=== PATIENT | female | born 1955 | race Caucasian/White ===

== ENCOUNTER 2016-12-08 13:03 | Inpatient (IN) | payer BC ==
--- NOTE | 2016-12-08 13:37 | EDM.PDOC ---
ED HPI GI/ABDOMINAL - General Chief Complaint: Abdominal Pain Stated Complaint: DIVERTICULITIS Time Seen by Provider: 12/08/16 13:36 Source of Information: Reports: Patient History Limitations: Reports: No limitations - History of Present Illness INITIAL COMMENTS - FREE TEXT/NARRATIVE: 61-year-old female presents to the ED at the request of her primary care physician Dr. Peg Fan. Laura seen through the [facility] yesterday and diagnosed with diverticulitis on the left side of the colon by CT examination. She was doing otherwise well and was thus sent home on oral medications. However overnight she developed fever chills and increasing abdominal pain. She was therefore sent to the ED for further workup and likely need for admission to the hospital.she is unable to eat. She had a small piece of banana only in the last 24 hours. Symptom Onset Date: 12/05/16 (pain became much worse left lower quadrant yesterday morning.) Timing/Duration: Reports: Day(s):, Gradual onset Location: LLQ Quality: Reports: ache, cramping, fullness Severity: severe Improves with: Denies: defecating Worsens with: Reports: sitting up. Denies: defecating Context: Reports: other (confirmed diverticulitis of the rectosigmoid junction on CT scan done yesterday). Denies: sick contact, bad/questionable food, out of country travel, recent surgery, recent trauma, lifting, activity/exercise Associated Symptoms (-Female): Reports: diarrhea (2 loose stools with mucus and blood.), bloody stools, loss of appetite, malaise, nausea/vomiting, other ( nausea without vomitingunable to eat at all since yesterday.). Denies: chest pain, back pain, groin pain, shoulder pain, constipation Treatments IMPORT COORDINATOR: Reports: Other (see below) - Related Data Allergies/ADRs: Allergies Allergy/AdvReac Type Severity Reaction Status Date / Time cefuroxime [From Ceftin] Allergy Cannot Verified 12/08/16 19:18 Remember clindamycin Allergy Cannot Verified 12/08/16 19:18 Remember nitrofurantoin Allergy Cannot Verified 12/08/16 19:18 [From Macrobid] Remember Penicillins Allergy unknown Verified 12/08/16 19:18 Sulfa (Sulfonamide Allergy Hives Verified 12/08/16 19:18 Antibiotics) zoster vaccine live Allergy Cannot Verified 12/08/16 19:18 [From Zostavax (PF)] Remember dust Allergy Cannot Uncoded 12/08/16 19:18 Remember Home Meds: Home Meds Aspirin [Adult Low Dose Aspirin EC] 81 mg PO DAILY 10/18/16 [History] Calcium Carbonate/Vitamin D3 [Calcium 500 + Vit D 400] 1 each PO BID 10/18/16 [ History] Calcium Polycarbophil [Fibercon] 625 mg PO BID 10/18/16 [History] Cetirizine [ZyrTEC] 10 mg PO BEDTIME 10/18/16 [History] Famotidine [Pepcid AC] 10 mg PO BID 10/18/16 [History] Levothyroxine [Synthroid] 25 mcg PO MOFR 10/18/16 [History] Levothyroxine [Synthroid] 50 mcg PO SUTUWETHSA 10/18/16 [History] Losartan [Cozaar] 25 mg PO DAILY 10/18/16 [History] Magnesium Oxide 400 mg PO BID 10/18/16 [History] Mycophenolate Mofetil 1,000 mg PO BID 10/18/16 [History] Probiotic Complex 25 Billion Cfu's 1 tab PO DAILY 10/18/16 [History] Simvastatin [Zocor] 10 mg PO BEDTIME 10/18/16 [History] Tacrolimus 0.5 mg PO BID 10/18/16 [History] Ultra Wil 50 Plus. 1 tab PO DAILY 10/18/16 [History] busPIRone [Buspar] 7.5 mg PO BID 10/18/16 [History] Acetaminophen [Tylenol] 500 mg PO Q6H PRN 12/08/16 [History] Albuterol [Proventil HFA] 2 puff INH Q4H PRN 12/08/16 [History] Carvedilol [Coreg] 3.125 mg PO BID 12/08/16 [History] LORazepam [Ativan] 0.5 mg PO Q12H PRN 12/08/16 [History] Pantoprazole [Protonix] 40 mg PO DAILY 12/08/16 [History] metroNIDAZOLE [Flagyl] 500 mg PO TID #0 12/12/16 [Rx] Past Medical History HEENT History: Reports: Cataract, Impaired vision Other HEENT History: Wears glasses, braces Cardiovascular History: Reports: Afib, Arrhythmia, Automatic implantable cardioverter defibrillators, Cardiomyopathy, High cholesterol, Hypertension Other Cardiovascular History: heart transplant in 2008: prior to transplant had asystole, mitral and aortic valce insufficeincy, afib, cardiomyopathy Gastrointestinal History: Reports: Chronic diarrhea, Colon polyp, Diverticulosis , GERD, Other (see below) Other Gastrointestinal History: hematochezia, abdominal pain Genitourinary History: Reports: UTI, recurrent Musculoskeletal History: Reports: Other (see below) Other Musculoskeletal History: muslce spasms Neurological History: Reports: Migraines, Vertigo Psychiatric History: Reports: Anxiety, Depression Endocrine/Metabolic History: Reports: Hypothyroidism Immunologic History: Reports: Solid organ transplant Dermatologic History: Reports: Psoriasis - Past Surgical History GI Surgical History: Reports: Appendectomy, Cholecystectomy, Colonoscopy Social & Family History - Family History Family Medical History: Noncontributory Cardiac: Reports: Heart failure, [place] - Tobacco Use Smoking Status *Q: Never Smoker Years of Tobacco use: 30 Packs/Tins Daily: 0.5 Month Tobacco Last Used: 2002 Second Hand Smoke Exposure: No - Caffeine Use Caffeine Use: Reports: Coffee - Alcohol Use Days Per Week of Alcohol Use: 0 Number of Drinks Per Day: 0 Total Drinks Per Week: 0 - Recreational Drug Use Recreational Drug Use: No Drug Use in Last 12 Months: No - Living Situation & Occupation Living situation: Reports: single Occupation: employed ED ROS GENERAL - Review of Systems Review Of Systems: See Below Constitutional: Reports: fever, chills, malaise, weakness, fatigue, decreased appetite. Denies: weight loss HEENT: Reports: No symptoms Respiratory: Reports: No Symptoms Cardiovascular: Reports: No symptoms Endocrine: Reports: fatigue GI/Abdominal: Reports: Abdominal pain (see history of present illness), Diarrhea (loose stools with a little bit of mucus and blood.), Decreased appetite, Mucous in stool, Nausea. Denies: Melena, Vomiting : Reports: no symptoms Musculoskeletal: Reports: no symptoms Skin: Reports: no symptoms Neurological: Reports: No Symptoms Psychiatric: Reports: No symptoms Hematologic/Lymphatic: Reports: no symptoms Immunologic: Reports: no symptoms ED EXAM, GI/ABD - Physical Exam Exam: See Below Exam Limited By: No limitations General Appearance: alert, WD/WN, moderate distress, other (appears ill) Eyes: bilateral: normal appearance (no jaundice) Throat/Mouth: Normal lips, Other (tongue is dry and coated) Head: atraumatic, normocephalic Neck: normal inspection, supple, non-tender, full range of motion. No: lymphadenopathy (L), lymphadenopathy (R) Respiratory/Chest: no respiratory distress, lungs clear, normal breath sounds, no accessory muscle use Cardiovascular: normal peripheral pulses, regular rate, rhythm (100 with 100% paced rhythm at 60 per minute is a heart transplantation x9 years), no edema, no gallop, no murmur, no rub GI/Abdominal: no organomegaly, hyperactive bowel sounds, tenderness (even to light percussion throughout the left lower quadrant and suprapubic abdomen.), distention (diffusely today to percussion.), guarding (suprapubically and left lower quadrant.), rebound (suprapubically and left lower quadrant.). No: rigidity, splenomegaly Back Exam: normal inspection, full range of motion. No: CVA tenderness (L), CVA tenderness (R) Extremities: normal inspection, normal range of motion, non-tender, no pedal edema, normal capillary refill Neurological: alert, oriented, CN II-XII intact, normal cognition, normal gait Psychiatric: normal affect, normal mood Skin Exam: Warm, Dry, Intact, Normal color, No rash EKG INTERPRETATION EKG Date: 12/08/16 Time: 14:40 Rhythm: other (100% ventricular paced rhythm at 60 per minute. No further analysis attempted.) Course - Vital Signs Last Recorded V/S: Last Vital Signs Temp 36.7 C 12/12/16 15:42 Pulse 94 12/12/16 15:42 Resp 18 12/12/16 15:42 BP 107/75 12/12/16 15:42 Pulse Ox 93 L 12/12/16 15:42 - Orders/Labs/Meds Orders: Medication Orders Acetaminophen (Tylenol) 650 mg PO Q4H PRN PRN Reason: Pain (Mild 1-3)/fever Last Admin: 12/12/16 11:42 Dose: 650 mg Admin: 12/11/16 03:11 Dose: 650 mg Acetaminophen/Hydrocodone Bitart ([place] 325-5 Mg) 1 tab PO Q4H PRN PRN Reason: Pain (moderate 4-6) Last Admin: 12/12/16 07:30 Dose: 1 tab Admin: 12/11/16 23:34 Dose: 1 tab Admin: 12/11/16 16:18 Dose: 1 tab Admin: 12/08/16 21:23 Dose: 1 tab Albuterol (Proventil Hfa) 0 gm INH Q4H PRN PRN Reason: Wheezing Albuterol/Ipratropium (Duoneb 3.0-0.5 Mg/3 Ml) 3 ml NEB Q4H PRN PRN Reason: Shortness Of Breath/wheezing Aspirin (Halfprin) 81 mg PO DAILY [facility] Last Admin: 12/12/16 09:25 Dose: 81 mg Admin: 12/11/16 08:50 Dose: 81 mg Admin: 12/10/16 09:26 Dose: 81 mg Admin: 12/09/16 08:54 Dose: 81 mg Buspirone HCl (Buspar) 7.5 mg PO BID [facility] Last Admin: 12/12/16 09:23 Dose: 7.5 mg Admin: 12/11/16 21:25 Dose: 7.5 mg Admin: 12/11/16 08:48 Dose: 7.5 mg Admin: 12/10/16 23:34 Dose: Not Given Admin: 12/10/16 09:26 Dose: 7.5 mg Admin: 12/09/16 20:51 Dose: 7.5 mg Admin: 12/09/16 08:54 Dose: 7.5 mg Admin: 12/08/16 21:15 Dose: 7.5 mg Calcium Polycarbophil (Fibercon) 625 mg PO BID [facility] Last Admin: 12/12/16 09:31 Dose: 625 mg Admin: 12/11/16 21:24 Dose: Not Given Admin: 12/11/16 08:53 Dose: Admin: 12/10/16 23:34 Dose: Not Given Admin: 12/10/16 09:26 Dose: 625 mg Admin: 12/09/16 20:53 Dose: 625 mg Admin: 12/09/16 08:53 Dose: 625 mg Admin: 12/08/16 21:18 Dose: 625 mg Carvedilol (Coreg) 3.125 mg PO BID [facility] Last Admin: 12/12/16 09:25 Dose: 3.125 mg Admin: 12/11/16 21:26 Dose: Not Given Admin: 12/11/16 08:46 Dose: 3.125 mg Admin: 12/10/16 23:34 Dose: Not Given Admin: 12/10/16 09:26 Dose: 3.125 mg Admin: 12/09/16 20:52 Dose: 3.125 mg Admin: 12/09/16 08:54 Dose: 3.125 mg Admin: 12/08/16 21:17 Dose: 3.125 mg Famotidine (Pepcid) 10 mg PO BID [facility] Last Admin: 12/12/16 09:24 Dose: 10 mg Admin: 12/11/16 21:28 Dose: 10 mg Admin: 12/11/16 08:49 Dose: 10 mg Admin: 12/10/16 23:34 Dose: Not Given Admin: 12/10/16 09:26 Dose: 10 mg Admin: 12/09/16 20:51 Dose: 10 mg Admin: 12/09/16 08:53 Dose: 10 mg Admin: 12/08/16 21:16 Dose: 10 mg Guaifenesin/Phenylephrine HCl (Robitussin Dm) 10 ml PO QID PRN PRN Reason: Cough Last Admin: 12/11/16 03:38 Dose: 10 ml Admin: 12/10/16 21:53 Dose: 10 ml Admin: 12/10/16 13:57 Dose: 10 ml Hydralazine HCl (Apresoline) 20 mg IVPUSH Q4H PRN PRN Reason: Hypertension Hydromorphone HCl (Dilaudid) 0.5 mg IVPUSH Q3H PRN PRN Reason: Pain (severe 7-10) Last Admin: 12/08/16 17:49 Dose: 0.5 mg Promethazine HCl 12.5 mg/ (Sodium Chloride) 50.5 mls @ 100 mls/hr IV Q6H PRN PRN Reason: Nausea/Vomiting Metronidazole 500 mg/ Premix 100 mls @ 100 mls/hr IV Q8H [facility] Last Admin: 12/12/16 14:35 Dose: 100 mls/hr Infusion: 12/12/16 07:00 Dose: 100 mls/hr Admin: 12/12/16 06:00 Dose: 100 mls/hr Infusion: 12/11/16 22:18 Dose: 100 mls/hr Admin: 12/11/16 21:18 Dose: 100 mls/hr Infusion: 12/11/16 14:26 Dose: 100 mls/hr Admin: 12/11/16 13:26 Dose: 100 mls/hr Infusion: 12/11/16 07:09 Dose: 100 mls/hr Admin: 12/11/16 06:09 Dose: 100 mls/hr Infusion: 12/10/16 22:57 Dose: 100 mls/hr Admin: 12/10/16 21:57 Dose: 100 mls/hr Infusion: 12/10/16 14:57 Dose: 100 mls/hr Admin: 12/10/16 13:57 Dose: 100 mls/hr Infusion: 12/10/16 07:17 Dose: 100 mls/hr Admin: 12/10/16 06:17 Dose: 100 mls/hr Infusion: 12/09/16 22:00 Dose: 100 mls/hr Admin: 12/09/16 21:00 Dose: 100 mls/hr Infusion: 12/09/16 16:14 Dose: 100 mls/hr Admin: 12/09/16 15:14 Dose: 100 mls/hr Infusion: 12/09/16 06:53 Dose: 100 mls/hr Admin: 12/09/16 05:53 Dose: 100 mls/hr Infusion: 12/08/16 22:18 Dose: 100 mls/hr Admin: 12/08/16 21:18 Dose: 100 mls/hr Levofloxacin/Dextrose 250 mg/ (Premix) 50 mls @ 50 mls/hr IV Q24H [facility] Last Admin: 12/12/16 15:41 Dose: 50 mls/hr Infusion: 12/11/16 17:18 Dose: 50 mls/hr Admin: 12/11/16 16:18 Dose: 50 mls/hr Infusion: 12/10/16 16:09 Dose: 50 mls/hr Admin: 12/10/16 15:09 Dose: 50 mls/hr Dextrose/Sodium Chloride (Dextrose 5%-Normal Saline) 1,000 mls @ 50 mls/hr IV ASDIRECTED [facility] Last Admin: 12/11/16 23:35 Dose: 50 mls/hr Magnesium Sulfate 2 gm/ Premix 50 mls @ 25 mls/hr IV ONETIME ONE Stop: 12/12/16 21:59 Levothyroxine Sodium (Synthroid) 25 mcg PO MoFr@0600 [facility] Last Admin: 12/11/16 06:10 Dose: 25 mcg Levothyroxine Sodium (Synthroid) 50 mcg PO SuTuWeThSa@0600 [facility] Last Admin: 12/12/16 06:00 Dose: 50 mcg Admin: 12/10/16 06:18 Dose: 50 mcg Admin: 12/09/16 05:53 Dose: 50 mcg Loratadine (Claritin) 10 mg PO BEDTIME [facility] Last Admin: 12/11/16 21:30 Dose: 10 mg Admin: 12/10/16 23:34 Dose: Not Given Admin: 12/09/16 20:50 Dose: 10 mg Admin: 12/08/16 21:17 Dose: 10 mg Lorazepam (Ativan) 0.5 mg PO Q12H PRN PRN Reason: Anxiety Last Admin: 12/12/16 11:43 Dose: 0.5 mg Admin: 12/11/16 03:38 Dose: 0.5 mg Lorazepam (Ativan) 1 mg IV Q6H PRN PRN Reason: Nausea/Vomiting Last Admin: 12/11/16 12:41 Dose: 1 mg Admin: 12/10/16 22:52 Dose: 1 mg Admin: 12/10/16 16:58 Dose: 1 mg Admin: 12/10/16 09:27 Dose: 1 mg Admin: 12/09/16 20:50 Dose: 1 mg Admin: 12/09/16 16:36 Dose: 1 mg Admin: 12/09/16 10:22 Dose: 1 mg Admin: 12/09/16 04:27 Dose: 1 mg Losartan Potassium (Cozaar) 25 mg PO DAILY [facility] Last Admin: 12/12/16 09:26 Dose: 25 mg Admin: 12/11/16 08:49 Dose: 25 mg Admin: 12/10/16 09:27 Dose: 25 mg Admin: 12/09/16 08:54 Dose: 25 mg Magnesium Oxide (Magnesium Oxide) 800 mg PO BID [facility] Last Admin: 12/12/16 09:25 Dose: 800 mg Admin: 12/11/16 21:30 Dose: 800 mg Admin: 12/11/16 08:46 Dose: 800 mg Admin: 12/10/16 23:34 Dose: Not Given Admin: 12/10/16 12:56 Dose: 800 mg Magnesium Sulfate (Pharmacy To Dose - Magnesium Replacement) 0 dose .XX ASDIRECTED PRN PRN Reason: RX TO MONITOR MAG LEVELS Metoprolol Tartrate (Lopressor) 5 mg IVPUSH Q4H PRN PRN Reason: Tachycardia Mycophenolate 500mg (TabOwn Med) 2 each PO BID [facility] Last Admin: 12/12/16 09:26 Dose: 2 each Admin: 12/11/16 21:32 Dose: 2 each Admin: 12/11/16 08:54 Dose: 2 each Admin: 12/10/16 21:55 Dose: 2 each Admin: 12/10/16 09:28 Dose: 2 each Admin: 12/09/16 21:06 Dose: 2 each Admin: 12/09/16 08:56 Dose: 2 each Admin: 12/08/16 21:54 Dose: 2 each Ondansetron HCl (Zofran) 4 mg IV Q6H PRN PRN Reason: Nausea/Vomiting Last Admin: 12/10/16 19:34 Dose: 4 mg Admin: 12/10/16 09:25 Dose: 4 mg Admin: 12/09/16 04:27 Dose: 4 mg Ondansetron HCl (Zofran Odt) 4 mg PO Q4H PRN PRN Reason: Nausea/Vomiting Last Admin: 12/12/16 15:40 Dose: 4 mg Pantoprazole Sodium (Protonix) 40 mg PO DAILY@0700 [facility] Last Admin: 12/12/16 06:00 Dose: 40 mg Admin: 12/11/16 06:09 Dose: 40 mg Admin: 12/10/16 06:17 Dose: 40 mg Admin: 12/09/16 07:01 Dose: Admin: 12/09/16 05:54 Dose: 40 mg Tacrolimus 0.5 Mg (Tab Own Med) 0 each PO BID [facility] Last Admin: 12/12/16 09:27 Dose: 4 each Admin: 12/11/16 21:31 Dose: 4 each Admin: 12/11/16 08:54 Dose: 4 each Admin: 12/10/16 21:56 Dose: 4 each Admin: 12/10/16 09:29 Dose: 4 each Admin: 12/09/16 21:06 Dose: 5 each Admin: 12/09/16 10:24 Dose: 4 each Calcium Carbonate/Vitamin D3 600 Mg/400 Units Tab Own Med 0 each PO BID [facility] Last Admin: 12/12/16 09:27 Dose: 1 each Admin: 12/11/16 21:32 Dose: 1 each Admin: 12/11/16 08:54 Dose: 1 each Admin: 12/10/16 23:34 Dose: Not Given Admin: 12/10/16 09:29 Dose: 1 each Admin: 12/09/16 21:06 Dose: 1 each Admin: 12/09/16 10:25 Dose: 1 each Potassium Chloride (Pharmacy To Dose - Potassium Replacement) 0 dose .XX ASDIRECTED PRN PRN Reason: RX TO MONITOR K LEVELS Promethazine HCl (Phenergan) 12.5 mg PO Q6H PRN PRN Reason: Nausea/Vomiting Saccharomyces Boulardii (Florastor) 250 mg PO DAILY [facility] Last Admin: 12/12/16 09:23 Dose: 250 mg Admin: 12/11/16 08:50 Dose: 250 mg Admin: 12/10/16 09:25 Dose: 250 mg Admin: 12/09/16 08:53 Dose: 250 mg Simvastatin (Zocor) 10 mg PO BEDTIME [facility] Last Admin: 12/11/16 21:33 Dose: 10 mg Admin: 12/10/16 23:35 Dose: Not Given Admin: 12/09/16 20:51 Dose: 10 mg Admin: 12/08/16 21:15 Dose: 10 mg Temazepam (Restoril) 30 mg PO BEDTIME PRN PRN Reason: Sleep Vit A/Vit C/Vit E/Selen/Cu/Zn/Lutei (Icaps Mv) 1 tab PO DAILY [facility] Last Admin: 12/12/16 09:23 Dose: 1 tab Admin: 12/11/16 08:46 Dose: 1 tab Admin: 12/10/16 09:25 Dose: 1 tab Admin: 12/09/16 08:53 Dose: 1 tab Labs: Laboratory Tests 12/08/16 12/08/16 12/08/16 Range/Units 14:25 14:25 14:25 WBC 11.10 H (3.98-10.04) K/mm3 RBC 4.07 (3.98-5.22) M/mm3 Hgb 11.5 (11.2-15.7) gm/L Hct 35.0 (34.1-44.9) % MCV 86.0 (79.4-94.8) fl MCH 28.3 (25.6-32.2) pg MCHC 32.9 (32.2-35.5) g/dl RDW Std Deviation 38.7 (36.4-46.3) fL Plt Count 245 (182-369) K/mm3 MPV 10.6 (9.4-12.3) fl Neutrophils % (Manual) 64 H (40-60) % Band Neutrophils % 0 (0-10) % Lymphocytes % (Manual) 31 (20-40) % Atypical Lymphs % 0 % Monocytes % (Manual) 1 L (2-10) % Eosinophils % (Manual) 4 (0.7-5.8) % Basophils % (Manual) 0 L (0.1-1.2) Platelet Estimate Adequate Anisocytosis 1+ slight RBC Morph Comment Not Reportable PT 10.5 (8.0-13.0) SECONDS INR 0.97 Sodium 134 L (136-145) mEq/L Potassium 4.3 (3.5-5.1) mEq/L Chloride 97 L (98-107) mEq/L Carbon Dioxide 29 (21-32) mEq/L Anion Gap 12.3 (5-15) BUN 22 H (7-18) mg/dL Creatinine 1.3 H (0.55-1.02) mg/dL Est Cr Clr Drug Dosing 44.19 mL/min Estimated GFR (MDRD) 42 (>60) mL/min BUN/Creatinine Ratio 16.9 (14-18) Glucose 96 (80-115) mg/dL Calcium 9.2 (8.5-10.1) mg/dL Magnesium 1.6 L (1.8-2.4) mg/dl Total Bilirubin 0.6 (0.2-1.0) mg/dL AST 25 (15-37) U/L ALT 37 (14-59) U/L Alkaline Phosphatase 142 H (46-116) U/L C-Reactive Protein 8.9 H* (<1.0) mg/dL B-Natriuretic Peptide (0-100) pg/mL Total Protein 7.2 (6.4-8.2) g/dl Albumin 3.5 (3.4-5.0) g/dl Globulin 3.7 gm/dL Albumin/Globulin Ratio 1.0 (1-2) Lipase 139 (73-393) U/L 12/08/16 Range/Units 14:25 WBC (3.98-10.04) K/mm3 RBC (3.98-5.22) M/mm3 Hgb (11.2-15.7) gm/L Hct (34.1-44.9) % MCV (79.4-94.8) fl MCH (25.6-32.2) pg MCHC (32.2-35.5) g/dl RDW Std Deviation (36.4-46.3) fL Plt Count (182-369) K/mm3 MPV (9.4-12.3) fl Neutrophils % (Manual) (40-60) % Band Neutrophils % (0-10) % Lymphocytes % (Manual) (20-40) % Atypical Lymphs % % Monocytes % (Manual) (2-10) % Eosinophils % (Manual) (0.7-5.8) % Basophils % (Manual) (0.1-1.2) Platelet Estimate Anisocytosis RBC Morph Comment PT (8.0-13.0) SECONDS INR Sodium (136-145) mEq/L Potassium (3.5-5.1) mEq/L Chloride (98-107) mEq/L Carbon Dioxide (21-32) mEq/L Anion Gap (5-15) BUN (7-18) mg/dL Creatinine (0.55-1.02) mg/dL Est Cr Clr Drug Dosing mL/min Estimated GFR (MDRD) (>60) mL/min BUN/Creatinine Ratio (14-18) Glucose (80-115) mg/dL Calcium (8.5-10.1) mg/dL Magnesium (1.8-2.4) mg/dl Total Bilirubin (0.2-1.0) mg/dL AST (15-37) U/L ALT (14-59) U/L Alkaline Phosphatase (46-116) U/L C-Reactive Protein (<1.0) mg/dL B-Natriuretic Peptide 59 (0-100) pg/mL Total Protein (6.4-8.2) g/dl Albumin (3.4-5.0) g/dl Globulin gm/dL Albumin/Globulin Ratio (1-2) Lipase (73-393) U/L Meds: Medications Generic Name Dose Route Start Last Admin Trade Name Freq PRN Reason Stop Dose Admin Acetaminophen 650 mg 12/08/16 17:25 12/12/16 11:42 Tylenol PO 650 mg Q4H PRN Administration Pain (Mild 1-3)/fever Acetaminophen/Hydrocodone Bitart 1 tab 12/08/16 17:25 12/12/16 07:30 [place] 325-5 Mg PO 1 tab Q4H PRN Administration Pain (moderate 4-6) Albuterol 0 gm 12/08/16 17:26 Proventil Hfa INH Q4H PRN Wheezing Albuterol/Ipratropium 3 ml 12/08/16 17:25 Duoneb 3.0-0.5 Mg/3 Ml NEB Q4H PRN Shortness Of Breath/wheezing Aspirin 81 mg 12/09/16 09:00 12/12/16 09:25 Halfprin PO 81 mg DAILY [facility] Administration Buspirone HCl 7.5 mg 12/08/16 21:00 12/12/16 09:23 Buspar PO 7.5 mg BID [facility] Administration Calcium Polycarbophil 625 mg 12/08/16 21:00 12/12/16 09:31 Fibercon PO 625 mg BID [facility] Administration Carvedilol 3.125 mg 12/08/16 21:00 12/12/16 09:25 Coreg PO 3.125 mg BID [facility] Administration Famotidine 10 mg 12/08/16 21:00 12/12/16 09:24 Pepcid PO 10 mg BID [facility] Administration Guaifenesin/Phenylephrine HCl 10 ml 12/10/16 12:59 12/11/16 03:38 Robitussin Dm PO 10 ml QID PRN Administration Cough Hydralazine HCl 20 mg 12/08/16 17:31 Apresoline IVPUSH Q4H PRN Hypertension Hydromorphone HCl 0.5 mg 12/08/16 17:25 12/08/16 17:49 Dilaudid IVPUSH 0.5 mg Q3H PRN Administration Pain (severe 7-10) Promethazine HCl 12.5 mg/ 50.5 mls @ 100 mls/hr 12/08/16 17:25 Sodium Chloride IV Q6H PRN Nausea/Vomiting Metronidazole 500 mg/ Premix 100 mls @ 100 mls/hr 12/08/16 22:00 12/12/16 14: 35 IV 100 mls/hr Q8H [facility] Administration Levofloxacin/Dextrose 250 mg/ 50 mls @ 50 mls/hr 12/10/16 16:00 12/12/16 15: 41 Premix IV 50 mls/hr Q24H [facility] Administration Dextrose/Sodium Chloride 1,000 mls @ 50 mls/hr 12/11/16 18:00 12/11/16 23:35 Dextrose 5%-Normal Saline IV 50 mls/hr ASDIRECTED [facility] Administration Magnesium Sulfate 2 gm/ Premix 50 mls @ 25 mls/hr 12/12/16 20:00 IV 12/12/16 21:59 ONETIME ONE Levothyroxine Sodium 25 mcg 12/11/16 06:00 12/11/16 06:10 Synthroid PO 25 mcg MoFr@0600 [facility] Administration Levothyroxine Sodium 50 mcg 12/09/16 06:00 12/12/16 06:00 Synthroid PO 50 mcg SuTuWeThSa@0600 [facility] Administration Loratadine 10 mg 12/08/16 21:00 12/11/16 21:30 Claritin PO 10 mg BEDTIME [facility] Administration Lorazepam 0.5 mg 12/08/16 17:26 12/12/16 11:43 Ativan PO 0.5 mg Q12H PRN Administration Anxiety Lorazepam 1 mg 12/08/16 17:25 12/11/16 12:41 Ativan IV 1 mg Q6H PRN Administration Nausea/Vomiting Losartan Potassium 25 mg 12/09/16 09:00 12/12/16 09:26 Cozaar PO 25 mg DAILY [facility] Administration Magnesium Oxide 800 mg 12/10/16 11:15 12/12/16 09:25 Magnesium Oxide PO 800 mg BID [facility] Administration Magnesium Sulfate 0 dose 12/08/16 17:45 Pharmacy To Dose - Magnesium Replacement .XX ASDIRECTED PRN RX TO MONITOR MAG LEVELS Metoprolol Tartrate 5 mg 12/08/16 17:31 Lopressor IVPUSH Q4H PRN Tachycardia Mycophenolate 500mg 2 each 12/08/16 22:00 12/12/16 09:26 TabOwn Med PO 2 each BID EDUARDO Administration Ondansetron HCl 4 mg 12/08/16 17:25 12/10/16 19:34 Zofran IV 4 mg Q6H PRN Administration Nausea/Vomiting Ondansetron HCl 4 mg 12/11/16 08:07 12/12/16 15:40 Zofran Odt PO 4 mg Q4H PRN Administration Nausea/Vomiting Pantoprazole Sodium 40 mg 12/09/16 07:00 12/12/16 06:00 Protonix PO 40 mg DAILY@0700 EDUARDO Administration Tacrolimus 0.5 Mg 0 each 12/09/16 09:21 12/12/16 09:27 Tab Own Med PO 4 each BID EDUARDO Administration Calcium Carbonate/ 0 each 12/09/16 09:23 12/12/16 09:27 Vitamin D3 600 Mg/ PO 1 each 400 Units Tab Own BID EDUARDO Administration Med Potassium Chloride 0 dose 12/08/16 17:45 Pharmacy To Dose - Potassium Replacement .XX ASDIRECTED PRN RX TO MONITOR K LEVELS Promethazine HCl 12.5 mg 12/11/16 08:07 Phenergan PO Q6H PRN Nausea/Vomiting Saccharomyces Boulardii 250 mg 12/09/16 09:00 12/12/16 09:23 Florastor PO 250 mg DAILY EDUARDO Administration Simvastatin 10 mg 12/08/16 21:00 12/11/16 21:33 Zocor PO 10 mg BEDTIME EDUARDO Administration Temazepam 30 mg 12/08/16 17:25 Restoril PO BEDTIME PRN Sleep Vit A/Vit C/Vit E/Selen/Cu/Zn/Lutei 1 tab 12/09/16 09:00 12/12/16 09:23 Icaps Mv PO 1 tab DAILY EDUARDO Administration Discontinued Medications Generic Name Dose Route Start Last Admin Trade Name Freq PRN Reason Stop Dose Admin Acetaminophen 500 mg 12/08/16 17:26 Tylenol PO Q6H PRN Pain Bumetanide 0.5 mg 12/11/16 17:13 12/11/16 17:39 Bumex IVPUSH 12/11/16 17:14 0.5 mg ONETIME ONE Administration Diphtheria/Tetanus/Acell Pertussis 0.5 ml 12/11/16 09:32 Boostrix IM 12/11/16 09:33 .ONCE ONE Enoxaparin Sodium 40 mg 12/09/16 09:00 12/10/16 09:27 Lovenox SUBCUT 40 mg DAILY EDUARDO Administration Hydromorphone HCl 0.5 mg 12/08/16 14:17 12/08/16 14:53 Dilaudid IVPUSH 12/08/16 14:18 0.5 mg ONETIME ONE Administration Dextrose/Sodium Chloride 1,000 mls @ 150 mls/hr 12/08/16 14:15 12/11/16 14:16 Dextrose 5%-Normal Saline IV 150 mls/hr ASDIRECTED EDUARDO Administration Levofloxacin/Dextrose 750 mg/ 150 mls @ 100 mls/hr 12/08/16 14:17 12/08/16 16 :23 Premix IV 12/08/16 15:46 100 mls/hr ONETIME ONE Administration Metronidazole 500 mg/ Premix 100 mls @ 100 mls/hr 12/08/16 14:18 12/08/16 15: 16 IV 12/08/16 15:17 100 mls/hr ONETIME ONE Administration Levofloxacin/Dextrose 500 mg/ 100 mls @ 100 mls/hr 12/09/16 16:00 12/09/16 15 :14 Premix IV 12/09/16 16:59 100 mls/hr ONETIME ONE Administration Magnesium Sulfate 2 gm/ Premix 50 mls @ 25 mls/hr 12/08/16 18:26 12/08/16 22: 32 IV 12/08/16 20:25 25 mls/hr ONETIME ONE Administration Magnesium Sulfate Confirm 12/08/16 21:10 12/08/16 21:23 Magnesium Sulfate 2 Gm In Water 50 Ml Administered 12/08/16 21:11 Not Given Dose 50 mls @ as directed .ROUTE .STK-MED ONE Magnesium Sulfate 2 gm/ Premix 50 mls @ 25 mls/hr 12/11/16 09:00 12/11/16 08: 45 IV 12/11/16 10:59 25 mls/hr ONETIME ONE Administration Magnesium Sulfate 2 gm/ Premix 50 mls @ 25 mls/hr 12/12/16 12:00 12/12/16 11: 42 IV 12/12/16 13:59 25 mls/hr ONETIME ONE Administration Magnesium Oxide 400 mg 12/08/16 21:00 12/10/16 09:26 Magnesium Oxide PO 400 mg BID EDUARDO Administration Mycophenolate Mofetil 1,000 mg 12/08/16 21:00 12/08/16 23:32 Cellcept PO Not Given BID [facility] Calcium Carbonate/ 1 each 12/08/16 21:00 12/09/16 10:26 Vitamin D3 500 Mg/ PO Not Given 400 Units Tab Own BID EDUARDO Med Tacrolimus 0.5 Mg 0 mg 12/08/16 21:00 12/09/16 10:26 Tab Own Med PO Not Given BID [facility] Ondansetron HCl 4 mg 12/08/16 14:17 12/08/16 14:57 Zofran IVPUSH 12/08/16 14:18 4 mg ONETIME ONE Administration - Radiology Interpretation Free Text/Narrative:: 61-year-old female presents the ED for further evaluation of diffuse lower abdominal and now left upper abdominal pain. She was [facility] yesterday by Dr. Peg Fan and identified on CT scan to have diverticulitis of the rectosigmoid junction. There was no free air in overall she was feeling fairly well. She did have a history of fever chills and rigors however the night before. Pain started left midabdomen upon awakening on SundayDecember 05. By yesterday morning it was severe in the left lower quadrant characteristic of what she's experienced 3 times before. She was started on metronidazole orally and Cipro 500 twice daily. She is taken 3 tablets of the metronidazole and 2 of Cipro tabs. Marked anorexia with nausea and unable to eat she always had a small piece of banana in the last 24 hours. Pain it has gradually increased in her abdomen over the last 24 hours to the point it is difficult to walk and appreciates every bump in the road while sitting in a vehicle. She is having some loose stools with a small quantity of mucus and blood. These do not give her any relief of the pain. Hurts worse to cough or laugh or to sit up. Examination reveals diffuse tenderness even to percussion in the left hemiabdomen left lower quadrant and suprapubic area. There is guarding and rebound tenderness characteristic of peritonitis. She was afebrile on my initial assessment.heart rate was 99 mildly tachypneic at 20. Plan she will have IV D5 normal saline started at [address] head without contrast to make sure that she has not perforated with free air evident. Routine labs including blood cultures x2 were ordered. She'll be started on Levaquin 750 mg IV followed by Flagyl 500 mg IV. - Re-Assessments/Exams Free Text/Narrative Re-Assessment/Exam: 12/08/16 15:45:CT of the abdomen is compared to the CT sent over from [facility] is essentially unchanged. There is no free air there is extensive diverticulitis of the rectosigmoid junction comparable to yesterday's findings. I see no inflammatory phlegmon to suggest an abscess development. Lab work shows an improved white count at 11.10 today it was 15,000 yesterday hemoglobin is 11.5 hematocrit is 35.0 platelets 245,000. Coags are normal. Sodium 134 potassium 4.3 chloride 99 bicarbonate 29. BUN is 22 creatinine 1.3 and patient is a bit low at 1.6 discussed the use of Slow-Mag 2 tablets daily to keep her magnesium level around 2 or 2.222 her heart transplant. CRP today is 8.9 BNP was normal at 89. Alk phosphatase is mildly elevated at 142. Case discussed with Dr. Chaudhary web content director hospitalist the patient will be admitted to the [facility] surgery floor.. Departure - Departure Time of Disposition: 16:15 Disposition: Admitted As Inpatient 66 Condition: fair Clinical Impression: Diverticulitis
[2016-12-08] MEDS ORDERED: Ondansetron 4 MG/2 ML SDV IVPUSH ONE (14:17)
[2016-12-08] MEDS ORDERED: Levofloxacin/Dextrose 5%-Water 750 MG in Premix Bag 1 BAG IV ONE (14:17)
[2016-12-08] MEDS ORDERED: HYDROmorphone 0.5 MG/0.5 ML Syringe IVPUSH ONE (14:17)
[2016-12-08] MEDS ORDERED: metroNIDAZOLE/Normal Saline 500 MG in Premix Bag 1 BAG IV ONE (14:18)
--- NOTE | 2016-12-08 14:36 | CR ---
Chest: Portable view of the chest was obtained. Comparison: Previous chest x-ray 10/18/16. Heart size is mildly enlarged. Previous sternotomy is noted. AICD wire is seen which is disconnected which is stable. Lungs are clear with no acute infiltrates. Bony structures are grossly intact. Impression: 1. Incidental findings which are stable from prior exam. Nothing acute is identified. Diagnostic code #2
[2016-12-08] MEDS: Dextrose 5%-0.9% NaCl 1,000 ML IV SCH (15:16)
--- NOTE | 2016-12-08 15:43 | CT ---
CT abdomen and pelvis Technique: Multiple axial sections were obtained from above the dome of the diaphragm inferiorly through the pubic symphysis. Intravenous contrast not utilized. Small amount of oral contrast is seen which is colonic in location. Comparison: Previous CT study of 12/07/16, 03/25/[address] abdomen and pelvis study of 12/25/09. Findings: Inflammatory change and bowel wall thickening is seen within the lower sigmoid colon. This occurs in an area of diverticulosis and findings felt compatible with diverticulitis. No fluid collections are seen to indicate abscess. Cyst noted within the left ovary measuring approximately 2.6 cm. Visualized lung bases are clear. Liver and spleen shows no focal abnormality. Adrenal glands show no nodule. Surgical clips are seen from prior cholecystectomy. Pancreas is within normal limits. Kidneys show no abnormal calcifications or hydronephrosis. No retroperitoneal adenopathy or mesenteric abnormalities are seen. No additional pelvic abnormality is seen. Impression: 1. Inflammatory change in bowel wall thickening within the lower sigmoid colon near the rectosigmoid junction. Diverticuli seen in this area and findings are compatible with diverticulitis. No abscess seen this time. Findings are similar to prior study of 12/07/16. 2. Small cyst within the left ovary. This cyst has been seen on multiple old studies and is felt to be incidental even though slightly increased in size. 3. Other incidental findings. Diagnostic code #3 MTDD
[2016-12-08] MEDS ORDERED: Albuterol/Ipratropium 3.0-0.5 MG/3 ML Neb Soln NEB PRN (17:25)
[2016-12-08] MEDS ORDERED: Promethazine 12.5 MG in Sodium Chloride 0.9% 50 ML IV PRN (17:25)
[2016-12-08] MEDS ORDERED: HYDROmorphone 0.5 MG/0.5 ML Syringe IVPUSH PRN (17:25)
[2016-12-08] MEDS ORDERED: Temazepam 15 MG Cap PO PRN (17:25)
--- NOTE | 2016-12-08 17:25 | PCM.HP ---
H&P History of Present Illness - General Date of Service: 12/08/16 Admit Problem/Dx: Admission Diagnosis/Problem Admission Diagnosis/Problem Diverticulitis Source of Information: Patient, Old records, RN notes reviewed History Limitations: Reports: No limitations - History of Present Illness Initial Comments - Free Text/Narative: This is a 61 yo white female with past medical hx/o heart transplant 11/02 Cardiomyopathy, HLD, HTN, Hx/o PAF, Hypothyroidism, Chronic Diarrhea, GERD, Chronic Muscle spasm, Migraine HAs, Vertigo, Anxiety and Depression who comes in with complaints of left lower quadrant pain that started yesterday morning. She was initially seen by her PCP and was given appropriate oral antibiotics. However overnight she developed fever and chills and worsening abdominal pain. Therefore she was sent over to ED for further work up possible admission. She describes her pain as crampy/achy associated with abdominal fullness, nausea , vomiting, reduced appetite and malaise. She denies having diarrhea. She is however passing gas. Patient carries a hx/o diverticulosis. She has had 3 attacks in the past. Her initial work up in ED shows a fairly unremarkable CBC. Her chemistry is significant for Na 134, Cl 97, BUN 22, Cr 1.3, Mg 1.6, Alk Phos 142 and CRP 8.9. Her LFTs and Lipase are normal. Her UA shows no UTI. Her CT scan shows bowel thickening within the sigmoid colon and a small cysts within the left ovary. Patient was referred to me for Acute Diverticulosis. She is full code. Abdomen Pain Score (Numeric/FACES): 4 - Related Data Allergies/Adverse Reactions: Allergies Allergy/AdvReac Type Severity Reaction Status Date / Time cefuroxime [From Ceftin] Allergy Cannot Verified 12/08/16 19:18 Remember clindamycin Allergy Cannot Verified 12/08/16 19:18 Remember nitrofurantoin Allergy Cannot Verified 12/08/16 19:18 [From Macrobid] Remember Penicillins Allergy unknown Verified 12/08/16 19:18 Sulfa (Sulfonamide Allergy Hives Verified 12/08/16 19:18 Antibiotics) zoster vaccine live Allergy Cannot Verified 12/08/16 19:18 [From Zostavax (PF)] Remember dust Allergy Cannot Uncoded 12/08/16 19:18 Remember Home Medications: Home Meds Aspirin [Adult Low Dose Aspirin EC] 81 mg PO DAILY 10/18/16 [History] Calcium Carbonate/Vitamin D3 [Calcium 500 + Vit D 400] 1 each PO BID 10/18/16 [ History] Calcium Polycarbophil [Fibercon] 625 mg PO BID 10/18/16 [History] Cetirizine [ZyrTEC] 10 mg PO BEDTIME 10/18/16 [History] Famotidine [Pepcid AC] 10 mg PO BID 10/18/16 [History] Levothyroxine [Synthroid] 25 mcg PO MOFR 10/18/16 [History] Levothyroxine [Synthroid] 50 mcg PO SUTUWETHSA 10/18/16 [History] Losartan [Cozaar] 25 mg PO DAILY 10/18/16 [History] Magnesium Oxide 400 mg PO BID 10/18/16 [History] Mycophenolate Mofetil 1,000 mg PO BID 10/18/16 [History] Probiotic Complex 25 Billion Cfu's 1 tab PO DAILY 10/18/16 [History] Simvastatin [Zocor] 10 mg PO BEDTIME 10/18/16 [History] Tacrolimus 0.5 mg PO BID 10/18/16 [History] Ultra Wil 50 Plus. 1 tab PO DAILY 10/18/16 [History] busPIRone [Buspar] 7.5 mg PO BID 10/18/16 [History] Acetaminophen [Tylenol] 500 mg PO Q6H PRN 12/08/16 [History] Albuterol [Proventil HFA] 2 puff INH Q4H PRN 12/08/16 [History] Carvedilol [Coreg] 3.125 mg PO BID 12/08/16 [History] Ciprofloxacin HCl [Cipro] 500 mg PO BID 12/08/16 [History] LORazepam [Ativan] 0.5 mg PO Q12H PRN 12/08/16 [History] Pantoprazole [Protonix] 40 mg PO DAILY 12/08/16 [History] metroNIDAZOLE [Flagyl] 500 mg PO TID 12/08/16 [History] Past Medical History HEENT History: Reports: Cataract, Impaired vision Other HEENT History: Wears glasses, braces Cardiovascular History: Reports: Afib, Arrhythmia, Automatic implantable cardioverter defibrillators, Cardiomyopathy, High cholesterol, Hypertension Other Cardiovascular History: heart transplant in 2007: prior to transplant had asystole, mitral and aortic valce insufficeincy, afib, cardiomyopathy Gastrointestinal History: Reports: Chronic diarrhea, Colon polyp, Diverticulosis , GERD, Other (see below) Other Gastrointestinal History: hematochezia, abdominal pain Genitourinary History: Reports: UTI, recurrent Musculoskeletal History: Reports: Other (see below) Other Musculoskeletal History: muslce spasms Neurological History: Reports: Migraines, Vertigo Psychiatric History: Reports: Anxiety, Depression Endocrine/Metabolic History: Reports: Hypothyroidism Immunologic History: Reports: Solid organ transplant Dermatologic History: Reports: Psoriasis - Past Surgical History GI Surgical History: Reports: Appendectomy, Cholecystectomy, Colonoscopy Social & Family History - Family History Family Medical History: Noncontributory Cardiac: Reports: Heart failure, [place] - Tobacco Use Smoking Status *Q: Former Smoker Years of Tobacco use: 30 Packs/Tins Daily: 0.5 Month Tobacco Last Used: 2002 Second Hand Smoke Exposure: No - Caffeine Use Caffeine Use: Reports: Coffee, Soda - Alcohol Use Days Per Week of Alcohol Use: 0 Number of Drinks Per Day: 0 Total Drinks Per Week: 0 - Recreational Drug Use Recreational Drug Use: No Drug Use in Last 12 Months: No - Living Situation & Occupation Living situation: Reports: single Occupation: employed H&P Review of Systems - Review of Systems: Review Of Systems: See Below General: Reports: fever, chills, malaise, decreased appetite HEENT: Reports: no symptoms Pulmonary: Denies: shortness of breath Cardiovascular: Denies: chest pain, palpitations, dyspnea on exertion Gastrointestinal: Reports: Abdominal pain, Diarrhea, Decreased appetite, Flatus , Nausea, Vomiting. Denies: Difficulty swallowing, Hematemesis Genitourinary: Reports: no symptoms Musculoskeletal: Reports: no symptoms Skin: Denies: cyanosis, jaundice, bruising, pruritis, rash, erythema Psychiatric: Denies: depression, anxiety, hallucinations Neurological: Denies: confusion, dizziness, seizure Hematologic/Lymphatic: Reports: no symptoms Immunologic: Reports: no symptoms Exam - Exam Exam: See Below - Vital Signs Vital Signs: Last Vital Signs Temp 36.6 C 12/08/16 16:40 Pulse 95 12/08/16 16:40 Resp 18 12/08/16 16:40 BP 119/89 12/08/16 16:40 Pulse Ox 99 12/08/16 16:40 Weight: 72.631 kg - Exam General: alert, oriented, mild distress HEENT: Conjunctiva clear, EACs clear, EOMI, Hearing intact, Mucosa moist & pink , Nares patent, Posterior pharynx clear, PERRLA Neck: supple, trachea midline, 2+ carotid pulse wo bruit Lungs: Clear to auscultation, Normal respiratory effort Cardiovascular: regular rate, regular rhythm Abdomen: soft, tenderness, hyperactive bowel sounds. No: peritoneal signs, distention, guarding, rigidity, rebound (Female) Exam: Deferred Rectal (Female) Exam: Deferred Back Exam: normal inspection, decreased range of motion Extremities: normal inspection, normal pulses. No: clubbing, cyanosis, calf tenderness, edema Peripheral Pulses: 2+: dorsalis pedis (L), dorsalis pedis (R) Skin: warm, dry, intact Neuro Extensive - Mental Status: oriented x3, normal cognition, memory intact Neuro Extensive - Motor, Sensory, Reflexes: CN II-XII intact, normal gait Psychiatric: alert, normal affect, normal mood - Patient Data Result Diagrams: 12/08/16 14:25 12/08/16 14:25 *Q Meaningful Use (ADM) - VTE *Q VTE Criteria *Q: - Stroke *Q Stroke Criteria *Q: - AMI *Q AMI Criteria *Q: Problem List Initiated/Reviewed/Updated: Yes Orders Last 24hrs: Medication Orders Dextrose/Sodium Chloride (Dextrose 5%-Normal Saline) 1,000 mls @ 150 mls/hr IV ASDIRECTED [facility] Last Admin: 12/08/16 15:16 Dose: 150 mls/hr Assessment/Plan Comment:: Assessment/Plan: Acute Diverticulitis - Carries hx/o Diverticulosis - Has had 3 episode over 10 years - CT scan: inflammatory change in the bowel wall thickening within the lower sigmoid colon near the recto-sigmoid junction- compatible with diverticulitis - Continue IV Flagyl and Levaquin - Continue home probiotic - GI follow up after d/c Mild Hypomagnesemia - Mg 1.6 - 2/2 inadequate intake - Continue home Mag Ox 400 mg po BID - Pharmacy to replete and monitor Chronic: HTN AR GERD CKD Stage 3 Anxiety/Depression S/p Cardiac Transplant 2/2 Cardiomyopathy Hx/o Diverticulosis Plan: Admit to Med-Surge Routine AM Labs Resume Home Meds PRN meds for symptomatic control NPO except sips of water, ice chips and oral meds PT/OT consult SW/CM for d/c planning Code status:1 Additional orders as above
[2016-12-08] MEDS ORDERED: Albuterol 6.7 GM Inhaler INH PRN (17:26)
[2016-12-08] MEDS ORDERED: Acetaminophen 325 MG Tab PO PRN (17:26)
[2016-12-08] MEDS ORDERED: Metoprolol Tartrate 5 MG/5 ML SDV IVPUSH PRN (17:31)
[2016-12-08] MEDS ORDERED: hydrALAZINE 20 MG/ML SDV IVPUSH PRN (17:31)
[2016-12-08] MEDS ORDERED: Magnesium Sulfate/Water 2 GM in Premix Bag 1 BAG IV ONE (18:26)
[2016-12-08] MEDS ORDERED: Mycophenolate Mofetil 250 MG Cap PO SCH (21:00)
[2016-12-08] MEDS ORDERED: Magnesium Sulfate/Water 50 ML ONE (21:10)
[2016-12-08] MEDS: CALCIUM CARBONATE PO SCH (21:14)
[2016-12-08] MEDS: VITAMIN D3 PO SCH (21:14)
[2016-12-08] MEDS: Simvastatin 10 MG Tab PO SCH (21:15)
[2016-12-08] MEDS: busPIRone 5 MG Tab PO SCH (21:15)
[2016-12-08] MEDS: Famotidine 20 MG Tab PO SCH (21:16)
[2016-12-08] MEDS: Loratadine 10 MG Tab PO SCH (21:17)
[2016-12-08] MEDS: Carvedilol 3.125 MG Tab PO SCH (21:17)
[2016-12-08] MEDS: Magnesium Oxide 400 MG Tab PO SCH (21:18)
[2016-12-08] MEDS: Calcium Polycarbophil 625 MG Tab PO SCH (21:18)
[2016-12-08] MEDS: metroNIDAZOLE/Normal Saline 500 MG in Premix Bag 1 BAG IV SCH (21:18)
[2016-12-08] MEDS: Acetaminophen/HYDROcodone 325-5 MG Tab PO PRN (21:23)
[2016-12-08] MEDS: MYCOPHENOLATE 500 MG PO SCH (21:54)
[2016-12-08] MEDS: TACROLIMUS 0.5 MG PO SCH (21:54)
[2016-12-09] MEDS: Ondansetron 4 MG/2 ML SDV IV PRN (04:27)
[2016-12-09] MEDS: LORazepam 2 MG/ML MDV IV PRN ×4 (04:27→20:50)
[2016-12-09] MEDS: metroNIDAZOLE/Normal Saline 500 MG in Premix Bag 1 BAG IV SCH ×3 (05:53→21:00)
[2016-12-09] MEDS: Levothyroxine 50 MCG Tab PO SCH (05:53)
[2016-12-09] MEDS: Pantoprazole 40 MG Tab.CR PO SCH ×2 (05:54→07:01)
--- NOTE | 2016-12-09 07:54 | PCM.PN ---
- General Info Date of Service: 12/09/16 Admission Dx/Problem (Free Text): Admission Diagnosis/Problem Admission Diagnosis/Problem Diverticulitis Subjective Update: Follow Up Functional Status: Reports: pain controlled, ambulating, urinating, new symptoms (nauseaus and had a LEON last night) - Review of Systems General: Denies: fever, weakness, fatigue, malaise HEENT: Reports: no symptoms Pulmonary: Denies: shortness of breath Cardiovascular: Denies: chest pain, palpitations, dyspnea on exertion Gastrointestinal: Reports: Abdominal pain, Flatus. Denies: Diarrhea, Nausea, Vomiting Genitourinary: Reports: no symptoms Musculoskeletal: Reports: no symptoms Skin: Reports: no symptoms Neurological: Denies: confusion, weakness Psychiatric: Denies: depression, anxiety, hallucinations Systems Review Comment:: No acute issues. She still has abdominal pain with a pain scale level of 3. She has no new complaints. Her WBC is now down to 9K from 11K> - Patient Data Vitals - most recent: Last Vital Signs Temp 35.7 C 12/09/16 05:03 Pulse 91 12/09/16 05:03 Resp 18 12/09/16 05:03 BP 105/56 L 12/09/16 05:03 Pulse Ox 95 12/09/16 05:03 Weight - most recent: 160.8 kg I&O - last 24 hours: Intake & Output 12/08/16 12/09/16 12/09/16 22:59 06:59 14:59 Intake Total 2147 Output Total 350 975 Balance -350 1172 Lab Results last 24 hrs: Laboratory Results - last 24 hr 12/08/16 12/09/16 12/09/16 Range/Units 17:18 05:59 05:59 WBC 9.28 (3.98-10.04) K/mm3 RBC 3.83 L (3.98-5.22) M/mm3 Hgb 10.8 L (11.2-15.7) gm/L Hct 33.6 L (34.1-44.9) % MCV 87.7 (79.4-94.8) fl MCH 28.2 (25.6-32.2) pg MCHC 32.1 L (32.2-35.5) g/dl RDW Std Deviation 39.7 (36.4-46.3) fL Plt Count 230 (182-369) K/mm3 MPV 10.9 (9.4-12.3) fl Neut % (Auto) 69.7 (34.0-71.1) % Lymph % (Auto) 15.7 L (19.3-51.7) % [place] % (Auto) 10.9 (4.7-12.5) % Eos % (Auto) 3.4 (0.7-5.8) Baso % (Auto) 0.2 (0.1-1.2) % Neut # 6.46 H (1.56-6.13) K/mm3 Lymph # 1.46 (1.18-3.74) K/mm3 [place] # 1.01 H (0.24-0.36) K/mm3 Eos # 0.32 (0.04-0.36) K/mm3 Baso # 0.02 (0.01-0.08) K/mm3 Sodium 139 (136-145) mEq/L Potassium 4.2 (3.5-5.1) mEq/L Chloride 104 (98-107) mEq/L Carbon Dioxide 27 (21-32) mEq/L Anion Gap 12.2 (5-15) BUN 16 (7-18) mg/dL Creatinine 1.1 H (0.55-1.02) mg/dL Est Cr Clr Drug Dosing 52.23 mL/min Estimated GFR (MDRD) 50 (>60) mL/min BUN/Creatinine Ratio 14.5 (14-18) Glucose 131 H (80-115) mg/dL Calcium 8.4 L (8.5-10.1) mg/dL Magnesium 2.1 (1.8-2.4) mg/dl Urine Color Yellow (Yellow) Urine Appearance Clear (Clear) Urine pH 6.0 (5.0-8.0) Ur Specific [place] 1.015 (1.005-1.030) Urine Protein Negative (Negative) Urine Glucose (UA) Negative (Negative) Urine Ketones Negative (Negative) Urine Occult Blood Negative (Negative) Urine Nitrite Negative (Negative) Urine Bilirubin Negative (Negative) Urine Urobilinogen 0.2 (0.2-1.0) Ur Leukocyte Esterase Trace H (Negative) Urine RBC Not seen (0-5) /hpf Urine WBC 5-10 H (0-5) /hpf Ur Squamous Epith Cells 5-10 H (0-5) /hpf Urine Bacteria Not seen (FEW) /hpf Urine Mucus Not seen (FEW) /hpf Med Orders - Current: Current Medications Acetaminophen (Tylenol) 650 mg PO Q4H PRN PRN Reason: Pain (Mild 1-3)/fever Acetaminophen/Hydrocodone Bitart ([place] 325-5 Mg) 1 tab PO Q4H PRN PRN Reason: Pain (moderate 4-6) Last Admin: 12/08/16 21:23 Dose: 1 tab Albuterol (Proventil Hfa) 0 gm INH Q4H PRN PRN Reason: Wheezing Albuterol/Ipratropium (Duoneb 3.0-0.5 Mg/3 Ml) 3 ml NEB Q4H PRN PRN Reason: Shortness Of Breath/wheezing Aspirin (Halfprin) 81 mg PO DAILY [facility] Buspirone HCl (Buspar) 7.5 mg PO BID [facility] Last Admin: 12/08/16 21:15 Dose: 7.5 mg Calcium Polycarbophil (Fibercon) 625 mg PO BID [facility] Last Admin: 12/08/16 21:18 Dose: 625 mg Carvedilol (Coreg) 3.125 mg PO BID [facility] Last Admin: 12/08/16 21:17 Dose: 3.125 mg Enoxaparin Sodium (Lovenox) 40 mg SUBCUT DAILY [facility] Famotidine (Pepcid) 10 mg PO BID [facility] Last Admin: 12/08/16 21:16 Dose: 10 mg Hydralazine HCl (Apresoline) 20 mg IVPUSH Q4H PRN PRN Reason: Hypertension Hydromorphone HCl (Dilaudid) 0.5 mg IVPUSH Q3H PRN PRN Reason: Pain (severe 7-10) Last Admin: 12/08/16 17:49 Dose: 0.5 mg Dextrose/Sodium Chloride (Dextrose 5%-Normal Saline) 1,000 mls @ 150 mls/hr IV ASDIRECTED [facility] Last Admin: 12/08/16 15:16 Dose: 150 mls/hr Promethazine HCl 12.5 mg/ (Sodium Chloride) 50.5 mls @ 100 mls/hr IV Q6H PRN PRN Reason: Nausea/Vomiting Levofloxacin/Dextrose 500 mg/ (Premix) 100 mls @ 100 mls/hr IV ONETIME ONE Stop: 12/09/16 16:59 Metronidazole 500 mg/ Premix 100 mls @ 100 mls/hr IV Q8H [facility] Last Admin: 12/09/16 05:53 Dose: 100 mls/hr Levofloxacin/Dextrose 250 mg/ (Premix) 50 mls @ 50 mls/hr IV Q24H [facility] Levothyroxine Sodium (Synthroid) 25 mcg PO MoFr@0600 [facility] Levothyroxine Sodium (Synthroid) 50 mcg PO SuTuWeThSa@0600 [facility] Last Admin: 12/09/16 05:53 Dose: 50 mcg Loratadine (Claritin) 10 mg PO BEDTIME [facility] Last Admin: 12/08/16 21:17 Dose: 10 mg Lorazepam (Ativan) 0.5 mg PO Q12H PRN PRN Reason: Anxiety Lorazepam (Ativan) 1 mg IV Q6H PRN PRN Reason: Nausea/Vomiting Last Admin: 12/09/16 04:27 Dose: 1 mg Losartan Potassium (Cozaar) 25 mg PO DAILY [facility] Magnesium Oxide (Magnesium Oxide) 400 mg PO BID [facility] Last Admin: 12/08/16 21:18 Dose: 400 mg Magnesium Sulfate (Pharmacy To Dose - Magnesium Replacement) 1 dose .XX ASDIRECTED [facility] Metoprolol Tartrate (Lopressor) 5 mg IVPUSH Q4H PRN PRN Reason: Tachycardia Calcium Carbonate/Vitamin D3 500 Mg/400 Units Tab Own Med 1 each PO BID [facility] Last Admin: 12/08/16 21:14 Dose: Not Given Tacrolimus 0.5 Mg (Tab Own Med) 0 mg PO BID [facility] Last Admin: 12/08/16 21:54 Dose: 2.5 mg Mycophenolate 500mg (TabOwn Med) 2 each PO BID [facility] Last Admin: 12/08/16 21:54 Dose: 2 each Ondansetron HCl (Zofran) 4 mg IV Q6H PRN PRN Reason: Nausea/Vomiting Last Admin: 12/09/16 04:27 Dose: 4 mg Pantoprazole Sodium (Protonix) 40 mg PO DAILY@0700 [facility] Last Admin: 12/09/16 07:01 Dose: Not Given Potassium Chloride (Pharmacy To Dose - Potassium Replacement) 1 dose .XX ASDIRECTED [facility] Saccharomyces Boulardii (Florastor) 250 mg PO DAILY [facility] Simvastatin (Zocor) 10 mg PO BEDTIME [facility] Last Admin: 12/08/16 21:15 Dose: 10 mg Temazepam (Restoril) 30 mg PO BEDTIME PRN PRN Reason: Sleep Vit A/Vit C/Vit E/Selen/Cu/Zn/Lutei (Icaps Mv) 1 tab PO DAILY [facility] Discontinued Medications Acetaminophen (Tylenol) 500 mg PO Q6H PRN PRN Reason: Pain Hydromorphone HCl (Dilaudid) 0.5 mg IVPUSH ONETIME ONE Stop: 12/08/16 14:18 Last Admin: 12/08/16 14:53 Dose: 0.5 mg Levofloxacin/Dextrose 750 mg/ (Premix) 150 mls @ 100 mls/hr IV ONETIME ONE Stop: 12/08/16 15:46 Last Admin: 12/08/16 16:23 Dose: 100 mls/hr Metronidazole 500 mg/ Premix 100 mls @ 100 mls/hr IV ONETIME ONE Stop: 12/08/16 15:17 Last Admin: 12/08/16 15:16 Dose: 100 mls/hr Magnesium Sulfate 2 gm/ Premix 50 mls @ 25 mls/hr IV ONETIME ONE Stop: 12/08/16 20:25 Last Admin: 12/08/16 22:32 Dose: 25 mls/hr Magnesium Sulfate (Magnesium Sulfate 2 Gm In Water 50 Ml) Confirm Administered Dose 50 mls @ as directed .ROUTE .STK-MED ONE Stop: 12/08/16 21:11 Last Admin: 12/08/16 21:23 Dose: Not Given Mycophenolate Mofetil (Cellcept) 1,000 mg PO BID [facility] Last Admin: 12/08/16 23:32 Dose: Not Given Ondansetron HCl (Zofran) 4 mg IVPUSH ONETIME ONE Stop: 12/08/16 14:18 Last Admin: 12/08/16 14:57 Dose: 4 mg - Exam General: alert, oriented, cooperative, no acute distress HEENT: Pupils equal, Pupils reactive, EOMI, Mucous membr. moist/pink Neck: supple, trachea midline, no JVD, no thyromegaly Lungs: Clear to auscultation, Normal respiratory effort Cardiovascular: regular rate, regular rhythm Abdomen: bowel sounds present, soft, no distension, tenderness. No: rigidity, rebound, guarding (Female) Exam: Deferred Back Exam: normal inspection, decreased range of motion Extremities: no edema, normal pulses, no tenderness/swelling, no clubbing, no cyanosis, no calf tenderness Peripheral Pulses: 2+: dorsalis pedis (L), dorsalis pedis (R) Skin: warm, dry, intact Neurological: no new focal deficit Psy/Mental Status: alert, normal affect, normal mood - Problem List Review Problem List Initiated/Reviewed/Updated: Yes - My Orders Last 24 Hours: My Active Orders 12/08/16 17:25 Intake and Output [RC] 04,16 Oxygen Therapy [RC] PRN Up With Assistance [RC] ASDIRECTED Up ad Bety [RC] ASDIRECTED VTE/DVT Education [RC] QSHIFT Vital Signs [RC] Q4HR Acetaminophen [Tylenol] 650 mg PO Q4H PRN Acetaminophen/HYDROcodone [[place] 325-5 MG] 1 tab PO Q4H PRN Albuterol/Ipratropium [DuoNeb 3.0-0.5 MG/3 ML] 3 ml NEB Q4H PRN HYDROmorphone [Dilaudid] 0.5 mg IVPUSH Q3H PRN LORazepam [Ativan] 1 mg IV Q6H PRN Ondansetron [Zofran] 4 mg IV Q6H PRN Promethazine [Phenergan] 12.5 mg Sodium Chloride 0.9% [Normal Saline] 50 ml IV Q6H Temazepam [Restoril] 30 mg PO BEDTIME PRN Resuscitation Status Routine 12/08/16 17:26 Albuterol [Proventil HFA] 0 gm INH Q4H PRN LORazepam [Ativan] 0.5 mg PO Q12H PRN 12/08/16 17:28 RT Aerosol Therapy [RC] ASDIRECTED 12/08/16 17:29 Consult to Case Management [CONS] Routine Consult to [employer] Locking Supervisor [CONS] Routine OT Evaluation and Treatment [CONS] Routine PT Evaluation and Treatment [CONS] Routine 12/08/16 17:31 Metoprolol Tartrate [Lopressor] 5 mg IVPUSH Q4H PRN hydrALAZINE [Apresoline] 20 mg IVPUSH Q4H PRN 12/08/16 17:45 Magnesium Rep Pharmacy to Dose [Pharmacy to Dose - Magnesium Replacement] 1 dose .XX ASDIRECTED Potassium Rep Pharmacy to Dose [Pharmacy to Dose - Potassium Replacement] 1 dose .XX ASDIRECTED 12/08/16 21:00 Calcium Carbonate/Vitamin D3 [Calcium 500 + Vit D 400] 1 each PO BID Calcium Polycarbophil [Fibercon] 625 mg PO BID Carvedilol [Coreg] 3.125 mg PO BID Famotidine [Pepcid] 10 mg PO BID Loratadine [Claritin] 10 mg PO BEDTIME Magnesium Oxide 400 mg PO BID Simvastatin [Zocor] 10 mg PO BEDTIME Tacrolimus 0 mg PO BID busPIRone [Buspar] 7.5 mg PO BID 12/08/16 22:00 Non-Formulary Medication [NF Drug] 2 each PO BID metroNIDAZOLE/Normal Saline [Flagyl 500 MG in NS 100 ML] 500 mg Premix Bag 1 bag IV Q8H 12/08/16 Breakfast NPO [Nothing Per Oral Diet] [DIET] 12/09/16 06:00 Levothyroxine [Synthroid] 50 mcg PO SuTuWeThSa@0600 12/09/16 07:00 Pantoprazole [Protonix] 40 mg PO DAILY@0700 12/09/16 09:00 Aspirin [Halfprin] 81 mg PO DAILY Enoxaparin [Lovenox] 40 mg SUBCUT DAILY Losartan [Cozaar] 25 mg PO DAILY Multivitamins/Min/FA/Lut/Zeax [ICaps MV] 1 tab PO DAILY Saccharomyces Boulardii [Florastor] 250 mg PO DAILY 12/09/16 16:00 Levofloxacin/Dextrose 5%-Water [Levaquin in D5W 500 MG/100 ML] 500 mg Premix Bag 1 bag IV ONETIME 12/10/16 05:11 BASIC METABOLIC PANEL,BMP [CHEM] AM CBC WITH AUTO DIFF [HEME] AM MAGNESIUM [CHEM] AM 12/10/16 16:00 Levofloxacin/Dextrose 5%-Water [Levaquin in D5W 250 MG/50 ML] 250 mg Premix Bag 1 bag IV Q24H 12/11/16 05:11 BASIC METABOLIC PANEL,BMP [CHEM] AM CBC WITH AUTO DIFF [HEME] AM MAGNESIUM [CHEM] AM 12/11/16 06:00 Levothyroxine [Synthroid] 25 mcg PO MoFr@0600 12/12/16 05:11 BASIC METABOLIC PANEL,BMP [CHEM] AM CBC WITH AUTO DIFF [HEME] AM MAGNESIUM [CHEM] AM 12/13/16 05:11 BASIC METABOLIC PANEL,BMP [CHEM] AM CBC WITH AUTO DIFF [HEME] AM MAGNESIUM [CHEM] AM - Plan Plan:: Assessment/Plan: Acute Diverticulitis, Improving (WBC now at 9K and CRP is 4.9 (8.9) - Carries hx/o Diverticulosis - Has had 3 episode over 10 years - CT scan: inflammatory change in the bowel wall thickening within the lower sigmoid colon near the recto-sigmoid junction- compatible with diverticulitis - Continue IV Flagyl and Levaquin and home probiotic - GI follow up after d/c - May consider clear liquids tonight Resolved: S/p Mild Hypomagnesemia - Mg 1.6 - 2/2 inadequate intake - Continue home Mag Ox 400 mg po BID - Pharmacy to replete and monitor Chronic: HTN AR GERD CKD Stage 3 Anxiety/Depression 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
[2016-12-09] MEDS: Multivitamins with Minerals/Folic Acid/Lutein/Zeaxanth Tab PO SCH (08:53)
[2016-12-09] MEDS: Magnesium Oxide 400 MG Tab PO SCH ×2 (08:53→20:53)
[2016-12-09] MEDS: Saccharomyces Boulardii (Probiotic) 250 MG Cap PO SCH (08:53)
[2016-12-09] MEDS: Famotidine 20 MG Tab PO SCH ×2 (08:53→20:51)
[2016-12-09] MEDS: Calcium Polycarbophil 625 MG Tab PO SCH ×2 (08:53→20:53)
[2016-12-09] MEDS: busPIRone 5 MG Tab PO SCH ×2 (08:54→20:51)
[2016-12-09] MEDS: Aspirin 81 MG Tab.EC PO SCH (08:54)
[2016-12-09] MEDS: Enoxaparin 40 MG/0.4 ML Syringe SUBCUT SCH (08:54)
[2016-12-09] MEDS: Carvedilol 3.125 MG Tab PO SCH ×2 (08:54→20:52)
[2016-12-09] MEDS: Losartan 25 MG Tab PO SCH (08:54)
[2016-12-09] MEDS: MYCOPHENOLATE 500 MG PO SCH ×2 (08:56→21:06)
[2016-12-09] MEDS: Dextrose 5%-0.9% NaCl 1,000 ML IV SCH ×2 (10:22→18:35)
[2016-12-09] MEDS: TACROLIMUS 0.5 MG PO SCH ×3 (10:24→21:06)
[2016-12-09] MEDS: VITAMIN D3 PO SCH ×3 (10:25→21:06)
[2016-12-09] MEDS: CALCIUM CARBONATE PO SCH ×3 (10:25→21:06)
[2016-12-09] MEDS ORDERED: Levofloxacin/Dextrose 5%-Water 500 MG in Premix Bag 1 BAG IV ONE (16:00)
[2016-12-09] MEDS: Loratadine 10 MG Tab PO SCH (20:50)
[2016-12-09] MEDS: Simvastatin 10 MG Tab PO SCH (20:51)
--- NOTE | 2016-12-10 00:25 | PCM.PN ---
- General Info Date of Service: 12/10/16 Admission Dx/Problem (Free Text): Admission Diagnosis/Problem Admission Diagnosis/Problem Diverticulitis Subjective Update: Follow Up Functional Status: Reports: pain controlled, ambulating, urinating. Denies: new symptoms - Review of Systems General: Denies: fever, weakness, fatigue, malaise HEENT: Reports: no symptoms Pulmonary: Denies: shortness of breath Cardiovascular: Denies: chest pain Gastrointestinal: Reports: Nausea, Vomiting. Denies: Abdominal pain Genitourinary: Reports: no symptoms Musculoskeletal: Reports: no symptoms Skin: Denies: cyanosis, jaundice, rash Neurological: Denies: dizziness, seizure, difficulty walking, weakness, gait disturbance Psychiatric: Denies: depression, anxiety, hallucinations Systems Review Comment:: No overnight issues. This am she got symptomatic after she had a clear liquid diet. She is otherwise stable. She is passing gas but w/o bowel movement. Her Mg is at 1.7 and CRP is at 2.9. She has no new complaints. - Patient Data Vitals - most recent: Last Vital Signs Temp 37.1 C 12/09/16 20:31 Pulse 98 12/09/16 20:52 Resp 18 12/09/16 20:31 BP 109/76 12/09/16 20:52 Pulse Ox 94 L 12/09/16 20:31 Weight - most recent: 160.8 kg I&O - last 24 hours: Intake & Output 12/09/16 12/09/16 12/10/16 14:59 22:59 07:59 Intake Total 0 2703 Output Total 1550 Balance 0 1153 Lab Results last 24 hrs: Laboratory Results - last 24 hr 12/09/16 12/09/16 12/09/16 Range/Units 05:59 05:59 05:59 WBC 9.28 (3.98-10.04) K/mm3 RBC 3.83 L (3.98-5.22) M/mm3 Hgb 10.8 L (11.2-15.7) gm/L Hct 33.6 L (34.1-44.9) % MCV 87.7 (79.4-94.8) fl MCH 28.2 (25.6-32.2) pg MCHC 32.1 L (32.2-35.5) g/dl RDW Std Deviation 39.7 (36.4-46.3) fL Plt Count 230 (182-369) K/mm3 MPV 10.9 (9.4-12.3) fl Neut % (Auto) 69.7 (34.0-71.1) % Lymph % (Auto) 15.7 L (19.3-51.7) % [place] % (Auto) 10.9 (4.7-12.5) % Eos % (Auto) 3.4 (0.7-5.8) Baso % (Auto) 0.2 (0.1-1.2) % Neut # 6.46 H (1.56-6.13) K/mm3 Lymph # 1.46 (1.18-3.74) K/mm3 [place] # 1.01 H (0.24-0.36) K/mm3 Eos # 0.32 (0.04-0.36) K/mm3 Baso # 0.02 (0.01-0.08) K/mm3 Sodium 139 (136-145) mEq/L Potassium 4.2 (3.5-5.1) mEq/L Chloride 104 (98-107) mEq/L Carbon Dioxide 27 (21-32) mEq/L Anion Gap 12.2 (5-15) BUN 16 (7-18) mg/dL Creatinine 1.1 H (0.55-1.02) mg/dL Est Cr Clr Drug Dosing 52.23 mL/min Estimated GFR (MDRD) 50 (>60) mL/min BUN/Creatinine Ratio 14.5 (14-18) Glucose 131 H (80-115) mg/dL Calcium 8.4 L (8.5-10.1) mg/dL Magnesium 2.1 (1.8-2.4) mg/dl C-Reactive Protein 4.9 H* (<1.0) mg/dL Med Orders - Current: Current Medications Acetaminophen (Tylenol) 650 mg PO Q4H PRN PRN Reason: Pain (Mild 1-3)/fever Acetaminophen/Hydrocodone Bitart ([place] 325-5 Mg) 1 tab PO Q4H PRN PRN Reason: Pain (moderate 4-6) Last Admin: 12/08/16 21:23 Dose: 1 tab Albuterol (Proventil Hfa) 0 gm INH Q4H PRN PRN Reason: Wheezing Albuterol/Ipratropium (Duoneb 3.0-0.5 Mg/3 Ml) 3 ml NEB Q4H PRN PRN Reason: Shortness Of Breath/wheezing Aspirin (Halfprin) 81 mg PO DAILY [facility] Last Admin: 12/09/16 08:54 Dose: 81 mg Buspirone HCl (Buspar) 7.5 mg PO BID [facility] Last Admin: 12/09/16 20:51 Dose: 7.5 mg Calcium Polycarbophil (Fibercon) 625 mg PO BID [facility] Last Admin: 12/09/16 20:53 Dose: 625 mg Carvedilol (Coreg) 3.125 mg PO BID [facility] Last Admin: 12/09/16 20:52 Dose: 3.125 mg Enoxaparin Sodium (Lovenox) 40 mg SUBCUT DAILY [facility] Last Admin: 12/09/16 08:54 Dose: 40 mg Famotidine (Pepcid) 10 mg PO BID [facility] Last Admin: 12/09/16 20:51 Dose: 10 mg Hydralazine HCl (Apresoline) 20 mg IVPUSH Q4H PRN PRN Reason: Hypertension Hydromorphone HCl (Dilaudid) 0.5 mg IVPUSH Q3H PRN PRN Reason: Pain (severe 7-10) Last Admin: 12/08/16 17:49 Dose: 0.5 mg Dextrose/Sodium Chloride (Dextrose 5%-Normal Saline) 1,000 mls @ 150 mls/hr IV ASDIRECTED [facility] Last Admin: 12/09/16 18:35 Dose: 150 mls/hr Promethazine HCl 12.5 mg/ (Sodium Chloride) 50.5 mls @ 100 mls/hr IV Q6H PRN PRN Reason: Nausea/Vomiting Metronidazole 500 mg/ Premix 100 mls @ 100 mls/hr IV Q8H [facility] Last Admin: 12/09/16 21:00 Dose: 100 mls/hr Levofloxacin/Dextrose 250 mg/ (Premix) 50 mls @ 50 mls/hr IV Q24H [facility] Levothyroxine Sodium (Synthroid) 25 mcg PO MoFr@0600 [facility] Levothyroxine Sodium (Synthroid) 50 mcg PO SuTuWeThSa@0600 [facility] Last Admin: 12/09/16 05:53 Dose: 50 mcg Loratadine (Claritin) 10 mg PO BEDTIME [facility] Last Admin: 12/09/16 20:50 Dose: 10 mg Lorazepam (Ativan) 0.5 mg PO Q12H PRN PRN Reason: Anxiety Lorazepam (Ativan) 1 mg IV Q6H PRN PRN Reason: Nausea/Vomiting Last Admin: 12/09/16 20:50 Dose: 1 mg Losartan Potassium (Cozaar) 25 mg PO DAILY [facility] Last Admin: 12/09/16 08:54 Dose: 25 mg Magnesium Oxide (Magnesium Oxide) 400 mg PO BID [facility] Last Admin: 12/09/16 20:53 Dose: 400 mg Magnesium Sulfate (Pharmacy To Dose - Magnesium Replacement) 0 dose .XX ASDIRECTED PRN PRN Reason: RX TO MONITOR MAG LEVELS Metoprolol Tartrate (Lopressor) 5 mg IVPUSH Q4H PRN PRN Reason: Tachycardia Mycophenolate 500mg (TabOwn Med) 2 each PO BID [facility] Last Admin: 12/09/16 21:06 Dose: 2 each Ondansetron HCl (Zofran) 4 mg IV Q6H PRN PRN Reason: Nausea/Vomiting Last Admin: 12/09/16 04:27 Dose: 4 mg Pantoprazole Sodium (Protonix) 40 mg PO DAILY@0700 [facility] Last Admin: 12/09/16 07:01 Dose: Not Given Tacrolimus 0.5 Mg (Tab Own Med) 0 each PO BID [facility] Last Admin: 12/09/16 21:06 Dose: 5 each Calcium Carbonate/Vitamin D3 600 Mg/400 Units Tab Own Med 0 each PO BID [facility] Last Admin: 12/09/16 21:06 Dose: 1 each Potassium Chloride (Pharmacy To Dose - Potassium Replacement) 0 dose .XX ASDIRECTED PRN PRN Reason: RX TO MONITOR K LEVELS Saccharomyces Boulardii (Florastor) 250 mg PO DAILY [facility] Last Admin: 12/09/16 08:53 Dose: 250 mg Simvastatin (Zocor) 10 mg PO BEDTIME [facility] Last Admin: 12/09/16 20:51 Dose: 10 mg Temazepam (Restoril) 30 mg PO BEDTIME PRN PRN Reason: Sleep Vit A/Vit C/Vit E/Selen/Cu/Zn/Lutei (Icaps Mv) 1 tab PO DAILY [facility] Last Admin: 12/09/16 08:53 Dose: 1 tab Discontinued Medications Acetaminophen (Tylenol) 500 mg PO Q6H PRN PRN Reason: Pain Hydromorphone HCl (Dilaudid) 0.5 mg IVPUSH ONETIME ONE Stop: 12/08/16 14:18 Last Admin: 12/08/16 14:53 Dose: 0.5 mg Levofloxacin/Dextrose 750 mg/ (Premix) 150 mls @ 100 mls/hr IV ONETIME ONE Stop: 12/08/16 15:46 Last Admin: 12/08/16 16:23 Dose: 100 mls/hr Metronidazole 500 mg/ Premix 100 mls @ 100 mls/hr IV ONETIME ONE Stop: 12/08/16 15:17 Last Admin: 12/08/16 15:16 Dose: 100 mls/hr Levofloxacin/Dextrose 500 mg/ (Premix) 100 mls @ 100 mls/hr IV ONETIME ONE Stop: 12/09/16 16:59 Last Admin: 12/09/16 15:14 Dose: 100 mls/hr Magnesium Sulfate 2 gm/ Premix 50 mls @ 25 mls/hr IV ONETIME ONE Stop: 12/08/16 20:25 Last Admin: 12/08/16 22:32 Dose: 25 mls/hr Magnesium Sulfate (Magnesium Sulfate 2 Gm In Water 50 Ml) Confirm Administered Dose 50 mls @ as directed .ROUTE .STK-MED ONE Stop: 12/08/16 21:11 Last Admin: 12/08/16 21:23 Dose: Not Given Mycophenolate Mofetil (Cellcept) 1,000 mg PO BID [facility] Last Admin: 12/08/16 23:32 Dose: Not Given Calcium Carbonate/Vitamin D3 500 Mg/400 Units Tab Own Med 1 each PO BID [facility] Last Admin: 12/09/16 10:26 Dose: Not Given Tacrolimus 0.5 Mg (Tab Own Med) 0 mg PO BID [facility] Last Admin: 12/09/16 10:26 Dose: Not Given Ondansetron HCl (Zofran) 4 mg IVPUSH ONETIME ONE Stop: 12/08/16 14:18 Last Admin: 12/08/16 14:57 Dose: 4 mg - Exam General: alert, oriented, cooperative, no acute distress HEENT: Pupils equal, Pupils reactive, EOMI, Mucous membr. moist/pink Neck: supple, trachea midline, no JVD, no thyromegaly Lungs: Clear to auscultation, Normal respiratory effort Cardiovascular: regular rate, regular rhythm Abdomen: bowel sounds present, soft, no tenderness, no distension. No: rigidity , rebound, guarding (Female) Exam: Deferred Back Exam: normal inspection, decreased range of motion Extremities: no edema, normal pulses, no tenderness/swelling, no clubbing, no cyanosis, no calf tenderness Peripheral Pulses: 2+: dorsalis pedis (L), dorsalis pedis (R) Skin: warm, dry, intact Neurological: no new focal deficit Psy/Mental Status: alert, normal affect, normal mood - Problem List Review Problem List Initiated/Reviewed/Updated: Yes - My Orders Last 24 Hours: My Active Orders 12/09/16 06:00 Levothyroxine [Synthroid] 50 mcg PO SuTuWeThSa@0600 12/09/16 07:00 Pantoprazole [Protonix] 40 mg PO DAILY@0700 12/09/16 09:00 Aspirin [Halfprin] 81 mg PO DAILY Enoxaparin [Lovenox] 40 mg SUBCUT DAILY Losartan [Cozaar] 25 mg PO DAILY Multivitamins/Min/FA/Lut/Zeax [ICaps MV] 1 tab PO DAILY Saccharomyces Boulardii [Florastor] 250 mg PO DAILY 12/09/16 09:21 Patient's Own Medication [Ptom] 0 each PO BID 12/09/16 09:23 Patient's Own Medication [Ptom] 0 each PO BID 12/10/16 05:11 BASIC METABOLIC PANEL,BMP [CHEM] AM CBC WITH AUTO DIFF [HEME] AM CRP [C-REACTIVE PROTEIN] [CHEM] AM MAGNESIUM [CHEM] AM 12/10/16 16:00 Levofloxacin/Dextrose 5%-Water [Levaquin in D5W 250 MG/50 ML] 250 mg Premix Bag 1 bag IV Q24H 12/11/16 05:11 BASIC METABOLIC PANEL,BMP [CHEM] AM CBC WITH AUTO DIFF [HEME] AM CRP [C-REACTIVE PROTEIN] [CHEM] AM MAGNESIUM [CHEM] AM 12/11/16 06:00 Levothyroxine [Synthroid] 25 mcg PO MoFr@0600 12/12/16 05:11 BASIC METABOLIC PANEL,BMP [CHEM] AM CBC WITH AUTO DIFF [HEME] AM CRP [C-REACTIVE PROTEIN] [CHEM] AM MAGNESIUM [CHEM] AM 12/13/16 05:11 BASIC METABOLIC PANEL,BMP [CHEM] AM CBC WITH AUTO DIFF [HEME] AM CRP [C-REACTIVE PROTEIN] [CHEM] AM MAGNESIUM [CHEM] AM - Plan Plan:: Assessment/Plan: Acute Diverticulitis, Continues to improve (WBC now at 6K and CRP is 2.9) - Carries hx/o Diverticulosis - Has had 3 episode over 10 years - CT scan: inflammatory change in the bowel wall thickening within the lower sigmoid colon near the recto-sigmoid junction- compatible with diverticulitis - Continue IV Flagyl and Levaquin and home probiotic - GI follow up after d/c - May re-consider clear liquids tonight Mild Hypomagnesemia - Mg 1.6 ---> 1.7 - 2/2 inadequate intake - Continue home Mag Ox 400 mg po BID - Pharmacy to replete and monitor Chronic: HTN AR GERD CKD Stage 3 Anxiety/Depression S/p Cardiac Transplant 2/2 Cardiomyopathy Hx/o Diverticulosis Plan: She remains clinically stable Continue current treatment Routine AM Labs PRN meds for symptomatic control will resume previous NPO status Continue PT/OT SW/CM for d/c planning Code status:1 Additional orders as above
[2016-12-10] MEDS: metroNIDAZOLE/Normal Saline 500 MG in Premix Bag 1 BAG IV SCH ×3 (06:17→21:57)
[2016-12-10] MEDS: Pantoprazole 40 MG Tab.CR PO SCH (06:17)
[2016-12-10] MEDS: Levothyroxine 50 MCG Tab PO SCH (06:18)
[2016-12-10] MEDS: Dextrose 5%-0.9% NaCl 1,000 ML IV SCH ×2 (09:20→16:48)
[2016-12-10] MEDS: Ondansetron 4 MG/2 ML SDV IV PRN ×2 (09:25→19:34)
[2016-12-10] MEDS: Saccharomyces Boulardii (Probiotic) 250 MG Cap PO SCH (09:25)
[2016-12-10] MEDS: Multivitamins with Minerals/Folic Acid/Lutein/Zeaxanth Tab PO SCH (09:25)
[2016-12-10] MEDS: Magnesium Oxide 400 MG Tab PO SCH ×3 (09:26→23:34)
[2016-12-10] MEDS: Calcium Polycarbophil 625 MG Tab PO SCH ×2 (09:26→23:34)
[2016-12-10] MEDS: Famotidine 20 MG Tab PO SCH ×2 (09:26→23:34)
[2016-12-10] MEDS: Carvedilol 3.125 MG Tab PO SCH ×2 (09:26→23:34)
[2016-12-10] MEDS: Aspirin 81 MG Tab.EC PO SCH (09:26)
[2016-12-10] MEDS: busPIRone 5 MG Tab PO SCH ×2 (09:26→23:34)
[2016-12-10] MEDS: LORazepam 2 MG/ML MDV IV PRN ×3 (09:27→22:52)
[2016-12-10] MEDS: Losartan 25 MG Tab PO SCH (09:27)
[2016-12-10] MEDS: Enoxaparin 40 MG/0.4 ML Syringe SUBCUT SCH (09:27)
[2016-12-10] MEDS: MYCOPHENOLATE 500 MG PO SCH ×2 (09:28→21:55)
[2016-12-10] MEDS: VITAMIN D3 PO SCH ×2 (09:29→23:34)
[2016-12-10] MEDS: TACROLIMUS 0.5 MG PO SCH ×2 (09:29→21:56)
[2016-12-10] MEDS: CALCIUM CARBONATE PO SCH ×2 (09:29→23:34)
[2016-12-10] MEDS: guaiFENesin/Dextromethorphan 100-10 MG/5 ML Soln 5 ML Cup PO PRN ×2 (13:57→21:53)
[2016-12-10] MEDS: Levofloxacin/Dextrose 5%-Water 250 MG in Premix Bag 1 BAG IV SCH (15:09)
[2016-12-10] MEDS: Loratadine 10 MG Tab PO SCH (23:34)
[2016-12-10] MEDS: Simvastatin 10 MG Tab PO SCH (23:35)
[2016-12-11] MEDS: Acetaminophen 325 MG Tab PO PRN (03:11)
[2016-12-11] MEDS: guaiFENesin/Dextromethorphan 100-10 MG/5 ML Soln 5 ML Cup PO PRN (03:38)
[2016-12-11] MEDS: LORazepam 0.5 MG Tab PO PRN (03:38)
[2016-12-11] MEDS ORDERED: Levothyroxine 50 MCG Tab PO SCH (06:00)
[2016-12-11] MEDS: metroNIDAZOLE/Normal Saline 500 MG in Premix Bag 1 BAG IV SCH ×3 (06:09→21:18)
[2016-12-11] MEDS: Pantoprazole 40 MG Tab.CR PO SCH (06:09)
[2016-12-11] MEDS: Dextrose 5%-0.9% NaCl 1,000 ML IV SCH ×2 (06:24→14:16)
--- NOTE | 2016-12-11 07:51 | PCM.PN ---
<Amina Kapoor M - Last Filed: 12/11/16 08:09> - General Info Date of Service: 12/11/16 Admission Dx/Problem (Free Text): Admission Diagnosis/Problem Admission Diagnosis/Problem Diverticulitis Functional Status: Reports: pain controlled, tolerating diet (Clear liquids), ambulating, urinating. Denies: new symptoms - Review of Systems General: Reports: no symptoms. Denies: fever, chills, appetite (minimal appetite) HEENT: Reports: no symptoms Pulmonary: Reports: no symptoms Cardiovascular: Reports: no symptoms Gastrointestinal: Reports: Abdominal pain, Decreased appetite, Nausea. Denies: Vomiting Genitourinary: Reports: no symptoms Musculoskeletal: Reports: no symptoms Skin: Reports: no symptoms Neurological: Reports: no symptoms Psychiatric: Reports: no symptoms - Patient Data Vitals - most recent: Last Vital Signs Temp 99.3 F 12/11/16 07:31 Pulse 89 12/11/16 07:31 Resp 15 12/11/16 05:13 BP 101/52 L 12/11/16 07:31 Pulse Ox 95 12/11/16 07:31 Weight - most recent: 75.705 kg I&O - last 24 hours: Intake & Output 12/10/16 12/11/16 12/11/16 22:59 06:59 14:59 Intake Total 3120 2215 Output Total 650 Balance 3120 1565 Lab Results last 24 hrs: Laboratory Results - last 24 hr 12/10/16 12/11/16 Range/Units 18:45 06:19 WBC 6.06 (3.98-10.04) K/mm3 RBC 3.22 L (3.98-5.22) M/mm3 Hgb 9.1 L (11.2-15.7) gm/L Hct 28.7 L (34.1-44.9) % MCV 89.1 (79.4-94.8) fl MCH 28.3 (25.6-32.2) pg MCHC 31.7 L (32.2-35.5) g/dl RDW Std Deviation 40.1 (36.4-46.3) fL Plt Count 201 (182-369) K/mm3 MPV 10.6 (9.4-12.3) fl Neut % (Auto) 59.2 (34.0-71.1) % Lymph % (Auto) 25.6 (19.3-51.7) % [place] % (Auto) 11.1 (4.7-12.5) % Eos % (Auto) 3.8 (0.7-5.8) Baso % (Auto) 0.3 (0.1-1.2) % Neut # 3.59 (1.56-6.13) K/mm3 Lymph # 1.55 (1.18-3.74) K/mm3 [place] # 0.67 H (0.24-0.36) K/mm3 Eos # 0.23 (0.04-0.36) K/mm3 Baso # 0.02 (0.01-0.08) K/mm3 C.difficile [id number] Presumptive negative C. difficile Tox (PCR) Negative Med Orders - Current: Current Medications Acetaminophen (Tylenol) 650 mg PO Q4H PRN PRN Reason: Pain (Mild 1-3)/fever Last Admin: 12/11/16 03:11 Dose: 650 mg Acetaminophen/Hydrocodone Bitart ([place] 325-5 Mg) 1 tab PO Q4H PRN PRN Reason: Pain (moderate 4-6) Last Admin: 12/08/16 21:23 Dose: 1 tab Albuterol (Proventil Hfa) 0 gm INH Q4H PRN PRN Reason: Wheezing Albuterol/Ipratropium (Duoneb 3.0-0.5 Mg/3 Ml) 3 ml NEB Q4H PRN PRN Reason: Shortness Of Breath/wheezing Aspirin (Halfprin) 81 mg PO DAILY [facility] Last Admin: 12/10/16 09:26 Dose: 81 mg Buspirone HCl (Buspar) 7.5 mg PO BID [facility] Last Admin: 12/10/16 23:34 Dose: Not Given Calcium Polycarbophil (Fibercon) 625 mg PO BID [facility] Last Admin: 12/10/16 23:34 Dose: Not Given Carvedilol (Coreg) 3.125 mg PO BID [facility] Last Admin: 12/10/16 23:34 Dose: Not Given Enoxaparin Sodium (Lovenox) 40 mg SUBCUT DAILY [facility] Last Admin: 12/10/16 09:27 Dose: 40 mg Famotidine (Pepcid) 10 mg PO BID [facility] Last Admin: 12/10/16 23:34 Dose: Not Given Guaifenesin/Phenylephrine HCl (Robitussin Dm) 10 ml PO QID PRN PRN Reason: Cough Last Admin: 12/11/16 03:38 Dose: 10 ml Hydralazine HCl (Apresoline) 20 mg IVPUSH Q4H PRN PRN Reason: Hypertension Hydromorphone HCl (Dilaudid) 0.5 mg IVPUSH Q3H PRN PRN Reason: Pain (severe 7-10) Last Admin: 12/08/16 17:49 Dose: 0.5 mg Dextrose/Sodium Chloride (Dextrose 5%-Normal Saline) 1,000 mls @ 150 mls/hr IV ASDIRECTED [facility] Last Admin: 12/11/16 06:24 Dose: 150 mls/hr Promethazine HCl 12.5 mg/ (Sodium Chloride) 50.5 mls @ 100 mls/hr IV Q6H PRN PRN Reason: Nausea/Vomiting Metronidazole 500 mg/ Premix 100 mls @ 100 mls/hr IV Q8H [facility] Last Admin: 12/11/16 06:09 Dose: 100 mls/hr Levofloxacin/Dextrose 250 mg/ (Premix) 50 mls @ 50 mls/hr IV Q24H [facility] Last Admin: 12/10/16 15:09 Dose: 50 mls/hr Levothyroxine Sodium (Synthroid) 25 mcg PO MoFr@0600 [facility] Last Admin: 12/11/16 06:10 Dose: 25 mcg Levothyroxine Sodium (Synthroid) 50 mcg PO SuTuWeThSa@0600 [facility] Last Admin: 12/10/16 06:18 Dose: 50 mcg Loratadine (Claritin) 10 mg PO BEDTIME [facility] Last Admin: 12/10/16 23:34 Dose: Not Given Lorazepam (Ativan) 0.5 mg PO Q12H PRN PRN Reason: Anxiety Last Admin: 12/11/16 03:38 Dose: 0.5 mg Lorazepam (Ativan) 1 mg IV Q6H PRN PRN Reason: Nausea/Vomiting Last Admin: 12/10/16 22:52 Dose: 1 mg Losartan Potassium (Cozaar) 25 mg PO DAILY [facility] Last Admin: 12/10/16 09:27 Dose: 25 mg Magnesium Oxide (Magnesium Oxide) 800 mg PO BID [facility] Last Admin: 12/10/16 23:34 Dose: Not Given Magnesium Sulfate (Pharmacy To Dose - Magnesium Replacement) 0 dose .XX ASDIRECTED PRN PRN Reason: RX TO MONITOR MAG LEVELS Metoprolol Tartrate (Lopressor) 5 mg IVPUSH Q4H PRN PRN Reason: Tachycardia Mycophenolate 500mg (TabOwn Med) 2 each PO BID [facility] Last Admin: 12/10/16 21:55 Dose: 2 each Ondansetron HCl (Zofran) 4 mg IV Q6H PRN PRN Reason: Nausea/Vomiting Last Admin: 12/10/16 19:34 Dose: 4 mg Pantoprazole Sodium (Protonix) 40 mg PO DAILY@0700 [facility] Last Admin: 12/11/16 06:09 Dose: 40 mg Tacrolimus 0.5 Mg (Tab Own Med) 0 each PO BID [facility] Last Admin: 12/10/16 21:56 Dose: 4 each Calcium Carbonate/Vitamin D3 600 Mg/400 Units Tab Own Med 0 each PO BID [facility] Last Admin: 12/10/16 23:34 Dose: Not Given Potassium Chloride (Pharmacy To Dose - Potassium Replacement) 0 dose .XX ASDIRECTED PRN PRN Reason: RX TO MONITOR K LEVELS Saccharomyces Boulardii (Florastor) 250 mg PO DAILY [facility] Last Admin: 12/10/16 09:25 Dose: 250 mg Simvastatin (Zocor) 10 mg PO BEDTIME [facility] Last Admin: 12/10/16 23:35 Dose: Not Given Temazepam (Restoril) 30 mg PO BEDTIME PRN PRN Reason: Sleep Vit A/Vit C/Vit E/Selen/Cu/Zn/Lutei (Icaps Mv) 1 tab PO DAILY [facility] Last Admin: 12/10/16 09:25 Dose: 1 tab Discontinued Medications Acetaminophen (Tylenol) 500 mg PO Q6H PRN PRN Reason: Pain Hydromorphone HCl (Dilaudid) 0.5 mg IVPUSH ONETIME ONE Stop: 12/08/16 14:18 Last Admin: 12/08/16 14:53 Dose: 0.5 mg Levofloxacin/Dextrose 750 mg/ (Premix) 150 mls @ 100 mls/hr IV ONETIME ONE Stop: 12/08/16 15:46 Last Admin: 12/08/16 16:23 Dose: 100 mls/hr Metronidazole 500 mg/ Premix 100 mls @ 100 mls/hr IV ONETIME ONE Stop: 12/08/16 15:17 Last Admin: 12/08/16 15:16 Dose: 100 mls/hr Levofloxacin/Dextrose 500 mg/ (Premix) 100 mls @ 100 mls/hr IV ONETIME ONE Stop: 12/09/16 16:59 Last Admin: 12/09/16 15:14 Dose: 100 mls/hr Magnesium Sulfate 2 gm/ Premix 50 mls @ 25 mls/hr IV ONETIME ONE Stop: 12/08/16 20:25 Last Admin: 12/08/16 22:32 Dose: 25 mls/hr Magnesium Sulfate (Magnesium Sulfate 2 Gm In Water 50 Ml) Confirm Administered Dose 50 mls @ as directed .ROUTE .STK-MED ONE Stop: 12/08/16 21:11 Last Admin: 12/08/16 21:23 Dose: Not Given Magnesium Oxide (Magnesium Oxide) 400 mg PO BID [facility] Last Admin: 12/10/16 09:26 Dose: 400 mg Mycophenolate Mofetil (Cellcept) 1,000 mg PO BID [facility] Last Admin: 12/08/16 23:32 Dose: Not Given Calcium Carbonate/Vitamin D3 500 Mg/400 Units Tab Own Med 1 each PO BID [facility] Last Admin: 12/09/16 10:26 Dose: Not Given Tacrolimus 0.5 Mg (Tab Own Med) 0 mg PO BID [facility] Last Admin: 12/09/16 10:26 Dose: Not Given Ondansetron HCl (Zofran) 4 mg IVPUSH ONETIME ONE Stop: 12/08/16 14:18 Last Admin: 12/08/16 14:57 Dose: 4 mg - Exam Quality Assessment: DVT prophylaxis General: alert, oriented, cooperative, no acute distress HEENT: Pupils equal, Pupils reactive, EOMI, Mucous membr. moist/pink Neck: supple Lungs: Clear to auscultation, Normal respiratory effort Cardiovascular: regular rate, regular rhythm Abdomen: soft, tenderness (diffuse; worse to LLQ). No: rebound, guarding, distension (Female) Exam: Deferred Back Exam: normal inspection Extremities: no edema, no calf tenderness Peripheral Pulses: 1+: dorsalis pedis (L), dorsalis pedis (R) Skin: warm, dry, intact Neurological: no new focal deficit Psy/Mental Status: alert, normal affect, normal mood - Problem List & Annotations (1) Diverticulitis SNOMED Code(s): 359541718 Code(s): K57.92 - DVTRCLI OF INTEST, PART UNSP, W/O PERF OR ABSCESS W/O BLEED Status: Acute Priority: High Current Visit: Yes (2) Abdominal pain SNOMED Code(s): 68161326 Code(s): R10.9 - UNSPECIFIED ABDOMINAL PAIN Status: Acute Priority: High Current Visit: Yes (3) Status post heart transplant Status: Chronic Priority: Medium Current Visit: No - Problem List Review Problem List Initiated/Reviewed/Updated: Yes - Plan Plan:: Assessment/Plan: Acute Diverticulitis, Continues to improve (WBC now at 6K and CRP is 2.9) - Carries hx/o Diverticulosis - Has had 3 episode over 10 years - CT scan: inflammatory change in the bowel wall thickening within the lower sigmoid colon near the recto-sigmoid junction- compatible with diverticulitis - Continue IV Flagyl and Levaquin and home probiotic - GI follow up after d/c - Clear liquids; advance as tolerated - Zofran, phenergan PRN for nausea Mild Hypomagnesemia - Mg 1.6 ---> 1.4 today; will give 2gm IV today - 2/2 inadequate intake - Continue home Mag Ox 400 mg po BID - Pharmacy to replete and monitor S/P heart transplant -Cont home medications Increased anxiety - Cont buspar home dose - Ativan PRN Chronic: HTN AR GERD CKD Stage 3 Anxiety/Depression S/p Cardiac Transplant 2/2 Cardiomyopathy Hx/o Diverticulosis Plan: She remains clinically stable Continue current treatment Routine AM Labs PRN meds for symptomatic control will resume previous NPO status Continue PT/OT SW/CM for d/c planning Code status:1 Additional orders as above <Ronnell Chaudhary T - Last Filed: 12/11/16 20:24> - General Info Subjective Update: Follow Up - Review of Systems Systems Review Comment:: No overnight issues. - Patient Data Vitals - most recent: Last Vital Signs Temp 36.4 C 12/11/16 19:56 Pulse 83 12/11/16 19:56 Resp 18 12/11/16 19:56 BP 134/77 12/11/16 19:56 Pulse Ox 96 12/11/16 19:56 I&O - last 24 hours: Intake & Output 12/11/16 12/11/16 12/11/16 06:59 14:59 22:59 Intake Total 2215 240 300 Output Total 650 2200 Balance 1565 240 -1900 Lab Results last 24 hrs: Laboratory Results - last 24 hr 12/10/16 12/11/16 12/11/16 Range/Units 18:45 06:19 06:19 WBC 6.06 (3.98-10.04) K/mm3 RBC 3.22 L (3.98-5.22) M/mm3 Hgb 9.1 L (11.2-15.7) gm/L Hct 28.7 L (34.1-44.9) % MCV 89.1 (79.4-94.8) fl MCH 28.3 (25.6-32.2) pg MCHC 31.7 L (32.2-35.5) g/dl RDW Std Deviation 40.1 (36.4-46.3) fL Plt Count 201 (182-369) K/mm3 MPV 10.6 (9.4-12.3) fl Neut % (Auto) 59.2 (34.0-71.1) % Lymph % (Auto) 25.6 (19.3-51.7) % [place] % (Auto) 11.1 (4.7-12.5) % Eos % (Auto) 3.8 (0.7-5.8) Baso % (Auto) 0.3 (0.1-1.2) % Neut # 3.59 (1.56-6.13) K/mm3 Lymph # 1.55 (1.18-3.74) K/mm3 [place] # 0.67 H (0.24-0.36) K/mm3 Eos # 0.23 (0.04-0.36) K/mm3 Baso # 0.02 (0.01-0.08) K/mm3 Sodium 142 (136-145) mEq/L Potassium 3.7 (3.5-5.1) mEq/L Chloride 112 H (98-107) mEq/L Carbon Dioxide 23 (21-32) mEq/L Anion Gap 10.7 (5-15) BUN 3 L (7-18) mg/dL Creatinine 0.9 (0.55-1.02) mg/dL Est Cr Clr Drug Dosing 63.83 mL/min Estimated GFR (MDRD) > 60 (>60) mL/min BUN/Creatinine Ratio 3.3 L (14-18) Glucose 129 H (80-115) mg/dL Calcium 7.6 L (8.5-10.1) mg/dL Magnesium 1.4 L (1.8-2.4) mg/dl C-Reactive Protein 1.1 H* (<1.0) mg/dL C.difficile [id number] Presumptive negative C. difficile Tox (PCR) Negative Med Orders - Current: Current Medications Acetaminophen (Tylenol) 650 mg PO Q4H PRN PRN Reason: Pain (Mild 1-3)/fever Last Admin: 12/11/16 03:11 Dose: 650 mg Acetaminophen/Hydrocodone Bitart ([place] 325-5 Mg) 1 tab PO Q4H PRN PRN Reason: Pain (moderate 4-6) Last Admin: 12/11/16 16:18 Dose: 1 tab Albuterol (Proventil Hfa) 0 gm INH Q4H PRN PRN Reason: Wheezing Albuterol/Ipratropium (Duoneb 3.0-0.5 Mg/3 Ml) 3 ml NEB Q4H PRN PRN Reason: Shortness Of Breath/wheezing Aspirin (Halfprin) 81 mg PO DAILY [facility] Last Admin: 12/11/16 08:50 Dose: 81 mg Buspirone HCl (Buspar) 7.5 mg PO BID [facility] Last Admin: 12/11/16 08:48 Dose: 7.5 mg Calcium Polycarbophil (Fibercon) 625 mg PO BID [facility] Last Admin: 12/11/16 08:53 Dose: Not Given Carvedilol (Coreg) 3.125 mg PO BID [facility] Last Admin: 12/11/16 08:46 Dose: 3.125 mg Famotidine (Pepcid) 10 mg PO BID [facility] Last Admin: 12/11/16 08:49 Dose: 10 mg Guaifenesin/Phenylephrine HCl (Robitussin Dm) 10 ml PO QID PRN PRN Reason: Cough Last Admin: 12/11/16 03:38 Dose: 10 ml Hydralazine HCl (Apresoline) 20 mg IVPUSH Q4H PRN PRN Reason: Hypertension Hydromorphone HCl (Dilaudid) 0.5 mg IVPUSH Q3H PRN PRN Reason: Pain (severe 7-10) Last Admin: 12/08/16 17:49 Dose: 0.5 mg Dextrose/Sodium Chloride (Dextrose 5%-Normal Saline) 1,000 mls @ 150 mls/hr IV ASDIRECTED [facility] Last Admin: 12/11/16 14:16 Dose: 150 mls/hr Promethazine HCl 12.5 mg/ (Sodium Chloride) 50.5 mls @ 100 mls/hr IV Q6H PRN PRN Reason: Nausea/Vomiting Metronidazole 500 mg/ Premix 100 mls @ 100 mls/hr IV Q8H [facility] Last Admin: 12/11/16 13:26 Dose: 100 mls/hr Levofloxacin/Dextrose 250 mg/ (Premix) 50 mls @ 50 mls/hr IV Q24H [facility] Last Admin: 12/11/16 16:18 Dose: 50 mls/hr Levothyroxine Sodium (Synthroid) 25 mcg PO MoFr@0600 [facility] Last Admin: 12/11/16 06:10 Dose: 25 mcg Levothyroxine Sodium (Synthroid) 50 mcg PO SuTuWeThSa@0600 [facility] Last Admin: 12/10/16 06:18 Dose: 50 mcg Loratadine (Claritin) 10 mg PO BEDTIME [facility] Last Admin: 12/10/16 23:34 Dose: Not Given Lorazepam (Ativan) 0.5 mg PO Q12H PRN PRN Reason: Anxiety Last Admin: 12/11/16 03:38 Dose: 0.5 mg Lorazepam (Ativan) 1 mg IV Q6H PRN PRN Reason: Nausea/Vomiting Last Admin: 12/11/16 12:41 Dose: 1 mg Losartan Potassium (Cozaar) 25 mg PO DAILY [facility] Last Admin: 12/11/16 08:49 Dose: 25 mg Magnesium Oxide (Magnesium Oxide) 800 mg PO BID [facility] Last Admin: 12/11/16 08:46 Dose: 800 mg Magnesium Sulfate (Pharmacy To Dose - Magnesium Replacement) 0 dose .XX ASDIRECTED PRN PRN Reason: RX TO MONITOR MAG LEVELS Metoprolol Tartrate (Lopressor) 5 mg IVPUSH Q4H PRN PRN Reason: Tachycardia Mycophenolate 500mg (TabOwn Med) 2 each PO BID [facility] Last Admin: 12/11/16 08:54 Dose: 2 each Ondansetron HCl (Zofran) 4 mg IV Q6H PRN PRN Reason: Nausea/Vomiting Last Admin: 12/10/16 19:34 Dose: 4 mg Ondansetron HCl (Zofran Odt) 4 mg PO Q4H PRN PRN Reason: Nausea/Vomiting Pantoprazole Sodium (Protonix) 40 mg PO DAILY@0700 [facility] Last Admin: 12/11/16 06:09 Dose: 40 mg Tacrolimus 0.5 Mg (Tab Own Med) 0 each PO BID [facility] Last Admin: 12/11/16 08:54 Dose: 4 each Calcium Carbonate/Vitamin D3 600 Mg/400 Units Tab Own Med 0 each PO BID [facility] Last Admin: 12/11/16 08:54 Dose: 1 each Potassium Chloride (Pharmacy To Dose - Potassium Replacement) 0 dose .XX ASDIRECTED PRN PRN Reason: RX TO MONITOR K LEVELS Promethazine HCl (Phenergan) 12.5 mg PO Q6H PRN PRN Reason: Nausea/Vomiting Saccharomyces Boulardii (Florastor) 250 mg PO DAILY [facility] Last Admin: 12/11/16 08:50 Dose: 250 mg Simvastatin (Zocor) 10 mg PO BEDTIME [facility] Last Admin: 12/10/16 23:35 Dose: Not Given Temazepam (Restoril) 30 mg PO BEDTIME PRN PRN Reason: Sleep Vit A/Vit C/Vit E/Selen/Cu/Zn/Lutei (Icaps Mv) 1 tab PO DAILY [facility] Last Admin: 12/11/16 08:46 Dose: 1 tab Discontinued Medications Acetaminophen (Tylenol) 500 mg PO Q6H PRN PRN Reason: Pain Bumetanide (Bumex) 0.5 mg IVPUSH ONETIME ONE Stop: 12/11/16 17:14 Last Admin: 12/11/16 17:39 Dose: 0.5 mg Diphtheria/Tetanus/Acell Pertussis (Boostrix) 0.5 ml IM .ONCE ONE Stop: 12/11/16 09:33 Enoxaparin Sodium (Lovenox) 40 mg SUBCUT DAILY [facility] Last Admin: 12/10/16 09:27 Dose: 40 mg Hydromorphone HCl (Dilaudid) 0.5 mg IVPUSH ONETIME ONE Stop: 12/08/16 14:18 Last Admin: 12/08/16 14:53 Dose: 0.5 mg Levofloxacin/Dextrose 750 mg/ (Premix) 150 mls @ 100 mls/hr IV ONETIME ONE Stop: 12/08/16 15:46 Last Admin: 12/08/16 16:23 Dose: 100 mls/hr Metronidazole 500 mg/ Premix 100 mls @ 100 mls/hr IV ONETIME ONE Stop: 12/08/16 15:17 Last Admin: 12/08/16 15:16 Dose: 100 mls/hr Levofloxacin/Dextrose 500 mg/ (Premix) 100 mls @ 100 mls/hr IV ONETIME ONE Stop: 12/09/16 16:59 Last Admin: 12/09/16 15:14 Dose: 100 mls/hr Magnesium Sulfate 2 gm/ Premix 50 mls @ 25 mls/hr IV ONETIME ONE Stop: 12/08/16 20:25 Last Admin: 12/08/16 22:32 Dose: 25 mls/hr Magnesium Sulfate (Magnesium Sulfate 2 Gm In Water 50 Ml) Confirm Administered Dose 50 mls @ as directed .ROUTE .STK-MED ONE Stop: 12/08/16 21:11 Last Admin: 12/08/16 21:23 Dose: Not Given Magnesium Sulfate 2 gm/ Premix 50 mls @ 25 mls/hr IV ONETIME ONE Stop: 12/11/16 10:59 Last Admin: 12/11/16 08:45 Dose: 25 mls/hr Magnesium Oxide (Magnesium Oxide) 400 mg PO BID [facility] Last Admin: 12/10/16 09:26 Dose: 400 mg Mycophenolate Mofetil (Cellcept) 1,000 mg PO BID [facility] Last Admin: 12/08/16 23:32 Dose: Not Given Calcium Carbonate/Vitamin D3 500 Mg/400 Units Tab Own Med 1 each PO BID [facility] Last Admin: 12/09/16 10:26 Dose: Not Given Tacrolimus 0.5 Mg (Tab Own Med) 0 mg PO BID [facility] Last Admin: 12/09/16 10:26 Dose: Not Given Ondansetron HCl (Zofran) 4 mg IVPUSH ONETIME ONE Stop: 12/08/16 14:18 Last Admin: 12/08/16 14:57 Dose: 4 mg - Problem List Review Problem List Initiated/Reviewed/Updated: Yes - My Orders Last 24 Hours: My Active Orders 12/11/16 06:00 Levothyroxine [Synthroid] 25 mcg PO MoFr@0600 12/11/16 09:32 Vaccines to be Administered [RC] PER UNIT ROUTINE 12/11/16 Dinner Full Liquid Diet [DIET] 12/12/16 05:11 BASIC METABOLIC PANEL,BMP [CHEM] AM CBC WITH AUTO DIFF [HEME] AM CRP [C-REACTIVE PROTEIN] [CHEM] AM MAGNESIUM [CHEM] AM 12/13/16 05:11 BASIC METABOLIC PANEL,BMP [CHEM] AM CBC WITH AUTO DIFF [HEME] AM CRP [C-REACTIVE PROTEIN] [CHEM] AM MAGNESIUM [CHEM] AM - Plan Plan:: Assessment/Plan: Acute Diverticulitis, Continues to improve (WBC now at 6K and CRP is 1.1) - Carries hx/o Diverticulosis - Has had 3 episode over [address] years - CT scan: inflammatory change in the bowel wall thickening within the lower sigmoid colon near the recto-sigmoid junction- compatible with diverticulitis - Continue IV Flagyl and Levaquin and home probiotic - GI follow up after d/c - Clear liquids; advance as tolerated - Zofran, phenergan PRN for nausea Mild Hypomagnesemia - Mg 1.6 ---> 1.4 today; will give 2gm IV today - 2/2 inadequate intake - Change Mag Ox to 800 mg po BID - Pharmacy to replete and monitor S/P heart transplant -Continue home medications Increased anxiety - Continue Buspar home dose - Ativan PRN Chronic: HTN AR GERD CKD Stage 3 Anxiety/Depression S/p Cardiac Transplant 2/2 Cardiomyopathy Hx/o Diverticulosis Plan: She remains clinically stable Continue current treatment Routine AM Labs Continue PT/OT SW/CM for d/c planning Encourage to ambulated TID-QID as tolerated Code status:1 Additional orders as above
[2016-12-11] MEDS ORDERED: Promethazine 25 MG Tab PO PRN (08:07)
[2016-12-11] MEDS ORDERED: Ondansetron 4 MG Tab.DIS PO PRN (08:07)
[2016-12-11] MEDS: Carvedilol 3.125 MG Tab PO SCH ×2 (08:46→21:26)
[2016-12-11] MEDS: Multivitamins with Minerals/Folic Acid/Lutein/Zeaxanth Tab PO SCH (08:46)
[2016-12-11] MEDS: Magnesium Oxide 400 MG Tab PO SCH ×2 (08:46→21:30)
[2016-12-11] MEDS: busPIRone 5 MG Tab PO SCH ×2 (08:48→21:25)
[2016-12-11] MEDS: Famotidine 20 MG Tab PO SCH ×2 (08:49→21:28)
[2016-12-11] MEDS: Losartan 25 MG Tab PO SCH (08:49)
[2016-12-11] MEDS: Aspirin 81 MG Tab.EC PO SCH (08:50)
[2016-12-11] MEDS: Saccharomyces Boulardii (Probiotic) 250 MG Cap PO SCH (08:50)
[2016-12-11] MEDS: Calcium Polycarbophil 625 MG Tab PO SCH ×2 (08:53→21:24)
[2016-12-11] MEDS: VITAMIN D3 PO SCH ×2 (08:54→21:32)
[2016-12-11] MEDS: MYCOPHENOLATE 500 MG PO SCH ×2 (08:54→21:32)
[2016-12-11] MEDS: TACROLIMUS 0.5 MG PO SCH ×2 (08:54→21:31)
[2016-12-11] MEDS: CALCIUM CARBONATE PO SCH ×2 (08:54→21:32)
[2016-12-11] MEDS ORDERED: Magnesium Sulfate/Water 2 GM in Premix Bag 1 BAG IV ONE (09:00)
[2016-12-11] MEDS ORDERED: Diphtheria,Pertussis(Acell),Tetanus Vaccine 0.5 ML SDV inactive IM ONE (09:32)
[2016-12-11] MEDS: LORazepam 2 MG/ML MDV IV PRN (12:41)
[2016-12-11] MEDS: Levofloxacin/Dextrose 5%-Water 250 MG in Premix Bag 1 BAG IV SCH (16:18)
[2016-12-11] MEDS: Acetaminophen/HYDROcodone 325-5 MG Tab PO PRN ×2 (16:18→23:34)
[2016-12-11] MEDS ORDERED: Bumetanide 1 MG/4 ML MDV IVPUSH ONE (17:13)
[2016-12-11] MEDS ORDERED: Dextrose 5%-0.9% NaCl 1,000 ML IV SCH (18:00)
[2016-12-11] MEDS: Loratadine 10 MG Tab PO SCH (21:30)
[2016-12-11] MEDS: Simvastatin 10 MG Tab PO SCH (21:33)
[2016-12-12] MEDS: metroNIDAZOLE/Normal Saline 500 MG in Premix Bag 1 BAG IV SCH ×2 (06:00→14:35)
[2016-12-12] MEDS: Pantoprazole 40 MG Tab.CR PO SCH (06:00)
[2016-12-12] MEDS: Levothyroxine 50 MCG Tab PO SCH (06:00)
[2016-12-12] MEDS: Acetaminophen/HYDROcodone 325-5 MG Tab PO PRN (07:30)
[2016-12-12] MEDS: Multivitamins with Minerals/Folic Acid/Lutein/Zeaxanth Tab PO SCH (09:23)
[2016-12-12] MEDS: Saccharomyces Boulardii (Probiotic) 250 MG Cap PO SCH (09:23)
[2016-12-12] MEDS: busPIRone 5 MG Tab PO SCH (09:23)
[2016-12-12] MEDS: Famotidine 20 MG Tab PO SCH (09:24)
[2016-12-12] MEDS: Magnesium Oxide 400 MG Tab PO SCH (09:25)
[2016-12-12] MEDS: Carvedilol 3.125 MG Tab PO SCH (09:25)
[2016-12-12] MEDS: Aspirin 81 MG Tab.EC PO SCH (09:25)
[2016-12-12] MEDS: Calcium Polycarbophil 625 MG Tab PO SCH ×2 (09:25→09:31)
[2016-12-12] MEDS: Losartan 25 MG Tab PO SCH (09:26)
[2016-12-12] MEDS: MYCOPHENOLATE 500 MG PO SCH (09:26)
[2016-12-12] MEDS: TACROLIMUS 0.5 MG PO SCH (09:27)
[2016-12-12] MEDS: CALCIUM CARBONATE PO SCH (09:27)
[2016-12-12] MEDS: VITAMIN D3 PO SCH (09:27)
[2016-12-12] MEDS: Acetaminophen 325 MG Tab PO PRN (11:42)
[2016-12-12] MEDS: LORazepam 0.5 MG Tab PO PRN (11:43)
[2016-12-12] MEDS ORDERED: Magnesium Sulfate/Water 2 GM in Premix Bag 1 BAG IV ONE ×2 (12:00→20:00)
[2016-12-12] MEDS: Levofloxacin/Dextrose 5%-Water 250 MG in Premix Bag 1 BAG IV SCH (15:41)
[2016-12-12 16:13] VITALS: BP 107/75
--- NOTE | 2016-12-12 16:26 | PCM.DCSUM1 ---
Discharge Summary - Hospital Course Brief History: This is a 61 yo white female with past medical hx/o heart transplant 11/02 Cardiomyopathy, HLD, HTN, Hx/o PAF, Hypothyroidism, Chronic Diarrhea, GERD, Chronic Muscle spasm, Migraine HAs, Vertigo, Anxiety and Depression who comes in with complaints of left lower quadrant pain and was diagnosed with colonic diverticulitis. - Discharge Data Discharge Date: 12/12/16 Discharge Disposition: Home, Self-Care 01 Condition: Good - Discharge Diagnosis/Problem(s) (1) Diverticulitis SNOMED Code(s): 368772455 ICD Code: K57.92 - DVTRCLI OF INTEST, PART UNSP, W/O PERF OR ABSCESS W/O BLEED Status: Acute Priority: High (2) Hypomagnesemia SNOMED Code(s): 895530659 ICD Code: E83.42 - HYPOMAGNESEMIA Status: Chronic - Patient Summary/Data Operative Procedure(s) Performed: None Complications: None Consults: Consultations 12/08/16 17:29 Consult to Case Management [CONS] Routine Consult to Data Operations Leader [CONS] Routine OT Evaluation and Treatment [CONS] Routine PT Evaluation and Treatment [CONS] Routine Hospital Course: Patient was primarily admitted for medical management of acute diverticulitis. She carries a hx/o diverticulosis and has had a few episode of diverticulitis in the past. Patient was initially treated outpatient but she did not do well so she came further treatment. Patient was placed on bowel rest, support care and intravenous Levaquin and Flagyl to treat her colonic infection. The patient slowly improved on this regimen. Patient has done well since admission. Her hospital course was uncomplicated. The rest of her chronic medical illness remained stable during this admission. Patient is now stable for discharge. She was able to tolerate regular meal w/o any GI issues. She will continue her flagyl home dose for 5 more days. She was advised to eat low residue diet and stay away from dairy products until completion of her treatment. She was further advised to follow up with her PCP and if needed see GI specialist for further evaluation. The patient expressed understanding and in agreement with the plans as discussed above. All questions wee answered. - Patient Instructions Diet: Heart Healthy Diet, Usual Diet as Tolerated Activity: As Tolerated Driving: Do Not Drive Showering/Bathing: May Shower Notify Provider of: Fever, Increased Pain, Swelling and Redness, Nausea and/or Vomiting Other/Special Instructions: - Please take all medications as directed. - Follow up with your doctor as scheduled - Discharge Plan Home Medications: Home Meds Aspirin [Adult Low Dose Aspirin EC] 81 mg PO DAILY 10/18/16 [History] Calcium Carbonate/Vitamin D3 [Calcium 500 + Vit D 400] 1 each PO BID 10/18/16 [ History] Calcium Polycarbophil [Fibercon] 625 mg PO BID 10/18/16 [History] Cetirizine [ZyrTEC] 10 mg PO BEDTIME 10/18/16 [History] Famotidine [Pepcid AC] 10 mg PO BID 10/18/16 [History] Levothyroxine [Synthroid] 25 mcg PO MOFR 10/18/16 [History] Levothyroxine [Synthroid] 50 mcg PO SUTUWETHSA 10/18/16 [History] Losartan [Cozaar] 25 mg PO DAILY 10/18/16 [History] Magnesium Oxide 400 mg PO BID 10/18/16 [History] Mycophenolate Mofetil 1,000 mg PO BID 10/18/16 [History] Probiotic Complex 25 Billion Cfu's 1 tab PO DAILY 10/18/16 [History] Simvastatin [Zocor] 10 mg PO BEDTIME 10/18/16 [History] Tacrolimus 0.5 mg PO BID 10/18/16 [History] Ultra Wil 50 Plus. 1 tab PO DAILY 10/18/16 [History] busPIRone [Buspar] 7.5 mg PO BID 10/18/16 [History] Acetaminophen [Tylenol] 500 mg PO Q6H PRN 12/08/16 [History] Albuterol [Proventil HFA] 2 puff INH Q4H PRN 12/08/16 [History] Carvedilol [Coreg] 3.125 mg PO BID 12/08/16 [History] LORazepam [Ativan] 0.5 mg PO Q12H PRN 12/08/16 [History] Pantoprazole [Protonix] 40 mg PO DAILY 12/08/16 [History] metroNIDAZOLE [Flagyl] 500 mg PO TID #0 12/12/16 [Rx] Patient Handouts: Diverticulitis, [id number], Abdominal Pain, Adult Referrals: Peg Fan MD [Primary Care Provider] - 12/19/16 9:00 am - Discharge Summary/Plan Comment DC Time >30 min.: No Discharge Summary/Plan Comment: D/c to Home - General Info Date of Service: 12/12/16 Admission Dx/Problem (Free Text: Admission Diagnosis/Problem Admission Diagnosis/Problem Diverticulitis Subjective Update: Follow Up Functional Status: Reports: pain controlled, tolerating diet, ambulating, urinating. Denies: new symptoms - Review of Systems General: Denies: Fever, Weakness, Fatigue, Malaise HEENT: Reports: no symptoms Pulmonary: Denies: shortness of breath Cardiovascular: Denies: Chest Pain Gastrointestinal: Reports: Diarrhea, Flatus. Denies: Abdominal pain, Constipation, Decreased appetite, Difficulty swallowing, Hematochezia, Melena, Nausea, Vomiting Genitourinary: Reports: no symptoms Musculoskeletal: Reports: no symptoms Skin: Denies: cyanosis, jaundice, pruritis, rash Neurological: Denies: Dizziness, Pre-Existing Deficit, Gait Disturbance Psychiatric: Denies: depression, anxiety, hallucinations Systems Review Comment: No acute issues. She is tolerating diet well. She has no new complaints - Patient Data Vitals - Most Recent: Last Vital Signs Temp 36.7 C 12/12/16 15:42 Pulse 94 12/12/16 15:42 Resp 18 12/12/16 15:42 BP 107/75 12/12/16 15:42 Pulse Ox 93 L 12/12/16 15:42 Weight - Most Recent: 76.249 kg I&O - Last 24 hours: Intake & Output 12/12/16 12/12/16 12/12/16 06:59 14:59 22:59 Intake Total 6144 459 3731 Output Total 1900 400 Balance -16 100 1314 Lab Results - Last 24 hrs: Laboratory Results - last 24 hr 12/12/16 12/12/16 Range/Units 06:16 06:16 WBC 7.36 (3.98-10.04) K/mm3 RBC 3.56 L (3.98-5.22) M/mm3 Hgb 10.1 L (11.2-15.7) gm/L Hct 31.3 L (34.1-44.9) % MCV 87.9 (79.4-94.8) fl MCH 28.4 (25.6-32.2) pg MCHC 32.3 (32.2-35.5) g/dl RDW Std Deviation 39.8 (36.4-46.3) fL Plt Count 241 (182-369) K/mm3 MPV 10.2 (9.4-12.3) fl Neut % (Auto) 58.9 (34.0-71.1) % Lymph % (Auto) 27.7 (19.3-51.7) % [place] % (Auto) 9.2 (4.7-12.5) % Eos % (Auto) 3.7 (0.7-5.8) Baso % (Auto) 0.4 (0.1-1.2) % Neut # 4.33 (1.56-6.13) K/mm3 Lymph # 2.04 (1.18-3.74) K/mm3 [place] # 0.68 H (0.24-0.36) K/mm3 Eos # 0.27 (0.04-0.36) K/mm3 Baso # 0.03 (0.01-0.08) K/mm3 Sodium 142 (136-145) mEq/L Potassium 3.7 (3.5-5.1) mEq/L Chloride 110 H (98-107) mEq/L Carbon Dioxide 25 (21-32) mEq/L Anion Gap 10.7 (5-15) BUN 3 L (7-18) mg/dL Creatinine 0.8 (0.55-1.02) mg/dL Est Cr Clr Drug Dosing 71.81 mL/min Estimated GFR (MDRD) > 60 (>60) mL/min BUN/Creatinine Ratio 3.8 L (14-18) Glucose 100 (80-115) mg/dL Calcium 8.0 L (8.5-10.1) mg/dL Magnesium 1.6 L (1.8-2.4) mg/dl C-Reactive Protein 0.6 (<1.0) mg/dL Med Orders - Current: Current Medications Acetaminophen (Tylenol) 650 mg PO Q4H PRN PRN Reason: Pain (Mild 1-3)/fever Last Admin: 12/12/16 11:42 Dose: 650 mg Acetaminophen/Hydrocodone Bitart ([place] 325-5 Mg) 1 tab PO Q4H PRN PRN Reason: Pain (moderate 4-6) Last Admin: 12/12/16 07:30 Dose: 1 tab Albuterol (Proventil Hfa) 0 gm INH Q4H PRN PRN Reason: Wheezing Albuterol/Ipratropium (Duoneb 3.0-0.5 Mg/3 Ml) 3 ml NEB Q4H PRN PRN Reason: Shortness Of Breath/wheezing Aspirin (Halfprin) 81 mg PO DAILY [facility] Last Admin: 12/12/16 09:25 Dose: 81 mg Buspirone HCl (Buspar) 7.5 mg PO BID [facility] Last Admin: 12/12/16 09:23 Dose: 7.5 mg Calcium Polycarbophil (Fibercon) 625 mg PO BID [facility] Last Admin: 12/12/16 09:31 Dose: 625 mg Carvedilol (Coreg) 3.125 mg PO BID [facility] Last Admin: 12/12/16 09:25 Dose: 3.125 mg Famotidine (Pepcid) 10 mg PO BID [facility] Last Admin: 12/12/16 09:24 Dose: 10 mg Guaifenesin/Phenylephrine HCl (Robitussin Dm) 10 ml PO QID PRN PRN Reason: Cough Last Admin: 12/11/16 03:38 Dose: 10 ml Hydralazine HCl (Apresoline) 20 mg IVPUSH Q4H PRN PRN Reason: Hypertension Hydromorphone HCl (Dilaudid) 0.5 mg IVPUSH Q3H PRN PRN Reason: Pain (severe 7-10) Last Admin: 12/08/16 17:49 Dose: 0.5 mg Promethazine HCl 12.5 mg/ (Sodium Chloride) 50.5 mls @ 100 mls/hr IV Q6H PRN PRN Reason: Nausea/Vomiting Metronidazole 500 mg/ Premix 100 mls @ 100 mls/hr IV Q8H [facility] Last Admin: 12/12/16 14:35 Dose: 100 mls/hr Levofloxacin/Dextrose 250 mg/ (Premix) 50 mls @ 50 mls/hr IV Q24H [facility] Last Admin: 12/12/16 15:41 Dose: 50 mls/hr Dextrose/Sodium Chloride (Dextrose 5%-Normal Saline) 1,000 mls @ 50 mls/hr IV ASDIRECTED [facility] Last Admin: 12/11/16 23:35 Dose: 50 mls/hr Magnesium Sulfate 2 gm/ Premix 50 mls @ 25 mls/hr IV ONETIME ONE Stop: 12/12/16 21:59 Levothyroxine Sodium (Synthroid) 25 mcg PO MoFr@0600 [facility] Last Admin: 12/11/16 06:10 Dose: 25 mcg Levothyroxine Sodium (Synthroid) 50 mcg PO SuTuWeThSa@0600 [facility] Last Admin: 12/12/16 06:00 Dose: 50 mcg Loratadine (Claritin) 10 mg PO BEDTIME [facility] Last Admin: 12/11/16 21:30 Dose: 10 mg Lorazepam (Ativan) 0.5 mg PO Q12H PRN PRN Reason: Anxiety Last Admin: 12/12/16 11:43 Dose: 0.5 mg Lorazepam (Ativan) 1 mg IV Q6H PRN PRN Reason: Nausea/Vomiting Last Admin: 12/11/16 12:41 Dose: 1 mg Losartan Potassium (Cozaar) 25 mg PO DAILY [facility] Last Admin: 12/12/16 09:26 Dose: 25 mg Magnesium Oxide (Magnesium Oxide) 800 mg PO BID [facility] Last Admin: 12/12/16 09:25 Dose: 800 mg Magnesium Sulfate (Pharmacy To Dose - Magnesium Replacement) 0 dose .XX ASDIRECTED PRN PRN Reason: RX TO MONITOR MAG LEVELS Metoprolol Tartrate (Lopressor) 5 mg IVPUSH Q4H PRN PRN Reason: Tachycardia Mycophenolate 500mg (TabOwn Med) 2 each PO BID [facility] Last Admin: 12/12/16 09:26 Dose: 2 each Ondansetron HCl (Zofran) 4 mg IV Q6H PRN PRN Reason: Nausea/Vomiting Last Admin: 12/10/16 19:34 Dose: 4 mg Ondansetron HCl (Zofran Odt) 4 mg PO Q4H PRN PRN Reason: Nausea/Vomiting Last Admin: 12/12/16 15:40 Dose: 4 mg Pantoprazole Sodium (Protonix) 40 mg PO DAILY@0700 [facility] Last Admin: 12/12/16 06:00 Dose: 40 mg Tacrolimus 0.5 Mg (Tab Own Med) 0 each PO BID [facility] Last Admin: 12/12/16 09:27 Dose: 4 each Calcium Carbonate/Vitamin D3 600 Mg/400 Units Tab Own Med 0 each PO BID [facility] Last Admin: 12/12/16 09:27 Dose: 1 each Potassium Chloride (Pharmacy To Dose - Potassium Replacement) 0 dose .XX ASDIRECTED PRN PRN Reason: RX TO MONITOR K LEVELS Promethazine HCl (Phenergan) 12.5 mg PO Q6H PRN PRN Reason: Nausea/Vomiting Saccharomyces Boulardii (Florastor) 250 mg PO DAILY [facility] Last Admin: 12/12/16 09:23 Dose: 250 mg Simvastatin (Zocor) 10 mg PO BEDTIME [facility] Last Admin: 12/11/16 21:33 Dose: 10 mg Temazepam (Restoril) 30 mg PO BEDTIME PRN PRN Reason: Sleep Vit A/Vit C/Vit E/Selen/Cu/Zn/Lutei (Icaps Mv) 1 tab PO DAILY [facility] Last Admin: 12/12/16 09:23 Dose: 1 tab Discontinued Medications Acetaminophen (Tylenol) 500 mg PO Q6H PRN PRN Reason: Pain Bumetanide (Bumex) 0.5 mg IVPUSH ONETIME ONE Stop: 12/11/16 17:14 Last Admin: 12/11/16 17:39 Dose: 0.5 mg Diphtheria/Tetanus/Acell Pertussis (Boostrix) 0.5 ml IM .ONCE ONE Stop: 12/11/16 09:33 Enoxaparin Sodium (Lovenox) 40 mg SUBCUT DAILY [facility] Last Admin: 12/10/16 09:27 Dose: 40 mg Hydromorphone HCl (Dilaudid) 0.5 mg IVPUSH ONETIME ONE Stop: 12/08/16 14:18 Last Admin: 12/08/16 14:53 Dose: 0.5 mg Dextrose/Sodium Chloride (Dextrose 5%-Normal Saline) 1,000 mls @ 150 mls/hr IV ASDIRECTED [facility] Last Admin: 12/11/16 14:16 Dose: 150 mls/hr Levofloxacin/Dextrose 750 mg/ (Premix) 150 mls @ 100 mls/hr IV ONETIME ONE Stop: 12/08/16 15:46 Last Admin: 12/08/16 16:23 Dose: 100 mls/hr Metronidazole 500 mg/ Premix 100 mls @ 100 mls/hr IV ONETIME ONE Stop: 12/08/16 15:17 Last Admin: 12/08/16 15:16 Dose: 100 mls/hr Levofloxacin/Dextrose 500 mg/ (Premix) 100 mls @ 100 mls/hr IV ONETIME ONE Stop: 12/09/16 16:59 Last Admin: 12/09/16 15:14 Dose: 100 mls/hr Magnesium Sulfate 2 gm/ Premix 50 mls @ 25 mls/hr IV ONETIME ONE Stop: 12/08/16 20:25 Last Admin: 12/08/16 22:32 Dose: 25 mls/hr Magnesium Sulfate (Magnesium Sulfate 2 Gm In Water 50 Ml) Confirm Administered Dose 50 mls @ as directed .ROUTE .STK-MED ONE Stop: 12/08/16 21:11 Last Admin: 12/08/16 21:23 Dose: Not Given Magnesium Sulfate 2 gm/ Premix 50 mls @ 25 mls/hr IV ONETIME ONE Stop: 12/11/16 10:59 Last Admin: 12/11/16 08:45 Dose: 25 mls/hr Magnesium Sulfate 2 gm/ Premix 50 mls @ 25 mls/hr IV ONETIME ONE Stop: 12/12/16 13:59 Last Admin: 12/12/16 11:42 Dose: 25 mls/hr Magnesium Oxide (Magnesium Oxide) 400 mg PO BID [facility] Last Admin: 12/10/16 09:26 Dose: 400 mg Mycophenolate Mofetil (Cellcept) 1,000 mg PO BID [facility] Last Admin: 12/08/16 23:32 Dose: Not Given Calcium Carbonate/Vitamin D3 500 Mg/400 Units Tab Own Med 1 each PO BID [facility] Last Admin: 12/09/16 10:26 Dose: Not Given Tacrolimus 0.5 Mg (Tab Own Med) 0 mg PO BID [facility] Last Admin: 12/09/16 10:26 Dose: Not Given Ondansetron HCl (Zofran) 4 mg IVPUSH ONETIME ONE Stop: 12/08/16 14:18 Last Admin: 12/08/16 14:57 Dose: 4 mg - Exam General: Reports: alert, oriented, cooperative, no acute distress HEENT: Reports: Pupils equal, Pupils reactive, EOMI, Mucous membr. moist/pink Neck: Reports: supple, trachea midline, no JVD, no thyromegaly Lungs: Reports: Clear to auscultation, Normal respiratory effort Cardiovascular: Reports: Regular Rate, Regular Rhythm Abdomen: Reports: bowel sounds present, soft, no tenderness, no distension (Female) Exam: Deferred Rectal (Female) Exam: Deferred Back Exam: Reports: normal inspection, decreased range of motion Extremities: Reports: no edema, normal pulses, no tenderness/swelling, no clubbing, no cyanosis, no calf tenderness Skin: Reports: warm, dry, intact Neurological: Reports: no new focal deficit Psy/Mental Status: Reports: alert, normal affect, normal mood *Q Meaningful Use (DIS) - VTE *Q VTE Criteria *Q: - Stroke *Q Stroke Criteria *Q: - AMI *Q AMI Criteria *Q:
== END 2016-12-12 17:55 | disposition home or self-care (01) | DRG 244 ==
LOC: JD.ED 13:03 → JD.MS 16:11
PROVIDERS: ADMIT Internal Medicine; ATTEND Internal Medicine
DX: K57.32 Diverticulitis of large intestine without perforation or abscess without bleeding (principal); E83.42 Hypomagnesemia; K21.9 Gastro-esophageal reflux disease without esophagitis; I12.9 Hypertensive chronic kidney disease with stage 1 through stage 4 chronic kidney disease, or unspecified chronic kidney disease; N18.3 Chronic kidney disease, stage 3 (moderate); F32.9 Major depressive disorder, single episode, unspecified; F41.9 Anxiety disorder, unspecified; Z94.1 Heart transplant status; Z88.1 Allergy status to other antibiotic agents; Z88.2 Allergy status to sulfonamides; Z88.0 Allergy status to penicillin; Z88.8 Allergy status to other drugs, medicaments and biological substances; J30.89 Other allergic rhinitis; Z79.82 Long term (current) use of aspirin; Z79.899 Other long term (current) drug therapy; I48.91 Unspecified atrial fibrillation; Z95.810 Presence of automatic (implantable) cardiac defibrillator; E78.00 Pure hypercholesterolemia, unspecified; Z86.010 Personal history of colon polyps; Z79.891 Long term (current) use of opiate analgesic; I35.1 Nonrheumatic aortic (valve) insufficiency
CPT/HCPCS: 36415; 71010; 71010-26; 74176; 74176-26; 80048; 80053; 81001; 83690; 83735; 83880; 85025; 85610; 86140; 87040; 87493; 96365; 96375; 97161-GP; 97165-GO; 99285; 99285-25; A9270-GY; J1170; J1650; J1956; J2060; J2405; J3475; J7042

== ENCOUNTER 2016-12-16 22:12 | Emergency (ER) | payer BC ==
[2016-12-16 22:28] VITALS: BP 137/94
[2016-12-16] MEDS ORDERED: Sodium Chloride 0.9% 1,000 ML IV SCH (23:45)
--- NOTE | 2016-12-17 00:28 | EDM.PDOC ---
ED HISTORY OF PRESENT ILLNESS - General Chief Complaint: Cardiovascular Problem Stated Complaint: [facility] Time Seen by Provider: 12/16/16 23:31 Source of Information: Reports: Patient, Family (Daughter), RN notes reviewed History Limitations: Reports: No limitations - History of Present Illness INITIAL COMMENTS - FREE TEXT/NARRATIVE: The patient states that she was admitted to this hospital on 12/08/2016 for acute diverticulitis, and discharged home on 12/12/2016. While hospitalized, she was treated with Levaquin and Flagyl, then, she was discharged home on oral Flagyl alone. She states that since discharge, she has been feeling nauseated. She states that she went to work today but had generalized achiness and generalized, non-focal abdominal pain. She states that she feels exhausted. She denies having nausea, vomiting, constipation, diarrhea, urinary symptoms, or fever. She was able to eat a normal dinner tonight, for the first time in a long time. She also reports having palpitations tonight - the sensation of her heart beating fast and regular. She checked her blood pressure and found it to be elevated at 155/100. She denies having had chest pain. She states that the palpitations made her feel panicky. She states that she has had similar symptoms in the past. She states that when she has been on Flagyl in the past, she has had hypomagnesemia, and is concerned that hypomagnesemia may be responsible for her symptoms. She took a magnesium pill at 16:00, then half a magnesium pill at 19:00. - Related Data Allergies/ADRs: Allergies Allergy/AdvReac Type Severity Reaction Status Date / Time cefuroxime [From Ceftin] Allergy Cannot Verified 12/16/16 22:28 Remember clindamycin Allergy Cannot Verified 12/16/16 22:28 Remember nitrofurantoin Allergy Cannot Verified 12/16/16 22:28 [From Macrobid] Remember Penicillins Allergy unknown Verified 12/16/16 22:28 Sulfa (Sulfonamide Allergy Hives Verified 12/16/16 22:28 Antibiotics) zoster vaccine live Allergy Cannot Verified 12/16/16 22:28 [From Zostavax (PF)] Remember dust Allergy Cannot Uncoded 12/16/16 22:28 Remember Home Meds: Home Meds Aspirin [Adult Low Dose Aspirin EC] 81 mg PO DAILY 10/18/16 [History] Calcium Carbonate/Vitamin D3 [Calcium 500 + Vit D 400] 1 each PO BID 10/18/16 [ History] Calcium Polycarbophil [Fibercon] 625 mg PO BID 10/18/16 [History] Cetirizine [ZyrTEC] 10 mg PO BEDTIME 10/18/16 [History] Famotidine [Pepcid AC] 10 mg PO BID 10/18/16 [History] Levothyroxine [Synthroid] 25 mcg PO MOFR 10/18/16 [History] Levothyroxine [Synthroid] 50 mcg PO SUTUWETHSA 10/18/16 [History] Losartan [Cozaar] 25 mg PO DAILY 10/18/16 [History] Magnesium Oxide 400 mg PO BID 10/18/16 [History] Mycophenolate Mofetil 1,000 mg PO BID 10/18/16 [History] Probiotic Complex 25 Billion Cfu's 1 tab PO DAILY 10/18/16 [History] Simvastatin [Zocor] 10 mg PO BEDTIME 10/18/16 [History] Tacrolimus 0.5 mg PO BID 10/18/16 [History] Ultra Wil 50 Plus. 1 tab PO DAILY 10/18/16 [History] busPIRone [Buspar] 7.5 mg PO BID 10/18/16 [History] Acetaminophen [Tylenol] 500 mg PO Q6H PRN 12/08/16 [History] Albuterol [Proventil HFA] 2 puff INH Q4H PRN 12/08/16 [History] Carvedilol [Coreg] 3.125 mg PO BID 12/08/16 [History] LORazepam [Ativan] 0.5 mg PO Q12H PRN 12/08/16 [History] Pantoprazole [Protonix] 40 mg PO DAILY 12/08/16 [History] metroNIDAZOLE [Flagyl] 500 mg PO TID #0 12/12/16 [Rx] Levofloxacin [Levaquin] 500 mg PO Q24H #3 tablet 12/17/16 [Rx] metroNIDAZOLE [Flagyl] 500 mg PO Q8H #7 tablet 12/17/16 [Rx] Past Medical History HEENT History: Reports: Cataract, Impaired vision Other HEENT History: Wears glasses, braces Cardiovascular History: Reports: Afib, Arrhythmia, Cardiomyopathy, High cholesterol, Hypertension Other Cardiovascular History: heart transplant in 2008: prior to transplant had asystole, mitral and aortic valce insufficeincy, afib, cardiomyopathy Gastrointestinal History: Reports: Colon polyp, Diverticulosis, GERD Genitourinary History: Reports: Urinary incontinence Psychiatric History: Reports: Anxiety, Depression Endocrine/Metabolic History: Reports: Hypothyroidism - Past Surgical History Cardiovascular Surgical History: Reports: AICD (subsequently removed), Other ( see below) (Heart transplant 10/30/2007) GI Surgical History: Reports: Appendectomy, Cholecystectomy, Colonoscopy Social & Family History - Family History Family Medical History: Noncontributory Cardiac: Reports: Heart failure, [place] - Tobacco Use Smoking Status *Q: Former Smoker Tobacco Use Within Last Twelve Months: No Years of Tobacco use: 30 Packs/Tins Daily: 1 Month Tobacco Last Used: 2002 Second Hand Smoke Exposure: No - Caffeine Use Caffeine Use: Reports: None - Alcohol Use Alcohol Use History: No - Recreational Drug Use Recreational Drug Use: No - Living Situation & Occupation Living situation: Reports: , alone 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 Denies: Chest pain Endocrine: Reports: no symptoms GI/Abdominal: Reports: No symptoms, Abdominal pain (as per the HPI). Denies: Constipation, Diarrhea, Nausea, Vomiting : Reports: no symptoms. Denies: dysuria Musculoskeletal: Reports: other (Generalized achiness, as per the history of present illness) Skin: Reports: no symptoms Neurological: Reports: No Symptoms Psychiatric: Reports: Anxiety (as per the HPI) Hematologic/Lymphatic: Reports: no symptoms Immunologic: Reports: no symptoms ED EXAM, GENERAL - Physical Exam Exam: See Below Exam Limited By: No limitations General Appearance: alert, WD/WN, no apparent distress Eye Exam: bilateral eye: EOMI, normal inspection Ears: normal external exam, hearing grossly normal Ear Exam: bilateral ear: auricle normal Nose: normal inspection, no blood Throat/Mouth: Normal inspection, Normal lips, Normal voice, No airway compromise Head: atraumatic, normocephalic Neck: normal inspection, full range of motion Respiratory/Chest: no respiratory distress, lungs clear, normal breath sounds, no accessory muscle use, chest non-tender Cardiovascular: normal peripheral pulses, no edema, no gallop, no JVD, no murmur , no rub, tachycardia (regular) Peripheral Pulses: 4+: radial (L), radial (R) GI/Abdominal: normal bowel sounds, soft, no organomegaly, no distention, no abnormal bruit, no mass, tender (Mild tenderness primarily to the left lower quadrant, with some tenderness to the left upper quadrant) Back Exam: normal inspection, full range of motion. No: CVA tenderness (L), CVA tenderness (R) Extremities: normal inspection, normal range of motion, non-tender, normal capillary refill, no pedal edema Neurological: alert, oriented, normal cognition, no motor/sensory deficits Psychiatric: normal affect, anxious Skin Exam: Warm, Dry, Intact, Normal color, No rash Lymphatic: no adenopathy EKG INTERPRETATION EKG Date: 12/17/16 Time: 00:05 Rhythm: other (Sinus tachycardia) Rate (beats/min): 102 [place]: normal P-wave: present QRS: RBBB ST-T: normal QT: normal Comparison: no change (10/19/2016) Course - Vital Signs Last Recorded V/S: Last Vital Signs Temp 36.4 C 12/16/16 22:20 Pulse 117 H 12/16/16 22:20 Resp 18 12/16/16 22:20 BP 137/94 H 12/16/16 22:20 Pulse Ox 100 12/16/16 22:20 - Orders/Labs/Meds Orders: Active Orders 24 hr Category Date Time Status EKG Documentation Completion [RC] STAT Care 12/16/16 23:56 Active Abdomen Pelvis wo Cont [CT] Stat Exams 12/16/16 23:53 Taken Chest 2V [CR] Stat Exams 12/16/16 23:55 Taken Labs: Laboratory Tests 12/17/16 12/17/16 12/17/16 Range/Units 00:07 00:07 00:07 WBC 9.37 (3.98-10.04) K/mm3 RBC 4.41 (3.98-5.22) M/mm3 Hgb 12.4 (11.2-15.7) gm/L Hct 37.6 (34.1-44.9) % MCV 85.3 (79.4-94.8) fl MCH 28.1 (25.6-32.2) pg MCHC 33.0 (32.2-35.5) g/dl RDW Std Deviation 40.5 (36.4-46.3) fL Plt Count 321 (182-369) K/mm3 MPV 9.8 (9.4-12.3) fl Neutrophils % (Manual) 64 H (40-60) % Band Neutrophils % 2 (0-10) % Lymphocytes % (Manual) 30 (20-40) % Atypical Lymphs % 1 % Monocytes % (Manual) 3 (2-10) % Eosinophils % (Manual) 0 L (0.7-5.8) % Basophils % (Manual) 0 L (0.1-1.2) Platelet Estimate Adequate Plt Morphology Comment Normal Polychromasia Few RBC Morph Comment Not Reportable PT 11.6 (8.0-13.0) SECONDS INR 1.06 APTT 27 (22-36) SECONDS D-Dimer, Quantitative 0.82 H (0.19-0.59) mg/L Sodium 143 (136-145) mEq/L Potassium 3.2 L (3.5-5.1) mEq/L Chloride 106 (98-107) mEq/L Carbon Dioxide 28 (21-32) mEq/L Anion Gap 12.2 (5-15) BUN 6 L (7-18) mg/dL Creatinine 0.9 (0.55-1.02) mg/dL Est Cr Clr Drug Dosing 63.83 mL/min Estimated GFR (MDRD) > 60 (>60) mL/min BUN/Creatinine Ratio 6.7 L (14-18) Glucose 127 H (80-115) mg/dL Calcium 8.7 (8.5-10.1) mg/dL Magnesium 1.4 L (1.8-2.4) mg/dl Total Bilirubin 0.3 (0.2-1.0) mg/dL AST 20 (15-37) U/L ALT 23 (14-59) U/L Alkaline Phosphatase 95 (46-116) U/L Troponin I < 0.017 (0.00-0.056) ng/mL C-Reactive Protein 0.7 (<1.0) mg/dL Total Protein 6.8 (6.4-8.2) g/dl Albumin 3.7 (3.4-5.0) g/dl Globulin 3.1 gm/dL Albumin/Globulin Ratio 1.2 (1-2) Lipase 166 (73-393) U/L Urine Color (Yellow) Urine Appearance (Clear) Urine pH (5.0-8.0) Ur Specific [place] (1.005-1.030) Urine Protein (Negative) Urine Glucose (UA) (Negative) Urine Ketones (Negative) Urine Occult Blood (Negative) Urine Nitrite (Negative) Urine Bilirubin (Negative) Urine Urobilinogen (0.2-1.0) Ur Leukocyte Esterase (Negative) Urine RBC (0-5) /hpf Urine WBC (0-5) /hpf Ur Epithelial Cells (0-5) /hpf Ur Transition Epith Cell (0-5) Urine Bacteria (FEW) /hpf Urine Mucus (FEW) /hpf Urine Yeast (NOT SEEN) 12/17/16 Range/Units 02:00 WBC (3.98-10.04) K/mm3 RBC (3.98-5.22) M/mm3 Hgb (11.2-15.7) gm/L Hct (34.1-44.9) % MCV (79.4-94.8) fl MCH (25.6-32.2) pg MCHC (32.2-35.5) g/dl RDW Std Deviation (36.4-46.3) fL Plt Count (182-369) K/mm3 MPV (9.4-12.3) fl Neutrophils % (Manual) (40-60) % Band Neutrophils % (0-10) % Lymphocytes % (Manual) (20-40) % Atypical Lymphs % % Monocytes % (Manual) (2-10) % Eosinophils % (Manual) (0.7-5.8) % Basophils % (Manual) (0.1-1.2) Platelet Estimate Plt Morphology Comment Polychromasia RBC Morph Comment PT (8.0-13.0) SECONDS INR APTT (22-36) SECONDS D-Dimer, Quantitative (0.19-0.59) mg/L Sodium (136-145) mEq/L Potassium (3.5-5.1) mEq/L Chloride (98-107) mEq/L Carbon Dioxide (21-32) mEq/L Anion Gap (5-15) BUN (7-18) mg/dL Creatinine (0.55-1.02) mg/dL Est Cr Clr Drug Dosing mL/min Estimated GFR (MDRD) (>60) mL/min BUN/Creatinine Ratio (14-18) Glucose (80-115) mg/dL Calcium (8.5-10.1) mg/dL Magnesium (1.8-2.4) mg/dl Total Bilirubin (0.2-1.0) mg/dL AST (15-37) U/L ALT (14-59) U/L Alkaline Phosphatase (46-116) U/L Troponin I (0.00-0.056) ng/mL C-Reactive Protein (<1.0) mg/dL Total Protein (6.4-8.2) g/dl Albumin (3.4-5.0) g/dl Globulin gm/dL Albumin/Globulin Ratio (1-2) Lipase (73-393) U/L Urine Color Light yellow (Yellow) Urine Appearance Slt cloudy H (Clear) Urine pH 7.0 (5.0-8.0) Ur Specific [place] 1.015 (1.005-1.030) Urine Protein Negative (Negative) Urine Glucose (UA) Negative (Negative) Urine Ketones Negative (Negative) Urine Occult Blood Negative (Negative) Urine Nitrite Negative (Negative) Urine Bilirubin Negative (Negative) Urine Urobilinogen 0.2 (0.2-1.0) Ur Leukocyte Esterase Negative (Negative) Urine RBC Not seen (0-5) /hpf Urine WBC 0-5 (0-5) /hpf Ur Epithelial Cells 0-5 (0-5) /hpf Ur Transition Epith Cell 0-5 (0-5) Urine Bacteria Not seen (FEW) /hpf Urine Mucus Not seen (FEW) /hpf Urine Yeast Not seen (NOT SEEN) Meds: Medications Discontinued Medications Generic Name Dose Route Start Last Admin Trade Name Freq PRN Reason Stop Dose Admin Diatrizoate Meglum/Diatrizoate Sod 90 ml 12/17/16 00:38 12/17/16 01:47 Gastrografin 37% PO 12/17/16 00:39 90 ml ONETIME ONE Administration Sodium Chloride 1,000 mls @ 150 mls/hr 12/16/16 23:45 Normal Saline IV ASDIRECTED EDUARDO Magnesium Sulfate 2 gm/ Premix 50 mls @ 50 mls/hr 12/17/16 02:28 12/17/16 05: 51 IV 12/17/16 03:27 Not Given ONETIME ONE Levofloxacin 500 mg 12/17/16 03:28 12/17/16 03:43 Levaquin PO 12/17/16 03:29 500 mg ONETIME STA Administration - Radiology Interpretation Free Text/Narrative:: Two-view chest radiograph appears to be grossly normal. Cardiac silhouette is within normal limits. No pulmonary vascular congestion. No pleural effusions. No focal infiltrate. No pneumothorax. A disconnected AICD lead is noted. Sternotomy wires noted. Formal read per the Radiologist pending. CT of the abdomen and pelvis without contrast is read by virtual radiology as: 1. {artial resolution of distal sigmoid inflammatory changes. 2. Small left pleural effusion has developed 3. Colonic diverticulosis 4. 2.8 cm left ovarian cyst - Re-Assessments/Exams Free Text/Narrative Re-Assessment/Exam: 12/17/16 02:34 Notified that the patient refused IV contrast for the CT scan study, stating that she has chronic kidney disease. The patient's BUN/Cr is 6/0.9 today, and review of prior lab values shows no history of renal insufficiency. This was explained to the patient, however, the patient told the engineering technician that he was wrong. 12/17/16 03:19 Test results discussed at length with the patient and her daughter. The patient states that she is primarily concerned about her heart. ECG shows a slight sinus tachycardia at 102 beats per minute, but at the same time, the patient mentioned that she was quite anxious. I believe that the patient's sinus tachycardia is related to anxiety. We discussed that her mildly depressed magnesium level would not cause sinus tachycardia. An IV Mg-rider had previously been ordered, however, the patient had refused the IV, therefore did not receive it. It was again offered, but given how late it is, the patient is declining. I was more concerned about the patient's abdominal discomfort. Without IV contrast, the CT scan of the abdomen and pelvis was suboptimal, therefore I cannot say with certainty that she does not have continued diverticulitis. For tonight purposes, I am going to re\re everardo start the patient on oral Levaquin 500 mg daily, and prescribed additional Flagyl, to complete a three-day course. The patient is scheduled to see her PCP, Dr. Peg Fan, on Sunday, , however, I have asked her to contact Dr. Fan's office first thing 12/18/2016, to arrange to be seen earlier. Departure - Departure Time of Disposition: 03:22 Disposition: Home, Self-Care 01 Condition: good Clinical Impression: Palpitations, Anxiety, Abdominal pain, Hypomagnesemia Prescriptions: Levofloxacin [Levaquin] 500 mg PO Q24H #3 tablet metroNIDAZOLE [Flagyl] 500 mg PO Q8H #7 tablet Instructions: Abdominal Pain, Adult, [id number], Palpitations Referrals: Peg Fan MD [Primary Care Provider] - Forms: ED Department Discharge Additional Instructions: You were seen in the emergency room tonight for palpitations and continued abdominal pain. Workup in the ER included blood work, a urinalysis, an ECG, a chest x-ray, and a CT scan of your abdomen and pelvis. Your workup was remarkable for a magnesium level depressed at 1.4. Your ECG showed a sinus tachycardia at [address] The [address] scan of your abdomen and pelvis appears to show improvement in your diverticulitis, however, without IV contrast, the study is limited. Because you declined an IV, we were not able to replace your magnesium. We recommend you continue to take your oral magnesium. You have been re-started on Levaquin. Take one tablet every day, as prescribed. Finish the entire prescription unless told otherwise by Dr. Fan. You have been prescribed additional Flagyl. Continue to take one tablet every 8 hours, as prescribed. Finish the entire prescription unless told otherwise by Dr. Fan. We recommend you call the office of Dr. Fan first thing Sunday, , to arrange to be seen Sunday or Sunday. If any other problems, please do not hesitate to return to the ER. - My Orders Last 24 Hours: My Active Orders 12/16/16 23:53 Abdomen Pelvis wo Cont [CT] Stat 12/16/16 23:55 Chest 2V [CR] Stat 12/16/16 23:56 EKG Documentation Completion [RC] STAT - Assessment/Plan Last 24 Hours: My Active Orders 12/16/16 23:53 Abdomen Pelvis wo Cont [CT] Stat 12/16/16 23:55 Chest 2V [CR] Stat 12/16/16 23:56 EKG Documentation Completion [RC] STAT
[2016-12-17] MEDS ORDERED: Diatrizoate Meglumine/Diatrizoate Sodium 37% 120 ML Bottle PO ONE (00:38)
[2016-12-17] MEDS ORDERED: Magnesium Sulfate/Water 2 GM in Premix Bag 1 BAG IV ONE (02:28)
[2016-12-17] MEDS ORDERED: Levofloxacin 500 MG Tab PO STA (03:28)
--- NOTE | 2016-12-18 07:59 | CR ---
Chest: Two views of the chest were obtained. Comparison: Previous chest x-ray of 12/08/16. Heart size and mediastinum are within normal limits. AICD wire is seen which has been disconnected. Previous sternotomy is seen. Minimal atelectasis is seen within the left base. Lungs otherwise are clear. Bony structures are unremarkable for the patient's age. Surgical clips are seen from prior cholecystectomy. Impression: 1. Incidental findings. Nothing acute is identified on two-view chest x-ray. Diagnostic code #2
--- NOTE | 2016-12-18 10:31 | CT ---
CT abdomen and pelvis Technique: Multiple axial sections were obtained from above the dome of the diaphragm inferiorly through the pubic symphysis. Oral contrast has been given. Patient refused IV contrast which causes limitation of evaluation of solid organs. Comparison: Previous CT exam of 12/08/16 is available. Findings: Small left sided pleural effusion which is an interval change from previous exam. Minimal left basilar atelectasis is noted. Noncontrast appearance of the liver and spleen appears within normal limits. Small hiatal hernia is present. Adrenal glands show no nodule. Kidneys show no abnormal calcifications or hydronephrosis. Surgical clips seen from previous cholecystectomy. Pancreas appears within normal limits. Aorta shows minimal atherosclerotic calcification without aneurysmal dilatation. No retroperitoneal adenopathy or mesenteric abnormalities are seen. Stable appearing cyst noted within the left ovary. Inflammatory change seen previously around the sigmoid colon shows significant improvement. There is soft tissue prominence to the right of the sigmoid colon believed to be within the wall of the sigmoid colon possibly due to residual wall thickening although difficult to exclude eccentric sigmoid mass. No free fluid seen within the abdomen or pelvis. Bone window settings were reviewed which show scattered degenerative change within the spine. Disc bulge or herniation seen at L5-S1 which appears old as the margins are calcified. Impression: 1. Improved inflammatory change presumably from diverticulitis within the sigmoid colon. 2. Soft tissue prominence to the right side of the sigmoid wall possibly due to residual wall thickening from diverticulitis although sigmoid mass cannot be excluded at this time. Endoscopy recommended at sometime in the future to further evaluate. 3. Cyst within the left ovary which is a chronic finding and is incidental. 4. Small left-sided pleural effusion which is an interval change from prior exam. Mild left basilar atelectasis is noted. 5. Other incidental findings. Agree with preliminary report issued by [facility] (preliminary [facility] report dictated on 12/17/16, 3:12 AM Central Time) Diagnostic code #9
== END 2016-12-17 03:50 | disposition home or self-care (01) ==
LOC: JD.ED 22:12
DX: R10.9 Unspecified abdominal pain (principal); R00.2 Palpitations; E83.42 Hypomagnesemia; I48.91 Unspecified atrial fibrillation; I42.9 Cardiomyopathy, unspecified; E78.00 Pure hypercholesterolemia, unspecified; I10 Essential (primary) hypertension; I08.0 Rheumatic disorders of both mitral and aortic valves; K21.9 Gastro-esophageal reflux disease without esophagitis; F41.8 Other specified anxiety disorders; E03.9 Hypothyroidism, unspecified; Z87.891 Personal history of nicotine dependence; Z88.8 Allergy status to other drugs, medicaments and biological substances; Z79.82 Long term (current) use of aspirin; Z79.899 Other long term (current) drug therapy; Z94.1 Heart transplant status
CPT/HCPCS: 36415; 71020; 74176; 80053; 81001; 83690; 83735; 84484; 85025; 85379; 85610; 85730; 86140; 93005; 99285; A9270; Q9963; 99284

== ENCOUNTER 2018-02-06 08:19 | Emergency (ER) | payer BC ==
[2018-02-06 08:36] VITALS: BP 156/88
[2018-02-06] MEDS ORDERED: LORazepam 2 MG/ML SDV IVPUSH ONE (08:48)
[2018-02-06] MEDS ORDERED: Sodium Chloride 0.9% 1,000 ML IV ONE (08:49)
[2018-02-06] MEDS ORDERED: Acetaminophen 325 MG Tab PO ONE (08:51)
--- NOTE | 2018-02-06 08:52 | EDM.PDOC ---
ED HPI GENERAL MEDICAL PROBLEM - General Chief Complaint: Chest Pain Stated Complaint: LEFT CHEST/FLANK PAIN Time Seen by Provider: 02/06/18 08:40 Source of Information: Reports: Patient History Limitations: Reports: No Limitations - History of Present Illness INITIAL COMMENTS - FREE TEXT/NARRATIVE: The patient is a 62-year-old female with a chief complaint of anxiety and a feeling of her heart racing. She has a history of a heart transplant 10 years ago and has been doing well with this. She states that she's been feeling very anxious today. She has previously been on Ativan but has been trying to wean herself off of it. Today she had some discomfort in her left abdominal area. She 's had this on and off for some time but it seemed worse today. She states that when she gets pain in her abdomen she gets very nervous because she thinks it could be related to her heart. She states that these feelings then provoke her to feel like she is having chest pain and then she becomes unsure about where the pain is coming from and feels very panicky. She has a sensation of her heart racing. Not really short of breath. No lower extremity pain or swelling. No cough, fever, recent illness. She states that she's been having abdominal pain and diarrhea on and off over the course of months. She has a history of diverticulitis and worried that that could be the cause. Today the abdominal pain seemed worse. It is located in the left upper abdomen and is dull, not related to eating or movement. Currently mild severity. No recent travel, no recent antibiotics. - Related Data Allergies Allergy/AdvReac Type Severity Reaction Status Date / Time cefuroxime [From Ceftin] Allergy Cannot Verified 12/16/16 22:28 Remember clindamycin Allergy Cannot Verified 12/16/16 22:28 Remember nitrofurantoin Allergy Cannot Verified 12/16/16 22:28 [From Macrobid] Remember Penicillins Allergy unknown Verified 12/16/16 22:28 Sulfa (Sulfonamide Allergy Hives Verified 12/16/16 22:28 Antibiotics) zoster vaccine live Allergy Cannot Verified 12/16/16 22:28 [From Zostavax (PF)] Remember dust Allergy Cannot Uncoded 12/16/16 22:28 Remember Home Meds: Home Meds Aspirin [Adult Low Dose Aspirin EC] 81 mg PO DAILY 10/18/16 [History] Calcium Carbonate/Vitamin D3 [Calcium 500 + Vit D 400] 2 each PO DAILY 10/18/16 [History] Calcium Polycarbophil [Fibercon] 625 mg PO BID 10/18/16 [History] Cetirizine [ZyrTEC] 10 mg PO BEDTIME 10/18/16 [History] Levothyroxine [Synthroid] 25 mcg PO MOFR 10/18/16 [History] Levothyroxine [Synthroid] 50 mcg PO SUTUWETHSA 10/18/16 [History] Magnesium Oxide 400 mg PO BID 10/18/16 [History] Mycophenolate Mofetil 1,000 mg PO BID 10/18/16 [History] Probiotic Complex 25 Billion Cfu's 1 tab PO DAILY 10/18/16 [History] Simvastatin [Zocor] 10 mg PO BEDTIME 10/18/16 [History] Tacrolimus 0.5 mg PO BID 10/18/16 [History] Ultra Wil 50 Plus. 1 tab PO DAILY 10/18/16 [History] busPIRone [Buspar] 7.5 mg PO BID 10/18/16 [History] Acetaminophen [Tylenol] 500 mg PO Q6H PRN 12/08/16 [History] Albuterol [Proventil HFA] 2 puff INH Q4H PRN 12/08/16 [History] LORazepam [Ativan] 0.5 mg PO Q12H PRN 12/08/16 [History] Pantoprazole [ProTONIX] 40 mg PO DAILY 12/08/16 [History] Valsartan 40 mg PO DAILY 02/06/18 [History] Past Medical History HEENT History: Reports: Cataract, Impaired Vision Other HEENT History: Wears glasses, braces Cardiovascular History: Reports: Afib, Arrhythmia, Cardiomyopathy, High Cholesterol, Hypertension Other Cardiovascular History: heart transplant in 2007: prior to transplant had asystole, mitral and aortic valce insufficeincy, afib, cardiomyopathy Gastrointestinal History: Reports: Colon Polyp, Diverticulosis, GERD Other Gastrointestinal History: hematochezia, abdominal pain Genitourinary History: Reports: Urinary Incontinence Musculoskeletal History: Reports: Other (See Below) Other Musculoskeletal History: muslce spasms Neurological History: Reports: Migraines, Vertigo Psychiatric History: Reports: Anxiety, Depression Endocrine/Metabolic History: Reports: Hypothyroidism Immunologic History: Reports: Solid Organ Transplant Dermatologic History: Reports: Psoriasis - Past Surgical History Cardiovascular Surgical History: Reports: AICD, Other (See Below) Other Cardiovascular Surgeries/Procedures: heart transplant 2007 Social & Family History - Family History Family Medical History: Noncontributory Cardiac: Reports: Heart Failure, CA - Tobacco Use Smoking Status *Q: Never Smoker - Caffeine Use Caffeine Use: Reports: Soda - Recreational Drug Use Recreational Drug Use: No - Living Situation & Occupation Living situation: Reports: , Alone Occupation: Employed ED ROS GENERAL - Review of Systems Review Of Systems: See Below Constitutional: Reports: Malaise. Denies: Fever HEENT: Reports: No Symptoms Respiratory: Denies: Shortness of Breath Cardiovascular: Reports: Chest Pain Endocrine: Reports: No Symptoms GI/Abdominal: Reports: Abdominal Pain : Reports: No Symptoms Musculoskeletal: Reports: No Symptoms Skin: Reports: No Symptoms Neurological: Reports: No Symptoms Psychiatric: Reports: Anxiety Hematologic/Lymphatic: Reports: No Symptoms Immunologic: Reports: No Symptoms ED EXAM, GENERAL - Physical Exam Exam: See Below Exam Limited By: No Limitations General Appearance: Alert, WD/WN, Anxious Eye Exam: Bilateral Eye: EOMI, Normal Inspection, PERRL Ears: Normal External Exam Nose: Normal Inspection Throat/Mouth: Normal Inspection, Normal Voice, No Airway Compromise Head: Atraumatic, Normocephalic Neck: Normal Inspection, Supple, Non-Tender Respiratory/Chest: No Respiratory Distress, Lungs Clear, Normal Breath Sounds, No Accessory Muscle Use, Chest Non-Tender Cardiovascular: Normal Peripheral Pulses, No Edema, No Murmur, Tachycardia GI/Abdominal: Soft, Non-Tender, No Distention. No: Rebound Back Exam: Normal Inspection Extremities: Normal Inspection, No Pedal Edema Neurological: Alert, Oriented, Normal Cognition, No Motor/Sensory Deficits Psychiatric: Normal Affect, Normal Mood Skin Exam: Warm, Dry, Intact, Normal Color, No Rash Course - Vital Signs Last Recorded V/S: Last Vital Signs Temp 36.4 C 02/06/18 08:28 Pulse 145 H 02/06/18 08:28 Resp 25 H 02/06/18 08:28 BP 156/88 H 02/06/18 08:28 Pulse Ox 100 02/06/18 08:28 - Orders/Labs/Meds Orders: Active Orders 24 hr Category Date Time Status EKG 12 Lead [EKG Documentation Completion] [] STAT Care 02/06/18 08:25 Active Peripheral IV Care [RC] . DIRECTED Care 02/06/18 08:49 Active UA W/MICROSCOPIC [URIN] Stat Lab 02/06/18 10:40 Ordered Peripheral IV Insertion Adult [OM.PC] Routine Oth 02/06/18 08:48 Ordered Labs: Laboratory Tests 02/06/18 02/06/18 02/06/18 Range/Units 08:40 08:40 10:40 WBC 10.10 H (3.98-10.04) K/mm3 RBC 4.90 (3.98-5.22) M/mm3 Hgb 13.7 (11.2-15.7) gm/L Hct 42.2 (34.1-44.9) % MCV 86.1 (79.4-94.8) fl MCH 28.0 (25.6-32.2) pg MCHC 32.5 (32.2-35.5) g/dl RDW Std Deviation 40.7 (36.4-46.3) fL Plt Count 279 (182-369) K/mm3 MPV 10.9 (9.4-12.3) fl Neut % (Auto) 67.8 (34.0-71.1) % Lymph % (Auto) 22.0 (19.3-51.7) % Carver % (Auto) 9.0 (4.7-12.5) % Eos % (Auto) 0.9 (0.7-5.8) Baso % (Auto) 0.2 (0.1-1.2) % Neut # (Auto) 6.85 H (1.56-6.13) K/mm3 Lymph # (Auto) 2.22 (1.18-3.74) K/mm3 Carver # (Auto) 0.91 H (0.24-0.36) K/mm3 Eos # (Auto) 0.09 (0.04-0.36) K/mm3 Baso # (Auto) 0.02 (0.01-0.08) K/mm3 Sodium 141 (136-145) mEq/L Potassium 3.7 (3.5-5.1) mEq/L Chloride 102 (98-107) mEq/L Carbon Dioxide 28 (21-32) mEq/L Anion Gap 14.7 (5-15) BUN 17 (7-18) mg/dL Creatinine 1.2 H (0.55-1.02) mg/dL Est Cr Clr Drug Dosing 47.27 mL/min Estimated GFR (MDRD) 46 (>60) mL/min BUN/Creatinine Ratio 14.2 (14-18) Glucose 125 H (80-115) mg/dL Calcium 9.8 (8.5-10.1) mg/dL Magnesium 1.3 L (1.8-2.4) mg/dl Total Bilirubin 0.4 (0.2-1.0) mg/dL AST 30 (15-37) U/L ALT 44 (14-59) U/L Alkaline Phosphatase 137 H (46-116) U/L Troponin I < 0.017 (0.00-0.056) ng/mL Total Protein 8.6 H (6.4-8.2) g/dl Albumin 4.5 (3.4-5.0) g/dl Globulin 4.1 gm/dL Albumin/Globulin Ratio 1.1 (1-2) Lipase 133 (73-393) U/L Free T4 1.31 (0.76-1.46) ng/dL TSH 3rd Generation 3.279 (0.358-3.74) uIU/mL Urine Color Light yellow (Yellow) Urine Appearance Clear (Clear) Urine pH 6.5 (5.0-8.0) Ur Specific Boykin 1.015 (1.005-1.030) Urine Protein Negative (Negative) Urine Glucose (UA) Negative (Negative) Urine Ketones Negative (Negative) Urine Occult Blood Negative (Negative) Urine Nitrite Negative (Negative) Urine Bilirubin Negative (Negative) Urine Urobilinogen 0.2 (0.2-1.0) Ur Leukocyte Esterase 1+ H (Negative) Urine RBC Not seen (0-5) /hpf Urine WBC 5-10 H (0-5) /hpf Ur Epithelial Cells 0-5 (0-5) /hpf Urine Bacteria Not seen (FEW) /hpf Urine Mucus Not seen (FEW) /hpf Meds: Medications Discontinued Medications Generic Name Dose Route Start Last Admin Trade Name Freq PRN Reason Stop Dose Admin Acetaminophen 650 mg 02/06/18 08:51 02/06/18 09:19 Tylenol PO 02/06/18 08:52 650 mg NOW ONE Administration Diatrizoate Meglum/Diatrizoate Sod 90 ml 02/06/18 10:06 02/06/18 11:19 Gastrografin 37% PO 02/06/18 10:07 90 ml ONETIME ONE Administration Sodium Chloride 1,000 mls @ 1,000 mls/hr 02/06/18 08:49 02/06/18 09:18 Normal Saline IV 02/06/18 09:48 1,000 mls/hr ONETIME ONE Administration Iopamidol 100 ml 02/06/18 10:06 02/06/18 11:19 Isovue-300 (61%) IVPUSH 02/06/18 10:07 100 ml ONETIME ONE Administration Lorazepam 1 mg 02/06/18 08:48 02/06/18 08:55 Ativan IVPUSH 02/06/18 08:49 1 mg ONETIME ONE Administration Sodium Chloride 10 ml 02/06/18 08:48 02/06/18 11:19 Saline Flush FLUSH 10 ml ASDIRECTED PRN Administration Keep Vein Open Sodium Chloride 10 ml 02/06/18 10:06 Saline Flush FLUSH 02/06/18 10:07 ONETIME ONE - Re-Assessments/Exams Free Text/Narrative Re-Assessment/Exam: EKG shows sinus tachycardia. Her EKG is similar to prior EKGs in our system, no significant change. She is highly anxious. Improved after 1 mg of IV Ativan. Her chest x-ray showed normal mediastinum and cardiac silhouette, no evidence of infiltrate or pneumothorax. Labs including troponin were normal. CT scan showed particular but no diverticulitis or other acute intra-abdominal abnormality. Patient felt much better after reassurance and Ativan. I don't have a definite explanation for her chronic abdominal pain and diarrheal symptoms. She has had both upper and lower endoscopy completed a year or 2 ago. That said, she is well appearing, she now has normal vital signs, her labs or imaging are reassuring, and she has primary care follow-up scheduled for 2 days from now. We'll defer further workup and management to her primary care physician. Departure - Departure Time of Disposition: 12:53 Disposition: Home, Self-Care 01 Clinical Impression: Anxiety Chest pain Qualifiers: Chest pain type: unspecified Qualified Code(s): R07.9 - Chest pain, unspecified Abdominal pain Qualifiers: Abdominal location: left upper quadrant Qualified Code(s): R10.12 - Left upper quadrant pain Instructions: Nonspecific Chest Pain, [id number], Living With Anxiety Referrals: Peg Fan MD [Primary Care Provider] - Forms: ED Department Discharge Additional Instructions: 1. Follow up with Dr. Fan this week as scheduled 2. Return to the Emergency Department if you have any new concerning symptoms, such as shortness of breath, chest pain, worsening abdominal pain, fever, or other concerns - My Orders Last 24 Hours: My Active Orders 02/06/18 08:25 EKG 12 Lead [EKG Documentation Completion] [RC] STAT 02/06/18 08:48 Peripheral IV Insertion Adult [OM.PC] Routine 02/06/18 08:49 Peripheral IV Care [RC] . DIRECTED 02/06/18 10:40 UA W/MICROSCOPIC [URIN] Stat - Assessment/Plan Last 24 Hours: My Active Orders 02/06/18 08:25 EKG 12 Lead [EKG Documentation Completion] [RC] STAT 02/06/18 08:48 Peripheral IV Insertion Adult [OM.PC] Routine 02/06/18 08:49 Peripheral IV Care [RC] . DIRECTED 02/06/18 10:40 UA W/MICROSCOPIC [URIN] Stat
[2018-02-06] MEDS: Sodium Chloride 0.9% 10 ML Syringe FLUSH PRN ×2 (09:19→11:19)
[2018-02-06] MEDS ORDERED: Sodium Chloride 0.9% 10 ML Syringe FLUSH ONE (10:06)
[2018-02-06] MEDS ORDERED: Diatrizoate Meglumine/Diatrizoate Sodium 37% 120 ML Bottle PO ONE (10:06)
[2018-02-06] MEDS ORDERED: Iopamidol 612 MG/ML 100 ML Bottle IVPUSH ONE (10:06)
--- NOTE | 2018-02-06 11:44 | CT ---
CT abdomen and pelvis Technique: Multiple axial sections were obtained from above the dome of the diaphragm inferiorly through the pubic symphysis. Intravenous and oral contrast was utilized. Delayed images were also obtained through the bladder. Comparison: Prior abdominal and pelvic CT exam dated 12/17/16. Findings: Visualized lung bases shows nothing acute. Liver shows no focal parenchymal abnormality. Spleen appears within normal limits. Adrenal glands contain no nodules. Kidneys show symmetric contrast enhancement without hydronephrosis or mass. Pancreas appears within normal limits. Surgical clips are seen from prior cholecystectomy. Aorta shows no aneurysmal dilatation. No retroperitoneal adenopathy or mesenteric abnormalities are seen. Appendix not visualized. Diverticulosis is seen within the sigmoid and descending colon without any inflammatory change to indicate diverticulitis. Delayed images shows contrast within the bladder. Cyst is noted within the left ovary measuring 2.5 cm which is stable from previous CT exam. Bone window settings were reviewed which appear within normal limits for the patient's age. Impression: 1. Numerous diverticuli within the sigmoid and descending colon. No inflammatory change is seen to indicate diverticulitis. 2. Other incidental findings. Nothing acute is appreciated on CT study of the abdomen and pelvis. Diagnostic code #2
--- NOTE | 2018-02-06 12:34 | CR ---
Chest: Frontal view of the chest was obtained. Comparison: Prior chest x-ray of 12/17/16. Disconnected AICD wire is noted. Prior sternotomy is noted. Heart size is mildly enlarged. Lungs are clear with no acute parenchymal densities. Impression: 1. Incidental findings. Nothing acute is seen. Diagnostic code #2
== END 2018-02-06 13:09 | disposition home or self-care (01) ==
LOC: JD.ED 08:19
DX: F41.9 Anxiety disorder, unspecified (principal); R07.9 Chest pain, unspecified; R10.12 Left upper quadrant pain; Z79.82 Long term (current) use of aspirin; Z79.899 Other long term (current) drug therapy; I10 Essential (primary) hypertension; K21.9 Gastro-esophageal reflux disease without esophagitis; E78.00 Pure hypercholesterolemia, unspecified; I48.91 Unspecified atrial fibrillation; Z88.2 Allergy status to sulfonamides; Z88.8 Allergy status to other drugs, medicaments and biological substances; Z88.1 Allergy status to other antibiotic agents; Z88.0 Allergy status to penicillin
CPT/HCPCS: 36415; 71045; 74177; 80053; 81001; 83690; 83735; 84439; 84443; 84484; 85025; 93005; 96361; 96374; 99285; A9270; J2060; J7040; J7050; Q9963; Q9967; 93010; 99284-25

== ENCOUNTER 2019-03-10 15:22 | Inpatient (IN) | payer BC ==
[2019-03-10] MEDS ORDERED: Sodium Chloride 0.9% 10 ML Syringe FLUSH PRN (15:54)
[2019-03-10] MEDS ORDERED: Ondansetron 4 MG/2 ML SDV IVPUSH ONE (15:54)
[2019-03-10] MEDS ORDERED: HYDROmorphone 0.5 MG/0.5 ML Syringe IVPUSH ONE (15:55)
[2019-03-10] MEDS ORDERED: LORazepam 2 MG/ML SDV IVPUSH ONE (15:56)
[2019-03-10] MEDS ORDERED: Sodium Chloride 0.9% 1,000 ML IV SCH ×2 (16:00→19:45)
--- NOTE | 2019-03-10 17:13 | EDM.PDOC ---
ED HPI GENERAL MEDICAL PROBLEM - General Chief Complaint: Cardiovascular Problem Stated Complaint: HEART ISSUES SENT FROM [facility] Time Seen by Provider: 03/10/19 15:31 Source of Information: Reports: Patient, Provider History Limitations: Reports: No Limitations - History of Present Illness INITIAL COMMENTS - FREE TEXT/NARRATIVE: The patient presents with abdominal pain, nausea, vomiting and anxiety. Dr Fan is her doctor and she sent the patient up for admission. The patient was diagnosed with diverticulitis last week and she was put on levaquin and flagyl. She has been vomiting and not able to take her levaquin and flagyl. She is also anxious and tachycardic from the anxiety. She has a history of heart replacement 11 years ago and she has changes on her EKG that she warned me about. She has no chest pain or shortness of breath. She has no fever but she does have chills. She has no diarrhea or dysuria. Onset: Gradual Duration: Day(s): Location: Reports: Abdomen Severity: Moderate Improves with: Reports: None Worsens with: Reports: None Associated Symptoms: Reports: Fever/Chills, Nausea/Vomiting. Denies: Chest Pain , Cough, Headaches, Shortness of Breath - Related Data Allergies Allergy/AdvReac Type Severity Reaction Status Date / Time cefuroxime [From Ceftin] Allergy Cannot Verified 03/10/19 15:36 Remember clindamycin Allergy Cannot Verified 03/10/19 15:36 Remember nitrofurantoin Allergy Cannot Verified 03/10/19 15:36 [From Macrobid] Remember Sulfa (Sulfonamide Allergy Hives Verified 03/10/19 15:36 Antibiotics) zoster vaccine live Allergy Cannot Verified 03/10/19 15:36 [From Zostavax (PF)] Remember dust Allergy Cannot Uncoded 12/16/16 22:28 Remember Home Meds: Home Meds Acetaminophen [Tylenol Extra Strength] 500 mg PO Q6H PRN 03/10/19 [History] Albuterol [Proventil HFA] 2 puff INH Q4H PRN 03/10/19 [History] Aspirin [Halfprin] 81 mg PO DAILY 03/10/19 [History] Calcium Carb & Citrate/Vit D3 [Calcium + D3 ER Tablet] 2 tab PO DAILY 03/10/19 [ History] Calcium Polycarbophil [Fibercon] 1 tab PO BID 03/10/19 [History] LORazepam 0.5 mg PO BID PRN 03/10/19 [History] Lactobacillus Acidophilus [Probiotic Acidophilus] 1 tab PO DAILY 03/10/19 [ History] Levothyroxine 25 mcg PO ASDIRECTED 03/10/19 [History] Levothyroxine [Synthroid] 50 mcg PO ASDIRECTED 03/10/19 [History] Losartan [Cozaar] 25 mg PO DAILY 03/10/19 [History] Magnesium Oxide 600 mg PO BID 03/10/19 [History] Mycophenolate Mofetil [Cellcept] 3,000 mg PO DAILY 03/10/19 [History] Pantoprazole [ProTONIX] 40 mg PO DAILY 03/10/19 [History] Simvastatin [Zocor] 10 mg PO BEDTIME 03/10/19 [History] Tacrolimus [Prograf] 2 mg PO BID 03/10/19 [History] busPIRone [Buspar] 7.5 mg PO BID 03/10/19 [History] Past Medical History HEENT History: Reports: Cataract, Impaired Vision Other HEENT History: Wears glasses, braces Cardiovascular History: Reports: Afib, Arrhythmia, Cardiomyopathy, High Cholesterol, Hypertension Other Cardiovascular History: heart transplant in 2007: prior to transplant had asystole, mitral and aortic valce insufficeincy, afib, cardiomyopathy Gastrointestinal History: Reports: Colon Polyp, Diverticulosis, GERD Other Gastrointestinal History: hematochezia, abdominal pain Genitourinary History: Reports: Urinary Incontinence Musculoskeletal History: Reports: Other (See Below) Other Musculoskeletal History: muslce spasms Neurological History: Reports: Migraines, Vertigo Psychiatric History: Reports: Anxiety, Depression Endocrine/Metabolic History: Reports: Hypothyroidism Immunologic History: Reports: Solid Organ Transplant Dermatologic History: Reports: Psoriasis - Past Surgical History Cardiovascular Surgical History: Reports: AICD, Other (See Below) Other Cardiovascular Surgeries/Procedures: heart transplant 2007 Social & Family History - Family History Family Medical History: Noncontributory Cardiac: Reports: Heart Failure, [place] - Tobacco Use Smoking Status *Q: Former Smoker Used Tobacco, but Quit: Yes Month/Year Tobacco Last Used: 2002 - Caffeine Use Caffeine Use: Reports: Soda - Recreational Drug Use Recreational Drug Use: No - Living Situation & Occupation Living situation: Reports: , Alone Occupation: Employed ED ROS GENERAL - Review of Systems Review Of Systems: See Below Constitutional: Reports: Chills. Denies: Fever HEENT: Reports: No Symptoms Respiratory: Reports: No Symptoms Cardiovascular: Reports: No Symptoms Endocrine: Reports: No Symptoms GI/Abdominal: Reports: Abdominal Pain, Nausea, Vomiting. Denies: Diarrhea : Reports: No Symptoms Musculoskeletal: Reports: No Symptoms Skin: Reports: No Symptoms Neurological: Reports: No Symptoms ED EXAM, GENERAL - Physical Exam Exam: See Below Exam Limited By: No Limitations General Appearance: Alert, No Apparent Distress Ears: Normal External Exam Nose: Normal Inspection Head: Atraumatic, Normocephalic Neck: Normal Inspection Respiratory/Chest: No Respiratory Distress, Lungs Clear, Normal Breath Sounds Cardiovascular: Regular Rate, Rhythm, No Edema, No Murmur GI/Abdominal: Soft, No Organomegaly, No Mass, Tender (Moderate pain to the left lower quadrant) Back Exam: Normal Inspection Extremities: Normal Inspection Course - Vital Signs Last Recorded V/S: Last Vital Signs Temp 98.9 F 03/10/19 15:30 Pulse 135 H 03/10/19 15:30 Resp 20 03/10/19 15:30 BP 147/111 H 03/10/19 15:30 Pulse Ox 98 03/10/19 15:30 - Orders/Labs/Meds Orders: Active Orders 24 hr Category Date Time Status Cardiac Monitoring [RC] . DIRECTED Care 03/10/19 15:54 Active EKG Documentation Completion [RC] STAT Care 03/10/19 15:55 Active Peripheral IV Care [RC] . DIRECTED Care 03/10/19 15:55 Active Magnesium Sulfate/Water [Magnesium Sulfate in Water Med 03/10/19 18:05 Ordered Premix] 2 gm Premix Bag 1 bag IV ONETIME Sodium Chloride 0.9% [Normal Saline] 1,000 ml Med 03/10/19 16:00 Active IV ASDIRECTED Sodium Chloride 0.9% [Saline Flush] Med 03/10/19 15:54 Active 10 ml FLUSH ASDIRECTED PRN metroNIDAZOLE/Normal Saline [Flagyl 500 MG in NS 100 ML Med 03/10/19 18:06 Ordered ] 500 mg Premix Bag 1 bag IV ONETIME ED Antiemetic Medication Reflex [OM.PC] Stat Oth 03/10/19 15:54 Ordered Peripheral IV Insertion Adult [OM.PC] Stat Oth 03/10/19 15:54 Ordered Medication Orders Sodium Chloride (Normal Saline) 1,000 mls @ 125 mls/hr IV ASDIRECTED EDUARDO Last Admin: 03/10/19 16:12 Dose: 125 mls/hr Magnesium Sulfate 2 gm/ Premix 50 mls @ 25 mls/hr IV ONETIME ONE Stop: 03/10/19 20:04 Metronidazole 500 mg/ Premix 100 mls @ 100 mls/hr IV ONETIME ONE Stop: 03/10/19 19:05 Sodium Chloride (Saline Flush) 10 ml FLUSH ASDIRECTED PRN PRN Reason: Keep Vein Open Last Admin: 03/10/19 16:15 Dose: 10 ml Labs: Laboratory Tests 03/10/19 03/10/19 03/10/19 Range/Units 16:10 16:10 16:10 WBC 10.03 (3.98-10.04) K/mm3 RBC 4.49 (3.98-5.22) M/mm3 Hgb 12.9 (11.2-15.7) gm/L Hct 37.6 (34.1-44.9) % MCV 83.7 (79.4-94.8) fl MCH 28.7 (25.6-32.2) pg MCHC 34.3 (32.2-35.5) g/dl RDW Std Deviation 37.7 (36.4-46.3) fL Plt Count 241 (182-369) K/mm3 MPV 10.6 (9.4-12.3) fl Neut % (Auto) 73.7 H (34.0-71.1) % Lymph % (Auto) 15.9 L (19.3-51.7) % [place] % (Auto) 9.3 (4.7-12.5) % Eos % (Auto) 0.8 (0.7-5.8) Baso % (Auto) 0.1 (0.1-1.2) % Neut # (Auto) 7.40 H (1.56-6.13) K/mm3 Lymph # (Auto) 1.59 (1.18-3.74) K/mm3 [place] # (Auto) 0.93 H (0.24-0.36) K/mm3 Eos # (Auto) 0.08 (0.04-0.36) K/mm3 Baso # (Auto) 0.01 (0.01-0.08) K/mm3 Sodium 130 L D (136-145) mEq/L Potassium 3.9 (3.5-5.1) mEq/L Chloride 95 L (98-107) mEq/L Carbon Dioxide 26 (21-32) mEq/L Anion Gap 12.9 (5-15) BUN 8 (7-18) mg/dL Creatinine 1.0 (0.55-1.02) mg/dL Est Cr Clr Drug Dosing 56.00 mL/min Estimated GFR (MDRD) 56 (>60) mL/min BUN/Creatinine Ratio 8.0 L (14-18) Glucose 151 H (80-115) mg/dL Calcium 8.9 (8.5-10.1) mg/dL Magnesium 1.3 L (1.8-2.4) mg/dl Total Bilirubin 0.4 (0.2-1.0) mg/dL AST 23 (15-37) U/L ALT 26 (14-59) U/L Alkaline Phosphatase 107 (46-116) U/L Troponin I < 0.017 (0.00-0.056) ng/mL C-Reactive Protein 1.1 H* (<1.0) mg/dL Total Protein 7.1 (6.4-8.2) g/dl Albumin 3.9 (3.4-5.0) g/dl Globulin 3.2 gm/dL Albumin/Globulin Ratio 1.2 (1-2) Lipase 122 (73-393) U/L Meds: Medications Generic Name Dose Route Start Last Admin Trade Name Freq PRN Reason Stop Dose Admin Sodium Chloride 1,000 mls @ 125 mls/hr 03/10/19 16:00 03/10/19 16:12 Normal Saline IV 125 mls/hr ASDIRECTED EDUARDO Administration Magnesium Sulfate 2 gm/ Premix 50 mls @ 25 mls/hr 03/10/19 18:05 IV 03/10/19 20:04 ONETIME ONE Metronidazole 500 mg/ Premix 100 mls @ 100 mls/hr 03/10/19 18:06 IV 03/10/19 19:05 ONETIME ONE Sodium Chloride 10 ml 03/10/19 15:54 03/10/19 16:15 Saline Flush FLUSH 10 ml ASDIRECTED PRN Administration Keep Vein Open Discontinued Medications Generic Name Dose Route Start Last Admin Trade Name Lito PRN Reason Stop Dose Admin Hydromorphone HCl 0.5 mg 03/10/19 15:55 03/10/19 16:14 Dilaudid IVPUSH 03/10/19 15:56 0.5 mg ONETIME ONE Administration Lorazepam 0.5 mg 03/10/19 15:56 03/10/19 16:15 Ativan IVPUSH 03/10/19 15:57 0.5 mg ONETIME ONE Administration Ondansetron HCl 4 mg 03/10/19 15:54 03/10/19 16:13 Zofran IVPUSH 03/10/19 15:55 4 mg ONETIME ONE Administration - Re-Assessments/Exams Free Text/Narrative Re-Assessment/Exam: 03/10/19 17:20 I ordered an IV NS, labs, EKG, dilaudid 0.5mg IV and zofran 4mg IV and ativan 0.5mg IV. Her EKG shows a RBBB with atrial tachycardia. Her CBC looks good. Her CRP is slightly elevated at 1.1. Her magnesium is low at 1.3. She feels a little better. She has some pain in the LLQ still. I am not sure she will do right at home. I have ordered flagyl 500mg IV and megnesium 2 grams IV. I feel she may need to be admitted. I called Dr Russell and he agreed to the admission. Departure - Departure Time of Disposition: 18:10 Disposition: Admitted As Inpatient 66 Condition: Fair Clinical Impression: Diverticulitis, Anxiety, Hypomagnesemia Nausea and vomiting Qualifiers: Vomiting type: unspecified Vomiting Intractability: non-intractable Qualified Code(s): R11.2 - Nausea with vomiting, unspecified Referrals: Peg Fan MD [Primary Care Provider] - Forms: ED Department Discharge - My Orders Last 24 Hours: My Active Orders 03/10/19 15:54 Cardiac Monitoring [RC] . DIRECTED Sodium Chloride 0.9% [Saline Flush] 10 ml FLUSH ASDIRECTED PRN ED Antiemetic Medication Reflex [OM.PC] Stat Peripheral IV Insertion Adult [OM.PC] Stat 03/10/19 15:55 EKG Documentation Completion [RC] STAT Peripheral IV Care [RC] . DIRECTED 03/10/19 16:00 Sodium Chloride 0.9% [Normal Saline] 1,000 ml IV ASDIRECTED 03/10/19 18:05 Magnesium Sulfate/Water [Magnesium Sulfate in Water Premix] 2 gm Premix Bag 1 bag IV ONETIME 03/10/19 18:06 metroNIDAZOLE/Normal Saline [Flagyl 500 MG in NS 100 ML] 500 mg Premix Bag 1 bag IV ONETIME - Assessment/Plan Last 24 Hours: My Active Orders 03/10/19 15:54 Cardiac Monitoring [RC] . DIRECTED Sodium Chloride 0.9% [Saline Flush] 10 ml FLUSH ASDIRECTED PRN ED Antiemetic Medication Reflex [OM.PC] Stat Peripheral IV Insertion Adult [OM.PC] Stat 03/10/19 15:55 EKG Documentation Completion [RC] STAT Peripheral IV Care [RC] . DIRECTED 03/10/19 16:00 Sodium Chloride 0.9% [Normal Saline] 1,000 ml IV ASDIRECTED 03/10/19 18:05 Magnesium Sulfate/Water [Magnesium Sulfate in Water Premix] 2 gm Premix Bag 1 bag IV ONETIME 03/10/19 18:06 metroNIDAZOLE/Normal Saline [Flagyl 500 MG in NS 100 ML] 500 mg Premix Bag 1 bag IV ONETIME
[2019-03-10] MEDS ORDERED: Magnesium Sulfate/Water 2 GM in Premix Bag 1 BAG IV ONE (18:05)
[2019-03-10] MEDS ORDERED: metroNIDAZOLE/Normal Saline 500 MG in Premix Bag 1 BAG IV ONE (18:06)
--- NOTE | 2019-03-10 19:08 | PCM.HP ---
H&P History of Present Illness - General Date of Service: 03/10/19 Admit Problem/Dx: Admission Diagnosis/Problem Admission Diagnosis/Problem Diverticulitis Source of Information: Patient, Provider - History of Present Illness Initial Comments - Free Text/Narative: 63-year-old female with history of heart transplant around 10 years ago comes in today after one month of lower abdominal and left upper quadrant pain. Approximate 5 days ago she was seen by her primary care provider, Dr. Fan, and started on Levaquin and Flagyl after a CT scan showed mild diverticulitis in the distal descending colon. Patient did have improving symptoms of abdominal pain, but then started developing nausea and vomiting. She also has had loose stools since starting antibiotics 5 days ago. Patient was seen by her primary care provider today and was concerned about the depleted magnesium because her "heart goes funny". Patient states that her normal heart rate is between 99 Jossie 122. She states that she was told her heart rate should go below 99 and she doesn't get worried until it goes above 122. Patient states that she has had diverticulosis for years and has had spells of pain several times. 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 Patient also has a plan for colonoscopy next month. She states that she does occasionally have bright red blood per stools, but over the last 5 days she has not had any. In the emergency room patient was found to be hyponatremic at 135. Patient states that she's been drinking a lot of water because of the Flagyl. I needs it was also 1.[address] Dumas in the ER start her on magnesium 2 g IV. - Related Data Allergies/Adverse Reactions: Allergies Allergy/AdvReac Type Severity Reaction Status Date / Time cefuroxime [From Ceftin] Allergy Cannot Verified 03/10/19 15:36 Remember clindamycin Allergy Cannot Verified 03/10/19 15:36 Remember nitrofurantoin Allergy Cannot Verified 03/10/19 15:36 [From Macrobid] Remember Sulfa (Sulfonamide Allergy Hives Verified 03/10/19 15:36 Antibiotics) zoster vaccine live Allergy Cannot Verified 03/10/19 15:36 [From Zostavax (PF)] Remember dust Allergy Cannot Uncoded 12/16/16 22:28 Remember Home Medications: Home Meds Acetaminophen [Tylenol Extra Strength] 500 mg PO Q6H PRN 03/10/19 [History] Albuterol [Proventil HFA] 2 puff INH Q4H PRN 03/10/19 [History] Aspirin [Halfprin] 81 mg PO DAILY 03/10/19 [History] Calcium Carb & Citrate/Vit D3 [Calcium + D3 ER Tablet] 2 tab PO DAILY 03/10/19 [ History] Calcium Polycarbophil [Fibercon] 1 tab PO BID 03/10/19 [History] Cetirizine [ZyrTEC] 10 mg PO PCDINNER 03/10/19 [History] LORazepam 0.5 mg PO BID PRN 03/10/19 [History] Lactobacillus Acidophilus [Probiotic Acidophilus] 1 tab PO DAILY 03/10/19 [ History] Levofloxacin [Levaquin] 750 mg PO DAILY 03/10/19 [History] Levothyroxine 25 mcg PO ASDIRECTED 03/10/19 [History] Levothyroxine [Synthroid] 50 mcg PO ASDIRECTED 03/10/19 [History] Losartan [Cozaar] 25 mg PO DAILY 03/10/19 [History] Magnesium Oxide 600 mg PO BID 03/10/19 [History] Multivitamin [Multivitamins] 1 each PO DAILY 03/10/19 [History] Mycophenolate Mofetil [Cellcept] 1,500 mg PO BID 03/10/19 [History] Pantoprazole [ProTONIX] 40 mg PO DAILY 03/10/19 [History] Simvastatin [Zocor] 10 mg PO BEDTIME 03/10/19 [History] Tacrolimus [Prograf] 2 mg PO BID 03/10/19 [History] busPIRone [Buspar] 7.5 mg PO BID 03/10/19 [History] metroNIDAZOLE [Flagyl] 500 mg PO TID 03/10/19 [History] Past Medical History HEENT History: Reports: Cataract, Impaired Vision Other HEENT History: Wears glasses, braces Cardiovascular History: Reports: Afib, Arrhythmia, Cardiomyopathy, High Cholesterol, Hypertension Other Cardiovascular History: heart transplant in 2007: prior to transplant had asystole, mitral and aortic valce insufficeincy, afib, cardiomyopathy Gastrointestinal History: Reports: Colon Polyp, Diverticulosis, GERD Other Gastrointestinal History: hematochezia, abdominal pain Genitourinary History: Reports: Urinary Incontinence Musculoskeletal History: Reports: Other (See Below) Other Musculoskeletal History: muslce spasms Neurological History: Reports: Migraines, Vertigo Psychiatric History: Reports: Anxiety, Depression Endocrine/Metabolic History: Reports: Hypothyroidism Immunologic History: Reports: Solid Organ Transplant Dermatologic History: Reports: Psoriasis - Past Surgical History Cardiovascular Surgical History: Reports: AICD, Other (See Below) Other Cardiovascular Surgeries/Procedures: heart transplant 2007 Social & Family History - Family History Family Medical History: Noncontributory Cardiac: Reports: Heart Failure, [place] - Tobacco Use Smoking Status *Q: Never Smoker Used Tobacco, but Quit: Yes Month/Year Tobacco Last Used: 2002 Second Hand Smoke Exposure: No - Caffeine Use Caffeine Use: Reports: Soda - Recreational Drug Use Recreational Drug Use: No - Living Situation & Occupation Living situation: Reports: , Alone Occupation: Employed H&P Review of Systems - Review of Systems: Review Of Systems: ROS reveals no pertinent complaints other than HPI. Exam - Exam Exam: See Below - Vital Signs Vital Signs: Last Vital Signs Temp 97.2 F 03/10/19 18:39 Pulse 108 H 03/10/19 18:38 Resp 17 03/10/19 18:38 BP 113/72 03/10/19 18:38 Pulse Ox 91 L 03/10/19 18:38 Weight: 167 lb 1.6 oz - Exam General: Alert, Oriented HEENT: Conjunctiva Clear, Mucosa Moist & [place], Posterior Pharynx Clear Lungs: Clear to Auscultation, Normal Respiratory Effort Cardiovascular: Regular Rate, Regular Rhythm GI/Abdominal Exam: Normal Bowel Sounds, Soft, No Distention, Tender (Left upper quadrant and left lower quadrant.). No: Guarding, Rigid, Rebound Extremities: Normal Inspection, Normal Range of Motion, Non-Tender, No Pedal Edema Neuro Extensive - Mental Status: Alert, Oriented x3 Neuro Extensive - Motor, Sensory, Reflexes: CN II-XII Intact Psychiatric: Alert, Normal Affect, Anxious - Patient Data Lab Results Last 24 hrs: Laboratory Results - last 24 hr 03/10/19 03/10/19 03/10/19 Range/Units 16:10 16:10 16:10 WBC 10.03 (3.98-10.04) K/mm3 RBC 4.49 (3.98-5.22) M/mm3 Hgb 12.9 (11.2-15.7) gm/L Hct 37.6 (34.1-44.9) % MCV 83.7 (79.4-94.8) fl MCH 28.7 (25.6-32.2) pg MCHC 34.3 (32.2-35.5) g/dl RDW Std Deviation 37.7 (36.4-46.3) fL Plt Count 241 (182-369) K/mm3 MPV 10.6 (9.4-12.3) fl Neut % (Auto) 73.7 H (34.0-71.1) % Lymph % (Auto) 15.9 L (19.3-51.7) % [place] % (Auto) 9.3 (4.7-12.5) % Eos % (Auto) 0.8 (0.7-5.8) Baso % (Auto) 0.1 (0.1-1.2) % Neut # (Auto) 7.40 H (1.56-6.13) K/mm3 Lymph # (Auto) 1.59 (1.18-3.74) K/mm3 [place] # (Auto) 0.93 H (0.24-0.36) K/mm3 Eos # (Auto) 0.08 (0.04-0.36) K/mm3 Baso # (Auto) 0.01 (0.01-0.08) K/mm3 Sodium 130 L D (136-145) mEq/L Potassium 3.9 (3.5-5.1) mEq/L Chloride 95 L (98-107) mEq/L Carbon Dioxide 26 (21-32) mEq/L Anion Gap 12.9 (5-15) BUN 8 (7-18) mg/dL Creatinine 1.0 (0.55-1.02) mg/dL Est Cr Clr Drug Dosing 56.00 mL/min Estimated GFR (MDRD) 56 (>60) mL/min BUN/Creatinine Ratio 8.0 L (14-18) Glucose 151 H (80-115) mg/dL Calcium 8.9 (8.5-10.1) mg/dL Magnesium 1.3 L (1.8-2.4) mg/dl Total Bilirubin 0.4 (0.2-1.0) mg/dL AST 23 (15-37) U/L ALT 26 (14-59) U/L Alkaline Phosphatase 107 (46-116) U/L Troponin I < 0.017 (0.00-0.056) ng/mL C-Reactive Protein 1.1 H* (<1.0) mg/dL Total Protein 7.1 (6.4-8.2) g/dl Albumin 3.9 (3.4-5.0) g/dl Globulin 3.2 gm/dL Albumin/Globulin Ratio 1.2 (1-2) Lipase 122 (73-393) U/L Result Diagrams: 03/10/19 16:10 03/10/19 16:10 - Problem List (1) Diverticulitis SNOMED Code(s): 302925529 ICD Code: K57.92 - DVTRCLI OF INTEST, PART UNSP, W/O PERF OR ABSCESS W/O BLEED Status: Acute Current Visit: Yes (2) Hypomagnesemia SNOMED Code(s): 350397619 ICD Code: E83.42 - HYPOMAGNESEMIA Status: Acute Current Visit: Yes (3) Nausea and vomiting SNOMED Code(s): 79406263 ICD Code: R11.2 - NAUSEA WITH VOMITING, UNSPECIFIED Status: Acute Current Visit: Yes Qualifiers: Vomiting type: unspecified Vomiting Intractability: non-intractable Qualified Code(s): R11.2 - Nausea with vomiting, unspecified (4) Hyponatremia SNOMED Code(s): 51579202 ICD Code: E87.1 - HYPO-OSMOLALITY AND HYPONATREMIA Status: Acute Current Visit: Yes Problem List Initiated/Reviewed/Updated: Yes Orders Last 24hrs: Active Orders 24 hr Category Date Time Status Patient Status [ADT] Routine ADT 03/10/19 18:22 Active Cardiac Monitoring [RC] . DIRECTED Care 03/10/19 15:54 Active EKG Documentation Completion [RC] STAT Care 03/10/19 15:55 Active Peripheral IV Care [RC] . DIRECTED Care 03/10/19 15:55 Active Magnesium Sulfate/Water [Magnesium Sulfate in Water Med 03/10/19 18:05 Active Premix] 2 gm Premix Bag 1 bag IV ONETIME Sodium Chloride 0.9% [Normal Saline] 1,000 ml Med 03/10/19 16:00 Active IV ASDIRECTED Sodium Chloride 0.9% [Saline Flush] Med 03/10/19 15:54 Active 10 ml FLUSH ASDIRECTED PRN ED Antiemetic Medication Reflex [OM.PC] Stat Oth 03/10/19 15:54 Ordered Peripheral IV Insertion Adult [OM.PC] Stat Oth 03/10/19 15:54 Ordered Medication Orders Sodium Chloride (Normal Saline) 1,000 mls @ 125 mls/hr IV ASDIRECTED EDUARDO Last Admin: 03/10/19 16:12 Dose: 125 mls/hr Magnesium Sulfate 2 gm/ Premix 50 mls @ 25 mls/hr IV ONETIME ONE Stop: 03/10/19 20:04 Sodium Chloride (Saline Flush) 10 ml FLUSH ASDIRECTED PRN PRN Reason: Keep Vein Open Last Admin: 03/10/19 16:15 Dose: 10 ml Assessment/Plan Comment:: Diverticulitis and abdominal pain * Patient's abdominal pain is unlikely to be only from her mild descending diverticulitis. I will switch her to Unasyn because it is likely that Flagyl is worsening her nausea. Patient's allergy to penicillin was ruled out with penicillin testing per patient. * Repeat CBC and C-reactive protein in the morning. Hyponatremia * Sodium is 135 * Hyponatremia is likely to increased water intake * Patient was counseled and she will decrease water intake and will recheck in the morning. Hypomagnesemia * Patient has chronic hypomagnesemia with a current magnesium of 1.3 * She is on a PPI which could be worsening her hypomagnesemia * I will hold her PPI while she is hospitalized and switched to antacids. Pepcid is our H2 dilan on formulary and can cause arrhythmias. 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 Chronic medical problems include hypothyroidism, hyperlipidemia, tachycardia, heart transplant, paroxysmal ventricular tachycardia, GERD, hypomagnesemia, immunocompromised secondary to immunosuppressants. VTE prophylaxis with HAYLEY butlere since chemotherapy prophylaxis if contraindication with possible history of GI bleed
[2019-03-10] MEDS ORDERED: Magnesium Sulfate/Water 4 GM in Premix Bag 1 BAG IV ONE ×2 (19:14→23:00)
[2019-03-10] MEDS ORDERED: Albuterol 6.7 GM Inhaler INH PRN (20:04)
[2019-03-10] MEDS ORDERED: Albuterol 0.083% 2.5 MG/3 ML Neb Soln NEB PRN (20:08)
[2019-03-10] MEDS ORDERED: Ondansetron 4 MG Tab.DIS PO PRN (20:08)
[2019-03-10] MEDS ORDERED: Ondansetron 4 MG/2 ML SDV IV PRN (20:08)
[2019-03-10] MEDS ORDERED: Tacrolimus 1 MG Cap PO SCH (21:00)
[2019-03-10] MEDS ORDERED: Mycophenolate Mofetil 250 MG Cap PO SCH (21:00)
[2019-03-10] MEDS ORDERED: MYCOPHENOLATE 500 MG PO SCH (21:00)
[2019-03-10] MEDS ORDERED: TACROLIMUS 0.5 MG PO SCH (21:00)
[2019-03-10] MEDS: Simvastatin 10 MG Tab PO SCH (22:28)
[2019-03-10] MEDS: busPIRone 15 MG Tab PO SCH (22:28)
[2019-03-10] MEDS: Ampicillin/Sulbactam Na 3 GM in Sodium Chloride 0.9% 100 ML IV SCH (22:31)
[2019-03-11] MEDS: Ampicillin/Sulbactam Na 3 GM in Sodium Chloride 0.9% 100 ML IV SCH ×4 (03:58→23:59)
[2019-03-11] MEDS: Acetaminophen 325 MG Tab PO PRN ×3 (04:49→22:00)
[2019-03-11] MEDS: Aspirin 81 MG Tab.EC PO SCH (08:54)
[2019-03-11] MEDS: Losartan 25 MG Tab PO SCH (08:54)
[2019-03-11] MEDS: busPIRone 15 MG Tab PO SCH ×2 (08:54→21:41)
[2019-03-11] MEDS: MYCOPHENOLATE 500 MG PO SCH ×2 (08:56→21:41)
[2019-03-11] MEDS: TACROLIMUS 0.5 MG PO SCH ×2 (08:57→21:40)
[2019-03-11] MEDS ORDERED: Magnesium Oxide 400 MG Tab PO SCH (09:00)
[2019-03-11] MEDS ORDERED: Amoxicillin/Clavulanate K 875-125 MG Tab PO SCH (09:00)
[2019-03-11] MEDS: Levothyroxine 50 MCG Tab PO SCH (09:01)
[2019-03-11] MEDS ORDERED: Pantoprazole 40 MG Tab.CR PO ONE (11:16)
[2019-03-11] MEDS: LORazepam 0.5 MG Tab PO PRN ×2 (12:15→13:09)
--- NOTE | 2019-03-11 13:20 | PCM.PN ---
- General Info Date of Service: 03/11/19 Admission Dx/Problem (Free Text): Admission Diagnosis/Problem Admission Diagnosis/Problem Diverticulitis Subjective Update: Patient continues to have epigastric and left-sided abdominal pain. White blood cell count decreased from 10-7.8 and C-reactive protein has decreased from 1.1- 0.5. Patient was afebrile overnight and is tolerating her diet. Nausea has improved off of Flagyl and Levaquin. Functional Status: Denies: Pain Controlled - Review of Systems General: Reports: Chills. Denies: Fever HEENT: Reports: No Symptoms Pulmonary: Reports: No Symptoms Cardiovascular: Reports: No Symptoms. Denies: Chest Pain Gastrointestinal: Reports: Abdominal Pain. Denies: Constipation, Diarrhea Musculoskeletal: Reports: No Symptoms Neurological: Reports: No Symptoms Psychiatric: Reports: No Symptoms - Patient Data Vitals - Most Recent: Last Vital Signs Temp 97.5 F 03/11/19 08:52 Pulse 102 H 03/11/19 08:52 Resp 16 03/11/19 08:52 BP 121/74 03/11/19 08:54 Pulse Ox 97 03/11/19 08:52 Weight - Most Recent: 165 lb 11.2 oz I&O - Last 24 Hours: Intake & Output 03/10/19 03/11/19 03/11/19 22:59 06:59 14:59 Intake Total 1067 120 Output Total 900 Balance 167 120 Lab Results Last 24 Hours: Laboratory Results - last 24 hr 03/10/19 03/10/19 03/10/19 Range/Units 16:10 16:10 16:10 WBC 10.03 (3.98-10.04) K/mm3 RBC 4.49 (3.98-5.22) M/mm3 Hgb 12.9 (11.2-15.7) gm/L Hct 37.6 (34.1-44.9) % MCV 83.7 (79.4-94.8) fl MCH 28.7 (25.6-32.2) pg MCHC 34.3 (32.2-35.5) g/dl RDW Std Deviation 37.7 (36.4-46.3) fL Plt Count 241 (182-369) K/mm3 MPV 10.6 (9.4-12.3) fl Neut % (Auto) 73.7 H (34.0-71.1) % Lymph % (Auto) 15.9 L (19.3-51.7) % [place] % (Auto) 9.3 (4.7-12.5) % Eos % (Auto) 0.8 (0.7-5.8) Baso % (Auto) 0.1 (0.1-1.2) % Neut # (Auto) 7.40 H (1.56-6.13) K/mm3 Lymph # (Auto) 1.59 (1.18-3.74) K/mm3 [place] # (Auto) 0.93 H (0.24-0.36) K/mm3 Eos # (Auto) 0.08 (0.04-0.36) K/mm3 Baso # (Auto) 0.01 (0.01-0.08) K/mm3 Sodium 130 L D (136-145) mEq/L Potassium 3.9 (3.5-5.1) mEq/L Chloride 95 L (98-107) mEq/L Carbon Dioxide 26 (21-32) mEq/L Anion Gap 12.9 (5-15) BUN 8 (7-18) mg/dL Creatinine 1.0 (0.55-1.02) mg/dL Est Cr Clr Drug Dosing 56.00 mL/min Estimated GFR (MDRD) 56 (>60) mL/min BUN/Creatinine Ratio 8.0 L (14-18) Glucose 151 H (80-115) mg/dL Serum Osmolality (280-300) mosm/kg Calcium 8.9 (8.5-10.1) mg/dL Magnesium 1.3 L (1.8-2.4) mg/dl Total Bilirubin 0.4 (0.2-1.0) mg/dL AST 23 (15-37) U/L ALT 26 (14-59) U/L Alkaline Phosphatase 107 (46-116) U/L Troponin I < 0.017 (0.00-0.056) ng/mL C-Reactive Protein 1.1 H* (<1.0) mg/dL Total Protein 7.1 (6.4-8.2) g/dl Albumin 3.9 (3.4-5.0) g/dl Globulin 3.2 gm/dL Albumin/Globulin Ratio 1.2 (1-2) Lipase 122 (73-393) U/L TSH 3rd Generation (0.358-3.74) uIU/mL Urine Osmolality (400-1100) mosm/kg Ur Random Sodium (40-220) mEq/L 03/10/19 03/10/19 03/11/19 Range/Units 20:10 23:02 05:00 WBC 7.82 (3.98-10.04) K/mm3 RBC 4.32 (3.98-5.22) M/mm3 Hgb 12.4 (11.2-15.7) gm/L Hct 36.8 (34.1-44.9) % MCV 85.2 (79.4-94.8) fl MCH 28.7 (25.6-32.2) pg MCHC 33.7 (32.2-35.5) g/dl RDW Std Deviation 38.6 (36.4-46.3) fL Plt Count 218 (182-369) K/mm3 MPV 10.8 (9.4-12.3) fl Neut % (Auto) 58.2 (34.0-71.1) % Lymph % (Auto) 27.6 (19.3-51.7) % [place] % (Auto) 12.5 (4.7-12.5) % Eos % (Auto) 1.3 (0.7-5.8) Baso % (Auto) 0.1 (0.1-1.2) % Neut # (Auto) 4.55 (1.56-6.13) K/mm3 Lymph # (Auto) 2.16 (1.18-3.74) K/mm3 [place] # (Auto) 0.98 H (0.24-0.36) K/mm3 Eos # (Auto) 0.10 (0.04-0.36) K/mm3 Baso # (Auto) 0.01 (0.01-0.08) K/mm3 Sodium (136-145) mEq/L Potassium (3.5-5.1) mEq/L Chloride (98-107) mEq/L Carbon Dioxide (21-32) mEq/L Anion Gap (5-15) BUN (7-18) mg/dL Creatinine (0.55-1.02) mg/dL Est Cr Clr Drug Dosing mL/min Estimated GFR (MDRD) (>60) mL/min BUN/Creatinine Ratio (14-18) Glucose (80-115) mg/dL Serum Osmolality 271 L (280-300) mosm/kg Calcium (8.5-10.1) mg/dL Magnesium (1.8-2.4) mg/dl Total Bilirubin (0.2-1.0) mg/dL AST (15-37) U/L ALT (14-59) U/L Alkaline Phosphatase (46-116) U/L Troponin I (0.00-0.056) ng/mL C-Reactive Protein (<1.0) mg/dL Total Protein (6.4-8.2) g/dl Albumin (3.4-5.0) g/dl Globulin gm/dL Albumin/Globulin Ratio (1-2) Lipase (73-393) U/L TSH 3rd Generation (0.358-3.74) uIU/mL Urine Osmolality 135 L (400-1100) mosm/kg Ur Random Sodium 32 L (40-220) mEq/L 03/11/19 Range/Units 05:00 WBC (3.98-10.04) K/mm3 RBC (3.98-5.22) M/mm3 Hgb (11.2-15.7) gm/L Hct (34.1-44.9) % MCV (79.4-94.8) fl MCH (25.6-32.2) pg MCHC (32.2-35.5) g/dl RDW Std Deviation (36.4-46.3) fL Plt Count (182-369) K/mm3 MPV (9.4-12.3) fl Neut % (Auto) (34.0-71.1) % Lymph % (Auto) (19.3-51.7) % [place] % (Auto) (4.7-12.5) % Eos % (Auto) (0.7-5.8) Baso % (Auto) (0.1-1.2) % Neut # (Auto) (1.56-6.13) K/mm3 Lymph # (Auto) (1.18-3.74) K/mm3 [place] # (Auto) (0.24-0.36) K/mm3 Eos # (Auto) (0.04-0.36) K/mm3 Baso # (Auto) (0.01-0.08) K/mm3 Sodium 137 (136-145) mEq/L Potassium 4.0 (3.5-5.1) mEq/L Chloride 101 (98-107) mEq/L Carbon Dioxide 27 (21-32) mEq/L Anion Gap 13.0 (5-15) BUN 9 (7-18) mg/dL Creatinine 1.1 H (0.55-1.02) mg/dL Est Cr Clr Drug Dosing 50.90 mL/min Estimated GFR (MDRD) 50 (>60) mL/min BUN/Creatinine Ratio 8.2 L (14-18) Glucose 100 (80-115) mg/dL Serum Osmolality (280-300) mosm/kg Calcium 8.7 (8.5-10.1) mg/dL Magnesium 3.1 H (1.8-2.4) mg/dl Total Bilirubin 0.4 (0.2-1.0) mg/dL AST 25 (15-37) U/L ALT 23 (14-59) U/L Alkaline Phosphatase 89 (46-116) U/L Troponin I (0.00-0.056) ng/mL C-Reactive Protein 0.5 (<1.0) mg/dL Total Protein 6.3 L (6.4-8.2) g/dl Albumin 3.4 (3.4-5.0) g/dl Globulin 2.9 gm/dL Albumin/Globulin Ratio 1.2 (1-2) Lipase (73-393) U/L TSH 3rd Generation 5.276 H (0.358-3.74) uIU/mL Urine Osmolality (400-1100) mosm/kg Ur Random Sodium (40-220) mEq/L Med Orders - Current: Current Medications Acetaminophen (Tylenol) 650 mg PO Q4H PRN PRN Reason: Pain (Mild 1-3)/fever Last Admin: 03/11/19 04:49 Dose: 650 mg Albuterol (Proventil Neb Soln) 2.5 mg NEB Q2H PRN PRN Reason: Shortness Of Breath/wheezing Aspirin (Halfprin) 81 mg PO DAILY [facility] Last Admin: 03/11/19 08:54 Dose: 81 mg Buspirone HCl (Buspar) 7.5 mg PO BID [facility] Last Admin: 03/11/19 08:54 Dose: 7.5 mg Ampicillin Sodium/Sulbactam (Sodium 3 gm/ Sodium Chloride) 100 mls @ 200 mls/ hr IV Q6H [facility] Levothyroxine Sodium (Synthroid) 50 mcg PO SuTuWeThSa [facility] Last Admin: 03/11/19 09:01 Dose: 50 mcg Lorazepam (Ativan) 0.5 mg PO BID PRN PRN Reason: Anxiety Last Admin: 03/11/19 12:15 Dose: 0.5 mg Losartan Potassium (Cozaar) 25 mg PO DAILY [facility] Last Admin: 03/11/19 08:54 Dose: 25 mg Ondansetron HCl (Zofran Odt) 4 mg PO Q4H PRN PRN Reason: nausea, able to take PO Ondansetron HCl (Zofran) 4 mg IV Q4H PRN PRN Reason: Nausea/Vomiting Oxycodone HCl (Oxycodone) 5 mg PO Q4H PRN PRN Reason: Pain (moderate 4-6) Mycophenolate 500mg (Tabs Own Med ) 0 each PO BID [facility] Last Admin: 03/11/19 08:56 Dose: 1 each Tacrolimus 0.5mg Capsules Own Meds 0 each PO BID [facility] Last Admin: 03/11/19 08:57 Dose: 1 each Simvastatin (Zocor) 10 mg PO BEDTIME [facility] Last Admin: 03/10/19 22:28 Dose: 10 mg Sodium Chloride (Saline Flush) 10 ml FLUSH ASDIRECTED PRN PRN Reason: Keep Vein Open Last Admin: 03/10/19 16:15 Dose: 10 ml Discontinued Medications Albuterol (Proventil Hfa) 0 gm INH Q4H PRN PRN Reason: Shortness of Breath Amoxicillin/Clavulanate Potassium (Augmentin 875 Mg/125 Mg) 1 tab PO Q12HR [facility] Last Admin: 03/11/19 09:01 Dose: 1 tab Hydromorphone HCl (Dilaudid) 0.5 mg IVPUSH ONETIME ONE Stop: 03/10/19 15:56 Last Admin: 03/10/19 16:14 Dose: 0.5 mg Sodium Chloride (Normal Saline) 1,000 mls @ 125 mls/hr IV ASDIRECTED [facility] Last Admin: 03/10/19 16:12 Dose: 125 mls/hr Magnesium Sulfate 2 gm/ Premix 50 mls @ 25 mls/hr IV ONETIME ONE Stop: 03/10/19 20:04 Last Admin: 03/10/19 19:29 Dose: 25 mls/hr Metronidazole 500 mg/ Premix 100 mls @ 100 mls/hr IV ONETIME ONE Stop: 03/10/19 19:05 Last Admin: 03/10/19 18:21 Dose: 100 mls/hr Magnesium Sulfate 4 gm/ Premix 50 mls @ 12.5 mls/hr IV ONETIME ONE Stop: 03/10/19 23:13 Last Admin: 03/10/19 22:59 Dose: Not Given Sodium Chloride (Normal Saline) 1,000 mls @ 50 mls/hr IV ASDIRECTED [facility] Last Admin: 03/11/19 07:08 Dose: 50 mls/hr Ampicillin Sodium/Sulbactam (Sodium 3 gm/ Sodium Chloride) 100 mls @ 200 mls/ hr IV Q6H [facility] Last Admin: 03/11/19 03:58 Dose: 200 mls/hr Magnesium Sulfate 4 gm/ Premix 50 mls @ 12.5 mls/hr IV ONETIME ONE Stop: 03/11/19 02:59 Last Admin: 03/10/19 23:01 Dose: 12.5 mls/hr Lorazepam (Ativan) 0.5 mg IVPUSH ONETIME ONE Stop: 03/10/19 15:57 Last Admin: 03/10/19 16:15 Dose: 0.5 mg Magnesium Oxide (Magnesium Oxide) 600 mg PO BID [facility] Mycophenolate Mofetil (Cellcept) 1,500 mg PO BID [facility] Mycophenolate 500mg (Tabs Own Med ) 0 each PO BID [facility] Last Admin: 03/10/19 22:29 Dose: 3 each Tacrolimus 0.5mg Capsules Own Meds 0 each PO BID [facility] Last Admin: 03/10/19 22:31 Dose: 4 each Ondansetron HCl (Zofran) 4 mg IVPUSH ONETIME ONE Stop: 03/10/19 15:55 Last Admin: 03/10/19 16:13 Dose: 4 mg Pantoprazole Sodium (Protonix) 40 mg PO ONETIME ONE Stop: 03/11/19 11:17 Last Admin: 03/11/19 11:32 Dose: 40 mg Tacrolimus (Prograf) 2 mg PO BID [facility] - Exam Quality Assessment: No: Supplemental Oxygen General: Alert, Oriented HEENT: Pupils Equal Neck: Supple Lungs: Clear to Auscultation, Normal Respiratory Effort Cardiovascular: Regular Rate, Regular Rhythm GI/Abdominal Exam: Normal Bowel Sounds, Soft, No Distention, Tender (Epigastric and left-sided abdominal tenderness without guarding or rebound. No significant change from yesterday.). No: Guarding, Rigid, Rebound Skin: Warm, Dry, Intact Neurological: No New Focal Deficit Psy/Mental Status: Alert, Normal Affect, Normal Mood - Problem List & Annotations (1) Diverticulitis SNOMED Code(s): 262450107 Code(s): K57.92 - DVTRCLI OF INTEST, PART UNSP, W/O PERF OR ABSCESS W/O BLEED Status: Acute Current Visit: Yes (2) Hypomagnesemia SNOMED Code(s): 656877857 Code(s): E83.42 - HYPOMAGNESEMIA Status: Acute Current Visit: Yes (3) Nausea and vomiting SNOMED Code(s): 96958191 Code(s): R11.2 - NAUSEA WITH VOMITING, UNSPECIFIED Status: Acute Current Visit: Yes Qualifiers: Vomiting type: unspecified Vomiting Intractability: non-intractable Qualified Code(s): R11.2 - Nausea with vomiting, unspecified (4) Hyponatremia SNOMED Code(s): 39707210 Code(s): E87.1 - HYPO-OSMOLALITY AND HYPONATREMIA Status: Acute Current Visit: Yes - Problem List Review Problem List Initiated/Reviewed/Updated: Yes - My Orders Last 24 Hours: My Active Orders 03/10/19 20:04 LORazepam [Ativan] 0.5 mg PO BID PRN 03/10/19 20:08 Height and Weight [RC] 04 VTE/DVT Education [RC] Vital Signs [RC] Q4HR Acetaminophen [Tylenol] 650 mg PO Q4H PRN Albuterol [Proventil Neb Soln] 2.5 mg NEB Q2H PRN Ondansetron [Zofran ODT] 4 mg PO Q4H PRN Ondansetron [Zofran] 4 mg IV Q4H PRN oxyCODONE 5 mg PO Q4H PRN Resuscitation Status Routine 03/10/19 20:09 Antiembolic Hose [OM.PC] Per Unit Routine 03/10/19 20:10 Antiembolic Devices [RC] 09,21 RT Aerosol Therapy [RC] ASDIRECTED 03/10/19 21:00 Simvastatin [Zocor] 10 mg PO BEDTIME busPIRone [Buspar] 7.5 mg PO BID 03/11/19 07:06 Patient's Own Medication [Ptom] 0 each PO BID 03/11/19 07:07 Patient's Own Medication [Ptom] 0 each PO BID 03/11/19 07:30 Levothyroxine [Synthroid] 50 mcg PO SuTuWeThSa 03/11/19 09:00 Aspirin [Halfprin] 81 mg PO DAILY Losartan [Cozaar] 25 mg PO DAILY 03/11/19 12:15 Ampicillin/Sulbactam Na [Unasyn] 3 gm Sodium Chloride 0.9% [Normal Saline] 100 ml IV Q6H 03/11/19 Dinner Regular Diet [DIET] - Plan Plan:: Diverticulitis and abdominal pain * Patient has chronic abdominal pain. She continues to have abdominal tenderness even with the improving lab work. I discussed the case with her supervisor lead refinery Dr. Norton, the on-call hospitalist Dr. Carmona, and on-call surgeon. Recommendation is to continue on IV antibiotics for 1-2 more days. They will take her in transfer if she worsens. * Repeat CBC and C-reactive protein in the morning. Hyponatremia * Sodium improved to 137 * Repeat CMP in the morning Hypomagnesemia * Patient has chronic hypomagnesemia. * She is on a PPI which could be worsening her hypomagnesemia * Magnesium was corrected to 3.1, therefore we will recheck in the morning. Chronic medical problems include hypothyroidism, hyperlipidemia, tachycardia, heart transplant, paroxysmal ventricular tachycardia, GERD, hypomagnesemia, immunocompromised secondary to immunosuppressants. VTE prophylaxis with HAYLEY hose since chemotherapy prophylaxis if contraindication with possible history of GI bleed
[2019-03-11] MEDS: oxyCODONE 5 MG Tab PO PRN (21:40)
[2019-03-11] MEDS: Simvastatin 10 MG Tab PO SCH (21:41)
[2019-03-11] MEDS ORDERED: LORazepam 0.5 MG Tab PO ONE (21:53)
[2019-03-11] MEDS: LORazepam 0.5 MG Tab PO SCH (23:58)
[2019-03-12] MEDS: oxyCODONE 5 MG Tab PO PRN ×3 (03:09→12:03)
[2019-03-12] MEDS: Ampicillin/Sulbactam Na 3 GM in Sodium Chloride 0.9% 100 ML IV SCH ×2 (06:17→12:05)
[2019-03-12] MEDS: Levothyroxine 50 MCG Tab PO SCH (06:29)
[2019-03-12] MEDS: Losartan 25 MG Tab PO SCH (09:00)
[2019-03-12] MEDS ORDERED: Pantoprazole 40 MG Tab.CR PO SCH (09:00)
[2019-03-12] MEDS: busPIRone 15 MG Tab PO SCH (09:01)
[2019-03-12] MEDS: LORazepam 0.5 MG Tab PO SCH (09:01)
[2019-03-12] MEDS: Aspirin 81 MG Tab.EC PO SCH (09:01)
[2019-03-12] MEDS: TACROLIMUS 0.5 MG PO SCH (09:03)
[2019-03-12] MEDS: MYCOPHENOLATE 500 MG PO SCH (09:03)
[2019-03-12] MEDS: Acetaminophen 325 MG Tab PO PRN ×2 (09:31→12:02)
[2019-03-12] MEDS: LORazepam 0.5 MG Tab PO PRN ×2 (09:32→12:02)
--- NOTE | 2019-03-12 09:38 | PCM.DCSUM1 ---
Discharge Summary - Hospital Course HPI Initial Comments: 63-year-old female with history of heart transplant around 10 years ago comes in today after one month of lower abdominal and left upper quadrant pain. Approximate 5 days ago she was seen by her primary care provider, Dr. Fan, and started on Levaquin and Flagyl after a CT scan showed mild diverticulitis in the distal descending colon. Patient did have improving symptoms of abdominal pain, but then started developing nausea and vomiting. She also has had loose stools since starting antibiotics 5 days ago. Patient was seen by her primary care provider today and was concerned about the depleted magnesium because her "heart goes funny". Patient states that her normal heart rate is between 99 Jossie 122. She states that she was told her heart rate should go below 99 and she doesn't get worried until it goes above 122. Patient states that she has had diverticulosis for years and has had spells of pain several times. 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 Patient also has a plan for colonoscopy next month. She states that she does occasionally have bright red blood per stools, but over the last 5 days she has not had any. In the emergency room patient was found to be hyponatremic at 130. Patient states that she's been drinking a lot of water because of the Flagyl. I needs it was also 1.3. Brief History: Patient was admitted for IV antibiotics. She was switched over from Levaquin and Flagyl to Unasyn secondary to nausea with Flagyl. Initial day her white count improved but no change in tenderness. Overnight white count increased and she did have a fever of 38C. Diagnosis: Stroke: No - Discharge Data Discharge Date: 03/12/19 Discharge Disposition: DC/Tfer to Acute Hospital 02 Condition: Fair - Discharge Diagnosis/Problem(s) (1) Diverticulitis SNOMED Code(s): 275541189 ICD Code: K57.92 - DVTRCLI OF INTEST, PART UNSP, W/O PERF OR ABSCESS W/O BLEED Status: Acute Current Visit: Yes (2) Hypomagnesemia SNOMED Code(s): 367452432 ICD Code: E83.42 - HYPOMAGNESEMIA Status: Acute Current Visit: Yes (3) Nausea and vomiting SNOMED Code(s): 03068351 ICD Code: R11.2 - NAUSEA WITH VOMITING, UNSPECIFIED Status: Acute Current Visit: Yes Qualifiers: Vomiting type: unspecified Vomiting Intractability: non-intractable Qualified Code(s): R11.2 - Nausea with vomiting, unspecified (4) Hyponatremia SNOMED Code(s): 65981074 ICD Code: E87.1 - HYPO-OSMOLALITY AND HYPONATREMIA Status: Acute Current Visit: Yes - Patient Instructions Diet: Usual Diet as Tolerated Driving: Do Not Drive Showering/Bathing: May Shower - Discharge Plan *PRESCRIPTION DRUG MONITORING PROGRAM REVIEWED*: Not Applicable *COPY OF PRESCRIPTION DRUG MONITORING REPORT IN PATIENT DENI: Not Applicable Home Medications: Home Meds Levothyroxine [Synthroid] 50 mcg PO ASDIRECTED 03/10/19 [History] Losartan [Cozaar] 25 mg PO DAILY 03/10/19 [History] Mycophenolate Mofetil [Cellcept] 1,500 mg PO BID 03/10/19 [History] Pantoprazole [ProTONIX] 40 mg PO DAILY 03/10/19 [History] Simvastatin [Zocor] 10 mg PO BEDTIME 03/10/19 [History] Tacrolimus [Prograf] 2 mg PO BID 03/10/19 [History] busPIRone [Buspar] 7.5 mg PO BID 03/10/19 [History] Acetaminophen [Tylenol] 650 mg PO Q4H PRN tablet 03/12/19 [Rx] Albuterol [Proventil Neb Soln] 2.5 mg NEB Q2H PRN neb 03/12/19 [Rx] Ampicillin/Sulbactam Na [Unasyn] 3 gm IV Q6H adv 03/12/19 [Rx] Oxygen Therapy Mode: Room Air Forms: ED Department Discharge Referrals: Peg Fan MD [Primary Care Provider] - - Discharge Summary/Plan Comment DC Time >30 min.: Yes Discharge Summary/Plan Comment: Diverticulitis and abdominal pain * Patient has chronic abdominal pain. She continues to have abdominal tenderness that worsened overnight with worsening white count and fever. Yesterday I discussed the case with her internet technology manager Dr. Norton, the on- call hospitalist Dr. Carmona, and on-call surgeon. Recommendation is to continue on IV antibiotics for 1-2 more days, and if she worsens she will need to be transferred. Patient clearly worsened both symptomatically and objectively. Phone call was placed to [facility] in [place] and Dr. Marshall graciously accepted the patient. - General Info Date of Service: 03/12/19 Admission Dx/Problem (Free Text: Admission Diagnosis/Problem Admission Diagnosis/Problem Diverticulitis Subjective Update: 03/11/2019 Patient continues to have epigastric and left-sided abdominal pain. White blood cell count decreased from 10-7.8 and C-reactive protein has decreased from 1.1- 0.5. Patient was afebrile overnight and is tolerating her diet. Nausea has improved off of Flagyl and Levaquin. 03/12/2019 Patient had worsening pain overnight. She had a temperature of 100.4 Fahrenheit. Patient did have a small bowel movement yesterday. Functional Status: Denies: Pain Controlled - Review of Systems General: Reports: Fever, Chills HEENT: Reports: No Symptoms Pulmonary: Reports: No Symptoms Cardiovascular: Reports: No Symptoms Gastrointestinal: Reports: Abdominal Pain Skin: Reports: No Symptoms Psychiatric: Reports: Anxiety - Patient Data Vitals - Most Recent: Last Vital Signs Temp 97.9 F 03/12/19 08:13 Pulse 106 H 03/12/19 08:13 Resp 15 03/12/19 08:13 BP 129/71 03/12/19 09:00 Pulse Ox 95 03/12/19 08:13 Weight - Most Recent: 165 lb 12.8 oz I&O - Last 24 hours: Intake & Output 03/11/19 03/12/19 03/12/19 22:59 06:59 14:59 Intake Total 900 1200 Output Total 1100 350 Balance -200 850 Lab Results - Last 24 hrs: Laboratory Results - last 24 hr 03/12/19 03/12/19 Range/Units 05:18 05:18 WBC 10.25 H (3.98-10.04) K/mm3 RBC 4.25 (3.98-5.22) M/mm3 Hgb 12.2 (11.2-15.7) gm/L Hct 36.7 (34.1-44.9) % MCV 86.4 (79.4-94.8) fl MCH 28.7 (25.6-32.2) pg MCHC 33.2 (32.2-35.5) g/dl RDW Std Deviation 40.1 (36.4-46.3) fL Plt Count 212 (182-369) K/mm3 MPV 10.7 (9.4-12.3) fl Neut % (Auto) 78.7 H (34.0-71.1) % Lymph % (Auto) 11.9 L (19.3-51.7) % [place] % (Auto) 7.6 (4.7-12.5) % Eos % (Auto) 1.5 (0.7-5.8) Baso % (Auto) 0.2 (0.1-1.2) % Neut # (Auto) 8.07 H (1.56-6.13) K/mm3 Lymph # (Auto) 1.22 (1.18-3.74) K/mm3 [place] # (Auto) 0.78 H (0.24-0.36) K/mm3 Eos # (Auto) 0.15 (0.04-0.36) K/mm3 Baso # (Auto) 0.02 (0.01-0.08) K/mm3 Sodium 135 L (136-145) mEq/L Potassium 4.0 (3.5-5.1) mEq/L Chloride 101 (98-107) mEq/L Carbon Dioxide 24 (21-32) mEq/L Anion Gap 14.0 (5-15) BUN 12 (7-18) mg/dL Creatinine 1.0 (0.55-1.02) mg/dL Est Cr Clr Drug Dosing 56.00 mL/min Estimated GFR (MDRD) 56 (>60) mL/min BUN/Creatinine Ratio 12.0 L (14-18) Glucose 91 (80-115) mg/dL Calcium 8.1 L (8.5-10.1) mg/dL Magnesium 1.7 L (1.8-2.4) mg/dl Total Bilirubin 0.5 (0.2-1.0) mg/dL AST 23 (15-37) U/L ALT 23 (14-59) U/L Alkaline Phosphatase 82 (46-116) U/L Total Protein 6.0 L (6.4-8.2) g/dl Albumin 3.0 L (3.4-5.0) g/dl Globulin 3.0 gm/dL Albumin/Globulin Ratio 1.0 (1-2) Med Orders - Current: Current Medications Acetaminophen (Tylenol) 650 mg PO Q4H PRN PRN Reason: Pain (Mild 1-3)/fever Last Admin: 03/12/19 09:31 Dose: 650 mg Albuterol (Proventil Neb Soln) 2.5 mg NEB Q2H PRN PRN Reason: Shortness Of Breath/wheezing Aspirin (Halfprin) 81 mg PO DAILY [facility] Last Admin: 03/12/19 09:01 Dose: 81 mg Buspirone HCl (Buspar) 7.5 mg PO BID [facility] Last Admin: 03/12/19 09:01 Dose: 7.5 mg Ampicillin Sodium/Sulbactam (Sodium 3 gm/ Sodium Chloride) 100 mls @ 200 mls/ hr IV Q6H [facility] Last Admin: 03/12/19 06:17 Dose: 200 mls/hr Levothyroxine Sodium (Synthroid) 50 mcg PO SuTuWeThSa [facility] Last Admin: 03/12/19 06:29 Dose: 50 mcg Lorazepam (Ativan) 0.5 mg PO Q2HR PRN PRN Reason: Anxiety Last Admin: 03/12/19 09:32 Dose: 0.5 mg Lorazepam (Ativan) 0.5 mg PO BID [facility] Last Admin: 03/12/19 09:01 Dose: 0.5 mg Losartan Potassium (Cozaar) 25 mg PO DAILY [facility] Last Admin: 03/12/19 09:00 Dose: 25 mg Ondansetron HCl (Zofran Odt) 4 mg PO Q4H PRN PRN Reason: nausea, able to take PO Ondansetron HCl (Zofran) 4 mg IV Q4H PRN PRN Reason: Nausea/Vomiting Oxycodone HCl (Oxycodone) 5 mg PO Q4H PRN PRN Reason: Pain (moderate 4-6) Last Admin: 03/12/19 09:32 Dose: 5 mg Pantoprazole Sodium (Protonix) 40 mg PO DAILY [facility] Last Admin: 03/12/19 08:57 Dose: 40 mg Mycophenolate 500mg (Tabs Own Med ) 0 each PO BID [facility] Last Admin: 03/12/19 09:03 Dose: 1 each Tacrolimus 0.5mg Capsules Own Meds 0 each PO BID [facility] Last Admin: 03/12/19 09:03 Dose: 1 each Simvastatin (Zocor) 10 mg PO BEDTIME [facility] Last Admin: 03/11/19 21:41 Dose: 10 mg Sodium Chloride (Saline Flush) 10 ml FLUSH ASDIRECTED PRN PRN Reason: Keep Vein Open Last Admin: 03/10/19 16:15 Dose: 10 ml Discontinued Medications Albuterol (Proventil Hfa) 0 gm INH Q4H PRN PRN Reason: Shortness of Breath Amoxicillin/Clavulanate Potassium (Augmentin 875 Mg/125 Mg) 1 tab PO Q12HR [facility] Last Admin: 03/11/19 09:01 Dose: 1 tab Hydromorphone HCl (Dilaudid) 0.5 mg IVPUSH ONETIME ONE Stop: 03/10/19 15:56 Last Admin: 03/10/19 16:14 Dose: 0.5 mg Sodium Chloride (Normal Saline) 1,000 mls @ 125 mls/hr IV ASDIRECTED [facility] Last Admin: 03/10/19 16:12 Dose: 125 mls/hr Magnesium Sulfate 2 gm/ Premix 50 mls @ 25 mls/hr IV ONETIME ONE Stop: 03/10/19 20:04 Last Admin: 03/10/19 19:29 Dose: 25 mls/hr Metronidazole 500 mg/ Premix 100 mls @ 100 mls/hr IV ONETIME ONE Stop: 03/10/19 19:05 Last Admin: 03/10/19 18:21 Dose: 100 mls/hr Magnesium Sulfate 4 gm/ Premix 50 mls @ 12.5 mls/hr IV ONETIME ONE Stop: 03/10/19 23:13 Last Admin: 03/10/19 22:59 Dose: Not Given Sodium Chloride (Normal Saline) 1,000 mls @ 50 mls/hr IV ASDIRECTED [facility] Last Admin: 03/11/19 07:08 Dose: 50 mls/hr Ampicillin Sodium/Sulbactam (Sodium 3 gm/ Sodium Chloride) 100 mls @ 200 mls/ hr IV Q6H [facility] Last Admin: 03/11/19 03:58 Dose: 200 mls/hr Magnesium Sulfate 4 gm/ Premix 50 mls @ 12.5 mls/hr IV ONETIME ONE Stop: 03/11/19 02:59 Last Admin: 03/10/19 23:01 Dose: 12.5 mls/hr Lorazepam (Ativan) 0.5 mg IVPUSH ONETIME ONE Stop: 03/10/19 15:57 Last Admin: 03/10/19 16:15 Dose: 0.5 mg Lorazepam (Ativan) 0.5 mg PO BID PRN PRN Reason: Anxiety Last Admin: 03/11/19 13:09 Dose: 0.5 mg Lorazepam (Ativan) 0.5 mg PO ONETIME ONE Stop: 03/11/19 21:54 Last Admin: 03/11/19 22:00 Dose: 0.5 mg Magnesium Oxide (Magnesium Oxide) 600 mg PO BID [facility] Mycophenolate Mofetil (Cellcept) 1,500 mg PO BID [facility] Mycophenolate 500mg (Tabs Own Med ) 0 each PO BID [facility] Last Admin: 03/10/19 22:29 Dose: 3 each Tacrolimus 0.5mg Capsules Own Meds 0 each PO BID [facility] Last Admin: 03/10/19 22:31 Dose: 4 each Ondansetron HCl (Zofran) 4 mg IVPUSH ONETIME ONE Stop: 03/10/19 15:55 Last Admin: 03/10/19 16:13 Dose: 4 mg Pantoprazole Sodium (Protonix) 40 mg PO ONETIME ONE Stop: 03/11/19 11:17 Last Admin: 03/11/19 11:32 Dose: 40 mg Tacrolimus (Prograf) 2 mg PO BID [facility] - Exam Quality Assessment: Reports: DVT Prophylaxis. Denies: Supplemental Oxygen General: Reports: Oriented HEENT: Reports: Pupils Equal, Pupils Reactive Neck: Reports: Supple Lungs: Reports: Clear to Auscultation, Normal Respiratory Effort Cardiovascular: Reports: Regular Rate, Regular Rhythm GI/Abdominal Exam: Normal Bowel Sounds, Soft, Rebound, Tender (Epigastric and left sided quadrant tenderness). No: Guarding, Rigid Extremities: Normal Inspection, Normal Range of Motion, No Pedal Edema Skin: Reports: Warm, Dry, Intact Neurological: Reports: No New Focal Deficit Psy/Mental Status: Reports: Alert, Anxious
[2019-03-12 12:04] VITALS: BP 141/85
== END 2019-03-12 12:17 | DRG 244 ==
LOC: JD.ED 15:22 → JD.MS 18:22
PROVIDERS: ADMIT Family Medicine; ATTEND Family Medicine
DX: K57.32 Diverticulitis of large intestine without perforation or abscess without bleeding (principal); E83.42 Hypomagnesemia; E87.1 Hypo-osmolality and hyponatremia; H26.9 Unspecified cataract; H54.7 Unspecified visual loss; I48.91 Unspecified atrial fibrillation; E78.00 Pure hypercholesterolemia, unspecified; I10 Essential (primary) hypertension; I08.0 Rheumatic disorders of both mitral and aortic valves; K21.9 Gastro-esophageal reflux disease without esophagitis; F41.9 Anxiety disorder, unspecified; F32.9 Major depressive disorder, single episode, unspecified; E03.9 Hypothyroidism, unspecified; Z94.1 Heart transplant status; Z88.1 Allergy status to other antibiotic agents; Z88.7 Allergy status to serum and vaccine; Z91.048 Other nonmedicinal substance allergy status; Z79.82 Long term (current) use of aspirin; Z86.010 Personal history of colon polyps; Z95.810 Presence of automatic (implantable) cardiac defibrillator; Z88.2 Allergy status to sulfonamides; Z87.891 Personal history of nicotine dependence
CPT/HCPCS: 36415; 80053; 83690; 83735; 83930; 83935; 84300; 84443; 84484; 85025; 86140; 93005; 93010; 96361; 96374; 96375; 99284; 99285-25; A9270-GY; J0295; J1170; J2060; J2405; J3475; J3490; J7030; J7040

== ENCOUNTER 2019-03-23 16:26 | Emergency (ER) | payer BC ==
[2019-03-23 16:59] VITALS: BP 174/99
[2019-03-23] MEDS ORDERED: HYDROmorphone 0.5 MG/0.5 ML Syringe IVPUSH ONE (17:24)
[2019-03-23] MEDS ORDERED: Metoclopramide 10 MG/2 ML SDV IVPUSH ONE ×2 (17:24→19:56)
[2019-03-23] MEDS ORDERED: Dextrose 5%-0.9% NaCl 1,000 ML IV SCH (17:30)
--- NOTE | 2019-03-23 17:30 | EDM.PDOC ---
ED HPI GENERAL MEDICAL PROBLEM - General Chief Complaint: Abdominal Pain Stated Complaint: SEVERE PAIN POST HEART TRANSPLANT SURGERY Time Seen by Provider: 03/23/19 17:24 Source of Information: Reports: Patient History Limitations: Reports: No Limitations, Other (Obviously in a lot of pain and discomfort.) - History of Present Illness INITIAL COMMENTS - FREE TEXT/NARRATIVE: 63-year-old female presents to the ED with severe epigastric pain radiating to her back and up into her lower retrosternal chest. Patient had a bout of similar type pain 3 weeks ago ended up in [facility] in [facility] for 4 days with no positive findings. She did have an upper GI endoscopy at that time but nothing was found. She states pain did settle down in between and she did see Dr. Fan late last week. No changes to her medicines were a slight increase in her levothyroxine dose. Patient states her bowels move twice today. Formed without blood and then one diarrhea stool. She's not been able to eat at all due to nausea. She didn't sleep at all last night due to the severity of the abdominal pain. She doesn't drink alcohol and has no history of pancreatitis although she is on Prograf and CellCept which can cause pancreatitis. She has had previous cholecystectomy. She's never been told she has a hiatal hernia. She is 11 years post heart transplant and is due to go back to the [facility] tomorrow for heart check up. She's not sure what her last ejection fraction was. On admission her heart rate is a narrow complex tachycardia at 138/m. I cannot tell for sure she is in sinus rhythm with first-degree AV block but the rhythm is regular. She states her heart rate is usually brown 105. She has Phenergan gel at home for nausea but did not use it as it makes her very drowsy. Onset: Gradual Onset Date: 03/20/19 (It became much worse Sunday and worse again all day yesterday and last night.) Duration: Day(s):, Constant, Getting Worse Location: Reports: Abdomen (Epigastrium radiating through to her back and into her lower retrosternal chest.) Quality: Reports: Ache, Pressure, Stabbing Severity: Severe (8-9 out of 10.) Improves with: Reports: None Worsens with: Reports: None Context: Denies: Activity, Exercise, Lifting, Sick Contact, Trauma, Other Associated Symptoms: Reports: Chest Pain, Loss of Appetite, Malaise, Nausea/ Vomiting (Nausea but no vomiting). Denies: Confusion (Lower retrosternal chest pain originating in the epigastrium.), Cough, cough w sputum, Fever/Chills, Headaches, Rash, Seizure, Shortness of Breath, Syncope Treatments PROCEDURE MANAGER: Reports: Other (see below) (None.) Upper Abdomen Pain Score (Numeric/FACES): 7 - Related Data Allergies Allergy/AdvReac Type Severity Reaction Status Date / Time cefuroxime [From Ceftin] Allergy Cannot Verified 03/23/19 16:47 Remember clindamycin Allergy Cannot Verified 03/23/19 16:47 Remember nitrofurantoin Allergy Cannot Verified 03/23/19 16:47 [From Macrobid] Remember Sulfa (Sulfonamide Allergy Hives Verified 03/23/19 16:47 Antibiotics) zoster vaccine live Allergy Cannot Verified 03/23/19 16:47 [From Zostavax (PF)] Remember dust Allergy Cannot Uncoded 03/23/19 16:47 Remember mold Allergy Wheezing Uncoded 03/23/19 16:48 Home Meds: Home Meds Levothyroxine [Synthroid] 50 mcg PO DAILY 03/10/19 [History] Losartan [Cozaar] 25 mg PO DAILY 03/10/19 [History] Mycophenolate Mofetil [Cellcept] 1,500 mg PO BID 03/10/19 [History] Pantoprazole [ProTONIX] 40 mg PO DAILY 03/10/19 [History] Simvastatin [Zocor] 10 mg PO BEDTIME 03/10/19 [History] Tacrolimus [Prograf] 2 mg PO BID 03/10/19 [History] busPIRone [Buspar] 7.5 mg PO BID 03/10/19 [History] Acetaminophen [Tylenol] 650 mg PO Q4H PRN tablet 03/12/19 [Rx] Albuterol [Proventil Neb Soln] 2.5 mg NEB Q2H PRN neb 03/12/19 [Rx] Magnesium Chloride [Slow-Mag] 71.5 mg PO BID #60 tablet. 03/23/19 [Rx] Metoclopramide HCl [Reglan] 5 mg PO Q8H #30 tablet 03/23/19 [Rx] oxyCODONE HCl/Acetaminophen [Percocet 5-325 mg Tablet] 1 - 2 each PO Q4H PRN # 20 tablet 03/23/19 [Rx] Past Medical History HEENT History: Reports: Cataract, Impaired Vision Other HEENT History: Wears glasses, braces Cardiovascular History: Reports: Afib, Arrhythmia, Cardiomyopathy, High Cholesterol, Hypertension Other Cardiovascular History: heart transplant in 2007: prior to transplant had asystole, mitral and aortic valce insufficeincy, afib, cardiomyopathy Respiratory History: Reports: Other (See Below) Other Respiratory History: Severe allergies Gastrointestinal History: Reports: Colon Polyp, Diverticulosis, GERD Other Gastrointestinal History: hematochezia, abdominal pain Genitourinary History: Reports: Urinary Incontinence Other Genitourinary History: urge incontinence BUSINESS CONTROL MANAGER History: Reports: , Other (See Below) Other BUSINESS CONTROL MANAGER History: Cyst left ovary, and two cyst in left breasts. 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 Endocrine/Metabolic History: Reports: Hypothyroidism Hematologic History: Reports: Anemia Immunologic History: Reports: Solid Organ Transplant Other Immunologic History: Heart transplant 2007 Dermatologic History: Reports: Psoriasis - Infectious Disease History Infectious Disease History: Reports: Chicken Pox, Measles, Mumps - Past Surgical History Cardiovascular Surgical History: Reports: AICD, Other (See Below) Other Cardiovascular Surgeries/Procedures: heart transplant 2007 Respiratory Surgical History: Reports: None Social & Family History - Family History Family Medical History: Noncontributory Cardiac: Reports: Heart Failure, [place] - Tobacco Use Smoking Status *Q: Never Smoker Second Hand Smoke Exposure: No - Caffeine Use Caffeine Use: Reports: Soda - Recreational Drug Use Recreational Drug Use: No - Living Situation & Occupation Living situation: Reports: , Alone Occupation: Employed [employer] - Review of Systems Review Of Systems: See Below Constitutional: Reports: Malaise, Weakness, Fatigue, Decreased Appetite, Weight Loss. Denies: Fever, Chills HEENT: Reports: Glasses Respiratory: Reports: Other (Subjective shortness of breath as deep breathing makes the abdominal pain worse.). Denies: Shortness of Breath, Wheezing, Pleuritic Chest Pain, Cough, Sputum Cardiovascular: Reports: Chest Pain (Lower retrosternal chest pressure discomfort originating in the epigastrium.), Blood Pressure Problem, Dyspnea on Exertion (Chronically). Denies: Claudication (Usually runs low but goes up when she is in pain.), Edema, Lightheadedness, Orthopnea Endocrine: Reports: Fatigue GI/Abdominal: Reports: Abdominal Pain (See history of present illness severe epigastric pain.), Decreased Appetite (Since cholecystectomy she usually has a formed stool in the morning and then usually diarrhea stool once or twice the rest of the day.), Other : Reports: No Symptoms Musculoskeletal: Reports: No Symptoms Skin: Reports: Bruising Neurological: Reports: No Symptoms Psychiatric: Reports: Anxiety Hematologic/Lymphatic: Reports: Anemia Immunologic: Reports: Other (She did have a recent increase in her Prograf due to identification that she was starting to reject her heart transplant..) ED EXAM, GI/ABD - Physical Exam Exam: See Below Exam Limited By: No Limitations General Appearance: Alert, WD/WN, Anxious, Moderate Distress (She is in obvious pain and distress. Heart rate is 122 when I was in the room. It appears to be sinus with a first-degree AV block.) Eyes: Bilateral: Normal Appearance (No scleral icterus.) Throat/Mouth: Other Head: Atraumatic (Mouth and tongue are mildly dry.), Normocephalic Neck: Normal Inspection, Supple, Non-Tender, Full Range of Motion. No: Lymphadenopathy (L), Lymphadenopathy (R) Respiratory/Chest: Lungs Clear ( hyperventilating.), Normal Breath Sounds, No Accessory Muscle Use, Respiratory Distress (Tachypnea at rest 25-30/m), Other ( Well-healed midline sternotomy incision) Cardiovascular: Normal Peripheral Pulses, No Edema, No Gallop, No Murmur, No Rub , Tachycardia (Narrow complex tachycardia I suspect sinus with a first-degree AV block at 1 38/m originally it has come down to 1 13/m now.). No: Regular Rate, Rhythm GI/Abdominal Exam: Tender (Maximal point of tenderness is in the epigastrium. Scars from previous left ventricular assist device after having a heart transplant surgery 11 years ago. Other scars are from drains and from laparoscopic cholecystectomy.), Abnormal Bowel Sounds. No: Distended (Bowel sounds are hyperactive in all 4 quadrants. No tympany to percussion.) Back Exam: Normal Inspection, Full Range of Motion. No: CVA Tenderness (L), CVA Tenderness (R) Extremities: Normal Inspection, Normal Range of Motion, Non-Tender, Other ( Bruising volar aspect of the right wrist.) Neurological: Alert, Oriented, CN II-XII Intact, Normal Cognition Psychiatric: Normal Affect, Normal Mood Skin Exam: Warm, Dry, Intact, Ecchymosis (Volar aspect right forearm recent blood draw.) EKG INTERPRETATION EKG Date: 03/23/19 Time: 16:50 Rhythm: Other (Narrow complex tachycardia. I believe it is likely sinus with first-degree AV block.) Rate (Beats/Min): 138 [place]: LAD-Left [place] Deviation (-20) P-Wave: Variable QRS: Other (Decreased voltage in the precordial leads. Q waves in 3 and aVF compatible with old inferior wall myocardial infarction. There is a positive R- wave in V1 and V2. Give some consideration to potential posterior wall infarct. Of note patient is a cardiac transplant patient.) ST-T: Other QT: (Baseline wanders tremendously. Appears to show T-wave inversion V1 and V2 V3 one in aVL.) EKG Interpretation Comments: Abnormal ECG Course - Vital Signs Last Recorded V/S: Last Vital Signs Temp 36.6 C 03/23/19 16:50 Pulse 142 H 03/23/19 16:50 Resp 25 H 03/23/19 16:50 BP 174/99 H 03/23/19 16:50 Pulse Ox 96 03/23/19 16:50 - Orders/Labs/Meds Labs: Laboratory Tests 03/23/19 03/23/19 03/23/19 Range/Units 17:50 17:50 17:50 WBC 10.41 H (3.98-10.04) K/mm3 RBC 4.94 (3.98-5.22) M/mm3 Hgb 14.0 D (11.2-15.7) gm/L Hct 42.7 (34.1-44.9) % MCV 86.4 (79.4-94.8) fl MCH 28.3 (25.6-32.2) pg MCHC 32.8 (32.2-35.5) g/dl RDW Std Deviation 40.0 (36.4-46.3) fL Plt Count 305 D (182-369) K/mm3 MPV 10.3 (9.4-12.3) fl Neutrophils % (Manual) 82 H (40-60) % Band Neutrophils % 0 (0-10) % Lymphocytes % (Manual) 11 L (20-40) % Atypical Lymphs % 0 % Monocytes % (Manual) 6 (2-10) % Eosinophils % (Manual) 1 (0.7-5.8) % Basophils % (Manual) 0 L (0.1-1.2) Platelet Estimate Adequate RBC Morph Comment Normal PT 10.3 (9.5-12.1) SECONDS INR 0.94 Sodium 135 L (136-145) mEq/L Potassium 3.9 (3.5-5.1) mEq/L Chloride 97 L (98-107) mEq/L Carbon Dioxide 25 (21-32) mEq/L Anion Gap 16.9 H (5-15) BUN 7 (7-18) mg/dL Creatinine 1.2 H (0.55-1.02) mg/dL Est Cr Clr Drug Dosing 46.66 mL/min Estimated GFR (MDRD) 45 (>60) mL/min BUN/Creatinine Ratio 5.8 L (14-18) Glucose 120 H (80-115) mg/dL Calcium 9.9 D (8.5-10.1) mg/dL Magnesium 1.4 L (1.8-2.4) mg/dl Total Bilirubin 0.3 (0.2-1.0) mg/dL AST 18 (15-37) U/L ALT 24 (14-59) U/L Alkaline Phosphatase 104 (46-116) U/L CK-MB (CK-2) 1.1 (0-3.6) ng/ml Troponin I < 0.017 (0.00-0.056) ng/mL C-Reactive Protein 0.2 (<1.0) mg/dL NT-Pro-B Natriuret Pep (0-125) pg/mL Total Protein 7.5 (6.4-8.2) g/dl Albumin 4.2 (3.4-5.0) g/dl Globulin 3.3 gm/dL Albumin/Globulin Ratio 1.3 (1-2) Lipase 100 (73-393) U/L 03/23/ Range/Units 17:50 WBC (3.98-10.04) K/mm3 RBC (3.98-5.22) M/mm3 Hgb (11.2-15.7) gm/L Hct (34.1-44.9) % MCV (79.4-94.8) fl MCH (25.6-32.2) pg MCHC (32.2-35.5) g/dl RDW Std Deviation (36.4-46.3) fL Plt Count (182-369) K/mm3 MPV (9.4-12.3) fl Neutrophils % (Manual) (40-60) % Band Neutrophils % (0-10) % Lymphocytes % (Manual) (20-40) % Atypical Lymphs % % Monocytes % (Manual) (2-10) % Eosinophils % (Manual) (0.7-5.8) % Basophils % (Manual) (0.1-1.2) Platelet Estimate RBC Morph Comment PT (9.5-12.1) SECONDS INR Sodium (136-145) mEq/L Potassium (3.5-5.1) mEq/L Chloride (98-107) mEq/L Carbon Dioxide (21-32) mEq/L Anion Gap (5-15) BUN (7-18) mg/dL Creatinine (0.55-1.02) mg/dL Est Cr Clr Drug Dosing mL/min Estimated GFR (MDRD) (>60) mL/min BUN/Creatinine Ratio (14-18) Glucose (80-115) mg/dL Calcium (8.5-10.1) mg/dL Magnesium (1.8-2.4) mg/dl Total Bilirubin (0.2-1.0) mg/dL AST (15-37) U/L ALT (14-59) U/L Alkaline Phosphatase (46-116) U/L CK-MB (CK-2) (0-3.6) ng/ml Troponin I (0.00-0.056) ng/mL C-Reactive Protein (<1.0) mg/dL NT-Pro-B Natriuret Pep 70 (0-125) pg/mL Total Protein (6.4-8.2) g/dl Albumin (3.4-5.0) g/dl Globulin gm/dL Albumin/Globulin Ratio (1-2) Lipase (73-393) U/L Meds: Medications Discontinued Medications Generic Name Dose Route Start Last Admin Trade Name Lito PRN Reason Stop Dose Admin Hydromorphone HCl 0.5 mg 03/23/19 17:24 03/23/19 17:58 Dilaudid IVPUSH 03/23/19 17:25 0.5 mg ONETIME ONE Administration Dextrose/Sodium Chloride 1,000 mls @ 250 mls/hr 03/23/19 17:30 03/23/19 18:00 Dextrose 5%-Normal Saline IV 250 mls/hr ASDIRECTED EDUARDO Administration Metoclopramide HCl 7.5 mg 03/23/19 17:24 03/23/19 17:56 Reglan IVPUSH 03/23/19 17:25 7.5 mg ONETIME ONE Administration Metoclopramide HCl 5 mg 03/23/19 19:56 03/23/19 20:08 Reglan IVPUSH 03/23/19 19:57 5 mg ONETIME ONE Administration - Radiology Interpretation Free Text/Narrative:: 63-year-old female presents to the ED with severe epigastric pain rating up into her lower retrosternal chest and through to her mid back between the shoulder blades. She's had similar problems with this pain for the last 3-4 weeks. She was hospitalized and [facility] over Father's Day i.e. March 16. She was in hospital for 4 days and did have an upper GI endoscopy performed as part of her workup with no positive findings. Source of her pain was never fully elucidated. She was better for a few days but on , March 20 she started to have epigastric pain which is intensified over the last 24 hours and is constant. She was unable to sleep at all last night due to the severity of the pain. Feels nauseated but no vomiting. Pain is constant and severe. Bowels did work normally this morning and one diarrhea stool with no blood. Exam reveals a heart transplant patient. Bowel sounds are very active in all 4 quadrants. She is hyperventilating and likely swallowing some air but is not all that tympanitic to percussion. She is on Prograf and CellCept both of which I believe can cause pancreatitis. Part of her workup will include a serum lipase. Routine labs. Cardiac markers as well as her ECG reveals a narrow complex tachycardia likely sinus rhythm with a first-degree AV block. However there is positive R-wave deflection in V1 and V2 with a right bundle branch block which skews the ECG. One needs to consider possible posterior wall infarct. Rate has slowed down to 1 12/m and shows sinus rhythm with first-degree AV block. Plan Dilaudid 0.5 mg IV with Reglan 7.5 mg IV. IV will be D5 normal saline at 250 mils per hour. Tinnitus CT as part of her workup I believe of the abdomen prior to being sent to [facility]. I will have a look at this to see if it showed any evidence of a hiatal hernia that could be causing her current pain. - Re-Assessments/Exams Free Text/Narrative Re-Assessment/Exam: 03/23/19 18:23 and states the pain is much improved with 0.5 mg of Dilaudid. Chest x-ray reveals no other maladies. Cardiac silhouette appears normal and the lungs are clear. Evidence of previous open heart surgery appreciated. X-ray of the abdomen suggests that there is a collection of air in the center of the upper abdomen I epigastrium with a soft tissue mass above this may or may not be up in the chest. This would be abnormal place for for food to collect. Still question whether she may in fact have a hiatal hernia. I'm therefore going to go ahead with a CT of the abdomen with oral contrast just to fill the stomach and to confirm whether or not she has a hiatal hernia or an incarcerated hiatal hernia to cause such severe pain. 03/23/19 18:25 Hematology reveals white count of 10.41 with 82% neutrophils and no band cells. Hemoglobin is 14.0 with hematocrit of 42.7. Platelet count 305, 000. PT is 10.3 with an INR of 0.94. 03/23/19 18:49 Chemistry shows a sodium of 135. Potassium is 3.9. Chloride is 97 with a bicarbonate of 25. Anion gap is 16.9. BUN is 7 with a creatinine of 1.2. Estimated GFR is 45 i.e. stage III chronic kidney disease. Glucose is 120. Calcium is 9.9. Magnesium slightly low at 1.4. Liver function normal CK-MB 1.1 with a troponin I of less than 0.017. C-reactive protein is 0.2. BNP is 70. Total protein 7.5 with an albumin fraction of 4.2. Lipase is normal at 100. 03/23/19 19:57 CT of the abdomen was performed with oral contrast only and it does show a small hiatal hernia. It shows however that her stomach is obviously dilated half filled with air and half filled with contrast. It suggests that she probably has a gastroparesis and I suspect her vagus nerves may have been sacrificed when she had her heart transplant surgery 11 years ago. For whatever reason she seems to be developing intermittent problems with hiatal hernia over the last 2- months. I'm going to place on Reglan 5 mg every 6 hours to act as a stimulant to the stomach and also as an anti nausea. I will prescribe Percocet tablets 5/325 mg 1/2-1 tablet every 4-6 hours as needed for similar type pain as needed. She apparently did not have very good luck with Bentyl in the past. Will be traveling to the [facility] for her heart checkup in the next day or so. I will therefore put her CT and x-ray on a CD-ROM disc to take with her. I'm also going to place her on slow mag 2 tablets twice daily in an effort to boost her serum magnesium level as it always is 1.4 according to the patient. Also the amount of cramping and diarrhea she has may be related to magnesium intake. She has plans to travel to the [facility] for heart checkup leaving tomorrow morning early. I will get her some pain medication through the [employer] machine Percocet tablet one half tablet to one tablet every 4-6 hours. Reglan 5 mg every 8 hours for the next 10 days to see if it makes a difference in her regards to her abdominal pain. Departure - Departure Time of Disposition: 20:00 Disposition: Home, Self-Care 01 Condition: Fair Clinical Impression: Abdominal pain determined by examination, Nondiabetic gastroparesis, Hiatal hernia - Discharge Information *PRESCRIPTION DRUG MONITORING PROGRAM REVIEWED*: No *COPY OF PRESCRIPTION DRUG MONITORING REPORT IN PATIENT DENI: No Prescriptions: Magnesium Chloride [Slow-Mag] 71.5 mg PO BID #60 tablet. Metoclopramide HCl [Reglan] 5 mg PO Q8H #30 tablet oxyCODONE HCl/Acetaminophen [Percocet 5-325 mg Tablet] 1 - 2 each PO Q4H PRN # 20 tablet PRN Reason: pain relief. Instructions: Hernia, Adult, Gastroparesis Referrals: Peg Fan MD [Primary Care Provider] - Forms: ED Department Discharge Additional Instructions: Evaluation in the emergency room today in regards to development of severe epigastric pain over the last 2 days. Pain was well localized to the epigastrium or pit of the stomach. Associated nausea and inability to eat. All of the blood work proved to be normal other than your serum magnesium level still low at 1.4. CT was carried out of the upper abdomen with oral contrast and it does reveal a small hiatal hernia which means part of your stomach lives in your lower chest. The stomach however is obviously dilated and enlarged in size and I suspect that you have a paralyzed stomach called gastroparesis. This likely is occurred since her heart surgery or transplant and the vagus nerves that travels down to the stomach have been sacrificed. For whatever reason as of late the stomach appears to be herniating up through the diaphragm and anterior lower chest causing your pain syndrome. Suggest a trial of Reglan 5 mg tablet every 8 hours for the next 10 days to see if it alleviates or prevents hiatal hernia type pain. This is being used as an antinausea but also has a agent to turn the churning back on in the stomach and help but empty quicker if possible. Also suggest trying slow mag tablets one tablet twice daily for the next month to see if this will bring your serum magnesium up better than current 400 mg gram magnesium tablets which are likely causing cramping and diarrhea. I also wrote a prescription for Percocet tabs 5/3/25 milligrams strength may use one half to one tablet every 4-6 hours if needed for recurrence of abdominal pain. Note they should be taken with the Reglan tablet to prevent nausea or vomiting from the pain pill. Discussed the findings of today's exam with [facility] physicians if this is a common problem after heart transplantation.
--- NOTE | 2019-03-24 11:06 | CR ---
Abdomen: Supine view of the abdomen was obtained. Small detached bony density is noted off the superior acetabulum of the left hip which appears to be old. Slight joint space narrowing is noted within superior right hip. Previous cholecystectomy is noted. Bowel gas pattern is normal. No soft tissue abnormality or abnormal calcifications are seen. Impression: 1. Hip findings as noted above. 2. Nothing acute seen on supine abdominal x-ray. Diagnostic code #2
--- NOTE | 2019-03-24 11:18 | CR ---
Chest: PA view of the chest was obtained. Comparison: Prior chest x-ray of 02/06/18. Heart size and mediastinum are normal. Sternotomy wires are seen. AICD is present. Lungs are clear with no acute parenchymal change. Impression: 1. Incidental findings as described above. Nothing acute is appreciated on PA chest x-ray. Diagnostic code #2
--- NOTE | 2019-03-24 13:45 | CT ---
CT abdomen Technique: Multiple axial sections were obtained from above the dome of the diaphragm inferiorly to the iliac crest. Intravenous contrast not utilized. Oral contrast has been given. Comparison: Prior CT abdomen exam of 02/06/18. Findings: Small portion of the visualized lung bases show nothing acute. Noncontrast appearance of the liver shows no focal parenchymal abnormality. Spleen appears within normal limits. Adrenal glands show no nodule. Pancreas is within normal limits. Aorta shows atherosclerotic calcification which continues into the iliac vessels without aneurysm. No retroperitoneal adenopathy is seen. No mesenteric abnormalities are seen. Diverticuli are noted within the descending colon without surrounding inflammatory change to indicate diverticulitis. No free fluid is seen. Surgical clips are noted from prior cholecystectomy. Appendix not seen with certainty. Bone window settings were reviewed which shows mild degenerative change within the thoracic spine. Impression: 1. Findings which are felt to be incidental. Nothing acute is appreciated on CT study of the abdomen. Diagnostic code #2 MTDD
== END 2019-03-23 20:43 | disposition home or self-care (01) ==
LOC: JD.ED 16:26
DX: K44.9 Diaphragmatic hernia without obstruction or gangrene (principal); K31.84 Gastroparesis; Z79.899 Other long term (current) drug therapy; Z88.8 Allergy status to other drugs, medicaments and biological substances; Z88.1 Allergy status to other antibiotic agents; Z88.7 Allergy status to serum and vaccine; I48.91 Unspecified atrial fibrillation; E78.00 Pure hypercholesterolemia, unspecified; I10 Essential (primary) hypertension; F41.9 Anxiety disorder, unspecified; F32.9 Major depressive disorder, single episode, unspecified; E03.9 Hypothyroidism, unspecified; Z94.1 Heart transplant status
CPT/HCPCS: 36415; 71045; 74018; 74150; 80053; 82553; 83690; 83735; 83880; 84484; 85007; 85027; 85610; 86140; 93005; 96361; 96374; 96375; 99284; J1170; J2765; J7042; 93010; 99285

== ENCOUNTER 2019-06-23 18:06 | Emergency (ER) | payer BC ==
[2019-06-23 18:17] VITALS: BP 156/108; PULSE 135
[2019-06-23] MEDS ORDERED: LORazepam 2 MG/ML SDV IVPUSH ONE (18:45)
[2019-06-23] MEDS ORDERED: Dextrose 5%-0.9% NaCl 1,000 ML IV SCH (18:45)
--- NOTE | 2019-06-23 18:58 | EDM.PDOC ---
ED HPI GENERAL MEDICAL PROBLEM - General Chief Complaint: Cardiovascular Problem Stated Complaint: HIGH BLOOD PRESSURE RHB Time Seen by Provider: 06/23/19 18:25 Source of Information: Reports: Patient History Limitations: Reports: No Limitations - History of Present Illness INITIAL COMMENTS - FREE TEXT/NARRATIVE: 64-year-old female presents to the ED aware that her heart is racing out up to 140 bpm. The monitor shows however that this is a sinus tachycardia and she admits that she is under a great deal of duress and stress as of late. Her blood pressure is also elevated at home compared to her norm. Upon arrival here her BP is 156/108. Of note she is a heart transplant patient 11 years. She admits that she is under great deal of duress by being off work for a lengthy period of time with chest pains and hiatal hernia and getting ready to return to work. Her mother recently and she's been cleaning out the house. Father's in [place] and developing Alzheimer's disease and can't remember that mom has . She states that she's not been sleeping very well either. No new medications other than losartan which she's taking a half a tablet twice daily for blood pressure control. He feels mildly nauseated. She doesn't have the hiatal hernia pain that she often has in the pit of her stomach rating up into her back and throat. Onset: Today Onset Date: 06/16/19 (Blood pressures been mildly elevated the last week or more.) Duration: Hour(s): (She appreciated her blood pressure was elevated and her heart rate was elevated when she took it at home about 1600 hrs. today.) Location: Reports: Chest (Elevated heart rate with palpitations that she is aware when her chest), Generalized ( and elevated blood pressure.) Quality: Reports: Other ( recognizes that she is under a great deal of duress and stress at this time as well. feels a mild pressure in her chest. ) Severity: Mild Improves with: Reports: None Worsens with: Reports: Other Context: Denies: Activity (The more anxious she becomes.), Exercise, Lifting, Sick Contact, Trauma, Other Associated Symptoms: Reports: Loss of Appetite, Malaise, Nausea/Vomiting, Weakness (Nausea without vomiting). Denies: No Other Symptoms, Confusion, Chest Pain, Cough, cough w sputum, Diaphoresis, Fever/Chills, Headaches, Rash, Seizure, Shortness of Breath, Syncope Treatments CHANNELER: Reports: Other (see below) (None.) - Related Data Allergies Allergy/AdvReac Type Severity Reaction Status Date / Time cefuroxime [From Ceftin] Allergy Cannot Verified 06/23/19 18:15 Remember clindamycin Allergy Cannot Verified 06/23/19 18:15 Remember nitrofurantoin Allergy Cannot Verified 06/23/19 18:15 [From Macrobid] Remember Sulfa (Sulfonamide Allergy Hives Verified 06/23/19 18:15 Antibiotics) zoster vaccine live Allergy Cannot Verified 06/23/19 18:15 [From Zostavax (PF)] Remember dust Allergy Cannot Uncoded 06/23/19 18:15 Remember mold Allergy Wheezing Uncoded 06/23/19 18:15 Home Meds: Home Meds Levothyroxine [Synthroid] 50 mcg PO DAILY 03/10/19 [History] Pantoprazole [ProTONIX] 40 mg PO DAILY 03/10/19 [History] Simvastatin [Zocor] 10 mg PO BEDTIME 03/10/19 [History] Tacrolimus [Prograf] 2 mg PO BID 03/10/19 [History] busPIRone [Buspar] 7.5 mg PO BID 03/10/19 [History] Acetaminophen [Tylenol] 650 mg PO Q4H PRN tablet 03/12/19 [Rx] Albuterol [Proventil Neb Soln] 2.5 mg NEB Q2H PRN neb 03/12/19 [Rx] Aspirin [Aspirin EC] 81 mg PO DAILY 06/23/19 [History] Calcium Carbonate/Vitamin D3 [Calcium 500 + Vit D Caplet] 1 tab PO DAILY [History] Calcium Polycarbophil [Fibercon] 1 tab PO DAILY 06/23/19 [History] Cetirizine [ZyrTEC] 1 tab PO DAILY PRN 06/23/19 [History] LORazepam [Ativan] 0.5 mg PO BID 06/23/19 [History] Lactobacillus Rhamnosus GG [Culturelle] 1 cap PO DAILY 06/23/19 [History] Levothyroxine 25 mcg PO ASDIRECTED 06/23/19 [History] Magnesium Oxide 600 mg PO BID 06/23/19 [History] Womens Ultra Wil 50 Plus 1 tab PO DAILY 06/23/19 [History] Past Medical History HEENT History: Reports: Cataract, Impaired Vision Other HEENT History: Wears glasses, braces Cardiovascular History: Reports: Afib, Arrhythmia, Cardiomyopathy, High Cholesterol, Hypertension Other Cardiovascular History: heart transplant in 2007: prior to transplant had asystole, mitral and aortic valce insufficeincy, afib, cardiomyopathy Respiratory History: Reports: Other (See Below) Other Respiratory History: Severe allergies Gastrointestinal History: Reports: Colon Polyp, Diverticulosis, GERD Other Gastrointestinal History: hematochezia, abdominal pain Genitourinary History: Reports: Urinary Incontinence Other Genitourinary History: urge incontinence PLUMBING DRAFTER History: Reports: , Other (See Below) Other PLUMBING DRAFTER History: Cyst left ovary, and two cyst in left breasts. 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 Endocrine/Metabolic History: Reports: Hypothyroidism Hematologic History: Reports: Anemia Immunologic History: Reports: Solid Organ Transplant Other Immunologic History: Heart transplant 2008 Dermatologic History: Reports: Psoriasis - Infectious Disease History Infectious Disease History: Reports: Chicken Pox, Measles, Mumps - Past Surgical History Cardiovascular Surgical History: Reports: AICD, Other (See Below) Other Cardiovascular Surgeries/Procedures: heart transplant 2007 Respiratory Surgical History: Reports: None Social & Family History - Family History Family Medical History: Noncontributory Cardiac: Reports: Heart Failure, [place] - Tobacco Use Smoking Status *Q: Former Smoker Used Tobacco, but Quit: Yes Month/Year Tobacco Last Used: 2002 - Caffeine Use Caffeine Use: Reports: Soda - Recreational Drug Use Recreational Drug Use: No - Living Situation & Occupation Living situation: Reports: , Alone Occupation: Employed ED ROS GENERAL - Review of Systems Review Of Systems: See Below Constitutional: Reports: Malaise, Weakness, Fatigue, Decreased Appetite. Denies : Fever, Chills HEENT: Reports: Glasses Respiratory: Reports: Shortness of Breath. Denies: Wheezing, Pleuritic Chest Pain, Cough, Sputum Cardiovascular: Reports: Blood Pressure Problem, Dyspnea on Exertion, Lightheadedness, Palpitations, Other (She is aware that her heart is racing but it sinus tachycardia at 1 38/m). Denies: Claudication (Blood pressure is becoming more elevated as of late.), Edema, Orthopnea Endocrine: Reports: Fatigue GI/Abdominal: Reports: Abdominal Pain, Decreased Appetite. Denies: Constipation (Intermittent epigastric abdominal pain due to hiatal hernia.), Diarrhea, Difficulty Swallowing, Distension, Hematemesis, Hematochezia, Melena, Mucous in Stool : Reports: Frequency Musculoskeletal: Reports: Other (Has osteopenia and osteoarthritis knees hips and back.) Skin: Reports: No Symptoms Neurological: Reports: Dizziness, Headache. Denies: Numbness, Pre-Existing Deficit, Syncope, Tingling, Trouble Speaking, Difficulty Walking, Weakness, Gait Disturbance Psychiatric: Reports: Anxiety, Other (Insomnia) Hematologic/Lymphatic: Reports: No Symptoms Immunologic: Reports: No Symptoms ED EXAM, GENERAL - Physical Exam Exam: See Below Exam Limited By: Uncooperative General Appearance: Alert, Anxious (Quite anxious.), Moderate Distress, Other ( Vital signs show heart rate of 1 35/m but sinus on the monitor. Respiratory rate of 19/m BP elevated 150 03/01/08 but it came down to 138/95 without treatment. Pulse ox 98% on room air.) Eye Exam: Bilateral Eye: Normal Inspection Throat/Mouth: Normal Inspection, Normal Lips, Normal Oropharynx Head: Atraumatic, Normocephalic Neck: Normal Inspection, Supple, Non-Tender, Full Range of Motion. No: Lymphadenopathy (L), Lymphadenopathy (R) Respiratory/Chest: No Respiratory Distress, Lungs Clear, Normal Breath Sounds, Chest Non-Tender Cardiovascular: Normal Peripheral Pulses, No Edema, No Gallop (Sinus tachycardia on ECG at 1 38/m.), No Murmur, No Rub, Tachycardia, Other (Of note the patient is a heart transplant patient and her heart rate can be anywhere from 95-125. 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 No: Guarding (Patient is tender in the epigastrium with no rebound or guarding.), Rigid, Rebound Back Exam: Normal Inspection, Full Range of Motion. No: CVA Tenderness (L), CVA Tenderness (R) Extremities: Normal Inspection, Normal Range of Motion, Non-Tender. No: Pedal Edema Neurological: Alert, Oriented, CN II-XII Intact, Normal Cognition Psychiatric: Anxious Skin Exam: Warm, Dry, Intact, Normal Color, No Rash EKG INTERPRETATION EKG Date: 06/23/19 Time: 18:14 Rhythm: Other Rate (Beats/Min): 134 [place]: LAD-Left [place] Deviation (-12) P-Wave: Present QRS: Other (Elevated R waves in V1 and V2 and V3 give some consideration to possible posterior wall infarct. There are Q waves in leads 3 and aVF compatible with an old inferior wall myocardial infarction. There is decreased voltage throughout the limb leads.) ST-T: Other (There is a diffuse repolarization abnormality.) QT: Prolonged (QTC is mildly prolonged.) EKG Interpretation Comments: I compared this ECG to the one I had done on her on 23 March and it is essentially unchanged. At that time she had a sinus tachycardia of 138/m. Patient has pretty good insight that she has good deal of stress in her life and thus anxiety creating some insomnia and other distress. The fact that she is sinus tachycardia leading to wonder how well she's been eating or drinking as of late. I will start an IV of D5 normal saline at 250 mils per hour routine labs will be collected to include serum magnesium level which is known to be almost always patient in. She will be given Ativan 0.5 mg IV in the ED for anxiety relief. Zofran 4 mg IV for nausea relief. Her care will be turned over to as it is change of shift. Course - Vital Signs Last Recorded V/S: Last Vital Signs Temp 36.7 C 06/23/19 18:15 Pulse 135 H 06/23/19 18:15 Resp 19 06/23/19 18:15 BP 156/108 H 06/23/19 18:15 Pulse Ox 98 06/23/19 18:15 - Orders/Labs/Meds Orders: Active Orders 24 hr Category Date Time Status EKG Documentation Completion [RC] STAT Care 06/23/19 18:19 Active Labs: Laboratory Tests 06/23/19 06/23/19 Range/Units 18:23 18:23 WBC 15.04 H (3.98-10.04) K/mm3 RBC 4.75 (3.98-5.22) M/mm3 Hgb 13.6 (11.2-15.7) gm/dl Hct 41.3 (34.1-44.9) % MCV 86.9 (79.4-94.8) fl MCH 28.6 (25.6-32.2) pg MCHC 32.9 (32.2-35.5) g/dl RDW Std Deviation 40.6 (36.4-46.3) fL Plt Count 288 (182-369) K/mm3 MPV 10.5 (9.4-12.3) fl Neut % (Auto) 73.6 H (34.0-71.1) % Lymph % (Auto) 16.8 L (19.3-51.7) % [place] % (Auto) 7.8 (4.7-12.5) % Eos % (Auto) 1.3 (0.7-5.8) Baso % (Auto) 0.2 (0.1-1.2) % Neut # (Auto) 11.06 H (1.56-6.13) K/mm3 Lymph # (Auto) 2.53 (1.18-3.74) K/mm3 [place] # (Auto) 1.17 H (0.24-0.36) K/mm3 Eos # (Auto) 0.20 (0.04-0.36) K/mm3 Baso # (Auto) 0.03 (0.01-0.08) K/mm3 Sodium 136 (136-145) mEq/L Potassium 4.0 (3.5-5.1) mEq/L Chloride 99 (98-107) mEq/L Carbon Dioxide 27 (21-32) mEq/L Anion Gap 14.0 (5-15) BUN 9 (7-18) mg/dL Creatinine 1.2 H (0.55-1.02) mg/dL Est Cr Clr Drug Dosing 46.92 mL/min Estimated GFR (MDRD) 45 (>60) mL/min BUN/Creatinine Ratio 7.5 L (14-18) Glucose 126 H (80-115) mg/dL Calcium 9.7 (8.5-10.1) mg/dL Magnesium 1.4 L (1.8-2.4) mg/dl Total Bilirubin 0.4 (0.2-1.0) mg/dL AST 21 (15-37) U/L ALT 37 (14-59) U/L Alkaline Phosphatase 131 H (46-116) U/L Troponin I < 0.017 (0.00-0.056) ng/mL Total Protein 7.6 (6.4-8.2) g/dl Albumin 3.9 (3.4-5.0) g/dl Globulin 3.7 gm/dL Albumin/Globulin Ratio 1.1 (1-2) Meds: Medications Discontinued Medications Generic Name Dose Route Start Last Admin Trade Name Freq PRN Reason Stop Dose Admin Al Hydroxide/Mg Hydroxide 30 0 ml 06/23/19 21:00 06/23/19 21:06 ml/ Lidocaine HCl 15 ml PO 06/23/19 21:01 45 ml ONETIME ONE Administration Dextrose/Sodium Chloride 1,000 mls @ 250 mls/hr 06/23/19 18:45 06/23/19 19:06 Dextrose 5%-Normal Saline IV 250 mls/hr ASDIRECTED EDUARDO Administration Magnesium Sulfate 2 gm/ Premix 50 mls @ 25 mls/hr 06/23/19 19:44 06/23/19 19: 49 IV 06/23/19 21:43 25 mls/hr ONETIME ONE Administration Lorazepam 0.5 mg 06/23/19 18:45 06/23/19 19:07 Ativan IVPUSH 06/23/19 18:46 0.5 mg ONETIME ONE Administration Ondansetron HCl 4 mg 06/23/19 18:59 06/23/19 19:06 Zofran IVPUSH 06/23/19 19:00 4 mg ONETIME ONE Administration - Radiology Interpretation Free Text/Narrative:: 64-year-old female presents to the ED with a sinus tachycardia at 134 per minute and an elevated blood pressure of 150 03/01/08. She recognizes that she has a great deal of stress in her current life at this time for multitude of reasons. She has been able to sleep very well. Note the patient is a heart transplantation and has no vagal nerve suppression of her heart rate and it's usually around 105 normally. Even in the examining room and went from 98-118- 138 and a matter of seconds. Lungs sound clear to auscultation. Plan IV will be D5 normal saline at 250 mils per hour to make sure that she is hydrated. Routine labs are to be performed to include serum magnesium.. She will be given Zofran 4 mg IV and Ativan 0.5 mg IV for nausea and anxiety. - Re-Assessments/Exams Free Text/Narrative Re-Assessment/Exam: 06/23/19 19:34 portable chest x-ray reveals slightly hyperinflated lung pham. No vascular congestion cardiac silhouette is normal. There is evidence of retained pacemaker wires and of course midsternal wires from previous open heart surgery. 06/23/19 19:36 White count is elevated at 15.04. Patient does not have a fever. The outer differential shows 73.6% neutrophils. Hemoglobin is 13.6 with hematocrit of 41.3. Platelet count is normal at 288,000. Sodium 136 with a potassium of 4.0. Thyroid is 99 with a bicarbonate 27. Anion gap is 14.0. BUN is 9 with a creatinine of 1.2. Estimated GFR is 45. Glucose is 126. She therefore appears to be well hydrated. Calcium is 9.7 magnesium low at 1.4. Total bilirubin is 0.4. Liver function otherwise shows a slightly elevated alkaline phosphatase is 131. Cardiac markers are normal with a troponin I of less than 0.017. Total protein is 7.6 albumin fraction 3.9. 06/23/19 19:44 patient has chronic problems with chronic maintain a normal magnesium level. Adria magnesium 600 mg twice daily which is causing some degree of loose stools likely contributing to malabsorption of the magnesium. There are tiny about trying some calamine from GN which might prevent diarrhea and constipation and help absorb the magnesium a bit more slowly. Slow-Mag actually caused a problem with her Prograf levels going too low due to its slow rate of distribution and absorption. Plan we will proceed with 2 g of magnesium sulfate intravenously to replace magnesium as it is currently 1.4. Today she should be able to go home after this. Departure - Departure Time of Disposition: 22:30 Disposition: Home, Self-Care 01 Condition: Fair Clinical Impression: Sinus tachycardia, Anxiety, Mild essential hypertension, Hypomagnesemia Instructions: Generalized Anxiety Disorder, Adult, Living With Anxiety Referrals: Zackery Townsend MD [Primary Care Provider] - Forms: ED Department Discharge Additional Instructions: Evaluation the emergency room tonight in regards to elevated blood pressure and heart rate at home and in the ER. ECG revealed this to be a sinus tachycardia which means a regular rhythm but going too fast at 134 per minute. This is felt to be due to increased levels of stress hormones i.e. adrenaline etc. This is also contributing to elevated blood pressure. Symptoms improved over time with lorazepam 0.5 mg intravenously and Zofran 4 mg IV for nausea relief. Work proved to show only low magnesium level at 1.4. There was no sign of heart related illness. Heart rate slowly came back down to the [id number] level and blood pressure also came down to 134/86. Treatment in the ED was therefore magnesium supplementation with 2 g of magnesium infused intravenously. I'll leave it up to you and Dr. Landeros to discuss how best to try and correct this problem which is chronic for you. Use of CalMag supplement make may help slow down the absorption and prevent diarrhea which may be causing some malrotation of the current magnesium your doses you're taking your need to follow-up with him next week for magnesium level checked again. - My Orders Last 24 Hours: My Active Orders 06/23/19 18:19 EKG Documentation Completion [RC] STAT - Assessment/Plan Last 24 Hours: My Active Orders 06/23/19 18:19 EKG Documentation Completion [RC] STAT
[2019-06-23] MEDS ORDERED: Ondansetron 4 MG/2 ML SDV IVPUSH ONE (18:59)
[2019-06-23] MEDS ORDERED: Magnesium Sulfate/Water 2 GM in Premix Bag 1 BAG IV ONE (19:44)
[2019-06-23] MEDS ORDERED: Alum Hydrox/Mag Hydrox/Simeth 30 ML, Lidocaine 2% 15 ML PO ONE ×2 (21:00)
--- NOTE | 2019-06-24 07:06 | CR ---
Chest: Portable view of the chest was obtained. Comparison: Prior chest x-ray of 03/23/19. Heart size and mediastinum are within normal limits for portable technique. Lungs are clear. Previous sternotomy is noted. Disconnected AICD wires are noted. Impression: 1. Findings which are felt to be incidental. Nothing acute is seen on portable chest x-ray. Diagnostic code #2
== END 2019-06-23 22:32 | disposition home or self-care (01) ==
LOC: JD.ED 18:06
DX: R00.0 Tachycardia, unspecified (principal); I10 Essential (primary) hypertension; E83.42 Hypomagnesemia; F41.9 Anxiety disorder, unspecified; E78.00 Pure hypercholesterolemia, unspecified; K21.9 Gastro-esophageal reflux disease without esophagitis; F32.9 Major depressive disorder, single episode, unspecified; Z88.8 Allergy status to other drugs, medicaments and biological substances; Z91.048 Other nonmedicinal substance allergy status; Z88.1 Allergy status to other antibiotic agents; Z88.2 Allergy status to sulfonamides; Z79.899 Other long term (current) drug therapy; Z79.82 Long term (current) use of aspirin; Z87.891 Personal history of nicotine dependence
CPT/HCPCS: 36415; 71045; 80053; 83735; 84484; 85025; 93005; 96361; 96365; 96366; 96375; 99284; A9270; J2060; J2405; J3475; J7042; 93010; 99285

== ENCOUNTER 2019-12-11 16:27 | Emergency (ER) | payer BC ==
[2019-12-11 16:40] VITALS: BP 147/90; PULSE 136
[2019-12-11] MEDS ORDERED: HYDROmorphone 0.5 MG/0.5 ML Syringe IVPUSH ONE (17:59)
[2019-12-11] MEDS ORDERED: Dextrose 5%-0.9% NaCl 1,000 ML IV SCH (18:00)
[2019-12-11] MEDS ORDERED: Metoclopramide 10 MG/2 ML SDV IVPUSH ONE (18:00)
--- NOTE | 2019-12-11 18:11 | EDM.PDOC ---
<Elena Alicea - Last Filed: 12/11/19 21:37> ED HPI GENERAL MEDICAL PROBLEM - General Chief Complaint: Abdominal Pain Stated Complaint: FEVER/RAPID HEARTBEAT/DIARRHEA Time Seen by Provider: 12/11/19 18:03 - Related Data Allergies Allergy/AdvReac Type Severity Reaction Status Date / Time cefuroxime [From Ceftin] Allergy Cannot Verified 12/11/19 16:43 Remember clindamycin Allergy Cannot Verified 12/11/19 16:43 Remember nitrofurantoin Allergy Cannot Verified 12/11/19 16:43 [From Macrobid] Remember Sulfa (Sulfonamide Allergy Hives Verified 12/11/19 16:43 Antibiotics) zoster vaccine live Allergy Cannot Verified 12/11/19 16:43 [From Zostavax (PF)] Remember dust Allergy Cannot Uncoded 06/23/19 18:15 Remember mold Allergy Wheezing Uncoded 06/23/19 18:15 Home Meds: Home Meds Levothyroxine [Synthroid] 50 mcg PO DAILY 03/10/19 [History] Pantoprazole [ProTONIX] 40 mg PO DAILY 03/10/19 [History] Simvastatin [Zocor] 10 mg PO BEDTIME 03/10/19 [History] Tacrolimus [Prograf] 2.5 mg PO QAM 03/10/19 [History] busPIRone [Buspar] 7 mg PO Q12H 03/10/19 [History] Aspirin [Aspirin EC] 81 mg PO DAILY 06/23/19 [History] Calcium Carbonate/Vitamin D3 [Calcium 500 + Vit D Caplet] 2 tab PO DAILY [History] LORazepam [Ativan] 0.5 mg PO BID PRN 06/23/19 [History] Albuterol Sulfate [Proair Respiclick] 2 hr INH Q4H PRN 07/01/19 [History] Calcium Polycarbophil [Fiber Tabs] 1 tab PO BID 07/01/19 [History] Lactobacillus Acidophilus [Probiotic] 1 cap PO BEDTIME 07/01/19 [History] Losartan [Cozaar] 25 mg PO DAILY 07/01/19 [History] Multivitamin [Daily Multiple Vitamin] 1 tab PO DAILY 07/01/19 [History] Tacrolimus [Prograf] 2 mg PO QPM 07/01/19 [History] mycophenolate mofetiL [Cellcept] 1,500 mg PO BID 07/01/19 [History] Acetaminophen/oxyCODONE [Percocet 325-5 MG] 1 each PO Q6H PRN #12 tab 12/11/19 [ Rx] Magnesium Glycinate [Mag Glycinate] 500 mg PO BID 12/11/19 [History] cephALEXin [Cephalexin] 500 mg PO BID #14 capsule 12/11/19 [Rx] Course - Vital Signs Last Recorded V/S: Last Vital Signs Temp 37.0 C 12/11/19 16:34 Pulse 136 H 12/11/19 16:34 Resp 13 12/11/19 16:34 BP 147/90 H 12/11/19 16:34 Pulse Ox 98 12/11/19 16:34 - Orders/Labs/Meds Orders: Active Orders 24 hr Category Date Time Status CULTURE URINE [RM] Routine Lab 12/11/19 20:45 Results Labs: Laboratory Tests 12/11/19 12/11/19 12/11/19 Range/Units 18:30 18:30 18:30 WBC 12.78 H (3.98-10.04) K/mm3 RBC 4.79 (3.98-5.22) M/mm3 Hgb 13.8 (11.2-15.7) gm/dl Hct 42.1 (34.1-44.9) % MCV 87.9 (79.4-94.8) fl MCH 28.8 (25.6-32.2) pg MCHC 32.8 (32.2-35.5) g/dl RDW Std Deviation 41.3 (36.4-46.3) fL Plt Count 235 (182-369) K/mm3 MPV 10.8 (9.4-12.3) fl Neut % (Auto) 89.7 H (34.0-71.1) % Lymph % (Auto) 5.7 L (19.3-51.7) % Haskell % (Auto) 4.3 L (4.7-12.5) % Eos % (Auto) 0 L (0.7-5.8) Baso % (Auto) 0.1 (0.1-1.2) % Neut # (Auto) 11.46 H (1.56-6.13) K/mm3 Lymph # (Auto) 0.73 L (1.18-3.74) K/mm3 Haskell # (Auto) 0.55 H (0.24-0.36) K/mm3 Eos # (Auto) 0.00 L (0.04-0.36) K/mm3 Baso # (Auto) 0.01 (0.01-0.08) K/mm3 Manual Slide Review Abnormal smear Sodium 136 (136-145) mEq/L Potassium 4.2 (3.5-5.1) mEq/L Chloride 98 (98-107) mEq/L Carbon Dioxide 26 (21-32) mEq/L Anion Gap 16.2 H (5-15) BUN 17 (7-18) mg/dL Creatinine 1.0 (0.55-1.02) mg/dL Est Cr Clr Drug Dosing 55.27 mL/min Estimated GFR (MDRD) 56 (>60) mL/min BUN/Creatinine Ratio 17.0 (14-18) Glucose 109 (80-115) mg/dL Calcium 9.7 (8.5-10.1) mg/dL Magnesium (1.8-2.4) mg/dl Total Bilirubin 0.7 (0.2-1.0) mg/dL AST 50 H (15-37) U/L ALT 63 H (14-59) U/L Alkaline Phosphatase 132 H (46-116) U/L C-Reactive Protein 2.1 H* (<1.0) mg/dL NT-Pro-B Natriuret Pep 258 H (0-125) pg/mL Total Protein 7.5 (6.4-8.2) g/dl Albumin 4.1 (3.4-5.0) g/dl Globulin 3.4 gm/dL Albumin/Globulin Ratio 1.2 (1-2) Lipase 64 L (73-393) U/L Urine Color (Yellow) Urine Appearance (Clear) Urine pH (5.0-8.0) Ur Specific [place] (1.005-1.030) Urine Protein (Negative) Urine Glucose (UA) (Negative) Urine Ketones (Negative) Urine Occult Blood (Negative) Urine Nitrite (Negative) Urine Bilirubin (Negative) Urine Urobilinogen (0.2-1.0) Ur Leukocyte Esterase (Negative) Urine RBC (0-5) /hpf Urine WBC (0-5) /hpf Ur Squamous Epith Cells (0-5) /hpf Urine Bacteria (FEW) /hpf Urine Mucus (FEW) /hpf 12/11/19 12/11/19 Range/Units 18:30 20:45 WBC (3.98-10.04) K/mm3 RBC (3.98-5.22) M/mm3 Hgb (11.2-15.7) gm/dl Hct (34.1-44.9) % MCV (79.4-94.8) fl MCH (25.6-32.2) pg MCHC (32.2-35.5) g/dl RDW Std Deviation (36.4-46.3) fL Plt Count (182-369) K/mm3 MPV (9.4-12.3) fl Neut % (Auto) (34.0-71.1) % Lymph % (Auto) (19.3-51.7) % [place] % (Auto) (4.7-12.5) % Eos % (Auto) (0.7-5.8) Baso % (Auto) (0.1-1.2) % Neut # (Auto) (1.56-6.13) K/mm3 Lymph # (Auto) (1.18-3.74) K/mm3 [place] # (Auto) (0.24-0.36) K/mm3 Eos # (Auto) (0.04-0.36) K/mm3 Baso # (Auto) (0.01-0.08) K/mm3 Manual Slide Review Sodium (136-145) mEq/L Potassium (3.5-5.1) mEq/L Chloride (98-107) mEq/L Carbon Dioxide (21-32) mEq/L Anion Gap (5-15) BUN (7-18) mg/dL Creatinine (0.55-1.02) mg/dL Est Cr Clr Drug Dosing mL/min Estimated GFR (MDRD) (>60) mL/min BUN/Creatinine Ratio (14-18) Glucose (80-115) mg/dL Calcium (8.5-10.1) mg/dL Magnesium 1.2 L (1.8-2.4) mg/dl Total Bilirubin (0.2-1.0) mg/dL AST (15-37) U/L ALT (14-59) U/L Alkaline Phosphatase (46-116) U/L C-Reactive Protein (<1.0) mg/dL NT-Pro-B Natriuret Pep (0-125) pg/mL Total Protein (6.4-8.2) g/dl Albumin (3.4-5.0) g/dl Globulin gm/dL Albumin/Globulin Ratio (1-2) Lipase (73-393) U/L Urine Color Dark yellow (Yellow) Urine Appearance Slt cloudy H (Clear) Urine pH 5.5 (5.0-8.0) Ur Specific [place] 1.025 (1.005-1.030) Urine Protein Negative (Negative) Urine Glucose (UA) Negative (Negative) Urine Ketones Negative (Negative) Urine Occult Blood Trace-intact H (Negative) Urine Nitrite Negative (Negative) Urine Bilirubin Negative (Negative) Urine Urobilinogen 0.2 (0.2-1.0) Ur Leukocyte Esterase 1+ H (Negative) Urine RBC 5-10 H (0-5) /hpf Urine WBC 20-30 H (0-5) /hpf Ur Squamous Epith Cells 0-5 (0-5) /hpf Urine Bacteria Few (FEW) /hpf Urine Mucus Few (FEW) /hpf Meds: Medications Discontinued Medications Generic Name Dose Route Start Last Admin Trade Name Ziq PRN Reason Stop Dose Admin Cephalexin 500 mg 12/11/19 21:43 12/11/19 21:58 Keflex PO 12/11/19 21:44 500 mg ONETIME ONE Administration Hydromorphone HCl 0.5 mg 12/11/19 17:59 12/11/19 18:40 Dilaudid IVPUSH 12/11/19 18:00 0.5 mg ONETIME ONE Administration Dextrose/Sodium Chloride 1,000 mls @ 999 mls/hr 12/11/19 18:00 12/11/19 18:45 Dextrose 5%-Normal Saline IV 999 mls/hr ASDIRECTED EDUARDO Administration Metoclopramide HCl 7.5 mg 12/11/19 18:00 12/11/19 18:38 Reglan IVPUSH 12/11/19 18:01 7.5 mg ONETIME ONE Administration Oxycodone/Acetaminophen 2 tab 12/11/19 21:51 12/11/19 21:57 Percocet 325-5 Mg PO 12/11/19 21:52 2 tab ONETIME ONE Administration - Re-Assessments/Exams Free Text/Narrative Re-Assessment/Exam: 12/11/19 21:38 I did look over labs for this patient, as Dr. Layton left for end of shift. Urinalysis does demonstrate a slight UTI. Patient will be started on an outpatient course of Keflex for this. Magnesium is also slightly low at 1.2. Patient states she is been having some issues with diarrhea, I did tell her she could take a dose of Imodium to see if this does not help stop the diarrhea. She was still having some abdominal pain, apparently Dr. Layton likely thought this was due to a suspected UTI. Patient's BNP was also mildly elevated, but not worrisomely so. Patient's urine will be sent for culture to make sure an appropriate antibiotic was picked. Departure - Departure Time of Disposition: 21:39 Disposition: Home, Self-Care 01 Condition: Fair Clinical Impression: Hypomagnesemia UTI (urinary tract infection) Qualifiers: Urinary tract infection type: acute cystitis Hematuria presence: with hematuria Qualified Code(s): N30.01 - Acute cystitis with hematuria Diarrhea Qualifiers: Diarrhea type: unspecified type Qualified Code(s): R19.7 - Diarrhea, unspecified - Discharge Information *PRESCRIPTION DRUG MONITORING PROGRAM REVIEWED*: No *COPY OF PRESCRIPTION DRUG MONITORING REPORT IN PATIENT DENI: No Prescriptions: Acetaminophen/oxyCODONE [Percocet 325-5 MG] 1 each PO Q6H PRN #12 tab PRN Reason: Abdominal Pain cephALEXin [Cephalexin] 500 mg PO BID #14 capsule Instructions: Food Choices to Help Relieve Diarrhea, Adult, Urinary Tract Infection, Adult, [id number], Probiotics Referrals: Zackery Townsend MD [Primary Care Provider] - Forms: ED Department Discharge Additional Instructions: You were evaluated in the ER today regarding your abdominal pain, diarrhea, and other like symptoms. Your laboratory evaluation demonstrated that you do have a UTI, and this very well could be the source of some of your abdominal pain, and nausea. You will be started on an outpatient prescription for antibiotics, this will be cephalexin, 500 mg twice daily for the next 7 days. Your urine will be sent for culture to make sure we picked an appropriate antibiotic, you will be called in a few days if you should need a change in your antibiotic. Your x-rays demonstrate no sign of an obstruction, there is some air within your abdomen, which could be causing some distention, which could be also a source of some of your abdominal pain. Please continue to take all your other medications as previously prescribed. You may try some Imodium for relief of diarrhea, please take as little of this as possible to help relieve some of your symptoms, as we do not want to cause constipation. Please return to the ER at any time if your symptoms change or worsen. Sepsis Event Note - Focused Exam Date Exam was Performed: 12/11/19 Time Exam was Performed: 21:37 <Pranav Layton - Last Filed: 12/12/19 07:14> ED HPI GENERAL MEDICAL PROBLEM - General Source of Information: Reports: Patient History Limitations: Reports: No Limitations - History of Present Illness INITIAL COMMENTS - FREE TEXT/NARRATIVE: 64-year-old female presents to the ED complaining of diffuse upper abdominal pain dated nausea. Pain started last night and then seemed to settle for a while but came back aggressively this morning. It seemed to get worse after she ate some Cheerios for breakfast. She went to work but could only stay for about 15 minutes due to the intensity of the pain and she came home and has been lying in bed most of the day. She did have one loose diarrhea stool today. She does have a history of intermittent problems with constipation which has been quite a bit better since she started a magnesium supplement. She is also had no further palpitations since starting magnesium supplement. It is constant and does not radiate through to her back. Associate with nausea and feeling of heartburn. It is difficult to take a deep breath as it makes the pain worse. She is felt very nauseated but has not vomited. She has not eaten anything else today however. She also appreciated that she seemed to gain 2 pounds of weight yesterday and 3 pounds again today. She did not have a bowel movement yesterday which is somewhat atypical. Usually been very regular on a daily basis. Only previous abdominal surgery has been a laparoscopic cholecystectomy Onset: Gradual Onset Date: 12/10/19 Duration: Day(s):, Constant, Getting Worse Location: Reports: Abdomen (Primarily pain across her upper abdomen.) Abdomen Pain Score (Numeric/FACES): 7 Past Medical History HEENT History: Reports: Cataract, Impaired Vision Other HEENT History: Wears glasses, braces Cardiovascular History: Reports: Afib, Arrhythmia, Cardiomyopathy, High Cholesterol, Hypertension Other Cardiovascular History: heart transplant in 2008: prior to transplant had asystole, mitral and aortic valce insufficeincy, afib, cardiomyopathy Respiratory History: Reports: Other (See Below) Other Respiratory History: Severe allergies Gastrointestinal History: Reports: Colon Polyp, Diverticulosis, GERD Other Gastrointestinal History: hematochezia, abdominal pain Genitourinary History: Reports: Urinary Incontinence Other Genitourinary History: urge incontinence INSTRUCTIONAL SYSTEMS DESIGN CONSULTANT History: Reports: , Other (See Below) Other INSTRUCTIONAL SYSTEMS DESIGN CONSULTANT History: Cyst left ovary, and two cyst in left breasts. 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 Endocrine/Metabolic History: Reports: Hypothyroidism Hematologic History: Reports: Anemia Immunologic History: Reports: Solid Organ Transplant Other Immunologic History: Heart transplant 2008 Dermatologic History: Reports: Psoriasis - Infectious Disease History Infectious Disease History: Reports: Chicken Pox, Measles, Mumps - Past Surgical History Cardiovascular Surgical History: Reports: AICD, Other (See Below) Other Cardiovascular Surgeries/Procedures: heart transplant 2008 Respiratory Surgical History: Reports: None Social & Family History - Family History Family Medical History: Noncontributory Cardiac: Reports: Heart Failure, MS - Tobacco Use Smoking Status *Q: Never Smoker Second Hand Smoke Exposure: No - Caffeine Use Caffeine Use: Reports: None - Recreational Drug Use Recreational Drug Use: No - Living Situation & Occupation Living situation: Reports: , Alone Occupation: Employed ED ROS GENERAL - Review of Systems Review Of Systems: See Below Constitutional: Reports: Malaise, Weakness, Fatigue, Decreased Appetite, Weight Loss. Denies: Fever HEENT: Reports: Glasses Respiratory: Reports: No Symptoms Cardiovascular: Reports: No Symptoms Endocrine: Reports: Fatigue GI/Abdominal: Reports: Abdominal Pain (Use upper abdominal pain associate with nausea), Constipation (Chronic problems with constipation.) : Reports: No Symptoms Musculoskeletal: Reports: No Symptoms Skin: Reports: No Symptoms Neurological: Reports: No Symptoms Psychiatric: Reports: No Symptoms Hematologic/Lymphatic: Reports: No Symptoms Immunologic: Reports: No Symptoms ED EXAM, GI/ABD - Physical Exam Exam: See Below Exam Limited By: No Limitations General Appearance: Alert, WD/WN, Mild Distress, Other (Temperature is 37.0 heart rate was 136 at the bedside respiratory to 13 BP 147/90 O2 sats 98% on room air) Eyes: Bilateral: Normal Appearance (No scleral icterus or blepharal pallor.) Throat/Mouth: Normal Inspection, Normal Lips, Normal Oropharynx, Perioral Cyanosis Head: Atraumatic Neck: Normal Inspection, Supple, Non-Tender, Full Range of Motion. No: Lymphadenopathy (L), Lymphadenopathy (R) Respiratory/Chest: No Respiratory Distress, Lungs Clear, Normal Breath Sounds, No Accessory Muscle Use, Chest Non-Tender Cardiovascular: Normal Peripheral Pulses, Regular Rate, Rhythm, No Edema, No Gallop, No Murmur, No Rub, Other GI/Abdominal Exam: Tender, Abnormal Bowel Sounds (Sounds are slightly hyperactive in all 4 quadrants.), Other (Patient is missing her gallbladder. Various mid and right upper quadrant abdominal scars.). No: Guarding, Rigid ( And and is mostly on deep palpation in the epigastrium with no rebound or guarding), Rebound Back Exam: Normal Inspection, Full Range of Motion. No: CVA Tenderness (L), CVA Tenderness (R) Extremities: Normal Inspection, Normal Range of Motion, Non-Tender, No Pedal Edema Neurological: Alert, Oriented, CN II-XII Intact, Normal Cognition Psychiatric: Anxious Skin Exam: Warm, Dry, Intact, Normal Color, No Rash Course - Orders/Labs/Meds Labs: Laboratory Tests 12/11/19 12/11/19 12/11/19 Range/Units 18:30 18:30 18:30 WBC 12.78 H (3.98-10.04) K/mm3 RBC 4.79 (3.98-5.22) M/mm3 Hgb 13.8 (11.2-15.7) gm/dl Hct 42.1 (34.1-44.9) % MCV 87.9 (79.4-94.8) fl MCH 28.8 (25.6-32.2) pg MCHC 32.8 (32.2-35.5) g/dl RDW Std Deviation 41.3 (36.4-46.3) fL Plt Count 235 (182-369) K/mm3 MPV 10.8 (9.4-12.3) fl Neut % (Auto) 89.7 H (34.0-71.1) % Lymph % (Auto) 5.7 L (19.3-51.7) % Haskell % (Auto) 4.3 L (4.7-12.5) % Eos % (Auto) 0 L (0.7-5.8) Baso % (Auto) 0.1 (0.1-1.2) % Neut # (Auto) 11.46 H (1.56-6.13) K/mm3 Lymph # (Auto) 0.73 L (1.18-3.74) K/mm3 Haskell # (Auto) 0.55 H (0.24-0.36) K/mm3 Eos # (Auto) 0.00 L (0.04-0.36) K/mm3 Baso # (Auto) 0.01 (0.01-0.08) K/mm3 Manual Slide Review Abnormal smear Sodium 136 (136-145) mEq/L Potassium 4.2 (3.5-5.1) mEq/L Chloride 98 (98-107) mEq/L Carbon Dioxide 26 (21-32) mEq/L Anion Gap 16.2 H (5-15) BUN 17 (7-18) mg/dL Creatinine 1.0 (0.55-1.02) mg/dL Est Cr Clr Drug Dosing 55.27 mL/min Estimated GFR (MDRD) 56 (>60) mL/min BUN/Creatinine Ratio 17.0 (14-18) Glucose 109 (80-115) mg/dL Calcium 9.7 (8.5-10.1) mg/dL Magnesium (1.8-2.4) mg/dl Total Bilirubin 0.7 (0.2-1.0) mg/dL AST 50 H (15-37) U/L ALT 63 H (14-59) U/L Alkaline Phosphatase 132 H (46-116) U/L C-Reactive Protein 2.1 H* (<1.0) mg/dL NT-Pro-B Natriuret Pep 258 H (0-125) pg/mL Total Protein 7.5 (6.4-8.2) g/dl Albumin 4.1 (3.4-5.0) g/dl Globulin 3.4 gm/dL Albumin/Globulin Ratio 1.2 (1-2) Lipase 64 L (73-393) U/L Urine Color (Yellow) Urine Appearance (Clear) Urine pH (5.0-8.0) Ur Specific [place] (1.005-1.030) Urine Protein (Negative) Urine Glucose (UA) (Negative) Urine Ketones (Negative) Urine Occult Blood (Negative) Urine Nitrite (Negative) Urine Bilirubin (Negative) Urine Urobilinogen (0.2-1.0) Ur Leukocyte Esterase (Negative) Urine RBC (0-5) /hpf Urine WBC (0-5) /hpf Ur Squamous Epith Cells (0-5) /hpf Urine Bacteria (FEW) /hpf Urine Mucus (FEW) /hpf 12/11/19 12/11/19 Range/Units 18:30 20:45 WBC (3.98-10.04) K/mm3 RBC (3.98-5.22) M/mm3 Hgb (11.2-15.7) gm/dl Hct (34.1-44.9) % MCV (79.4-94.8) fl MCH (25.6-32.2) pg MCHC (32.2-35.5) g/dl RDW Std Deviation (36.4-46.3) fL Plt Count (182-369) K/mm3 MPV (9.4-12.3) fl Neut % (Auto) (34.0-71.1) % Lymph % (Auto) (19.3-51.7) % [place] % (Auto) (4.7-12.5) % Eos % (Auto) (0.7-5.8) Baso % (Auto) (0.1-1.2) % Neut # (Auto) (1.56-6.13) K/mm3 Lymph # (Auto) (1.18-3.74) K/mm3 [place] # (Auto) (0.24-0.36) K/mm3 Eos # (Auto) (0.04-0.36) K/mm3 Baso # (Auto) (0.01-0.08) K/mm3 Manual Slide Review Sodium (136-145) mEq/L Potassium (3.5-5.1) mEq/L Chloride (98-107) mEq/L Carbon Dioxide (21-32) mEq/L Anion Gap (5-15) BUN (7-18) mg/dL Creatinine (0.55-1.02) mg/dL Est Cr Clr Drug Dosing mL/min Estimated GFR (MDRD) (>60) mL/min BUN/Creatinine Ratio (14-18) Glucose (80-115) mg/dL Calcium (8.5-10.1) mg/dL Magnesium 1.2 L (1.8-2.4) mg/dl Total Bilirubin (0.2-1.0) mg/dL AST (15-37) U/L ALT (14-59) U/L Alkaline Phosphatase (46-116) U/L C-Reactive Protein (<1.0) mg/dL NT-Pro-B Natriuret Pep (0-125) pg/mL Total Protein (6.4-8.2) g/dl Albumin (3.4-5.0) g/dl Globulin gm/dL Albumin/Globulin Ratio (1-2) Lipase (73-393) U/L Urine Color Dark yellow (Yellow) Urine Appearance Slt cloudy H (Clear) Urine pH 5.5 (5.0-8.0) Ur Specific [place] 1.025 (1.005-1.030) Urine Protein Negative (Negative) Urine Glucose (UA) Negative (Negative) Urine Ketones Negative (Negative) Urine Occult Blood Trace-intact H (Negative) Urine Nitrite Negative (Negative) Urine Bilirubin Negative (Negative) Urine Urobilinogen 0.2 (0.2-1.0) Ur Leukocyte Esterase 1+ H (Negative) Urine RBC 5-10 H (0-5) /hpf Urine WBC 20-30 H (0-5) /hpf Ur Squamous Epith Cells 0-5 (0-5) /hpf Urine Bacteria Few (FEW) /hpf Urine Mucus Few (FEW) /hpf Meds: Medications Discontinued Medications Generic Name Dose Route Start Last Admin Trade Name Ziq PRN Reason Stop Dose Admin Cephalexin 500 mg 12/11/19 21:43 12/11/19 21:58 Keflex PO 12/11/19 21:44 500 mg ONETIME ONE Administration Hydromorphone HCl 0.5 mg 12/11/19 17:59 12/11/19 18:40 Dilaudid IVPUSH 12/11/19 18:00 0.5 mg ONETIME ONE Administration Dextrose/Sodium Chloride 1,000 mls @ 999 mls/hr 12/11/19 18:00 12/11/19 18:45 Dextrose 5%-Normal Saline IV 999 mls/hr ASDIRECTED EDUARDO Administration Metoclopramide HCl 7.5 mg 12/11/19 18:00 12/11/19 18:38 Reglan IVPUSH 12/11/19 18:01 7.5 mg ONETIME ONE Administration Oxycodone/Acetaminophen 2 tab 12/11/19 21:51 12/11/19 21:57 Percocet 325-5 Mg PO 12/11/19 21:52 2 tab ONETIME ONE Administration - Radiology Interpretation Free Text/Narrative:: 64-year-old female presents to the ED with diffuse upper abdominal pain particularly epigastric almost heartburn-like. Is been off and on most of the day. It was there last night but was not as intense. Within 15 minutes of going to work this morning the pain intensified quite significantly. She is missing her gallbladder. She is a heart transplant patient however. She is mildly immunocompromised and some of her medications could cause pancreatitis. She is prone to constipation. She cannot member of her bowels worked yesterday but they did not work today. She will have a KUB performed. Routine labs and a urinalysis. We will also include a serum lipase. - Re-Assessments/Exams Free Text/Narrative Re-Assessment/Exam: 12/11/19 18:59 White count is elevated at 12.78 with a increased in neutrophils to 90%. Manual slide is reviewed been reviewed. Hemoglobin is 13.8 with hematocrit of 42.1. Platelet counts 235,000. KUB reveals some stool in the right hemicolon but the transverse colon and left descending colon appear to be stool free. A mild amount of stool in the rectal vault. There are no signs of bowel obstruction. 12/11/19 19:47 Sodium is 136 with a potassium of 4.2. Chloride is 98 with a bicarb of 26. Anion gap is mildly elevated at 16.2. BUN was 17 with a creatinine of 1.0 GFR is 56. Glucose is 109 calcium is 9.7 bilirubin is 0.7 AST is elevated at 50 ALT is elevated at 63 and alk phosphatase is mildly elevated at 132. C-reactive protein is 2.1 lipase is 64 . Total protein 7.5 with an albumin fraction of 4.1. We are still awaiting a urinalysis and she does not feel like she has to go at this point time. Still he does not have any fever and therefore her elevated white count may be fictitious and have been secondary to pain response. The concern is that it was 90% neutrophils. 12/11/19 20:23 portable chest x-ray reveals pacer wires right anterior ventricle. There does appear to be mild diffuse vascular congestion without any signs of pleural effusion. Still has not yet been able to void. Will therefore be transferred to Dr. Dumas as it is change of shift and he will keep an eye out for her urinalysis her BNP and serum magnesium values. Departure - Discharge Information *PRESCRIPTION DRUG MONITORING PROGRAM REVIEWED*: Not Applicable Sepsis Event Note - Evaluation Sepsis Screening Result: No Definite Risk - Focused Exam Date Exam was Performed: 12/12/19 Time Exam was Performed: 07:11
[2019-12-11] MEDS ORDERED: Cephalexin 500 MG Cap PO ONE (21:43)
[2019-12-11] MEDS ORDERED: Acetaminophen/oxyCODONE 325-5 MG Tab PO ONE (21:51)
--- NOTE | 2019-12-12 06:55 | CR ---
Chest: Portable view of the chest was obtained. Comparison: Prior chest x-ray of 06/23/19. Heart size is slightly prominent but accentuated from portable technique. Upper mediastinum is normal. AICD is present. Previous sternotomy is noted. Lungs are clear with no acute parenchymal change. Bony structures are grossly intact. Impression: 1. Findings as noted above. 2. Nothing acute is appreciated. Diagnostic code #2 This report was dictated in MDT
--- NOTE | 2019-12-12 06:55 | CR ---
Abdomen: Supine view of the abdomen was obtained. Comparison: Prior abdominal x-ray of 03/23/19. Bowel gas pattern is normal. Surgical clips are seen from prior cholecystectomy. Mild joint space narrowing is seen within the right hip. Minimal endplate spurring is noted within the spine. Impression: 1. Nothing acute is seen on supine abdominal x-ray. Diagnostic code #2 This report was dictated in MDT
== END 2019-12-11 22:06 | disposition home or self-care (01) ==
LOC: JD.ED 16:27
DX: E83.42 Hypomagnesemia (principal); N30.01 Acute cystitis with hematuria; R19.7 Diarrhea, unspecified; I48.91 Unspecified atrial fibrillation; E78.00 Pure hypercholesterolemia, unspecified; I10 Essential (primary) hypertension; K21.9 Gastro-esophageal reflux disease without esophagitis; E03.9 Hypothyroidism, unspecified; F41.9 Anxiety disorder, unspecified; Z88.8 Allergy status to other drugs, medicaments and biological substances; Z88.1 Allergy status to other antibiotic agents; Z91.048 Other nonmedicinal substance allergy status; Z88.2 Allergy status to sulfonamides; Z79.899 Other long term (current) drug therapy; Z79.82 Long term (current) use of aspirin
CPT/HCPCS: 36415; 71045; 74018; 80053; 81001; 83690; 83735; 83880; 85025; 86140; 87086; 96361; 96374; 96375; 99284; A9270; J1170; J2765; J7042

== ENCOUNTER 2019-12-16 17:13 | Emergency (ER) | payer BC ==
[2019-12-16 17:29] VITALS: BP 154/100; PULSE 123
[2019-12-16] MEDS ORDERED: Ondansetron 4 MG/2 ML SDV IVPUSH ONE (18:00)
[2019-12-16] MEDS ORDERED: Sodium Chloride 0.9% 1,000 ML IV STA (18:00)
[2019-12-16] MEDS ORDERED: LORazepam 2 MG/ML SDV IVPUSH ONE (18:01)
[2019-12-16] MEDS: Sodium Chloride 0.9% 10 ML Syringe FLUSH PRN ×2 (18:21→18:51)
[2019-12-16] MEDS ORDERED: Iopamidol 612 MG/ML 100 ML Bottle IVPUSH ONE (18:41)
--- NOTE | 2019-12-16 19:13 | EDM.PDOC ---
ED HPI GENERAL MEDICAL PROBLEM - General Chief Complaint: Abdominal Pain Stated Complaint: NAUSEOUS/DIARRHEA/UNABLE TO EAT Time Seen by Provider: 12/16/19 17:20 Source of Information: Reports: Patient History Limitations: Reports: No Limitations - History of Present Illness INITIAL COMMENTS - FREE TEXT/NARRATIVE: The patient presents with abdominal pain and diarrhea. This has been going on for a few days. She was seen here 6 days ago and had labs and x-rays done. She was found to have a UTI and was on antibiotics. She still has the diarrhea and abdominal pain. The pain is in the upper abdomen. She has nausea at times but no vomiting. She has no dysuria. She has no fever, chills, cough, congestion or runny nose. She had a heart transplant in 2007. She had labs done today and she was going to see Dr Hansen but he was behind so she came to the ER. Onset: Gradual Duration: Week(s): Location: Reports: Abdomen Quality: Reports: Sharp Severity: Moderate Improves with: Reports: None Worsens with: Reports: None Associated Symptoms: Reports: Nausea/Vomiting. Denies: Chest Pain, Cough, Fever /Chills, Headaches, Shortness of Breath Abdominal Pain Score (Numeric/FACES): 3 - Related Data Allergies Allergy/AdvReac Type Severity Reaction Status Date / Time cefuroxime [From Ceftin] Allergy Cannot Verified 12/16/19 17:28 Remember clindamycin Allergy Cannot Verified 12/16/19 17:28 Remember nitrofurantoin Allergy Cannot Verified 12/16/19 17:28 [From Macrobid] Remember Sulfa (Sulfonamide Allergy Hives Verified 12/16/19 17:28 Antibiotics) zoster vaccine live Allergy Cannot Verified 12/16/19 17:28 [From Zostavax (PF)] Remember dust Allergy Cannot Uncoded 12/16/19 17:28 Remember mold Allergy Wheezing Uncoded 12/16/19 17:28 Home Meds: Home Meds Levothyroxine [Synthroid] 50 mcg PO DAILY 03/10/19 [History] Pantoprazole [ProTONIX] 40 mg PO DAILY 03/10/19 [History] Simvastatin [Zocor] 10 mg PO BEDTIME 03/10/19 [History] Tacrolimus [Prograf] 2.5 mg PO QAM 03/10/19 [History] busPIRone [Buspar] 7 mg PO Q12H 03/10/19 [History] Aspirin [Aspirin EC] 81 mg PO DAILY 06/23/19 [History] Calcium Carbonate/Vitamin D3 [Calcium 500 + Vit D Caplet] 2 tab PO DAILY [History] LORazepam [Ativan] 0.5 mg PO BID PRN 06/23/19 [History] Albuterol Sulfate [Proair Respiclick] 2 hr INH Q4H PRN 07/01/19 [History] Calcium Polycarbophil [Fiber Tabs] 1 tab PO BID 07/01/19 [History] Lactobacillus Acidophilus [Probiotic] 1 cap PO BEDTIME 07/01/19 [History] Losartan [Cozaar] 25 mg PO DAILY 07/01/19 [History] Multivitamin [Daily Multiple Vitamin] 1 tab PO DAILY 07/01/19 [History] Tacrolimus [Prograf] 2 mg PO QPM 07/01/19 [History] mycophenolate mofetiL [Cellcept] 1,500 mg PO BID 07/01/19 [History] Acetaminophen/oxyCODONE [Percocet 325-5 MG] 1 each PO Q6H PRN #12 tab 12/11/19 [ Rx] Magnesium Glycinate [Mag Glycinate] 500 mg PO BID 12/11/19 [History] cephALEXin [Cephalexin] 500 mg PO BID #14 capsule 12/11/19 [Rx] Past Medical History HEENT History: Reports: Cataract, Impaired Vision Other HEENT History: Wears glasses, braces Cardiovascular History: Reports: Afib, Arrhythmia, Cardiomyopathy, High Cholesterol, Hypertension Other Cardiovascular History: heart transplant in 2007: prior to transplant had asystole, mitral and aortic valce insufficeincy, afib, cardiomyopathy Respiratory History: Reports: Other (See Below) Other Respiratory History: Severe allergies Gastrointestinal History: Reports: Colon Polyp, Diverticulosis, GERD Other Gastrointestinal History: hematochezia, abdominal pain Genitourinary History: Reports: Urinary Incontinence Other Genitourinary History: urge incontinence [employer] History: Reports: , Other (See Below) Other [employer] History: Cyst left ovary, and two cyst in left breasts. 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 Endocrine/Metabolic History: Reports: Hypothyroidism Hematologic History: Reports: Anemia Immunologic History: Reports: Solid Organ Transplant Other Immunologic History: Heart transplant 2007 Dermatologic History: Reports: Psoriasis - Infectious Disease History Infectious Disease History: Reports: Chicken Pox, Measles, Mumps - Past Surgical History Cardiovascular Surgical History: Reports: AICD, Other (See Below) Other Cardiovascular Surgeries/Procedures: heart transplant 2007 Respiratory Surgical History: Reports: None Social & Family History - Family History Family Medical History: Noncontributory Cardiac: Reports: Heart Failure, [place] - Tobacco Use Smoking Status *Q: Former Smoker Years of Tobacco use: 15 Used Tobacco, but Quit: Yes Month/Year Tobacco Last Used: 11/2001 - Caffeine Use Caffeine Use: Reports: None - Recreational Drug Use Recreational Drug Use: No - Living Situation & Occupation Living situation: Reports: , Alone Occupation: Employed ED ROS GENERAL - Review of Systems Review Of Systems: See Below Constitutional: Reports: No Symptoms HEENT: Reports: No Symptoms Respiratory: Reports: No Symptoms Cardiovascular: Reports: No Symptoms Endocrine: Reports: No Symptoms GI/Abdominal: Reports: Abdominal Pain, Diarrhea, Nausea. Denies: Vomiting : Reports: No Symptoms Musculoskeletal: Reports: No Symptoms ED EXAM, GI/ABD - Physical Exam Exam: See Below Exam Limited By: No Limitations General Appearance: Alert, No Apparent Distress Ears: Normal External Exam Nose: Normal Inspection Head: Atraumatic, Normocephalic Neck: Normal Inspection Respiratory/Chest: No Respiratory Distress, Lungs Clear, Normal Breath Sounds Cardiovascular: Regular Rate, Rhythm, No Edema, No Murmur GI/Abdominal Exam: Soft, No Organomegaly, No Mass, Tender (Upper abdominal pain) Back Exam: Normal Inspection Extremities: Normal Inspection Course - Vital Signs Last Recorded V/S: Last Vital Signs Temp 98.1 F 12/16/19 17:19 Pulse 123 H 12/16/19 17:19 Resp 22 H 12/16/19 17:19 BP 154/100 H 12/16/19 17:19 Pulse Ox 100 12/16/19 17:19 - Orders/Labs/Meds Orders: Active Orders 24 hr Category Date Time Status Peripheral IV Care [RC] . DIRECTED Care 12/16/19 18:01 Active CULTURE URINE [RM] Stat Lab 12/16/19 09:45 Received Magnesium Sulfate/Water [Magnesium Sulfate in Water Med 12/16/19 19:26 Active Premix] 2 gm Premix Bag 1 bag IV ONETIME Sodium Chloride 0.9% [Saline Flush] Med 12/16/19 18:00 Active 10 ml FLUSH ASDIRECTED PRN ED Antiemetic Medication Reflex [OM.PC] Stat Oth 12/16/19 18:01 Ordered Peripheral IV Insertion Adult [OM.PC] Stat Oth 12/16/19 18:00 Ordered Medication Orders Magnesium Sulfate 2 gm/ Premix 50 mls @ 25 mls/hr IV ONETIME ONE Stop: 12/16/19 21:25 Last Admin: 12/16/19 19:51 Dose: 25 mls/hr Sodium Chloride (Saline Flush) 10 ml FLUSH ASDIRECTED PRN PRN Reason: Keep Vein Open Last Admin: 12/16/19 18:51 Dose: 10 ml Admin: 12/16/19 18:21 Dose: 10 ml Labs: Laboratory Tests 12/16/19 12/16/19 Range/Units 09:42 18:00 Magnesium 0.9 L (1.8-2.4) mg/dl Lipase 79 (73-393) U/L Meds: Medications Generic Name Dose Route Start Last Admin Trade Name Freq PRN Reason Stop Dose Admin Magnesium Sulfate 2 gm/ Premix 50 mls @ 25 mls/hr 12/16/19 19:26 12/16/19 19: 51 IV 12/16/19 21:25 25 mls/hr ONETIME ONE Administration Sodium Chloride 10 ml 12/16/19 18:00 12/16/19 18:51 Saline Flush FLUSH 10 ml ASDIRECTED PRN Administration Keep Vein Open Discontinued Medications Generic Name Dose Route Start Last Admin Trade Name Freq PRN Reason Stop Dose Admin Sodium Chloride 1,000 mls @ 1,000 mls/hr 12/16/19 18:00 12/16/19 18:21 Normal Saline IV 12/16/19 18:59 1,000 mls/hr .BOLUS STA Administration Iopamidol 100 ml 12/16/19 18:41 12/16/19 18:51 Isovue-300 (61%) IVPUSH 12/16/19 18:42 100 ml ONETIME ONE Administration Lorazepam 0.5 mg 12/16/19 18:01 12/16/19 18:23 Ativan IVPUSH 12/16/19 18:02 0.5 mg ONETIME ONE Administration Ondansetron HCl 4 mg 12/16/19 18:00 12/16/19 18:22 Zofran IVPUSH 12/16/19 18:01 4 mg ONETIME ONE Administration - Re-Assessments/Exams Free Text/Narrative Re-Assessment/Exam: 12/16/19 19:10 I ordered an IV NS 1L bolus, zofran 4mg IV, ativan 0.5mg IV, labs, and a CT of her abdomen and pelvis with IV and oral contrast. Her WBC has improved to 11.5. Her Na is low at 127. Her anion gap was 17. Her lactic acid is normal Her CRP is normal. Her lipase is normal. Her TSH is negative. Her UA shows WBCs and some bacteria. I will have that cultured. 12/16/19 19:13 I am waiting for the CT scan. 12/16/19 19:[address] shows multiple fluid-filled loops of small bowel raising the possibility of gastroenteritis. Nothing acute is otherwise seen on CT study of the abdomen and pelvis. Other findings believed to be incidental. 12/16/19 19:55 Her magnesium is very low at 0.9. I will give her 2 grams IV here. She is unable to give us a stool sample. I will give her a collection kit for at home. 12/16/19 20:17 Departure - Departure Time of Disposition: 20:20 Disposition: Home, Self-Care 01 Condition: Good Clinical Impression: Gastroenteritis, Abdominal pain Diarrhea Qualifiers: Diarrhea type: unspecified type Qualified Code(s): R19.7 - Diarrhea, unspecified - Discharge Information *PRESCRIPTION DRUG MONITORING PROGRAM REVIEWED*: Not Applicable *COPY OF PRESCRIPTION DRUG MONITORING REPORT IN PATIENT DENI: Not Applicable Referrals: Zackery Hansen MD [Primary Care Provider] - 2 Days Forms: ED Department Discharge Additional Instructions: Drink plenty of fluids. Take your magnesium again. Bring back a stool sample so we can test it. Follow up with Dr Hansen within a couple of days. Please return if you are worse. Sepsis Event Note - Evaluation Sepsis Screening Result: No Definite Risk - Focused Exam Vital Signs: Vital Signs Temp Pulse Resp BP Pulse Ox 12/16/19 17:19 98.1 F 123 H 22 H 154/100 H 100 Date Exam was Performed: 12/16/19 Time Exam was Performed: 20:17 - My Orders Last 24 Hours: My Active Orders 12/16/19 09:45 CULTURE URINE [RM] Stat 12/16/19 18:00 Sodium Chloride 0.9% [Saline Flush] 10 ml FLUSH ASDIRECTED PRN Peripheral IV Insertion Adult [OM.PC] Stat 12/16/19 18:01 Peripheral IV Care [RC] . DIRECTED ED Antiemetic Medication Reflex [OM.PC] Stat 12/16/19 19:26 Magnesium Sulfate/Water [Magnesium Sulfate in Water Premix] 2 gm Premix Bag 1 bag IV ONETIME - Assessment/Plan Last 24 Hours: My Active Orders 12/16/19 09:45 CULTURE URINE [RM] Stat 12/16/19 18:00 Sodium Chloride 0.9% [Saline Flush] 10 ml FLUSH ASDIRECTED PRN Peripheral IV Insertion Adult [OM.PC] Stat 12/16/19 18:01 Peripheral IV Care [RC] . DIRECTED ED Antiemetic Medication Reflex [OM.PC] Stat 12/16/19 19:26 Magnesium Sulfate/Water [Magnesium Sulfate in Water Premix] 2 gm Premix Bag 1 bag IV ONETIME
[2019-12-16] MEDS ORDERED: Magnesium Sulfate/Water 2 GM in Premix Bag 1 BAG IV ONE (19:26)
--- NOTE | 2019-12-16 19:26 | CT ---
CT abdomen and pelvis Technique: Multiple axial sections were obtained from above the dome of the diaphragm inferiorly through the pubic symphysis. Intravenous contrast was utilized. No oral contrast has been given. Comparison: Previous CT abdomen and pelvis exam of 03/23/19. Findings: Visualized lung bases show nothing acute. Liver shows no focal parenchymal abnormality. Spleen appears within normal limits. Adrenal glands show no nodule. Pancreas is within normal limits. Surgical clips are seen from prior cholecystectomy. Kidneys show symmetric contrast enhancement without hydronephrosis or mass. Aorta shows no aneurysm. No retroperitoneal adenopathy or mesenteric abnormalities are seen. No pelvic mass or adenopathy is seen. No free fluid or inflammatory change is seen. Increased fluid is seen throughout the small bowel. Findings raise the possibility of gastroenteritis. No bowel wall thickening is appreciated. Appendix is not visualized with certainty. Delayed images through the bladder show contrast within the bladder Very small hiatal hernia is noted. Bone window settings were reviewed. Mild degenerative change as noted. No acute osseous finding is seen. Impression: 1. Multiple fluid-filled loops of small bowel raising the possibility of gastroenteritis. 2. Nothing acute is otherwise seen on CT study of the abdomen and pelvis. 3. Other findings believed to be incidental as noted above. Diagnostic code #3 Study was dictated in MDT
== END 2019-12-16 22:20 | disposition home or self-care (01) ==
LOC: JD.ED 17:13
DX: K52.9 Noninfective gastroenteritis and colitis, unspecified (principal); I48.91 Unspecified atrial fibrillation; I10 Essential (primary) hypertension; E78.00 Pure hypercholesterolemia, unspecified; K21.9 Gastro-esophageal reflux disease without esophagitis; F41.9 Anxiety disorder, unspecified; F32.9 Major depressive disorder, single episode, unspecified; Z87.891 Personal history of nicotine dependence; Z88.8 Allergy status to other drugs, medicaments and biological substances; Z88.2 Allergy status to sulfonamides; Z91.048 Other nonmedicinal substance allergy status; Z88.7 Allergy status to serum and vaccine; Z88.1 Allergy status to other antibiotic agents; Z79.899 Other long term (current) drug therapy; Z79.82 Long term (current) use of aspirin
CPT/HCPCS: 36415; 74177; 83690; 83735; 87086; 96361; 96365; 96366; 96375; 99284; J2060; J2405; J3475; J7030; Q9967; 87088; 87186; 99283

== ENCOUNTER 2019-12-23 14:08 | Inpatient (IN) | payer BC ==
[2019-12-23] MEDS ORDERED: Sodium Chloride 0.9% 10 ML Syringe FLUSH PRN ×2 (14:25→21:38)
[2019-12-23] MEDS ORDERED: Sodium Chloride 0.9% 1,000 ML IV ONE ×2 (14:45→16:19)
[2019-12-23] MEDS ORDERED: Metoclopramide 10 MG/2 ML SDV IVPUSH ONE (14:46)
--- NOTE | 2019-12-23 14:49 | CR ---
Chest: Portable view of the chest was obtained. Comparison: Prior chest x-ray on 12/11/19. Heart size is felt to be within normal limits for portable technique. Upper mediastinum is within normal limits. Disconnected AICD wire is noted. Sternotomy wires are seen. Lungs are clear with no acute parenchymal change. Bony structures are grossly intact. Impression: 1. Findings as noted above. 2. Nothing acute is seen on portable chest x-ray. Diagnostic code #2 This report was dictated in MDT
--- NOTE | 2019-12-23 15:00 | EDM.PDOC ---
ED HPI GENERAL MEDICAL PROBLEM - General Chief Complaint: Cardiovascular Problem Stated Complaint: HEART PALPITATIONS Time Seen by Provider: 12/23/19 14:26 Source of Information: Reports: Patient, RN Notes Reviewed History Limitations: Reports: No Limitations - History of Present Illness INITIAL COMMENTS - FREE TEXT/NARRATIVE: Patient is a 64-year-old female who presents to the ED for the evaluation of some palpitations. The patient notes that she has been having ongoing issues with nausea, and diarrhea for the past 2 weeks. Patient believes that she is dehydrated, which is causing her heart to beat fast. She states that she was aware that her heart was beating really fast today, and she became very dizzy. She states that she is having quite a diffuse amount of watery diarrhea, she states every time she goes to the bathroom she has to have a bowel movement. Patient was diagnosed with a UTI, and gastroenteritis at previous visits, but states nothing has gotten much better. She cannot keep any sort of food down, she states she is not vomiting, but it comes straight out of her. The patient was given IV magnesium on 12/15 as well. Patient states that she is not able to get in with her primary care provider, as he does not want her coming to the clinic because she is sick, and takes other immunosuppressive drugs. She does have a history of a heart transplant in 2007. Patient states that her chest feels tight, and she is anxious. Chest Pain Score (Numeric/FACES): 3 - Related Data Allergies Allergy/AdvReac Type Severity Reaction Status Date / Time cefuroxime [From Ceftin] Allergy Cannot Verified 12/23/19 14:20 Remember clindamycin Allergy Cannot Verified 12/23/19 14:20 Remember nitrofurantoin Allergy Cannot Verified 12/23/19 14:20 [From Macrobid] Remember Sulfa (Sulfonamide Allergy Hives Verified 12/23/19 14:20 Antibiotics) zoster vaccine live Allergy Cannot Verified 12/23/19 14:20 [From Zostavax (PF)] Remember dust Allergy Cannot Uncoded 12/23/19 14:20 Remember mold Allergy Wheezing Uncoded 12/23/19 14:20 Home Meds: Home Meds Pantoprazole [ProTONIX] 40 mg PO DAILY 03/10/19 [History] Simvastatin [Zocor] 10 mg PO QPM 03/10/19 [History] Tacrolimus [Prograf] 5 mg PO QAM 03/10/19 [History] busPIRone [Buspar] 0.5 tab PO BID 03/10/19 [History] Calcium Carbonate/Vitamin D3 [Calcium 500 + Vit D Caplet] 2 tab PO BID 06/23/19 [History] LORazepam [Ativan] 0.5 mg PO TID PRN 06/23/19 [History] Calcium Polycarbophil [Fiber Tabs] 1 tab PO BID 07/01/19 [History] Lactobacillus Acidophilus [Probiotic] 1 cap PO BEDTIME 07/01/19 [History] Multivitamin [Daily Multiple Vitamin] 1 tab PO DAILY 07/01/19 [History] Tacrolimus [Prograf] 4 mg PO BEDTIME 07/01/19 [History] mycophenolate mofetiL [Cellcept] 1,500 mg PO BID 07/01/19 [History] Aspirin [Adult Low Dose Aspirin EC] 81 mg PO DAILY 12/19/19 [History] Fexofenadine HCl 180 mg PO DAILY 12/19/19 [History] Levothyroxine Sodium [Euthyrox] 75 mcg PO DAILY 12/19/19 [History] Losartan Potassium 25 mg PO DAILY 12/19/19 [History] Losartan Potassium 50 mg PO DAILY 12/19/19 [History] Magnesium Gluconate [Mag-G] 27 mg PO DAY 12/19/19 [History] Magnesium Oxide [Magnesium] 1,000 mg PO BID 12/23/19 [History] Past Medical History HEENT History: Reports: Cataract, Impaired Vision Other HEENT History: Wears glasses, braces Cardiovascular History: Reports: Afib, Arrhythmia, Cardiomyopathy, High Cholesterol, Hypertension Other Cardiovascular History: heart transplant in 2007: prior to transplant had asystole, mitral and aortic valve insufficeincy, afib, cardiomyopathy Respiratory History: Reports: Other (See Below) Other Respiratory History: Severe allergies Gastrointestinal History: Reports: Colon Polyp, Diverticulosis, GERD Other Gastrointestinal History: hematochezia, abdominal pain Genitourinary History: Reports: Urinary Incontinence Other Genitourinary History: urge incontinence ONION TOPPER History: Reports: , Other (See Below) Other ONION TOPPER History: Cyst left ovary, and two cyst in left breasts. 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 Psychiatric History: Reports: Anxiety, Depression Endocrine/Metabolic History: Reports: Hypothyroidism Hematologic History: Reports: Anemia Immunologic History: Reports: Solid Organ Transplant Other Immunologic History: Heart transplant 2007 Dermatologic History: Reports: Psoriasis - Infectious Disease History Infectious Disease History: Reports: Chicken Pox, Measles, Mumps - Past Surgical History Cardiovascular Surgical History: Reports: AICD, Other (See Below) Other Cardiovascular Surgeries/Procedures: heart transplant 2007 Social & Family History - Family History Family Medical History: Noncontributory Cardiac: Reports: Heart Failure, VT - Tobacco Use Smoking Status *Q: Former Smoker Used Tobacco, but Quit: Yes Month/Year Tobacco Last Used: 1989 - Caffeine Use Caffeine Use: Reports: Coffee - Recreational Drug Use Recreational Drug Use: No - Living Situation & Occupation Living situation: Reports: , Alone Occupation: Employed ED ROS GENERAL - Review of Systems Review Of Systems: See Below Constitutional: Reports: Malaise, Fatigue, Decreased Appetite, Weight Loss. Denies: Fever Cardiovascular: Reports: Chest Pain (chest discomfort), Lightheadedness GI/Abdominal: Reports: Diarrhea (diffuse watery diarrhea x 2 weeks), Nausea. Denies: Vomiting : Denies: Dysuria, Frequency, Urgency Neurological: Reports: Dizziness Psychiatric: Reports: Anxiety ED EXAM, GENERAL - Physical Exam Exam: See Below Exam Limited By: No Limitations General Appearance: Alert, WD/WN, No Apparent Distress, Anxious Eye Exam: Bilateral Eye: EOMI, Normal Inspection, PERRL Ears: Normal External Exam Throat/Mouth: Normal Inspection, Normal Lips, Normal Teeth, Normal Gums, Normal Oropharynx (mildly dry oral mucosa), Normal Voice, No Airway Compromise Head: Atraumatic, Normocephalic Neck: Normal Inspection Respiratory/Chest: No Respiratory Distress, Lungs Clear, Normal Breath Sounds, No Accessory Muscle Use, Chest Non-Tender Cardiovascular: Normal Peripheral Pulses, Regular Rate, Rhythm, No Murmur, Tachycardia Peripheral Pulses: 3+: Radial (L), Radial (R) GI/Abdominal: Normal Bowel Sounds, Soft, Non-Tender, No Distention, No Mass Extremities: Normal Inspection, Normal Capillary Refill Neurological: Alert, Oriented, Normal Cognition, No Motor/Sensory Deficits Psychiatric: Normal Affect, Normal Mood Skin Exam: Warm, Dry, Intact, No Rash, Pallor (generalized) EKG INTERPRETATION EKG Date: 12/23/19 Time: 14:18 Rhythm: Other (sinus tachy) Rate (Beats/Min): 122 [place]: Normal P-Wave: Present QRS: RBBB ST-T: Depressed (questionable lead I, aVL, and V6) QT: Normal Comparison: No Change EKG Interpretation Comments: reviewed with Dr. Avitia, EKG was reviewed by myself from 06/23/2019, and there does not appear to be any interval change. Course - Vital Signs Last Recorded V/S: Last Vital Signs Temp 97.9 F 12/23/19 14:16 Pulse 127 H 12/23/19 14:16 Resp 18 12/23/19 14:16 BP 114/80 12/23/19 14:16 Pulse Ox 98 12/23/19 14:16 - Orders/Labs/Meds Orders: Active Orders 24 hr Category Date Time Status EKG Documentation Completion [RC] STAT Care 12/23/19 14:25 Active Peripheral IV Care [RC] . DIRECTED Care 12/23/19 14:25 Active C DIFFICILE PCR W/REFLEX [MOLEC] Stat Lab 12/23/19 15:04 Ordered STOOL CULTURE/SHIGA TOXIN [MREF] Stat Lab 12/23/19 15:04 Ordered WBC, STOOL [OP] Stat Lab 12/23/19 15:04 Ordered Magnesium Sulfate/Water [Magnesium Sulfate in Water Med 12/23/19 16:17 Active Premix] 2 gm Premix Bag 1 bag IV ONETIME Sodium Chloride 0.9% [Normal Saline] 1,000 ml Med 12/23/19 16:19 Ordered IV ONETIME Sodium Chloride 0.9% [Saline Flush] Med 12/23/19 14:25 Active 10 ml FLUSH ASDIRECTED PRN Peripheral IV Insertion Adult [OM.PC] Stat Oth 12/23/19 14:25 Ordered Medication Orders Magnesium Sulfate 2 gm/ Premix 50 mls @ 25 mls/hr IV ONETIME ONE Stop: 12/23/19 18:16 Sodium Chloride (Normal Saline) 1,000 mls @ 999 mls/hr IV ONETIME ONE Stop: 12/23/19 17:19 Sodium Chloride (Saline Flush) 10 ml FLUSH ASDIRECTED PRN PRN Reason: Keep Vein Open Last Admin: 12/23/19 14:45 Dose: 10 ml Labs: Laboratory Tests 12/23/19 12/23/19 12/23/19 Range/Units 14:25 14:25 14:25 WBC 13.31 H (3.98-10.04) K/mm3 RBC 4.33 (3.98-5.22) M/mm3 Hgb 12.2 (11.2-15.7) gm/dl Hct 34.3 (34.1-44.9) % MCV 79.2 L D (79.4-94.8) fl MCH 28.2 (25.6-32.2) pg MCHC 35.6 H (32.2-35.5) g/dl RDW Std Deviation 34.4 L (36.4-46.3) fL Plt Count 388 H D (182-369) K/mm3 MPV 9.9 (9.4-12.3) fl Neutrophils % (Manual) 83 H (40-60) % Band Neutrophils % 0 (0-10) % Lymphocytes % (Manual) 14 L (20-40) % Atypical Lymphs % 0 % Monocytes % (Manual) 3 (2-10) % Eosinophils % (Manual) 0 L (0.7-5.8) % Basophils % (Manual) 0 L (0.1-1.2) Platelet Estimate Adequate Plt Morphology Comment Normal RBC Morph Comment Normal PT 11.7 (9.7-12.0) SECONDS INR 1.08 APTT 36 H (22-31) SECONDS D-Dimer, Quantitative 0.28 (0.19-0.50) mg/L Sodium (136-145) mEq/L Potassium 3.2 L (3.5-5.1) mEq/L Chloride 83 L (98-107) mEq/L Carbon Dioxide 17 L (21-32) mEq/L Anion Gap 18.2 H (5-15) BUN 5 L (7-18) mg/dL Creatinine 1.1 H (0.55-1.02) mg/dL Est Cr Clr Drug Dosing 50.24 mL/min Estimated GFR (MDRD) 50 (>60) mL/min BUN/Creatinine Ratio 4.5 L (14-18) Glucose 119 H (80-115) mg/dL Calcium 8.8 (8.5-10.1) mg/dL Magnesium 0.6 L (1.8-2.4) mg/dl Total Bilirubin 0.4 (0.2-1.0) mg/dL AST 21 (15-37) U/L ALT 29 (14-59) U/L Alkaline Phosphatase 107 (46-116) U/L Troponin I < 0.017 (0.00-0.056) ng/mL NT-Pro-B Natriuret Pep (0-125) pg/mL Total Protein 7.0 (6.4-8.2) g/dl Albumin 3.8 (3.4-5.0) g/dl Globulin 3.2 gm/dL Albumin/Globulin Ratio 1.2 (1-2) TSH 3rd Generation (0.358-3.74) uIU/mL 12/23/19 12/23/19 Range/Units 14:25 14:25 WBC (3.98-10.04) K/mm3 RBC (3.98-5.22) M/mm3 Hgb (11.2-15.7) gm/dl Hct (34.1-44.9) % MCV (79.4-94.8) fl MCH (25.6-32.2) pg MCHC (32.2-35.5) g/dl RDW Std Deviation (36.4-46.3) fL Plt Count (182-369) K/mm3 MPV (9.4-12.3) fl Neutrophils % (Manual) (40-60) % Band Neutrophils % (0-10) % Lymphocytes % (Manual) (20-40) % Atypical Lymphs % % Monocytes % (Manual) (2-10) % Eosinophils % (Manual) (0.7-5.8) % Basophils % (Manual) (0.1-1.2) Platelet Estimate Plt Morphology Comment RBC Morph Comment PT (9.7-12.0) SECONDS INR APTT (22-31) SECONDS D-Dimer, Quantitative (0.19-0.50) mg/L Sodium (136-145) mEq/L Potassium (3.5-5.1) mEq/L Chloride (98-107) mEq/L Carbon Dioxide (21-32) mEq/L Anion Gap (5-15) BUN (7-18) mg/dL Creatinine (0.55-1.02) mg/dL Est Cr Clr Drug Dosing mL/min Estimated GFR (MDRD) (>60) mL/min BUN/Creatinine Ratio (14-18) Glucose (80-115) mg/dL Calcium (8.5-10.1) mg/dL Magnesium (1.8-2.4) mg/dl Total Bilirubin (0.2-1.0) mg/dL AST (15-37) U/L ALT (14-59) U/L Alkaline Phosphatase (46-116) U/L Troponin I (0.00-0.056) ng/mL NT-Pro-B Natriuret Pep 172 H (0-125) pg/mL Total Protein (6.4-8.2) g/dl Albumin (3.4-5.0) g/dl Globulin gm/dL Albumin/Globulin Ratio (1-2) TSH 3rd Generation 2.527 (0.358-3.74) uIU/mL Meds: Medications Generic Name Dose Route Start Last Admin Trade Name Freq PRN Reason Stop Dose Admin Magnesium Sulfate 2 gm/ Premix 50 mls @ 25 mls/hr 12/23/19 16:17 IV 12/23/19 18:16 ONETIME ONE Sodium Chloride 1,000 mls @ 999 mls/hr 12/23/19 16:19 Normal Saline IV 12/23/19 17:19 ONETIME ONE Sodium Chloride 10 ml 12/23/19 14:25 12/23/19 14:45 Saline Flush FLUSH 10 ml ASDIRECTED PRN Administration Keep Vein Open Discontinued Medications Generic Name Dose Route Start Last Admin Trade Name Freq PRN Reason Stop Dose Admin Sodium Chloride 1,000 mls @ 999 mls/hr 12/23/19 14:45 12/23/19 15:07 Normal Saline IV 12/23/19 15:45 999 mls/hr ONETIME ONE Administration Lorazepam 1 mg 12/23/19 15:02 12/23/19 15:07 Ativan IVPUSH 12/23/19 15:03 1 mg ONETIME ONE Administration Metoclopramide HCl 10 mg 12/23/19 14:46 12/23/19 15:07 Reglan IVPUSH 12/23/19 14:47 10 mg ONETIME ONE Administration Potassium Chloride 40 meq 12/23/19 16:19 Klor-Con M20 PO 12/23/19 16:20 ONETIME ONE - Re-Assessments/Exams Free Text/Narrative Re-Assessment/Exam: 12/23/19 15:07 For the evaluation of tachycardia, and ongoing diarrhea. EKG was obtained at time of triage, there is some questionable ST depression in lead I, and aVL, patient does have a right bundle branch block present. EKG was reviewed with Dr. Avitia, and he does agree that this is an abnormal looking EKG. Also questionable depression in V6. Laboratory evaluation will be obtained at this time, chest x-ray looks to be within normal limits, no acute processes found. 12/23/19 16:23 The patient's EKG was reviewed from time previous in June, and there is no interval change noted. Laboratory evaluation does demonstrate a markedly decreased sodium at 115, potassium 3.2, low magnesium at 0.6, anion gap elevated at 18, with a creatinine slightly elevated at 1.1. Patient is dehydrated, and will need hospitalization I did discuss the case with Dr. Russell and he does accept, and request the patient be placed in ICU at this time. Patient will be admitted per Dr. Roblero's orders. Departure - Departure Time of Disposition: 16:25 Disposition: Admitted As Inpatient 66 Condition: Serious Clinical Impression: Hyponatremia, Hypomagnesemia Diarrhea Qualifiers: Diarrhea type: unspecified type Qualified Code(s): R19.7 - Diarrhea, unspecified Referrals: Zackery Townsend MD [Primary Care Provider] - Forms: ED Department Discharge Sepsis Event Note - Evaluation Sepsis Screening Result: No Definite Risk - Focused Exam Vital Signs: Vital Signs Temp Pulse Resp BP Pulse Ox 12/23/19 14:16 97.9 F 127 H 18 114/80 98 Date Exam was Performed: 12/23/19 Time Exam was Performed: 16:23 - My Orders Last 24 Hours: My Active Orders 12/23/19 14:25 EKG Documentation Completion [RC] STAT Peripheral IV Care [RC] . DIRECTED Sodium Chloride 0.9% [Saline Flush] 10 ml FLUSH ASDIRECTED PRN Peripheral IV Insertion Adult [OM.PC] Stat 12/23/19 15:04 C DIFFICILE PCR W/REFLEX [MOLEC] Stat STOOL CULTURE/SHIGA TOXIN [MREF] Stat WBC, STOOL [OP] Stat 12/23/19 16:17 Magnesium Sulfate/Water [Magnesium Sulfate in Water Premix] 2 gm Premix Bag 1 bag IV ONETIME 12/23/19 16:19 Sodium Chloride 0.9% [Normal Saline] 1,000 ml IV ONETIME - Assessment/Plan Last 24 Hours: My Active Orders 12/23/19 14:25 EKG Documentation Completion [RC] STAT Peripheral IV Care [RC] . DIRECTED Sodium Chloride 0.9% [Saline Flush] 10 ml FLUSH ASDIRECTED PRN Peripheral IV Insertion Adult [OM.PC] Stat 12/23/19 15:04 C DIFFICILE PCR W/REFLEX [MOLEC] Stat STOOL CULTURE/SHIGA TOXIN [MREF] Stat WBC, STOOL [OP] Stat 12/23/19 16:17 Magnesium Sulfate/Water [Magnesium Sulfate in Water Premix] 2 gm Premix Bag 1 bag IV ONETIME 12/23/19 16:19 Sodium Chloride 0.9% [Normal Saline] 1,000 ml IV ONETIME
[2019-12-23] MEDS ORDERED: LORazepam 2 MG/ML SDV IVPUSH ONE (15:02)
[2019-12-23] MEDS ORDERED: Magnesium Sulfate/Water 2 GM in Premix Bag 1 BAG IV ONE ×2 (16:17→21:36)
[2019-12-23] MEDS ORDERED: Potassium Chloride 20 MEQ Tab.ER PO ONE ×2 (16:19→21:36)
[2019-12-23] MEDS ORDERED: Acetaminophen 325 MG Tab PO PRN (18:01)
[2019-12-23] MEDS ORDERED: Ondansetron 4 MG/2 ML SDV IV PRN (18:01)
--- NOTE | 2019-12-23 18:10 | PCM.HP.2 ---
H&P History of Present Illness - General Date of Service: 12/23/19 Admit Problem/Dx: Admission Diagnosis/Problem Admission Diagnosis/Problem Hyponatremia - History of Present Illness Initial Comments - Free Text/Narative: 84-year-old female with history of a heart transplant 11 years ago on Prograf and CellCept presents to the emergency room with a 2-week history of diarrhea. On December 10, 2019 patient ate at a local [employer] restaurant. Patient was seen in the emergency room on December 11 with diarrhea and diagnosed with UTI. Patient was started on Keflex. Patient states that diarrhea did not improve and was seen again on 15 December. Patient was diagnosed with gastroenteritis at that time and she returns today after feeling weak, nauseated, and "felt really sick." She states that she felt like she had a racing heart. She was started on magnesium a couple of months ago by her primary care provider. Initially it was a high dose but she did decrease it secondary to an upset stomach. She denies any blood in her stools. It is mostly water but occasionally has some specks of stool. She has not vomited. In the emergency room patient was found to be hyponatremic with a serum sodium of 115. She was also hypokalemic with potassium of 3.2. Anion gap is elevated 18.2, BUN of 5, creatinine 1.1, normal coagulations, d-dimer 0.28. WBC is 13.31 , hemoglobin 12.2, platelet count 388. Stool for C. difficile was collected and was positive. She was given 2 L normal saline, 2 g of magnesium sulfate, and potassium chloride 40 mEq p.o. Chest Pain Score (Numeric/FACES): 3 - Related Data Allergies/Adverse Reactions: Allergies Allergy/AdvReac Type Severity Reaction Status Date / Time cefuroxime [From Ceftin] Allergy Cannot Verified 12/23/19 14:20 Remember clindamycin Allergy Cannot Verified 12/23/19 14:20 Remember nitrofurantoin Allergy Cannot Verified 12/23/19 14:20 [From Macrobid] Remember Sulfa (Sulfonamide Allergy Hives Verified 12/23/19 14:20 Antibiotics) zoster vaccine live Allergy Cannot Verified 12/23/19 14:20 [From Zostavax (PF)] Remember dust Allergy Cannot Uncoded 12/23/19 14:20 Remember mold Allergy Wheezing Uncoded 12/23/19 14:20 Home Medications: Home Meds Pantoprazole [ProTONIX] 40 mg PO DAILY 03/10/19 [History] Simvastatin [Zocor] 10 mg PO QPM 03/10/19 [History] Tacrolimus [Prograf] 2.5 mg PO QAM 03/10/19 [History] busPIRone [Buspar] 0.5 tab PO BID 03/10/19 [History] Calcium Carbonate/Vitamin D3 [Calcium 500 + Vit D Caplet] 2 tab PO BID 06/23/19 [History] LORazepam [Ativan] 0.5 mg PO TID PRN 06/23/19 [History] Calcium Polycarbophil [Fiber Tabs] 1 tab PO BID 07/01/19 [History] Lactobacillus Acidophilus [Probiotic] 1 cap PO BEDTIME 07/01/19 [History] Multivitamin [Daily Multiple Vitamin] 1 tab PO DAILY 07/01/19 [History] Tacrolimus [Prograf] 2 mg PO BEDTIME 07/01/19 [History] mycophenolate mofetiL [Cellcept] 1,500 mg PO BID 07/01/19 [History] Aspirin [Adult Low Dose Aspirin EC] 81 mg PO DAILY 12/19/19 [History] Fexofenadine HCl 180 mg PO DAILY PRN 12/19/19 [History] Levothyroxine Sodium [Euthyrox] 75 mcg PO DAILY 12/19/19 [History] Losartan Potassium 25 mg PO DAILY 12/19/19 [History] Magnesium Gluconate [Mag-G] 54 mg PO QID 12/19/19 [History] Past Medical History HEENT History: Reports: Cataract, Impaired Vision Other HEENT History: Wears glasses, braces Cardiovascular History: Reports: Afib, Arrhythmia, Cardiomyopathy, High Cholesterol, Hypertension Other Cardiovascular History: heart transplant in 2007: prior to transplant had asystole, mitral and aortic valve insufficeincy, afib, cardiomyopathy Respiratory History: Reports: Other (See Below) Other Respiratory History: Severe allergies Gastrointestinal History: Reports: Colon Polyp, Diverticulosis, GERD Other Gastrointestinal History: hematochezia, abdominal pain Genitourinary History: Reports: Urinary Incontinence Other Genitourinary History: urge incontinence [employer] History: Reports: , Other (See Below) Other OB/BYN History: Cyst left ovary, and two cyst in left breasts. 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 Endocrine/Metabolic History: Reports: Hypothyroidism Hematologic History: Reports: Anemia Immunologic History: Reports: Solid Organ Transplant Other Immunologic History: Heart transplant 2007 Dermatologic History: Reports: Psoriasis - Infectious Disease History Infectious Disease History: Reports: Chicken Pox, Measles, Mumps - Past Surgical History Cardiovascular Surgical History: Reports: AICD, Other (See Below) Other Cardiovascular Surgeries/Procedures: heart transplant 2007 Social & Family History - Family History Family Medical History: Noncontributory Cardiac: Reports: Heart Failure, [place] - Tobacco Use Smoking Status *Q: Former Smoker Used Tobacco, but Quit: Yes Month/Year Tobacco Last Used: 1989 - Caffeine Use Caffeine Use: Reports: Coffee - Recreational Drug Use Recreational Drug Use: No - Living Situation & Occupation Living situation: Reports: , Alone Occupation: Employed H&P Review of Systems - Review of Systems: Review Of Systems: Comprehensive ROS is negative, except as noted in HPI. Exam - Exam Exam: See Below - Vital Signs Vital Signs: Last Vital Signs Temp 97.9 F 12/23/19 14:16 Pulse 127 H 12/23/19 14:16 Resp 18 12/23/19 14:16 BP 114/80 12/23/19 14:16 Pulse Ox 98 12/23/19 14:16 Weight: 150 lb - Exam General: Alert, Oriented, 4 HEENT: Conjunctiva Clear, Hearing Intact, Mucosa Moist & [place] Neck: Supple, Trachea Midline, 2 Lungs: Clear to Auscultation, Normal Respiratory Effort Cardiovascular: Regular Rate, Regular Rhythm GI/Abdominal Exam: Soft, Non-Tender, No Organomegaly, No Distention, No Abnormal Bruit, No Mass, Pelvis Stable, Abnormal Bowel Sounds (Hyperactive) Back Exam: Normal Inspection Extremities: Normal Inspection, Normal Range of Motion, Non-Tender, No Pedal Edema, Normal Capillary Refill Skin: Warm, Dry, Intact Neurological: Cranial Nerves Intact Neuro Extensive - Mental Status: Alert, Oriented x3, Normal Mood/Affect, Normal Cognition, Memory Intact Psychiatric: Alert, Normal Affect, Normal Mood - Patient Data Lab Results Last 24 hrs: Laboratory Results - last 24 hr 12/23/19 12/23/19 12/23/19 Range/Units 14:25 14:25 14:25 WBC 13.31 H (3.98-10.04) K/mm3 RBC 4.33 (3.98-5.22) M/mm3 Hgb 12.2 (11.2-15.7) gm/dl Hct 34.3 (34.1-44.9) % MCV 79.2 L D (79.4-94.8) fl MCH 28.2 (25.6-32.2) pg MCHC 35.6 H (32.2-35.5) g/dl RDW Std Deviation 34.4 L (36.4-46.3) fL Plt Count 388 H D (182-369) K/mm3 MPV 9.9 (9.4-12.3) fl Neutrophils % (Manual) 83 H (40-60) % Band Neutrophils % 0 (0-10) % Lymphocytes % (Manual) 14 L (20-40) % Atypical Lymphs % 0 % Monocytes % (Manual) 3 (2-10) % Eosinophils % (Manual) 0 L (0.7-5.8) % Basophils % (Manual) 0 L (0.1-1.2) Platelet Estimate Adequate Plt Morphology Comment Normal RBC Morph Comment Normal PT 11.7 (9.7-12.0) SECONDS INR 1.08 APTT 36 H (22-31) SECONDS D-Dimer, Quantitative 0.28 (0.19-0.50) mg/L Sodium 115 L* D (136-145) mEq/L Potassium 3.2 L (3.5-5.1) mEq/L Chloride 83 L (98-107) mEq/L Carbon Dioxide 17 L (21-32) mEq/L Anion Gap 18.2 H (5-15) BUN 5 L (7-18) mg/dL Creatinine 1.1 H (0.55-1.02) mg/dL Est Cr Clr Drug Dosing 50.24 mL/min Estimated GFR (MDRD) 50 (>60) mL/min BUN/Creatinine Ratio 4.5 L (14-18) Glucose 119 H (80-115) mg/dL Serum Osmolality (280-300) mosm/kg Calcium 8.8 (8.5-10.1) mg/dL Magnesium 0.6 L (1.8-2.4) mg/dl Total Bilirubin 0.4 (0.2-1.0) mg/dL AST 21 (15-37) U/L ALT 29 (14-59) U/L Alkaline Phosphatase 107 (46-116) U/L Troponin I < 0.017 (0.00-0.056) ng/mL NT-Pro-B Natriuret Pep (0-125) pg/mL Total Protein 7.0 (6.4-8.2) g/dl Albumin 3.8 (3.4-5.0) g/dl Globulin 3.2 gm/dL Albumin/Globulin Ratio 1.2 (1-2) TSH 3rd Generation (0.358-3.74) uIU/mL C.difficile 027-NAP1-B1 C. difficile Tox (PCR) 12/23/19 12/23/19 12/23/19 Range/Units 14:25 14:25 14:25 WBC (3.98-10.04) K/mm3 RBC (3.98-5.22) M/mm3 Hgb (11.2-15.7) gm/dl Hct (34.1-44.9) % MCV (79.4-94.8) fl MCH (25.6-32.2) pg MCHC (32.2-35.5) g/dl RDW Std Deviation (36.4-46.3) fL Plt Count (182-369) K/mm3 MPV (9.4-12.3) fl Neutrophils % (Manual) (40-60) % Band Neutrophils % (0-10) % Lymphocytes % (Manual) (20-40) % Atypical Lymphs % % Monocytes % (Manual) (2-10) % Eosinophils % (Manual) (0.7-5.8) % Basophils % (Manual) (0.1-1.2) Platelet Estimate Plt Morphology Comment RBC Morph Comment PT (9.7-12.0) SECONDS INR APTT (22-31) SECONDS D-Dimer, Quantitative (0.19-0.50) mg/L Sodium (136-145) mEq/L Potassium (3.5-5.1) mEq/L Chloride (98-107) mEq/L Carbon Dioxide (21-32) mEq/L Anion Gap (5-15) BUN (7-18) mg/dL Creatinine (0.55-1.02) mg/dL Est Cr Clr Drug Dosing mL/min Estimated GFR (MDRD) (>60) mL/min BUN/Creatinine Ratio (14-18) Glucose (80-115) mg/dL Serum Osmolality 240 L (280-300) mosm/kg Calcium (8.5-10.1) mg/dL Magnesium (1.8-2.4) mg/dl Total Bilirubin (0.2-1.0) mg/dL AST (15-37) U/L ALT (14-59) U/L Alkaline Phosphatase (46-116) U/L Troponin I (0.00-0.056) ng/mL NT-Pro-B Natriuret Pep 172 H (0-125) pg/mL Total Protein (6.4-8.2) g/dl Albumin (3.4-5.0) g/dl Globulin gm/dL Albumin/Globulin Ratio (1-2) TSH 3rd Generation 2.527 (0.358-3.74) uIU/mL C.difficile 027-NAP1-B1 C. difficile Tox (PCR) 12/23/19 Range/Units 16:10 WBC (3.98-10.04) K/mm3 RBC (3.98-5.22) M/mm3 Hgb (11.2-15.7) gm/dl Hct (34.1-44.9) % MCV (79.4-94.8) fl MCH (25.6-32.2) pg MCHC (32.2-35.5) g/dl RDW Std Deviation (36.4-46.3) fL Plt Count (182-369) K/mm3 MPV (9.4-12.3) fl Neutrophils % (Manual) (40-60) % Band Neutrophils % (0-10) % Lymphocytes % (Manual) (20-40) % Atypical Lymphs % % Monocytes % (Manual) (2-10) % Eosinophils % (Manual) (0.7-5.8) % Basophils % (Manual) (0.1-1.2) Platelet Estimate Plt Morphology Comment RBC Morph Comment PT (9.7-12.0) SECONDS INR APTT (22-31) SECONDS D-Dimer, Quantitative (0.19-0.50) mg/L Sodium (136-145) mEq/L Potassium (3.5-5.1) mEq/L Chloride (98-107) mEq/L Carbon Dioxide (21-32) mEq/L Anion Gap (5-15) BUN (7-18) mg/dL Creatinine (0.55-1.02) mg/dL Est Cr Clr Drug Dosing mL/min Estimated GFR (MDRD) (>60) mL/min BUN/Creatinine Ratio (14-18) Glucose (80-115) mg/dL Serum Osmolality (280-300) mosm/kg Calcium (8.5-10.1) mg/dL Magnesium (1.8-2.4) mg/dl Total Bilirubin (0.2-1.0) mg/dL AST (15-37) U/L ALT (14-59) U/L Alkaline Phosphatase (46-116) U/L Troponin I (0.00-0.056) ng/mL NT-Pro-B Natriuret Pep (0-125) pg/mL Total Protein (6.4-8.2) g/dl Albumin (3.4-5.0) g/dl Globulin gm/dL Albumin/Globulin Ratio (1-2) TSH 3rd Generation (0.358-3.74) uIU/mL C.difficile 027-NAP1-B1 Presumptive negative C. difficile Tox (PCR) Positive H Result Diagrams: 12/24/19 05:32 12/24/19 05:32 [place] Results Last 24 hrs: Microbiology 12/23/19 16:10 Stool for WBCs - Final Stool / Feces EKG INTERPRETATION EKG Date: 12/23/19 Rhythm: NSR [place]: Normal QRS: RBBB Comparison: No Change Sepsis Event Note - Evaluation Sepsis Screening Result: No Definite Risk - Focused Exam Vital Signs: Vital Signs Temp Pulse Resp BP Pulse Ox 12/23/19 14:16 97.9 F 127 H 18 114/80 98 Date Exam was Performed: 12/24/19 Time Exam was Performed: 11:31 Problem List Initiated/Reviewed/Updated: Yes Orders Last 24hrs: Active Orders 24 hr Category Date Time Status Admission Status [Patient Status] [ADT] Routine ADT 12/23/19 16:27 Active EKG Documentation Completion [RC] STAT Care 12/23/19 14:25 Active Oxygen Therapy [RC] PRN Care 12/23/19 18:01 Ordered Peripheral IV Care [RC] . DIRECTED Care 12/23/19 14:25 Active Up ad Bety [RC] ASDIRECTED Care 12/23/19 18:01 Ordered VTE/DVT Education [RC] PER UNIT ROUTINE Care 12/23/19 18:01 Ordered Vital Signs [RC] ASDIRECTED Care 12/23/19 18:01 Ordered Clear Liquid Diet [DIET] Diet 12/23/19 Dinner Ordered C DIFFICILE TOXIN IMMUNOASSAY [MREF] Stat Lab 12/23/19 16:10 Received CBC WITH AUTO DIFF [HEME] AM Lab 12/24/19 05:11 Ordered COMPREHENSIVE METABOLIC PN,CMP [CHEM] AM Lab 12/24/19 05:11 Ordered STOOL CULTURE/SHIGA TOXIN [MREF] Stat Lab 12/23/19 16:10 Received Acetaminophen [Tylenol] Med 12/23/19 18:01 Ordered 650 mg PO Q4H PRN Enoxaparin [Lovenox] Med 12/24/19 09:00 Ordered 40 mg SUBCUT DAILY Magnesium Sulfate/Water [Magnesium Sulfate in Water Med 12/23/19 16:17 Active Premix] 2 gm Premix Bag 1 bag IV ONETIME Ondansetron [Zofran] Med 12/23/19 18:01 Ordered 4 mg IV Q4H PRN Sodium Chloride 0.9% [Normal Saline] 1,000 ml Med 12/23/19 18:15 Ordered IV ASDIRECTED Sodium Chloride 0.9% [Saline Flush] Med 12/23/19 14:25 Active 10 ml FLUSH ASDIRECTED PRN Vancomycin Med 12/23/19 18:05 Ordered 125 mg PO QID Peripheral IV Insertion Adult [OM.PC] Stat Oth 12/23/19 14:25 Ordered Resuscitation Status Routine Resus Stat 12/23/19 18:01 Ordered Medication Orders Acetaminophen (Tylenol) 650 mg PO Q4H PRN PRN Reason: Pain (Mild 1-3)/fever Enoxaparin Sodium (Lovenox) 40 mg SUBCUT DAILY EDUARDO Magnesium Sulfate 2 gm/ Premix 50 mls @ 25 mls/hr IV ONETIME ONE Stop: 12/23/19 18:16 Last Admin: 12/23/19 16:46 Dose: 25 mls/hr Sodium Chloride (Normal Saline) 1,000 mls @ 200 mls/hr IV ASDIRECTED EDUARDO Ondansetron HCl (Zofran) 4 mg IV Q4H PRN PRN Reason: Nausea/Vomiting Sodium Chloride (Saline Flush) 10 ml FLUSH ASDIRECTED PRN PRN Reason: Keep Vein Open Last Admin: 12/23/19 14:45 Dose: 10 ml Vancomycin HCl (Vancomycin) 125 mg PO QID [facility] Assessment/Plan Comment:: 64-year-old female with history of cardiac transplant 11 years ago presents to the emergency room with 2-week history of diarrhea. C. difficile colitis * Positive C. difficile * Treated with Keflex 2 weeks ago for UTI * Poor oral intake for last 2 weeks. Hyponatremia secondary to diarrhea * Sodium 115 * Given 2 L normal saline in the emergency room * Asymptomatic Hypokalemia * Potassium 3.2 * Given potassium chloride 40 mEq p.o. Hypomagnesemia, severe * Magnesium 0.6 * Given 2 g in the emergency room Stage III chronic renal insufficiency History of heart transplant * She states her heart rate often up to 122. * Prograf and CellCept * proBNP 172 * Losartan 75 mg daily Hypothyroidism * TSH 2.527 * It is difficult to find the correct dose of levothyroxine tonight. * Anxiety * On BuSpar and lorazepam Plan * Admit to ICU secondary to multiple severe electrolyte abnormalities, heart transplant, and continued diarrhea * Contact precautions * Continue normal saline * Repeat BMP * CMP, CBC, Mag in the morning * Try to raise Na no greater than 12 in 24 hours * Give additional 6 g of magnesium * Start vancomycin 125 mg 4 times daily * VTE prophylaxis: Lovenox * Code status: Full Code - Mortality Measure Prognosis:: Good
[2019-12-23] MEDS ORDERED: Sodium Chloride 0.9% 1,000 ML IV SCH (18:15)
[2019-12-23] MEDS ORDERED: Magnesium Sulfate/Water 4 GM in Premix Bag 1 BAG IV ONE (19:07)
[2019-12-23] MEDS: Vancomycin 125 MG Cap PO SCH ×2 (20:22→21:55)
[2019-12-23] MEDS ORDERED: Non-Formulary Medication 1 Each (Lorazepam 0.5 MG) PO PRN (21:50)
[2019-12-23] MEDS ORDERED: busPIRone 15 MG Tab PO SCH (22:00)
[2019-12-23] MEDS: LORazepam 0.5 MG Tab PO PRN (22:35)
[2019-12-23] MEDS: busPIRone 15 MG Tab PO SCH (22:36)
[2019-12-24] MEDS: Pantoprazole 40 MG Tab.CR PO SCH (05:40)
[2019-12-24] MEDS ORDERED: Levothyroxine 50 MCG Tab PO ONE (06:00)
[2019-12-24] MEDS ORDERED: TACROLIMUS 5 MG PO SCH (08:00)
[2019-12-24] MEDS ORDERED: Tacrolimus 1 MG Cap PO SCH ×2 (08:00→21:00)
[2019-12-24] MEDS: Calcium Polycarbophil 625 MG Tab PO SCH ×2 (08:27→20:19)
[2019-12-24] MEDS: Vancomycin 125 MG Cap PO SCH ×4 (08:27→20:19)
[2019-12-24] MEDS: busPIRone 15 MG Tab PO SCH ×2 (08:27→20:19)
[2019-12-24] MEDS: Calcium Carbonate/Vitamin D3 600 MG-200 Units Tab PO SCH ×2 (08:27→20:19)
[2019-12-24] MEDS: Enoxaparin 40 MG/0.4 ML Syringe SUBCUT SCH (08:28)
[2019-12-24] MEDS: TACROLIMUS 0.5 MG PO SCH ×2 (08:29→20:20)
[2019-12-24] MEDS: Dextrose 5% in Water 1,000 ML IV SCH ×2 (08:30→18:21)
[2019-12-24] MEDS: MYCOPHENOLATE 500 MG PO SCH ×2 (08:30→20:20)
[2019-12-24] MEDS ORDERED: Calcium Polycarbophil 625 MG Tab PO SCH (09:00)
[2019-12-24] MEDS ORDERED: Pantoprazole 40 MG Tab.CR PO SCH (09:00)
--- NOTE | 2019-12-24 11:42 | PCM.PN ---
- General Info Date of Service: 12/24/19 Admission Dx/Problem (Free Text): Admission Diagnosis/Problem Admission Diagnosis/Problem Hyponatremia Subjective Update: Selam is feeling much better this morning. He Na did increase by 14. No neurological symptoms. Continue to have multiple BMs. Functional Status: Reports: Pain Controlled - Review of Systems General: Reports: No Symptoms HEENT: Reports: No Symptoms Pulmonary: Reports: No Symptoms Cardiovascular: Reports: No Symptoms Gastrointestinal: Reports: Diarrhea. Denies: Abdominal Pain Musculoskeletal: Reports: No Symptoms Neurological: Reports: No Symptoms Psychiatric: Reports: No Symptoms - Patient Data Vitals - Most Recent: Last Vital Signs Temp 97.3 F 12/24/19 08:00 Pulse 127 H 12/23/19 14:16 Resp 18 12/24/19 08:00 BP 111/75 12/24/19 08:00 Pulse Ox 99 12/24/19 08:00 Weight - Most Recent: 150 lb I&O - Last 24 Hours: Intake & Output 12/23/19 12/24/19 12/24/19 22:59 06:59 14:59 Intake Total 288 Balance 288 Lab Results Last 24 Hours: Laboratory Results - last 24 hr 12/23/19 12/23/19 12/23/19 Range/Units 14:25 14:25 14:25 WBC 13.31 H (3.98-10.04) K/mm3 RBC 4.33 (3.98-5.22) M/mm3 Hgb 12.2 (11.2-15.7) gm/dl Hct 34.3 (34.1-44.9) % MCV 79.2 L D (79.4-94.8) fl MCH 28.2 (25.6-32.2) pg MCHC 35.6 H (32.2-35.5) g/dl RDW Std Deviation 34.4 L (36.4-46.3) fL Plt Count 388 H D (182-369) K/mm3 MPV 9.9 (9.4-12.3) fl Neut % (Auto) (34.0-71.1) % Lymph % (Auto) (19.3-51.7) % Phelps % (Auto) (4.7-12.5) % Eos % (Auto) (0.7-5.8) Baso % (Auto) (0.1-1.2) % Neut # (Auto) (1.56-6.13) K/mm3 Lymph # (Auto) (1.18-3.74) K/mm3 Phelps # (Auto) (0.24-0.36) K/mm3 Eos # (Auto) (0.04-0.36) K/mm3 Baso # (Auto) (0.01-0.08) K/mm3 Neutrophils % (Manual) 83 H (40-60) % Band Neutrophils % 0 (0-10) % Lymphocytes % (Manual) 14 L (20-40) % Atypical Lymphs % 0 % Monocytes % (Manual) 3 (2-10) % Eosinophils % (Manual) 0 L (0.7-5.8) % Basophils % (Manual) 0 L (0.1-1.2) Platelet Estimate Adequate Plt Morphology Comment Normal RBC Morph Comment Normal PT 11.7 (9.7-12.0) SECONDS INR 1.08 APTT 36 H (22-31) SECONDS D-Dimer, Quantitative 0.28 (0.19-0.50) mg/L Sodium 115 L* D (136-145) mEq/L Potassium 3.2 L (3.5-5.1) mEq/L Chloride 83 L (98-107) mEq/L Carbon Dioxide 17 L (21-32) mEq/L Anion Gap 18.2 H (5-15) BUN 5 L (7-18) mg/dL Creatinine 1.1 H (0.55-1.02) mg/dL Est Cr Clr Drug Dosing 50.24 mL/min Estimated GFR (MDRD) 50 (>60) mL/min BUN/Creatinine Ratio 4.5 L (14-18) Glucose 119 H (80-115) mg/dL Serum Osmolality (280-300) mosm/kg Calcium 8.8 (8.5-10.1) mg/dL Magnesium 0.6 L (1.8-2.4) mg/dl Total Bilirubin 0.4 (0.2-1.0) mg/dL AST 21 (15-37) U/L ALT 29 (14-59) U/L Alkaline Phosphatase 107 (46-116) U/L Troponin I < 0.017 (0.00-0.056) ng/mL NT-Pro-B Natriuret Pep (0-125) pg/mL Total Protein 7.0 (6.4-8.2) g/dl Albumin 3.8 (3.4-5.0) g/dl Globulin 3.2 gm/dL Albumin/Globulin Ratio 1.2 (1-2) TSH 3rd Generation (0.358-3.74) uIU/mL C.difficile 027-NAP1-B1 C. difficile Tox (PCR) 12/23/19 12/23/19 12/23/19 Range/Units 14:25 14:25 14:25 WBC (3.98-10.04) K/mm3 RBC (3.98-5.22) M/mm3 Hgb (11.2-15.7) gm/dl Hct (34.1-44.9) % MCV (79.4-94.8) fl MCH (25.6-32.2) pg MCHC (32.2-35.5) g/dl RDW Std Deviation (36.4-46.3) fL Plt Count (182-369) K/mm3 MPV (9.4-12.3) fl Neut % (Auto) (34.0-71.1) % Lymph % (Auto) (19.3-51.7) % Phelps % (Auto) (4.7-12.5) % Eos % (Auto) (0.7-5.8) Baso % (Auto) (0.1-1.2) % Neut # (Auto) (1.56-6.13) K/mm3 Lymph # (Auto) (1.18-3.74) K/mm3 Phelps # (Auto) (0.24-0.36) K/mm3 Eos # (Auto) (0.04-0.36) K/mm3 Baso # (Auto) (0.01-0.08) K/mm3 Neutrophils % (Manual) (40-60) % Band Neutrophils % (0-10) % Lymphocytes % (Manual) (20-40) % Atypical Lymphs % % Monocytes % (Manual) (2-10) % Eosinophils % (Manual) (0.7-5.8) % Basophils % (Manual) (0.1-1.2) Platelet Estimate Plt Morphology Comment RBC Morph Comment PT (9.7-12.0) SECONDS INR APTT (22-31) SECONDS D-Dimer, Quantitative (0.19-0.50) mg/L Sodium (136-145) mEq/L Potassium (3.5-5.1) mEq/L Chloride (98-107) mEq/L Carbon Dioxide (21-32) mEq/L Anion Gap (5-15) BUN (7-18) mg/dL Creatinine (0.55-1.02) mg/dL Est Cr Clr Drug Dosing mL/min Estimated GFR (MDRD) (>60) mL/min BUN/Creatinine Ratio (14-18) Glucose (80-115) mg/dL Serum Osmolality 240 L (280-300) mosm/kg Calcium (8.5-10.1) mg/dL Magnesium (1.8-2.4) mg/dl Total Bilirubin (0.2-1.0) mg/dL AST (15-37) U/L ALT (14-59) U/L Alkaline Phosphatase (46-116) U/L Troponin I (0.00-0.056) ng/mL NT-Pro-B Natriuret Pep 172 H (0-125) pg/mL Total Protein (6.4-8.2) g/dl Albumin (3.4-5.0) g/dl Globulin gm/dL Albumin/Globulin Ratio (1-2) TSH 3rd Generation 2.527 (0.358-3.74) uIU/mL C.difficile 027-NAP1-B1 C. difficile Tox (PCR) 12/23/19 12/23/19 12/24/19 Range/Units 16:10 20:50 05:32 WBC 8.50 (3.98-10.04) K/mm3 RBC 4.29 (3.98-5.22) M/mm3 Hgb 11.9 (11.2-15.7) gm/dl Hct 34.5 (34.1-44.9) % MCV 80.4 (79.4-94.8) fl MCH 27.7 (25.6-32.2) pg MCHC 34.5 (32.2-35.5) g/dl RDW Std Deviation 35.8 L (36.4-46.3) fL Plt Count 336 (182-369) K/mm3 MPV 10.3 (9.4-12.3) fl Neut % (Auto) 69.6 (34.0-71.1) % Lymph % (Auto) 17.8 L (19.3-51.7) % Phelps % (Auto) 11.5 (4.7-12.5) % Eos % (Auto) 0.7 (0.7-5.8) Baso % (Auto) 0.2 (0.1-1.2) % Neut # (Auto) 5.91 (1.56-6.13) K/mm3 Lymph # (Auto) 1.51 (1.18-3.74) K/mm3 Phelps # (Auto) 0.98 H (0.24-0.36) K/mm3 Eos # (Auto) 0.06 (0.04-0.36) K/mm3 Baso # (Auto) 0.02 (0.01-0.08) K/mm3 Neutrophils % (Manual) (40-60) % Band Neutrophils % (0-10) % Lymphocytes % (Manual) (20-40) % Atypical Lymphs % % Monocytes % (Manual) (2-10) % Eosinophils % (Manual) (0.7-5.8) % Basophils % (Manual) (0.1-1.2) Platelet Estimate Plt Morphology Comment RBC Morph Comment PT (9.7-12.0) SECONDS INR APTT (22-31) SECONDS D-Dimer, Quantitative (0.19-0.50) mg/L Sodium 123 L (136-145) mEq/L Potassium 3.5 (3.5-5.1) mEq/L Chloride 93 L (98-107) mEq/L Carbon Dioxide 18 L (21-32) mEq/L Anion Gap 15.5 H (5-15) BUN 5 L (7-18) mg/dL Creatinine 0.8 (0.55-1.02) mg/dL Est Cr Clr Drug Dosing 69.09 mL/min Estimated GFR (MDRD) > 60 (>60) mL/min BUN/Creatinine Ratio 6.3 L (14-18) Glucose 86 (80-115) mg/dL Serum Osmolality (280-300) mosm/kg Calcium 8.1 L (8.5-10.1) mg/dL Magnesium (1.8-2.4) mg/dl Total Bilirubin (0.2-1.0) mg/dL AST (15-37) U/L ALT (14-59) U/L Alkaline Phosphatase (46-116) U/L Troponin I (0.00-0.056) ng/mL NT-Pro-B Natriuret Pep (0-125) pg/mL Total Protein (6.4-8.2) g/dl Albumin (3.4-5.0) g/dl Globulin gm/dL Albumin/Globulin Ratio (1-2) TSH 3rd Generation (0.358-3.74) uIU/mL C.difficile 027-NAP1-B1 Presumptive negative C. difficile Tox (PCR) Positive H 12/24/19 Range/Units 05:32 WBC (3.98-10.04) K/mm3 RBC (3.98-5.22) M/mm3 Hgb (11.2-15.7) gm/dl Hct (34.1-44.9) % MCV (79.4-94.8) fl MCH (25.6-32.2) pg MCHC (32.2-35.5) g/dl RDW Std Deviation (36.4-46.3) fL Plt Count (182-369) K/mm3 MPV (9.4-12.3) fl Neut % (Auto) (34.0-71.1) % Lymph % (Auto) (19.3-51.7) % Phelps % (Auto) (4.7-12.5) % Eos % (Auto) (0.7-5.8) Baso % (Auto) (0.1-1.2) % Neut # (Auto) (1.56-6.13) K/mm3 Lymph # (Auto) (1.18-3.74) K/mm3 Phelps # (Auto) (0.24-0.36) K/mm3 Eos # (Auto) (0.04-0.36) K/mm3 Baso # (Auto) (0.01-0.08) K/mm3 Neutrophils % (Manual) (40-60) % Band Neutrophils % (0-10) % Lymphocytes % (Manual) (20-40) % Atypical Lymphs % % Monocytes % (Manual) (2-10) % Eosinophils % (Manual) (0.7-5.8) % Basophils % (Manual) (0.1-1.2) Platelet Estimate Plt Morphology Comment RBC Morph Comment PT (9.7-12.0) SECONDS INR APTT (22-31) SECONDS D-Dimer, Quantitative (0.19-0.50) mg/L Sodium 129 L (136-145) mEq/L Potassium 3.8 (3.5-5.1) mEq/L Chloride 98 (98-107) mEq/L Carbon Dioxide 19 L (21-32) mEq/L Anion Gap 15.8 H (5-15) BUN 4 L (7-18) mg/dL Creatinine 0.8 (0.55-1.02) mg/dL Est Cr Clr Drug Dosing 69.09 mL/min Estimated GFR (MDRD) > 60 (>60) mL/min BUN/Creatinine Ratio 5.0 L (14-18) Glucose 83 (80-115) mg/dL Serum Osmolality (280-300) mosm/kg Calcium 8.2 L (8.5-10.1) mg/dL Magnesium 2.6 H (1.8-2.4) mg/dl Total Bilirubin 0.5 (0.2-1.0) mg/dL AST 21 (15-37) U/L ALT 28 (14-59) U/L Alkaline Phosphatase 94 (46-116) U/L Troponin I (0.00-0.056) ng/mL NT-Pro-B Natriuret Pep (0-125) pg/mL Total Protein 6.3 L (6.4-8.2) g/dl Albumin 3.3 L (3.4-5.0) g/dl Globulin 3.0 gm/dL Albumin/Globulin Ratio 1.1 (1-2) TSH 3rd Generation (0.358-3.74) uIU/mL C.difficile 027-NAP1-B1 C. difficile Tox (PCR) Lambert Results Last 24 Hours: Microbiology 12/23/19 16:10 Stool for WBCs - Final Stool / Feces Med Orders - Current: Current Medications Acetaminophen (Tylenol) 650 mg PO Q4H PRN PRN Reason: Pain (Mild 1-3)/fever Buspirone HCl (Buspar) 7.5 mg PO BID [facility] Last Admin: 12/24/19 08:27 Dose: 7.5 mg Calcium Carbonate (Calcium Carbonate/Vitamin D 600 Mg-200 Unit) 1 tab PO BID [facility] Last Admin: 12/24/19 08:27 Dose: 1 tab Calcium Polycarbophil (Fibercon) 625 mg PO BID [facility] Last Admin: 12/24/19 08:27 Dose: 625 mg Enoxaparin Sodium (Lovenox) 40 mg SUBCUT DAILY [facility] Last Admin: 12/24/19 08:28 Dose: 40 mg Dextrose/Water (Dextrose 5% In Water) 1,000 mls @ 100 mls/hr IV ASDIRECTED [facility] Last Admin: 12/24/19 08:30 Dose: 100 mls/hr Levothyroxine Sodium (Levothyroxine) 75 mcg PO ACBREAKFAST [facility] Lorazepam (Ativan) 0.5 mg PO TID PRN PRN Reason: ANXIETY Last Admin: 12/23/19 22:35 Dose: 0.5 mg Ondansetron HCl (Zofran) 4 mg IV Q4H PRN PRN Reason: Nausea/Vomiting Pantoprazole Sodium (Protonix) 40 mg PO ACBREAKFAST [facility] Last Admin: 12/24/19 05:40 Dose: 40 mg Tacrolimus 0.5 Mg (Cap Ptom) 0 each PO QAM [facility] Last Admin: 12/24/19 08:29 Dose: 2.5 each Tacrolimus 0.5 Mg (Cap Ptom) 0 each PO BEDTIME [facility] Mycophenolate 500 Mg (TabPtom) 0 each PO BID [facility] Last Admin: 12/24/19 08:30 Dose: 1,500 each Simvastatin (Zocor) 10 mg PO BEDTIME [facility] Sodium Chloride (Saline Flush) 10 ml FLUSH ASDIRECTED PRN PRN Reason: Keep Vein Open Vancomycin HCl (Vancomycin) 125 mg PO QID [facility] Last Admin: 12/24/19 08:27 Dose: 125 mg Discontinued Medications Buspirone HCl (Buspar) 7.5 mg PO BID [facility] Calcium Polycarbophil (Fibercon) 625 mg PO BID [facility] Sodium Chloride (Normal Saline) 1,000 mls @ 999 mls/hr IV ONETIME ONE Stop: 12/23/19 15:45 Last Admin: 12/23/19 15:07 Dose: 999 mls/hr Magnesium Sulfate 2 gm/ Premix 50 mls @ 25 mls/hr IV ONETIME ONE Stop: 12/23/19 18:16 Last Admin: 12/23/19 16:46 Dose: 25 mls/hr Sodium Chloride (Normal Saline) 1,000 mls @ 999 mls/hr IV ONETIME ONE Stop: 12/23/19 17:19 Last Admin: 12/23/19 16:47 Dose: 999 mls/hr Sodium Chloride (Normal Saline) 1,000 mls @ 200 mls/hr IV ASDIRECTED [facility] Last Admin: 12/23/19 20:21 Dose: 200 mls/hr Magnesium Sulfate 4 gm/ Premix 50 mls @ 12.5 mls/hr IV ONETIME ONE Stop: 12/23/19 23:06 Last Admin: 12/23/19 19:42 Dose: 12.5 mls/hr Magnesium Sulfate 2 gm/ Premix 50 mls @ 25 mls/hr IV ONETIME ONE Stop: 12/23/19 23:35 Last Admin: 12/23/19 22:35 Dose: 25 mls/hr Levothyroxine Sodium (Synthroid) 50 mcg PO ONETIME ONE Stop: 12/24/19 06:01 Last Admin: 12/24/19 05:41 Dose: 50 mcg Lorazepam (Ativan) 1 mg IVPUSH ONETIME ONE Stop: 12/23/19 15:03 Last Admin: 12/23/19 15:07 Dose: 1 mg Metoclopramide HCl (Reglan) 10 mg IVPUSH ONETIME ONE Stop: 12/23/19 14:47 Last Admin: 12/23/19 15:07 Dose: 10 mg Non-Formulary Medication (Tacrolimus) 4 mg PO BEDTIME [facility] Non-Formulary Medication (Lorazepam) 0.5 mg PO TID PRN PRN Reason: Anxiety Non-Formulary Medication (Tacrolimus) 5 mg PO QAM [facility] Non-Formulary Medication (Mycophenolate Mofetil) 1,500 mg PO BID [facility] Pantoprazole Sodium (Protonix) 40 mg PO DAILY [facility] Potassium Chloride (Klor-Con M20) 40 meq PO ONETIME ONE Stop: 12/23/19 16:20 Last Admin: 12/23/19 16:46 Dose: 40 meq Potassium Chloride (Klor-Con M20) 20 meq PO ONETIME ONE Stop: 12/23/19 21:37 Last Admin: 12/23/19 22:36 Dose: 20 meq Simvastatin (Zocor) 10 mg PO QPM [facility] Sodium Chloride (Saline Flush) 10 ml FLUSH ASDIRECTED PRN PRN Reason: Keep Vein Open Last Admin: 12/23/19 14:45 Dose: 10 ml Tacrolimus (Prograf) 5 mg PO QAM [facility] Last Admin: 12/24/19 08:14 Dose: Not Given Tacrolimus (Prograf) 4 mg PO BEDTIME [facility] - Exam Quality Assessment: No: Supplemental Oxygen General: Alert, Oriented HEENT: Pupils Equal, Mucous Membr. Moist/[place] Neck: Supple Lungs: Clear to Auscultation, Normal Respiratory Effort Cardiovascular: Regular Rate, Regular Rhythm GI/Abdominal Exam: Soft, Non-Tender, Abnormal Bowel Sounds (Increased bowel sounds.) Extremities: Normal Inspection, Non-Tender, No Pedal Edema, Normal Capillary Refill Skin: Warm, Dry, Intact Psy/Mental Status: Alert, Normal Affect, Normal Mood Sepsis Event Note - Evaluation Sepsis Screening Result: No Definite Risk - Focused Exam Vital Signs: Vital Signs Temp Resp BP Pulse Ox 12/24/19 08:00 97.3 F 18 111/75 99 12/24/19 04:00 99.1 F 14 130/85 96 12/24/19 00:00 98.6 F 18 105/65 97 Date Exam was Performed: 12/24/19 Time Exam was Performed: 11:36 - Problem List Review Problem List Initiated/Reviewed/Updated: Yes - My Orders Last 24 Hours: My Active Orders 12/23/19 18:01 Oxygen Therapy [RC] PRN Up ad Bety [RC] ASDIRECTED VTE/DVT Education [RC] PER UNIT ROUTINE Vital Signs [RC] Q4HR Acetaminophen [Tylenol] 650 mg PO Q4H PRN Ondansetron [Zofran] 4 mg IV Q4H PRN Resuscitation Status Routine 12/23/19 18:05 Vancomycin 125 mg PO QID 12/23/19 21:38 Sodium Chloride 0.9% [Saline Flush] 10 ml FLUSH ASDIRECTED PRN Convert IV to Saline Lock [OM.PC] Routine 12/23/19 21:45 busPIRone [Buspar] 7.5 mg PO BID 12/23/19 22:00 LORazepam [Ativan] 0.5 mg PO TID PRN 12/23/19 Dinner Clear Liquid Diet [DIET] 12/24/19 06:00 Pantoprazole [ProTONIX] 40 mg PO ACBREAKFAST 12/24/19 08:00 Dextrose 5% in Water 1,000 ml IV ASDIRECTED Patient's Own Medication [Ptom] 0 each PO QAM 12/24/19 09:00 Communication Order [RC] BID Calcium Carbonate/Vitamin D3 [Calcium Carbonate/Vitamin D 600 MG-200 Unit] 1 tab PO BID Enoxaparin [Lovenox] 40 mg SUBCUT DAILY Patient's Own Medication [Ptom] 0 each PO BID calcium polycarbophiL [Fibercon] 625 mg PO BID 12/24/19 12:00 BASIC METABOLIC PANEL,BMP [CHEM] Timed 12/24/19 21:00 Patient's Own Medication [Ptom] 0 each PO BEDTIME Simvastatin [Zocor] 10 mg PO BEDTIME 12/24/19 Dinner Regular Diet [DIET] 12/25/19 05:11 MAGNESIUM [CHEM] AM 12/25/19 06:00 Levothyroxine 75 mcg PO ACBREAKFAST 12/26/19 05:11 MAGNESIUM [CHEM] AM - Plan Plan:: 64-year-old female with history of cardiac transplant 11 years ago presents to the emergency room with 2-week history of diarrhea. C. difficile colitis * Positive C. difficile * Treated with Keflex 2 weeks ago for UTI * Poor oral intake for last 2 weeks. Hyponatremia secondary to diarrhea * Sodium 115-->123-->129 * Asymptomatic Hypokalemia * Potassium 3.2-->3.5 Hypomagnesemia, severe * Magnesium 0.6-->2.6 Stage III chronic renal insufficiency History of heart transplant * She states her heart rate often up to 122. * Prograf and CellCept * Initial proBNP 172 * Losartan 25 mg daily - Hold Hypothyroidism * TSH 2.527 * It is difficult to find the correct dose of levothyroxine tonight. * Anxiety * On BuSpar and lorazepam Plan * Admit to ICU secondary to multiple severe electrolyte abnormalities, heart transplant, and continued diarrhea * Contact precautions * Start D5W @100 ml/hr * Repeat BMP at noon * CMP, CBC, Mag in the morning * Give Potassium 20 meq PO * Start vancomycin 125 mg 4 times daily * VTE prophylaxis: Lovenox * Code status: Full Code
[2019-12-24] MEDS ORDERED: Potassium Chloride 20 MEQ Tab.ER PO ONE (14:16)
[2019-12-24] MEDS: Desmopressin 4 MCG/1 ML Amp IV ONE ×2 (14:44→14:58)
[2019-12-24] MEDS: LORazepam 0.5 MG Tab PO PRN ×3 (15:57→21:37)
[2019-12-24] MEDS ORDERED: Simvastatin 10 MG Tab PO SCH (18:00)
[2019-12-24] MEDS ORDERED: Dextrose 5% in Water 1,000 ML IV SCH (19:15)
[2019-12-24] MEDS: Simvastatin 10 MG Tab PO SCH (20:19)
[2019-12-24] MEDS ORDERED: Desmopressin 4 MCG/1 ML Amp IV ONE (20:45)
[2019-12-24] MEDS ORDERED: MYCOPHENOLATE MOFETIL 1500 MG PO SCH (21:00)
[2019-12-24] MEDS ORDERED: TACROLIMUS 4 MG PO SCH (21:00)
[2019-12-25] MEDS: Pantoprazole 40 MG Tab.CR PO SCH (05:04)
[2019-12-25] MEDS: Levothyroxine 75 MCG Tab PO SCH (05:04)
[2019-12-25] MEDS ORDERED: Magnesium Sulfate/Water 2 GM in Premix Bag 1 BAG IV ONE (08:30)
[2019-12-25] MEDS ORDERED: Potassium Chloride 10 MEQ in Premix Bag 1 BAG IV SCH (09:15)
[2019-12-25] MEDS: busPIRone 15 MG Tab PO SCH ×2 (09:27→20:20)
[2019-12-25] MEDS: Vancomycin 125 MG Cap PO SCH ×4 (09:28→20:20)
[2019-12-25] MEDS: Calcium Polycarbophil 625 MG Tab PO SCH ×2 (09:28→20:19)
[2019-12-25] MEDS: Calcium Carbonate/Vitamin D3 600 MG-200 Units Tab PO SCH ×2 (09:28→20:20)
[2019-12-25] MEDS: TACROLIMUS 0.5 MG PO SCH ×2 (09:30→20:46)
[2019-12-25] MEDS ORDERED: Magnesium Sulfate/Water 4 GM in Premix Bag 1 BAG IV ONE (09:30)
[2019-12-25] MEDS: MYCOPHENOLATE 500 MG PO SCH ×2 (09:31→20:46)
[2019-12-25] MEDS: Enoxaparin 40 MG/0.4 ML Syringe SUBCUT SCH (09:31)
[2019-12-25] MEDS: Potassium Chloride 10 MEQ in Premix Bag 1 BAG IV SCH ×2 (09:32→11:25)
--- NOTE | 2019-12-25 10:20 | PCM.PN ---
- General Info Date of Service: 12/25/19 Admission Dx/Problem (Free Text): afebrile. vss h.r. 90-110. does not feel dizzy but weak. feels poor / stooling freq.>20 x loose. anxious . slept poorly and tired . no cvs no resp complaints . abd eating moderate only . p.e. lungs clear . cor:rrr 105. abd benign and non tender b.s active. neuro oriented. skin small lesion on upper lip without signs of infection or vesicles /drainage. assess. c diff colitis on vanco day 3 and stool volume decreasing but slow improvement. plan cardiac transplant: sending levels off [facility]day [facility]. uti treated and resolved. hypomagnesemia improving . hyponatremia probably multifactorial related to chronic mag/ renal problems and c diff infection causing volume contraction. now na 130 and will decrease i.v. fluids and no further ddavp and recheck in 12 hours. advance diet and monitor fluid status. to med surg and increase activity . diarhhrea chronically but clearly c diff started after antibiotics as prev. c diff test neg. 12/14 day before initiating antibiotic. boh Subjective Update: see note . doing some better . na 130 . c diff slowly responding . - Review of Systems General: Reports: No Symptoms HEENT: Reports: No Symptoms Pulmonary: Reports: No Symptoms Cardiovascular: Reports: No Symptoms Gastrointestinal: Reports: No Symptoms, Diarrhea Genitourinary: Reports: No Symptoms Musculoskeletal: Reports: No Symptoms Skin: Reports: No Symptoms Neurological: Reports: No Symptoms Psychiatric: Reports: No Symptoms - Patient Data Vitals - Most Recent: Last Vital Signs Temp 36.7 C 12/25/19 08:00 Pulse 127 H 12/23/19 14:16 Resp 16 12/25/19 08:00 BP 115/78 12/25/19 08:00 Pulse Ox 97 12/25/19 08:00 Weight - Most Recent: 68.1 kg I&O - Last 24 Hours: Intake & Output 12/24/19 12/25/19 12/25/19 22:59 06:59 14:59 Intake Total 997 759 Balance 997 759 Lab Results Last 24 Hours: Laboratory Results - last 24 hr 12/24/19 12/24/19 12/25/19 Range/Units 13:05 17:35 04:56 Sodium 131 L 130 L 129 L (136-145) mEq/L Potassium 3.3 L 3.6 3.8 (3.5-5.1) mEq/L Chloride 99 98 98 (98-107) mEq/L Carbon Dioxide 18 L 19 L 18 L (21-32) mEq/L Anion Gap 17.3 H 16.6 H 16.8 H (5-15) BUN 3 L 5 L 5 L (7-18) mg/dL Creatinine 0.9 0.9 0.9 (0.55-1.02) mg/dL Est Cr Clr Drug Dosing 61.41 61.41 61.41 mL/min Estimated GFR (MDRD) > 60 > 60 > 60 (>60) mL/min BUN/Creatinine Ratio 3.3 L 5.6 L 5.6 L (14-18) Glucose 126 H 117 H 97 (80-115) mg/dL Calcium 8.5 8.2 L 8.3 L (8.5-10.1) mg/dL Magnesium 1.5 L (1.8-2.4) mg/dl [facility] Results Last 24 Hours: Microbiology 12/23/19 16:10 Shiga Toxin I & II - Final Stool / Feces 12/23/19 16:10 Clostridioides difficile Toxin Assay - Final Stool / Feces Med Orders - Current: Current Medications Acetaminophen (Tylenol) 650 mg PO Q4H PRN PRN Reason: Pain (Mild 1-3)/fever Buspirone HCl (Buspar) 7.5 mg PO BID [facility] Last Admin: 12/25/19 09:27 Dose: 7.5 mg Calcium Carbonate (Calcium Carbonate/Vitamin D 600 Mg-200 Unit) 1 tab PO BID [facility] Last Admin: 12/25/19 09:28 Dose: 1 tab Calcium Polycarbophil (Fibercon) 625 mg PO BID [facility] Last Admin: 12/25/19 09:28 Dose: 625 mg Enoxaparin Sodium (Lovenox) 40 mg SUBCUT DAILY [facility] Last Admin: 12/25/19 09:31 Dose: 40 mg Magnesium Sulfate 4 gm/ Premix 50 mls @ 12.5 mls/hr IV ONETIME ONE Stop: 12/25/19 13:29 Last Admin: 12/25/19 09:32 Dose: 12.5 mls/hr Potassium Chloride 10 meq/ (Premix) 100 mls @ 100 mls/hr IV Q1H [facility] Stop: 12/25/19 11:29 Last Admin: 12/25/19 09:32 Dose: 100 mls/hr Levothyroxine Sodium (Levothyroxine) 75 mcg PO ACBREAKFAST [facility] Last Admin: 12/25/19 05:04 Dose: 75 mcg Lorazepam (Ativan) 0.5 mg PO TID PRN PRN Reason: ANXIETY Last Admin: 12/24/19 21:37 Dose: 0.5 mg Ondansetron HCl (Zofran) 4 mg IV Q4H PRN PRN Reason: Nausea/Vomiting Last Admin: 12/24/19 15:58 Dose: 4 mg Pantoprazole Sodium (Protonix) 40 mg PO ACBREAKFAST [facility] Last Admin: 12/25/19 05:04 Dose: 40 mg Tacrolimus 0.5 Mg (Cap Ptom) 0 each PO QAM [facility] Last Admin: 12/25/19 09:30 Dose: 5 each Tacrolimus 0.5 Mg (Cap Ptom) 0 each PO BEDTIME [facility] Last Admin: 12/24/19 20:20 Dose: 1 each Mycophenolate 500 Mg (TabPtom) 0 each PO BID [facility] Last Admin: 12/25/19 09:31 Dose: 3 each Simvastatin (Zocor) 10 mg PO BEDTIME [facility] Last Admin: 12/24/19 20:19 Dose: 10 mg Sodium Chloride (Saline Flush) 10 ml FLUSH ASDIRECTED PRN PRN Reason: Keep Vein Open Vancomycin HCl (Vancomycin) 125 mg PO QID [facility] Last Admin: 12/25/19 09:28 Dose: 125 mg Discontinued Medications Buspirone HCl (Buspar) 7.5 mg PO BID [facility] Calcium Polycarbophil (Fibercon) 625 mg PO BID [facility] Desmopressin Acetate (Desmopressin) 2 mcg IV ONETIME ONE Stop: 12/24/19 15:01 Last Admin: 12/24/19 14:58 Dose: Not Given Desmopressin Acetate (Desmopressin) 2 mcg IV ONETIME ONE Stop: 12/24/19 20:46 Last Admin: 12/24/19 20:18 Dose: 2 mcg Sodium Chloride (Normal Saline) 1,000 mls @ 999 mls/hr IV ONETIME ONE Stop: 12/23/19 15:45 Last Admin: 12/23/19 15:07 Dose: 999 mls/hr Magnesium Sulfate 2 gm/ Premix 50 mls @ 25 mls/hr IV ONETIME ONE Stop: 12/23/19 18:16 Last Admin: 12/23/19 16:46 Dose: 25 mls/hr Sodium Chloride (Normal Saline) 1,000 mls @ 999 mls/hr IV ONETIME ONE Stop: 12/23/19 17:19 Last Admin: 12/23/19 16:47 Dose: 999 mls/hr Sodium Chloride (Normal Saline) 1,000 mls @ 200 mls/hr IV ASDIRECTED [facility] Last Admin: 12/23/19 20:21 Dose: 200 mls/hr Magnesium Sulfate 4 gm/ Premix 50 mls @ 12.5 mls/hr IV ONETIME ONE Stop: 12/23/19 23:06 Last Admin: 12/23/19 19:42 Dose: 12.5 mls/hr Magnesium Sulfate 2 gm/ Premix 50 mls @ 25 mls/hr IV ONETIME ONE Stop: 12/23/19 23:35 Last Admin: 12/23/19 22:35 Dose: 25 mls/hr Dextrose/Water (Dextrose 5% In Water) 1,000 mls @ 100 mls/hr IV ASDIRECTED [facility] Last Admin: 12/24/19 18:21 Dose: 100 mls/hr Dextrose/Water (Dextrose 5% In Water) 1,000 mls @ 50 mls/hr IV ASDIRECTED [facility] Last Admin: 12/24/19 20:25 Dose: 50 mls/hr Levothyroxine Sodium (Synthroid) 50 mcg PO ONETIME ONE Stop: 12/24/19 06:01 Last Admin: 12/24/19 05:41 Dose: 50 mcg Lorazepam (Ativan) 1 mg IVPUSH ONETIME ONE Stop: 12/23/19 15:03 Last Admin: 12/23/19 15:07 Dose: 1 mg Metoclopramide HCl (Reglan) 10 mg IVPUSH ONETIME ONE Stop: 12/23/19 14:47 Last Admin: 12/23/19 15:07 Dose: 10 mg Non-Formulary Medication (Tacrolimus) 4 mg PO BEDTIME [facility] Non-Formulary Medication (Lorazepam) 0.5 mg PO TID PRN PRN Reason: Anxiety Non-Formulary Medication (Tacrolimus) 5 mg PO QAM [facility] Non-Formulary Medication (Mycophenolate Mofetil) 1,500 mg PO BID [facility] Pantoprazole Sodium (Protonix) 40 mg PO DAILY [facility] Potassium Chloride (Klor-Con M20) 40 meq PO ONETIME ONE Stop: 12/23/19 16:20 Last Admin: 12/23/19 16:46 Dose: 40 meq Potassium Chloride (Klor-Con M20) 20 meq PO ONETIME ONE Stop: 12/23/19 21:37 Last Admin: 12/23/19 22:36 Dose: 20 meq Potassium Chloride (Klor-Con M20) 40 meq PO ONETIME ONE Stop: 12/24/19 14:17 Last Admin: 12/24/19 14:43 Dose: 40 meq Simvastatin (Zocor) 10 mg PO QPM [facility] Sodium Chloride (Saline Flush) 10 ml FLUSH ASDIRECTED PRN PRN Reason: Keep Vein Open Last Admin: 12/23/19 14:45 Dose: 10 ml Tacrolimus (Prograf) 5 mg PO QAM [facility] Last Admin: 12/24/19 08:14 Dose: Not Given Tacrolimus (Prograf) 4 mg PO BEDTIME [facility] - Exam General: Alert, Oriented HEENT: Pupils Equal, Pupils Reactive, EOMI, Mucous Membr. Moist/[place] Neck: Supple Lungs: Clear to Auscultation, Normal Respiratory Effort Cardiovascular: Regular Rate, Regular Rhythm GI/Abdominal Exam: Normal Bowel Sounds, Soft, Non-Tender, No Organomegaly, No Distention, No Abnormal Bruit, No Mass, Pelvis Stable (Female) Exam: Normal External Exam, Normal Speculum Exam, Normal Bimanual Exam Back Exam: Normal Inspection, Full Range of Motion Extremities: Normal Inspection, Normal Range of Motion, Non-Tender, No Pedal Edema, Normal Capillary Refill Skin: Warm, Dry, Intact Wound/Incisions: Healing Well Neurological: No New Focal Deficit Psy/Mental Status: Alert, Normal Affect, Normal Mood Sepsis Event Note - Evaluation Sepsis Screening Result: No Definite Risk - Focused Exam Vital Signs: Vital Signs Temp Resp BP Pulse Ox 12/25/19 08:00 36.7 C 16 115/78 97 12/25/19 03:34 36.6 C 17 108/75 100 12/25/19 00:00 36.7 C 19 102/67 100 Date Exam was Performed: 12/25/19 Time Exam was Performed: 10:01 - Problem List & Annotations (1) C. difficile enteritis SNOMED Code(s): 584918702 Code(s): A04.72 - ENTEROCOLITIS D/T CLOSTRIDIUM DIFFICILE, NOT SPCF RECUR Status: Acute Priority: High Current Visit: Yes Onset Date: 12/23/19 Annotation/Comment:: c diff. responding very slowly . (2) Anxiety about health SNOMED Code(s): 287781594 Code(s): F41.8 - OTHER SPECIFIED ANXIETY DISORDERS Status: Acute Priority : Medium Current Visit: Yes Onset Date: 12/25/19 Annotation/Comment:: addressing and discussed concerns. (3) Hyponatremia with decreased serum osmolality SNOMED Code(s): 027871265 Code(s): E87.1 - HYPO-OSMOLALITY AND HYPONATREMIA Status: Acute Priority : High Current Visit: Yes Onset Date: 12/23/19 Annotation/Comment:: responding to ddavp and now i.v decreased and voiding better and diarrhea still prominant but lessening some. 20 stools yesterday but pain and nausea much better. starting to eat . (4) Palpitations SNOMED Code(s): 72671523 Code(s): R00.2 - PALPITATIONS Status: Acute Priority: Medium Current Visit: No Onset Date: 12/23/19 Annotation/Comment:: tachicardia stable (5) Hypomagnesemia SNOMED Code(s): 250165380 Code(s): E83.42 - HYPOMAGNESEMIA Status: Chronic Priority: High Current Visit: No Onset Date: 12/23/19 (6) Status post heart transplant Status: Chronic Priority: Medium Current Visit: No Onset Date: 12/23/19 Annotation/Comment:: sending off tacrolimus and mycophil levels - Problem List Review Problem List Initiated/Reviewed/Updated: Yes - My Orders Last 24 Hours: My Active Orders 12/25/19 09:08 Patient Status [ADT] Routine 12/25/19 09:30 Magnesium Sulfate/Water [Magnesium Sulfate in Water Premix] 4 gm Premix Bag 1 bag IV ONETIME Potassium Chloride [KCl 10 MEQ in Water 100 ML] 10 meq Premix Bag 1 bag IV Q1H 12/25/19 17:00 BASIC METABOLIC PANEL,BMP [CHEM] Routine - Plan Plan:: 64-year-old female with history of cardiac transplant 11 years ago presents to the emergency room with 2-week history of diarrhea secondary hyponatremia and weakness/dehydration /volume contraction . afebrile. vss h.r. 90-110. does not feel dizzy but weak. feels poor / stooling freq.>20 x loose. anxious . slept poorly and tired . no cvs no resp complaints . abd eating moderate only . p.e. lungs clear . cor:rrr 105. abd benign and non tender b.s active. neuro oriented. skin small lesion on upper lip without signs of infection or vesicles /drainage. assess. c diff colitis on vanco day 3 and stool volume decreasing but slow improvement. plan cardiac transplant: sending levels off sunday [facility]. uti treated and resolved. hypomagnesemia improving . hyponatremia probably multifactorial related to chronic mag/ renal problems and c diff infection causing volume contraction. now na 130 and will decrease i.v. fluids and no further ddavp and recheck in 12 hours. advance diet and monitor fluid status. to med surg and increase activity . diarhhrea chronically but clearly c diff started after antibiotics as prev. c diff test neg. 12/14 day before initiating antibiotic. boh
[2019-12-25] MEDS: Simvastatin 10 MG Tab PO SCH (20:20)
[2019-12-26] MEDS: LORazepam 0.5 MG Tab PO PRN ×2 (04:30→20:14)
[2019-12-26] MEDS: Pantoprazole 40 MG Tab.CR PO SCH (05:42)
[2019-12-26] MEDS: Levothyroxine 75 MCG Tab PO SCH (05:42)
[2019-12-26] MEDS: TACROLIMUS 0.5 MG PO SCH ×2 (07:50→20:14)
[2019-12-26] MEDS: busPIRone 15 MG Tab PO SCH ×2 (07:59→20:13)
[2019-12-26] MEDS: Enoxaparin 40 MG/0.4 ML Syringe SUBCUT SCH (07:59)
[2019-12-26] MEDS: Calcium Carbonate/Vitamin D3 600 MG-200 Units Tab PO SCH ×4 (07:59→20:31)
[2019-12-26] MEDS: Calcium Polycarbophil 625 MG Tab PO SCH ×2 (07:59→20:14)
[2019-12-26] MEDS: Vancomycin 125 MG Cap PO SCH ×4 (08:00→20:14)
[2019-12-26] MEDS: MYCOPHENOLATE 500 MG PO SCH ×2 (08:03→20:14)
[2019-12-26] MEDS ORDERED: Magnesium Sulfate/Water 4 GM in Premix Bag 1 BAG IV ONE (08:35)
[2019-12-26] MEDS: Potassium Chloride 10 MEQ in Premix Bag 1 BAG IV SCH ×2 (09:08→12:23)
[2019-12-26] MEDS ORDERED: Loratadine 10 MG Tab PO PRN (10:29)
[2019-12-26] MEDS: metroNIDAZOLE 250 MG Tab PO SCH ×3 (10:45→21:58)
--- NOTE | 2019-12-26 10:55 | PCM.PN ---
- General Info Date of Service: 12/26/19 Admission Dx/Problem (Free Text): 12/26/19 afebrile. vss h.r. 90-110. does not feel dizzy but weak. feels poor / stooling freq.>20 x loose. anxious . slept poorly and tired . no cvs no resp complaints . abd eating moderate only . p.e. lungs clear . cor:rrr 105. abd benign and non tender b.s active. neuro oriented. skin small lesion on upper lip without signs of infection or vesicles /drainage. assess. c diff colitis on vanco day 3 and stool volume decreasing but slow improvement. plan cardiac transplant: sending levels off sunday [facility]. uti treated and resolved. hypomagnesemia improving . hyponatremia probably multifactorial related to chronic mag/ renal problems and c diff infection causing volume contraction. now na 130 and will decrease i.v. fluids and no further ddavp and recheck in 12 hours. advance diet and monitor fluid status. to med surg and increase activity . diarrhea chronically but clearly c diff started after antibiotics as prev. c diff test neg. 12/14 day before initiating antibiotic. boh Subjective Update: see note . 12/26/19 assess: c diff doing some better . stools decreasing abd pain resolved and starting p.o food. if poor response add metronidazole. hyponatremia na 130 . no neurologic signs and up and walking and c/o weakness. has chronic low chloride releated to previous loose stools and cardiac transplant meds . hypokalemia : improved. / now hydrated and will need to pass oral fluid intake . depression / anxiety supportive discussion of symptoms and patient states " i'm done with this " dehydration : resolved with high i.v replacement,now switching to oral and self regulating. boh 12/27/19 assess c diff doing about the same but more abd pain . stool count 17 by patient . will add metronidazole sec to slow response. hyponatremia : unchanged and osmoles still low with normal anion gap and chronic low chloride. will cont oral hydration and reassess. hypomagnesemia : will need oral held sec to diarrhea nd cont i.v. scheduled as o.p. hypokalemia : repeat k boluses. weakness: unchanged depression :consult Dr Baldomero hicks for now . supportive care offered regarding medical malaise. cardiac transplant : tachicardia chronic and needs trough levels sent off to [facility] labs . boh Functional Status: Reports: Pain Controlled - Review of Systems General: Reports: Fatigue, Malaise, Appetite. Denies: No Symptoms HEENT: Reports: No Symptoms Pulmonary: Reports: No Symptoms Cardiovascular: Reports: No Symptoms Gastrointestinal: Reports: No Symptoms, Abdominal Pain, Decreased Appetite, Diarrhea, Flatus Genitourinary: Reports: No Symptoms, Frequency, Urgency Musculoskeletal: Reports: No Symptoms Skin: Reports: No Symptoms Neurological: Reports: No Symptoms Psychiatric: Reports: No Symptoms - Patient Data Vitals - Most Recent: Last Vital Signs Temp 36.2 C 12/26/19 07:53 Pulse 109 H 12/26/19 03:00 Resp 16 12/26/19 07:53 BP 127/80 12/26/19 07:53 Pulse Ox 99 12/26/19 07:53 Weight - Most Recent: 68.629 kg I&O - Last 24 Hours: Intake & Output 12/25/19 12/26/19 12/26/19 22:59 06:59 14:59 Intake Total 1180 700 Balance 1180 700 Lab Results Last 24 Hours: Laboratory Results - last 24 hr 12/25/19 12/26/19 12/26/19 Range/Units 17:10 04:10 05:33 Sodium 129 L (136-145) mEq/L Potassium 4.1 (3.5-5.1) mEq/L Chloride 98 (98-107) mEq/L Carbon Dioxide 19 L (21-32) mEq/L Anion Gap 16.1 H (5-15) BUN 4 L (7-18) mg/dL Creatinine 0.8 (0.55-1.02) mg/dL Est Cr Clr Drug Dosing 69.09 mL/min Estimated GFR (MDRD) > 60 (>60) mL/min BUN/Creatinine Ratio 5.0 L (14-18) Glucose 97 (80-115) mg/dL Serum Osmolality (280-300) mosm/kg Calcium 8.7 (8.5-10.1) mg/dL Magnesium 2.1 1.5 L (1.8-2.4) mg/dl Urine Osmolality 475 (400-1100) mosm/kg 12/26/19 Range/Units 05:33 Sodium 128 L (136-145) mEq/L Potassium 3.6 (3.5-5.1) mEq/L Chloride 96 L (98-107) mEq/L Carbon Dioxide 17 L (21-32) mEq/L Anion Gap 18.6 H (5-15) BUN 5 L (7-18) mg/dL Creatinine 0.8 (0.55-1.02) mg/dL Est Cr Clr Drug Dosing 69.09 mL/min Estimated GFR (MDRD) > 60 (>60) mL/min BUN/Creatinine Ratio 6.3 L (14-18) Glucose 88 (80-115) mg/dL Serum Osmolality 263 L (280-300) mosm/kg Calcium 8.8 (8.5-10.1) mg/dL Magnesium 1.5 L (1.8-2.4) mg/dl Urine Osmolality (400-1100) mosm/kg [place] Results Last 24 Hours: Microbiology 12/23/19 16:10 Stool Culture - Preliminary Stool / Feces Shiga Toxin I & II - Final 12/23/19 16:10 Clostridioides difficile Toxin Assay - Final Stool / Feces Med Orders - Current: Current Medications Acetaminophen (Tylenol) 650 mg PO Q4H PRN PRN Reason: Pain (Mild 1-3)/fever Aspirin (Halfprin) 81 mg PO DAILY [facility] Buspirone HCl (Buspar) 7.5 mg PO BID [facility] Last Admin: 12/26/19 07:59 Dose: 7.5 mg Calcium Carbonate (Calcium Carbonate/Vitamin D 600 Mg-200 Unit) 1 tab PO BID [facility] Last Admin: 12/26/19 07:59 Dose: 1 tab Calcium Carbonate (Calcium Carbonate/Vitamin D 600 Mg-200 Unit) 2 tab PO BID [facility] Calcium Polycarbophil (Fibercon) 625 mg PO BID [facility] Last Admin: 12/26/19 07:59 Dose: 625 mg Enoxaparin Sodium (Lovenox) 40 mg SUBCUT DAILY [facility] Last Admin: 12/26/19 07:59 Dose: 40 mg Magnesium Sulfate 4 gm/ Premix 50 mls @ 12.5 mls/hr IV ONETIME ONE Stop: 12/26/19 12:34 Last Admin: 12/26/19 09:08 Dose: 12.5 mls/hr Potassium Chloride 10 meq/ (Premix) 100 mls @ 100 mls/hr IV Q1H [facility] Stop: 12/26/19 10:44 Last Infusion: 12/26/19 09:27 Dose: 50 mls/hr Levothyroxine Sodium (Levothyroxine) 75 mcg PO ACBREAKFAST [facility] Last Admin: 12/26/19 05:42 Dose: 75 mcg Levothyroxine Sodium (Levothyroxine) 75 mcg PO ACBREAKFAST [facility] Loratadine (Claritin) 10 mg PO DAILY PRN PRN Reason: Allergies Lorazepam (Ativan) 0.5 mg PO TID PRN PRN Reason: ANXIETY Last Admin: 12/26/19 04:30 Dose: 0.5 mg Losartan Potassium (Cozaar) 25 mg PO DAILY [facility] Metronidazole (Metronidazole) 250 mg PO Q6H [facility] Ondansetron HCl (Zofran) 4 mg IV Q4H PRN PRN Reason: Nausea/Vomiting Last Admin: 12/24/19 15:58 Dose: 4 mg Pantoprazole Sodium (Protonix) 40 mg PO ACBREAKFAST [facility] Last Admin: 12/26/19 05:42 Dose: 40 mg Tacrolimus 0.5 Mg (Cap Ptom) 0 each PO QAM [facility] Last Admin: 12/26/19 07:50 Dose: 2.5 each Tacrolimus 0.5 Mg (Cap Ptom) 0 each PO BEDTIME [facility] Last Admin: 12/25/19 20:46 Dose: 4 each Mycophenolate 500 Mg (TabPtom) 0 each PO BID [facility] Last Admin: 12/26/19 08:03 Dose: 1,500 each Saccharomyces Boulardii (Florastor) 250 mg PO BEDTIME [facility] Simvastatin (Zocor) 10 mg PO BEDTIME [facility] Last Admin: 12/25/19 20:20 Dose: 10 mg Sodium Chloride (Saline Flush) 10 ml FLUSH ASDIRECTED PRN PRN Reason: Keep Vein Open Vancomycin HCl (Vancomycin) 125 mg PO QID [facility] Last Admin: 12/26/19 08:00 Dose: 125 mg Discontinued Medications Buspirone HCl (Buspar) 7.5 mg PO BID [facility] Calcium Polycarbophil (Fibercon) 625 mg PO BID [facility] Desmopressin Acetate (Desmopressin) 2 mcg IV ONETIME ONE Stop: 12/24/19 15:01 Last Admin: 12/24/19 14:58 Dose: Not Given Desmopressin Acetate (Desmopressin) 2 mcg IV ONETIME ONE Stop: 12/24/19 20:46 Last Admin: 12/24/19 20:18 Dose: 2 mcg Sodium Chloride (Normal Saline) 1,000 mls @ 999 mls/hr IV ONETIME ONE Stop: 12/23/19 15:45 Last Admin: 12/23/19 15:07 Dose: 999 mls/hr Magnesium Sulfate 2 gm/ Premix 50 mls @ 25 mls/hr IV ONETIME ONE Stop: 12/23/19 18:16 Last Admin: 12/23/19 16:46 Dose: 25 mls/hr Sodium Chloride (Normal Saline) 1,000 mls @ 999 mls/hr IV ONETIME ONE Stop: 12/23/19 17:19 Last Admin: 12/23/19 16:47 Dose: 999 mls/hr Sodium Chloride (Normal Saline) 1,000 mls @ 200 mls[facility]hr [facility] Last Admin: 12/23/19 20:21 Dose: 200 mls/hr Magnesium Sulfate 4 gm/ Premix 50 mls @ 12.5 mls/hr IV ONETIME ONE Stop: 12/23/19 23:06 Last Admin: 12/23/19 19:42 Dose: 12.5 mls/hr Magnesium Sulfate 2 gm/ Premix 50 mls @ 25 mls/hr IV ONETIME ONE Stop: 12/23/19 23:35 Last Admin: 12/23/19 22:35 Dose: 25 mls/hr Dextrose/Water (Dextrose 5% In Water) 1,000 mls @ 100 mls/hr [facility] Last Admin: 12/24/19 18:21 Dose: 100 mls/hr Dextrose/Water (Dextrose 5% In Water) 1,000 mls @ 50 mls/hr [facility] Last Admin: 12/24/19 20:25 Dose: 50 mls/hr Magnesium Sulfate 4 gm/ Premix 50 mls @ 12.5 mls/hr IV ONETIME ONE Stop: 12/25/19 13:29 Last Admin: 12/25/19 09:32 Dose: 12.5 mls/hr Potassium Chloride 10 meq/ (Premix) 100 mls @ 100 mls/hr IV Q1H [facility] Stop: 12/25/19 11:29 Last Admin: 12/25/19 11:25 Dose: 50 mls/hr Levothyroxine Sodium (Synthroid) 50 mcg PO ONETIME ONE Stop: 12/24/19 06:01 Last Admin: 12/24/19 05:41 Dose: 50 mcg Lorazepam (Ativan) 1 mg IVPUSH ONETIME ONE Stop: 12/23/19 15:03 Last Admin: 12/23/19 15:07 Dose: 1 mg Metoclopramide HCl (Reglan) 10 mg IVPUSH ONETIME ONE Stop: 12/23/19 14:47 Last Admin: 12/23/19 15:07 Dose: 10 mg Non-Formulary Medication (Tacrolimus) 4 mg PO BEDTIME [facility] Non-Formulary Medication (Lorazepam) 0.5 mg PO TID PRN PRN Reason: Anxiety Non-Formulary Medication (Tacrolimus) 5 mg PO QAM [facility] Non-Formulary Medication (Mycophenolate Mofetil) 1,500 mg PO BID [facility] Pantoprazole Sodium (Protonix) 40 mg PO DAILY [facility] Potassium Chloride (Klor-Con M20) 40 meq PO ONETIME ONE Stop: 12/23/19 16:20 Last Admin: 12/23/19 16:46 Dose: 40 meq Potassium Chloride (Klor-Con M20) 20 meq PO ONETIME ONE Stop: 12/23/19 21:37 Last Admin: 12/23/19 22:36 Dose: 20 meq Potassium Chloride (Klor-Con M20) 40 meq PO ONETIME ONE Stop: 12/24/19 14:17 Last Admin: 12/24/19 14:43 Dose: 40 meq Simvastatin (Zocor) 10 mg PO QPM [facility] Sodium Chloride (Saline Flush) 10 ml FLUSH ASDIRECTED PRN PRN Reason: Keep Vein Open Last Admin: 12/23/19 14:45 Dose: 10 ml Tacrolimus (Prograf) 5 mg PO QAM [facility] Last Admin: 12/24/19 08:14 Dose: Not Given Tacrolimus (Prograf) 4 mg PO BEDTIME [facility] - Exam General: Alert, Oriented HEENT: Pupils Equal, Pupils Reactive, EOMI, Mucous Membr. Moist/[place] Neck: Supple Lungs: Clear to Auscultation, Normal Respiratory Effort Cardiovascular: Regular Rate, Regular Rhythm GI/Abdominal Exam: Normal Bowel Sounds, Soft, Non-Tender, No Organomegaly, No Distention, No Abnormal Bruit, No Mass, Pelvis Stable (Female) Exam: Normal External Exam, Normal Speculum Exam, Normal Bimanual Exam Back Exam: Normal Inspection, Full Range of Motion Extremities: Normal Inspection, Normal Range of Motion, Non-Tender, No Pedal Edema, Normal Capillary Refill Skin: Warm, Dry, Intact Wound/Incisions: Healing Well Neurological: No New Focal Deficit Psy/Mental Status: Alert, Normal Affect, Normal Mood Sepsis Event Note - Evaluation Sepsis Screening Result: No Definite Risk - Focused Exam Vital Signs: Vital Signs Temp Pulse Resp BP Pulse Ox 12/26/19 07:53 36.2 C 16 127/80 99 12/26/19 03:00 37.1 C 109 H 16 112/79 97 Date Exam was Performed: 12/26/19 Time Exam was Performed: 10:37 - Problem List & Annotations (1) C. difficile enteritis SNOMED Code(s): 455180916 Code(s): A04.72 - ENTEROCOLITIS D/T CLOSTRIDIUM DIFFICILE, NOT SPCF RECUR Status: Acute Priority: High Current Visit: Yes Onset Date: 12/23/19 Annotation/Comment:: c diff. responding very slowly . add metronidizole (2) Anxiety about health SNOMED Code(s): 307517732 Code(s): F41.8 - OTHER SPECIFIED ANXIETY DISORDERS Status: Acute Priority : Medium Current Visit: Yes Onset Date: 12/25/19 Annotation/Comment:: addressing and discussed concerns. 12/27/19 consult phychiatry for chronic / acute anxiety depression. (3) Hyponatremia with decreased serum osmolality SNOMED Code(s): 693497242 Code(s): E87.1 - HYPO-OSMOLALITY AND HYPONATREMIA Status: Acute Priority : High Current Visit: Yes Onset Date: 12/23/19 Annotation/Comment:: responding to ddavp and now i.v decreased and voiding better and diarrhea still prominant but lessening some. 20 stools yesterday but pain and nausea much better. starting to eat . 12/27/19 hyponatremia same and def. chronic contraction hypochloremic component sec to chronic diarrhea and rejection renal effects before c diff started. target na 130-140 with control of hypomagnesemia and hypokalemia (4) Palpitations SNOMED Code(s): 76952536 Code(s): R00.2 - PALPITATIONS Status: Acute Priority: Medium Current Visit: No Onset Date: 12/23/19 Annotation/Comment:: tachicardia stable (5) Hypomagnesemia SNOMED Code(s): 026065797 Code(s): E83.42 - HYPOMAGNESEMIA Status: Chronic Priority: High Current Visit: No Onset Date: 12/23/19 Annotation/Comment:: chronic severe hypmagnesium sec. to renal wasting and rejection meds along with chronic diarrhea. will require i.v matanance with p.o replacement (6) Status post heart transplant Status: Chronic Priority: Medium Current Visit: No Onset Date: 12/23/19 Annotation/Comment:: sending off tacrolimus and mycophil levels - Problem List Review Problem List Initiated/Reviewed/Updated: Yes - My Orders Last 24 Hours: My Active Orders 12/26/19 08:35 Magnesium Sulfate/Water [Magnesium Sulfate in Water Premix] 4 gm Premix Bag 1 bag IV ONETIME 12/26/19 08:45 Potassium Chloride [KCl 10 MEQ in Water 100 ML] 10 meq Premix Bag 1 bag IV Q1H 12/26/19 10:23 Consult to [employer] [CONS] Routine Consult to Physician [CONS] Urgent 12/26/19 10:29 Notify Provider Consults [RC] ASDIRECTED Fexofenadine HCl 180 mg PO DAILY PRN 12/26/19 10:45 metroNIDAZOLE 250 mg PO Q6H 12/26/19 21:00 Calcium Carbonate/Vitamin D3 [Calcium 500-Vit D3 125 Caplet] 2 tab PO BID Lactobacillus Acidophilus [Probiotic] 1 cap PO BEDTIME 12/27/19 09:00 Aspirin [Halfprin] 81 mg PO DAILY Levothyroxine 75 mcg PO DAILY Losartan [Cozaar] 25 mg PO DAILY - Plan Plan:: 64-year-old female with history of cardiac transplant 11 years ago presents to the emergency room with 2-week history of diarrhea secondary hyponatremia and weakness/dehydration /volume contraction . 12/26/19 afebrile. vss h.r. 90-110. does not feel dizzy but weak. feels poor / stooling freq.>20 x loose. anxious . slept poorly and tired . no cvs no resp complaints . abd eating moderate only . p.e. lungs clear . cor:rrr 105. abd benign and non tender b.s active. neuro oriented. skin small lesion on upper lip without signs of infection or vesicles /drainage. assess. c diff colitis on vanco day 3 and stool volume decreasing but slow improvement. plan cardiac transplant: sending levels off sunday [facility]. uti treated and resolved. hypomagnesemia improving . hyponatremia probably multifactorial related to chronic mag/ renal problems and c diff infection causing volume contraction. now na 130 and will decrease i.v. fluids and no further ddavp and recheck in 12 hours. advance diet and monitor fluid status. to med surg and increase activity . diarrhea chronically but clearly c diff started after antibiotics as prev. c diff test neg. 12/14 day before initiating antibiotic. boh 12/27/19 afebrile vss depressed this am . stool count not decreasing much but more formed / increased abd pain with eating but tolerating.freq and urgency and u.a normal . no previous cystitis . day 4 vanco and adding metranidizole. pchyche consult placed vss h.r. 90-110. does not feel dizzy but weak. feels poor / stooling freq.>20 x loose. anxious . slept poorly and tired . no cvs no resp complaints . abd eating moderate only . p.e. lungs clear . cor:rrr 105. abd benign and non tender b.s active. neuro oriented. skin small lesion on upper lip without signs of infection or vesicles /drainage. assess. c diff colitis on vanco day 3 and stool volume decreasing but slow improvement. plan cardiac transplant: sending levels off sunday [facility]. uti treated and resolved. hypomagnesemia improving . hyponatremia probably multifactorial related to chronic mag/ renal problems and c diff infection causing volume contraction. now na 130 and will decrease i.v. fluids and no further ddavp and recheck in 12 hours. advance diet and monitor fluid status. to med surg and increase activity . diarrhea chronically but clearly c diff started after antibiotics as prev. c diff test neg. 12/14 day before initiating antibiotic. boh
[2019-12-26] MEDS: Simvastatin 10 MG Tab PO SCH (20:13)
[2019-12-26] MEDS ORDERED: Saccharomyces Boulardii (Probiotic) 250 MG Cap PO SCH (21:00)
[2019-12-27] MEDS: metroNIDAZOLE 250 MG Tab PO SCH ×2 (05:04→09:47)
[2019-12-27] MEDS: Levothyroxine 75 MCG Tab PO SCH (05:04)
[2019-12-27] MEDS: Pantoprazole 40 MG Tab.CR PO SCH (05:04)
[2019-12-27] MEDS ORDERED: Levothyroxine 75 MCG Tab PO SCH (06:00)
[2019-12-27 08:28] VITALS: BP 112/81; PULSE 86
[2019-12-27] MEDS: TACROLIMUS 0.5 MG PO SCH (08:34)
[2019-12-27] MEDS: MYCOPHENOLATE 500 MG PO SCH (08:35)
[2019-12-27] MEDS: Calcium Polycarbophil 625 MG Tab PO SCH (08:36)
[2019-12-27] MEDS: Calcium Carbonate/Vitamin D3 600 MG-200 Units Tab PO SCH (08:36)
[2019-12-27] MEDS: Vancomycin 125 MG Cap PO SCH ×2 (08:36→12:13)
[2019-12-27] MEDS: busPIRone 15 MG Tab PO SCH (08:37)
[2019-12-27] MEDS: Enoxaparin 40 MG/0.4 ML Syringe SUBCUT SCH (08:38)
[2019-12-27] MEDS ORDERED: Losartan 25 MG Tab PO SCH (09:00)
[2019-12-27] MEDS ORDERED: Aspirin 81 MG Tab.EC PO SCH (09:00)
[2019-12-27] MEDS ORDERED: Magnesium Sulfate/Water 4 GM in Premix Bag 1 BAG IV ONE (09:30)
[2019-12-27] MEDS: LORazepam 0.5 MG Tab PO PRN (11:07)
--- NOTE | 2019-12-27 12:10 | PCM.DCSUM1 ---
Discharge Summary - Hospital Course HPI Initial Comments: 12/24/19 afebrile. vss h.r. 90-110. does not feel dizzy but weak. feels poor / stooling freq.>20 x loose. anxious . slept poorly and tired . no cvs no resp complaints . abd eating moderate only . p.e. lungs clear . cor:rrr 105. abd benign and non tender b.s active. neuro oriented. skin small lesion on upper lip without signs of infection or vesicles /drainage. assess. c diff colitis on vanco day 3 and stool volume decreasing but slow improvement. plan cardiac transplant: sending levels off sunday to [facility]. uti treated and resolved. hypomagnesemia improving . hyponatremia probably multifactorial related to chronic mag/ renal problems and c diff infection causing volume contraction. now na 130 and will decrease i.v. fluids and no further ddavp and recheck in 12 hours. advance diet and monitor fluid status. to med surg and increase activity . diarrhea chronically but clearly c diff started after antibiotics as prev. c diff test neg. 12/14 day before initiating antibiotic. boh Subjective Update: see note . 12/26/19 assess: c diff doing some better . stools decreasing abd pain resolved and starting p.o food. if poor response add metronidazole. hyponatremia na 130 . no neurologic signs and up and walking and c/o weakness. has chronic low chloride releated to previous loose stools and cardiac transplant meds . hypokalemia : improved. / now hydrated and will need to pass oral fluid intake . depression / anxiety supportive discussion of symptoms and patient states " i'm done with this " dehydration : resolved with high i.v replacement,now switching to oral and self regulating. boh 12/26/19 PM assess c diff doing about the same but more abd pain . stool count 17 by patient . will add metronidazole sec to slow response. hyponatremia : unchanged and osmoles still low with normal anion gap and chronic low chloride. will cont oral hydration and reassess. hypomagnesemia : will need oral held sec to diarrhea nd cont i.v. scheduled as o.p. hypokalemia : repeat k boluses. weakness: unchanged depression :consult Dr Baldomero hicks for now . supportive care offered regarding medical malaise. cardiac transplant : tachicardia chronic and needs trough levels sent off to [facility] transplant labs . boh Functional Status: Reports: Pain Controlled - Review of Systems General: Reports: Fatigue, Malaise, Appetite. Denies: No Symptoms HEENT: Reports: No Symptoms Pulmonary: Reports: No Symptoms Cardiovascular: Reports: No Symptoms Gastrointestinal: Reports: No Symptoms, Abdominal Pain, Decreased Appetite, Diarrhea, Flatus Genitourinary: Reports: No Symptoms, Frequency, Urgency Musculoskeletal: Reports: No Symptoms Skin: Reports: No Symptoms Neurological: Reports: No Symptoms Psychiatric: Reports: No Symptoms - Discharge Data Discharge Date: 12/27/19 Discharge Disposition: Home, Self-Care 01 Condition: Good - Referral to Home Health Primary Care Physician: Zackery Townsend MD - Discharge Diagnosis/Problem(s) (1) C. difficile enteritis SNOMED Code(s): 485063130 ICD Code: A04.72 - ENTEROCOLITIS D/T CLOSTRIDIUM DIFFICILE, NOT SPCF RECUR Status: Acute Priority: High Current Visit: Yes Onset Date: Problem Details: c diff. responding very slowly . add metronidizole . DC HOME ADD COLESTID (2) Anxiety about health SNOMED Code(s): 597498130 ICD Code: F41.8 - OTHER SPECIFIED ANXIETY DISORDERS Status: Acute Priority: Medium Current Visit: Yes Onset Date: 12/25/19 Problem Details: addressing and discussed concerns. 12/27/19 consult phychiatry for chronic / acute anxiety depression. (3) Hyponatremia with decreased serum osmolality SNOMED Code(s): 016042827 ICD Code: E87.1 - HYPO-OSMOLALITY AND HYPONATREMIA Status: Acute Priority : High Current Visit: Yes Onset Date: 12/23/19 Problem Details: responding to ddavp and now i.v decreased and voiding better and diarrhea still prominant but lessening some. 20 stools yesterday but pain and nausea much better. starting to eat . 12/27/19 hyponatremia same and def. chronic contraction hypochloremic component sec to chronic diarrhea and rejection renal effects before c diff started. target na 130-140 with control of hypomagnesemia and hypokalemia (4) Palpitations SNOMED Code(s): 38682672 ICD Code: R00.2 - PALPITATIONS Status: Acute Priority: Medium Current Visit: No Onset Date: 12/23/19 Problem Details: tachicardia stable (5) Hypomagnesemia SNOMED Code(s): 367027571 ICD Code: E83.42 - HYPOMAGNESEMIA Status: Chronic Priority: High Current Visit: No Onset Date: 12/23/19 Problem Details: chronic severe hypmagnesium sec. to renal wasting and rejection meds along with chronic diarrhea. will require i.v matanance with p.o replacement 12/26 RECHECK IN 72 HOURS AND KEEP OFF P.O X 24 HOURS (6) Status post heart transplant Status: Chronic Priority: Medium Current Visit: No Onset Date: 12/23/19 Problem Details: sending off tacrolimus and mycophil levels ON 12/31/19 - Patient Summary/Data Consults: Consultations 12/26/19 10:23 Consult to [employer] [CONS] Routine Consult to Physician [CONS] Urgent Hospital Course: SEE PROGRESS NOTES. 12/27/19 AFEBRILE VSS DOING VERY WELL / SLEPT WELL/ ABD PAIN DECREASED SIGN. WEAKNESS BETTER P.E WNL LAB MG LOW AGAIN 1.5 K SLIGHTLY LOW SIDE. NA 131 TOLERATING METRONIDAZOLE AND STOOLS 13 YESTERDAY AND 3 SO FAR THIS AM. ASSESS C DIFF BETTER CONT VANCO AND METRONIDIZOLE ADD LOW DOSE COLESTID. HYPOMAG GIVE 4 GRAMS THIS AM . HYPOKALEMIA STABLE. B.P AND TACH STABLE. TRANSPLANT STATUS STABLE DEPRESSION AND ANXIETY STABLE . DC HOME TODAY IF SHE FEELS GOOD F/U IN 72 HOURS - Patient Instructions Diet, Other: STARCHY DIET/LACTOSE TOLERATED Feeding Instructions: HIGH STARCH DIET TOLERATED Activity: As Tolerated Driving: May Drive Today - Discharge Plan *PRESCRIPTION DRUG MONITORING PROGRAM REVIEWED*: Not Applicable *COPY OF PRESCRIPTION DRUG MONITORING REPORT IN PATIENT DENI: Not Applicable Prescriptions/Med Rec: metroNIDAZOLE 250 mg PO Q6H #30 tablet Vancomycin 125 mg PO QID #30 cap Home Medications: Home Meds Pantoprazole [ProTONIX] 40 mg PO DAILY 03/10/19 [History] Simvastatin [Zocor] 10 mg PO QPM 03/10/19 [History] Tacrolimus [Prograf] 2.5 mg PO QAM 03/10/19 [History] busPIRone [Buspar] 0.5 tab PO BID 03/10/19 [History] Calcium Carbonate/Vitamin D3 [Calcium 500-Vit D3 125 Caplet] 2 tab PO BID [History] Lactobacillus Acidophilus [Probiotic] 1 cap PO BEDTIME 07/01/19 [History] Multivitamin [Daily Multiple Vitamin] 1 tab PO DAILY 07/01/19 [History] Tacrolimus [Prograf] 2 mg PO BEDTIME 07/01/19 [History] mycophenolate mofetiL [Cellcept] 1,500 mg PO BID 07/01/19 [History] Aspirin [Adult Low Dose Aspirin EC] 81 mg PO DAILY 12/19/19 [History] Levothyroxine Sodium [Euthyrox] 75 mcg PO DAILY 12/19/19 [History] Losartan Potassium 25 mg PO DAILY 12/19/19 [History] Magnesium Gluconate [Mag-G] 54 mg PO QID 12/19/19 [History] Aspirin [Halfprin] 81 mg PO DAILY tab.ec 12/27/19 [Rx] Calcium Carbonate/Vitamin D3 [Calcium Carbonate/Vitamin D 600 MG-200 Unit] 2 tab PO BID tablet 12/27/19 [Rx] Levothyroxine 75 mcg PO ACBREAKFAST tablet 12/27/19 [Rx] Loratadine [Claritin] 10 mg PO DAILY PRN tablet 12/27/19 [Rx] Losartan [Cozaar] 25 mg PO DAILY tablet 12/27/19 [Rx] Ondansetron [Zofran] 4 mg IV Q4H PRN vial 12/27/19 [Rx] Pantoprazole [ProTONIX] 40 mg PO ACBREAKFAST tab.cr 12/27/19 [Rx] Patient's Own Medication [Ptom] 0 each PO BEDTIME each 12/27/19 [Rx] Patient's Own Medication [Ptom] 0 each PO BID each 12/27/19 [Rx] Patient's Own Medication [Ptom] 0 each PO QAM each 12/27/19 [Rx] Saccharomyces Boulardii [Florastor] 250 mg PO BEDTIME cap 12/27/19 [Rx] Vancomycin 125 mg PO QID #30 cap 12/27/19 [Rx] busPIRone [Buspar] 7.5 mg PO BID tablet 12/27/19 [Rx] metroNIDAZOLE 250 mg PO Q6H #30 tablet 12/27/19 [Rx] Oxygen Therapy Mode: Room Air Patient Handouts: Clostridioides Difficile Infection, [id number], Heart Failure Forms: ED Department Discharge Referrals: Zackery Townsend MD [Primary Care Provider] - - Discharge Summary/Plan Comment DC Time >30 min.: Yes - General Info Admission Dx/Problem (Free Text: 12/27/19 AFEBRILE VSS DOING VERY WELL / SLEPT WELL/ ABD PAIN DECREASED SIGN. WEAKNESS BETTER P.E WNL LAB MG LOW AGAIN 1.5 K SLIGHTLY LOW SIDE. NA 131 TOLERATING METRONIDAZOLE AND STOOLS 13 YESTERDAY AND 3 SO FAR THIS AM. ASSESS C DIFF BETTER CONT VANCO AND METRONIDIZOLE ADD LOW DOSE COLESTID. HYPOMAG GIVE 4 GRAMS THIS AM . HYPOKALEMIA STABLE. B.P AND TACH STABLE. TRANSPLANT STATUS STABLE DEPRESSION AND ANXIETY STABLE . DC HOME TODAY IF SHE FEELS GOOD F/U IN 72 HOURS Subjective Update: see note . 12/26/19 assess: c diff doing some better . stools decreasing abd pain resolved and starting p.o food. if poor response add metronidazole. hyponatremia na 130 . no neurologic signs and up and walking and c/o weakness. has chronic low chloride releated to previous loose stools and cardiac transplant meds . hypokalemia : improved. / now hydrated and will need to pass oral fluid intake . depression / anxiety supportive discussion of symptoms and patient states " i'm done with this " dehydration : resolved with high i.v replacement,now switching to oral and self regulating. boh 12/26/19 assess c diff doing about the same but more abd pain . stool count 17 by patient . will add metronidazole sec to slow response. hyponatremia : unchanged and osmoles still low with normal anion gap and chronic low chloride. will cont oral hydration and reassess. hypomagnesemia : will need oral held sec to diarrhea nd cont i.v. scheduled as o.p. hypokalemia : repeat k boluses. weakness: unchanged depression :consult Dr Baldomero hicks for now . supportive care offered regarding medical malaise. cardiac transplant : tachicardia chronic and needs trough levels sent off to [facility] transplant labs . boh 12/27/19 AFEBRILE VSS DOING VERY WELL / SLEPT WELL/ ABD PAIN DECREASED SIGN. WEAKNESS BETTER P.E WNL LAB MG LOW AGAIN 1.5 K SLIGHTLY LOW SIDE. NA 131 TOLERATING METRONIDAZOLE AND STOOLS 13 YESTERDAY AND 3 SO FAR THIS AM. ASSESS C DIFF BETTER CONT VANCO AND METRONIDIZOLE ADD LOW DOSE COLESTID. HYPOMAG GIVE 4 GRAMS THIS AM . HYPOKALEMIA STABLE. B.P AND TACH STABLE. TRANSPLANT STATUS STABLE DEPRESSION AND ANXIETY STABLE . DC HOME TODAY IF SHE FEELS GOOD F/U IN 72 HOURS Functional Status: Reports: Pain Controlled - Review of Systems General: Reports: No Symptoms HEENT: Reports: No Symptoms Pulmonary: Reports: No Symptoms Cardiovascular: Reports: No Symptoms Gastrointestinal: Reports: No Symptoms Genitourinary: Reports: No Symptoms Musculoskeletal: Reports: No Symptoms Skin: Reports: No Symptoms Neurological: Reports: No Symptoms Psychiatric: Reports: No Symptoms - Patient Data Vitals - Most Recent: Last Vital Signs Temp 36.7 C 12/27/19 08:27 Pulse 86 12/27/19 08:27 Resp 16 12/27/19 08:27 BP 112/81 12/27/19 08:36 Pulse Ox 96 12/27/19 08:27 Weight - Most Recent: 68.71 kg I&O - Last 24 hours: Intake & Output 12/26/19 12/27/19 12/27/19 22:59 06:59 14:59 Intake Total 1360 240 Balance 1360 240 Lab Results - Last 24 hrs: Laboratory Results - last 24 hr 12/27/19 12/27/19 Range/Units 05:15 05:15 Sodium 131 L (136-145) mEq/L Potassium 3.8 (3.5-5.1) mEq/L Chloride 100 (98-107) mEq/L Carbon Dioxide 17 L (21-32) mEq/L Anion Gap 17.8 H (5-15) BUN 5 L (7-18) mg/dL Creatinine 1.1 H (0.55-1.02) mg/dL Est Cr Clr Drug Dosing 50.24 mL/min Estimated GFR (MDRD) 50 (>60) mL/min BUN/Creatinine Ratio 4.5 L (14-18) Glucose 87 (80-115) mg/dL Calcium 9.0 (8.5-10.1) mg/dL Magnesium 1.9 (1.8-2.4) mg/dl TRUDY Results - Last 24 hrs: Microbiology 12/23/19 16:10 Stool Culture - Final Stool / Feces Shiga Toxin I & II - Final Med Orders - Current: Current Medications Acetaminophen (Tylenol) 650 mg PO Q4H PRN PRN Reason: Pain (Mild 1-3)/fever Aspirin (Halfprin) 81 mg PO DAILY [facility] Last Admin: 12/27/19 08:37 Dose: 81 mg Buspirone HCl (Buspar) 7.5 mg PO BID [facility] Last Admin: 12/27/19 08:37 Dose: 7.5 mg Calcium Carbonate (Calcium Carbonate/Vitamin D 600 Mg-200 Unit) 2 tab PO BID [facility] Last Admin: 12/27/19 08:36 Dose: 2 tab Calcium Polycarbophil (Fibercon) 625 mg PO BID [facility] Last Admin: 12/27/19 08:36 Dose: 625 mg Enoxaparin Sodium (Lovenox) 40 mg SUBCUT DAILY [facility] Last Admin: 12/27/19 08:38 Dose: 40 mg Magnesium Sulfate 4 gm/ Premix 50 mls @ 12.5 mls/hr IV ONETIME ONE Stop: 12/27/19 13:29 Last Admin: 12/27/19 09:48 Dose: 12.5 mls/hr Levothyroxine Sodium (Levothyroxine) 75 mcg PO ACBREAKFAST [facility] Last Admin: 12/27/19 05:04 Dose: 75 mcg Loratadine (Claritin) 10 mg PO DAILY PRN PRN Reason: Allergies Last Admin: 12/26/19 10:46 Dose: 10 mg Lorazepam (Ativan) 0.5 mg PO TID PRN PRN Reason: ANXIETY Last Admin: 12/27/19 11:07 Dose: 0.5 mg Losartan Potassium (Cozaar) 25 mg PO DAILY [facility] Last Admin: 12/27/19 08:36 Dose: 25 mg Metronidazole (Metronidazole) 250 mg PO Q6H [facility] Last Admin: 12/27/19 09:47 Dose: 250 mg Ondansetron HCl (Zofran) 4 mg IV Q4H PRN PRN Reason: Nausea/Vomiting Last Admin: 12/24/19 15:58 Dose: 4 mg Pantoprazole Sodium (Protonix) 40 mg PO ACBREAKFAST [facility] Last Admin: 12/27/19 05:04 Dose: 40 mg Tacrolimus 0.5 Mg (Cap Ptom) 0 each PO QAM [facility] Last Admin: 12/27/19 08:34 Dose: 1 each Tacrolimus 0.5 Mg (Cap Ptom) 0 each PO BEDTIME [facility] Last Admin: 12/26/19 20:14 Dose: 4 each Mycophenolate 500 Mg (TabPtom) 0 each PO BID [facility] Last Admin: 12/27/19 08:35 Dose: 1 each Saccharomyces Boulardii (Florastor) 250 mg PO BEDTIME [facility] Last Admin: 12/26/19 20:14 Dose: 250 mg Simvastatin (Zocor) 10 mg PO BEDTIME [facility] Last Admin: 12/26/19 20:13 Dose: 10 mg Sodium Chloride (Saline Flush) 10 ml FLUSH ASDIRECTED PRN PRN Reason: Keep Vein Open Vancomycin HCl (Vancomycin) 125 mg PO QID [facility] Last Admin: 12/27/19 08:36 Dose: 125 mg Discontinued Medications Buspirone HCl (Buspar) 7.5 mg PO BID [facility] Calcium Carbonate (Calcium Carbonate/Vitamin D 600 Mg-200 Unit) 1 tab PO BID [facility] Last Admin: 12/26/19 20:14 Dose: 1 tab Calcium Polycarbophil (Fibercon) 625 mg PO BID [facility] Desmopressin Acetate (Desmopressin) 2 mcg IV ONETIME ONE Stop: 12/24/19 15:01 Last Admin: 12/24/19 14:58 Dose: Not Given Desmopressin Acetate (Desmopressin) 2 mcg IV ONETIME ONE Stop: 12/24/19 20:46 Last Admin: 12/24/19 20:18 Dose: 2 mcg Sodium Chloride (Normal Saline) 1,000 mls @ 999 mls/hr IV ONETIME ONE Stop: 12/23/19 15:45 Last Admin: 12/23/19 15:07 Dose: 999 mls/hr Magnesium Sulfate 2 gm/ Premix 50 mls @ 25 mls/hr IV ONETIME ONE Stop: 12/23/19 18:16 Last Admin: 12/23/19 16:46 Dose: 25 mls/hr Sodium Chloride (Normal Saline) 1,000 mls @ 999 mls/hr IV ONETIME ONE Stop: 12/23/19 17:19 Last Admin: 12/23/19 16:47 Dose: 999 mls/hr Sodium Chloride (Normal Saline) 1,000 mls @ 200 mls/hr IV ASDIRECTED [facility] Last Admin: 12/23/19 20:21 Dose: 200 mls/hr Magnesium Sulfate 4 gm/ Premix 50 mls @ 12.5 mls/hr IV ONETIME ONE Stop: 12/23/19 23:06 Last Admin: 12/23/19 19:42 Dose: 12.5 mls/hr Magnesium Sulfate 2 gm/ Premix 50 mls @ 25 mls/hr IV ONETIME ONE Stop: 12/23/19 23:35 Last Admin: 12/23/19 22:35 Dose: 25 mls/hr Dextrose/Water (Dextrose 5% In Water) 1,000 mls @ 100 mls/hr IV ASDIRECTED [facility] Last Admin: 12/24/19 18:21 Dose: 100 mls/hr Dextrose/Water (Dextrose 5% In Water) 1,000 mls @ 50 mls/hr IV ASDIRECTED [facility] Last Admin: 12/24/19 20:25 Dose: 50 mls/hr Magnesium Sulfate 4 gm/ Premix 50 mls @ 12.5 mls/hr IV ONETIME ONE Stop: 12/25/19 13:29 Last Admin: 12/25/19 09:32 Dose: 12.5 mls/hr Potassium Chloride 10 meq/ (Premix) 100 mls @ 100 mls/hr IV Q1H [facility] Stop: 12/25/19 11:29 Last Admin: 12/25/19 11:25 Dose: 50 mls/hr Magnesium Sulfate 4 gm/ Premix 50 mls @ 12.5 mls/hr IV ONETIME ONE Stop: 12/26/19 12:34 Last Admin: 12/26/19 09:08 Dose: 12.5 mls/hr Potassium Chloride 10 meq/ (Premix) 100 mls @ 100 mls/hr IV Q1H [facility] Stop: 12/26/19 10:44 Last Admin: 12/26/19 12:23 Dose: 50 mls/hr Levothyroxine Sodium (Synthroid) 50 mcg PO ONETIME ONE Stop: 12/24/19 06:01 Last Admin: 12/24/19 05:41 Dose: 50 mcg Levothyroxine Sodium (Levothyroxine) 75 mcg PO ACBREAKFAST [facility] Lorazepam (Ativan) 1 mg IVPUSH ONETIME ONE Stop: 12/23/19 15:03 Last Admin: 12/23/19 15:07 Dose: 1 mg Metoclopramide HCl (Reglan) 10 mg IVPUSH ONETIME ONE Stop: 12/23/19 14:47 Last Admin: 12/23/19 15:07 Dose: 10 mg Non-Formulary Medication (Tacrolimus) 4 mg PO BEDTIME [facility] Non-Formulary Medication (Lorazepam) 0.5 mg PO TID PRN PRN Reason: Anxiety Non-Formulary Medication (Tacrolimus) 5 mg PO QAM [facility] Non-Formulary Medication (Mycophenolate Mofetil) 1,500 mg PO BID [facility] Pantoprazole Sodium (Protonix) 40 mg PO DAILY [facility] Potassium Chloride (Klor-Con M20) 40 meq PO ONETIME ONE Stop: 12/23/19 16:20 Last Admin: 12/23/19 16:46 Dose: 40 meq Potassium Chloride (Klor-Con M20) 20 meq PO ONETIME ONE Stop: 12/23/19 21:37 Last Admin: 12/23/19 22:36 Dose: 20 meq Potassium Chloride (Klor-Con M20) 40 meq PO ONETIME ONE Stop: 12/24/19 14:17 Last Admin: 12/24/19 14:43 Dose: 40 meq Simvastatin (Zocor) 10 mg PO QPM [facility] Sodium Chloride (Saline Flush) 10 ml FLUSH ASDIRECTED PRN PRN Reason: Keep Vein Open Last Admin: 12/23/19 14:45 Dose: 10 ml Tacrolimus (Prograf) 5 mg PO QAM [facility] Last Admin: 12/24/19 08:14 Dose: Not Given Tacrolimus (Prograf) 4 mg PO BEDTIME EDU[facility] - Exam General: Reports: Alert, Oriented HEENT: Reports: Pupils Equal, Pupils Reactive, EOMI, Mucous Membr. Moist/[place]: Reports: Supple Lungs: Reports: Clear to Auscultation, Normal Respiratory Effort Cardiovascular: Reports: Regular Rate, Regular Rhythm GI/Abdominal Exam: Normal Bowel Sounds, Soft, Non-Tender, No Organomegaly, No Distention, No Abnormal Bruit, No Mass, Pelvis Stable (Female) Exam: Normal External Exam, Normal Speculum Exam, Normal Bimanual Exam Rectal (Female) Exam: Normal Exam, Normal Rectal Tone Back Exam: Reports: Normal Inspection, Full Range of Motion Extremities: Normal Inspection, Normal Range of Motion, Non-Tender, No Pedal Edema, Normal Capillary Refill Skin: Reports: Warm, Dry, Intact Wound/Incisions: Reports: Healing Well Neurological: Reports: No New Focal Deficit Psy/Mental Status: Reports: Alert, Normal Affect, Normal Mood
--- NOTE | 2019-12-29 15:06 | CONS ---
CONSULTING PHYSICIAN: Shiv Alexandre MD DATE OF CONSULTATION: 12/26/2019 Site where the services are provided is [facility] in [place], [place]. Site where the services are provided are offices in [facility]. Length of service for this 60-minute inpatient telemedicine event is 60 minutes. IDENTIFICATION: The patient is a 64-year-old female who is admitted to the inpatient MICU at [facility] in [place], [place], on 12/23/2019. She is seen for psychiatric consultation per the request of staff attending, Dr. Landeros, and his treatment team. CHIEF COMPLAINT: "I have been into the ER on the and the because I have had such a bad pain in my ribcage and diarrhea." HISTORY OF PRESENT ILLNESS: The patient is a 64-year-old female who is admitted to the MICU at [facility] in [place], [place], secondary to difficulties with C diff and hyponatremia as well as tachycardia. She is assessed now per the request of the treatment team for anxiety and possible depression. The patient is acknowledging that she has struggled with anxiety, and she states "I am a little nervous about my daughter and grandkids" with the [place] Covid-19 virus pandemic going on throughout the nation. She also states that she gets "sad sometimes" has been struggling with dementia. That said, she is denying that she is excessively depressed, and she feels her anxiety is under control with her current psychiatric medication regimen of BuSpar and Ativan, and this regimen is managed by her outpatient psychiatrist, Dr. Ahuja. The patient states that she did try an antidepressant in the past, but it gave her bad nightmares, and she does not want to try an antidepressant at this point in time because she does not feel that she is clinically depressed. She feels that her anxiety is manageable if her physical health issues resolve, and she states that she does not want anything changed at this point in time from a psychiatric standpoint, but rather would like to follow up with Outpatient Psychiatry when she is medically stabilized and discharged back to the community. MEDICATIONS: Psychiatric medications at the time of presentation are; 1. BuSpar 7.5 mg b.i.d. 2. Ativan 0.5 mg b.i.d. p.r.n. acute anxiety and panic. ALLERGIES: 1. Sulfa. 2. Nitrofurantoin. 3. Clindamycin. 4. Cefuroxime. 5. Zostavax. 6. History of allergies to dust and molds. PAST MEDICAL HISTORY: 1. C diff. 2. Hyponatremia. 3. Status post cardiac transplant at [facility] in 2007 secondary to cardiomyopathy. 4. History of diverticulitis. 5. History of vertigo. 6. History of migraines. 7. History of tachycardia. REVIEW OF SYSTEMS: Aside from cardiovascular, GI, and neurologic, all other major organ systems are negative at this point in time for acute difficulties or complications. FAMILY PSYCHIATRIC AND CHEMICAL DEPENDENCY HISTORY: The patient reports her father struggling with dementia. PAST PSYCHIATRIC AND CHEMICAL DEPENDENCY HISTORY: Essentially negative in terms of previous psychiatric hospitalizations or chemical dependency treatment. The patient denies any excessive alcohol use or illicit substance use in the past or current. She denies any previous suicide attempts or self-injurious behaviors. Denies any eating disorder history. Reports no abuse issues. She has a past psychiatric medication history of Zoloft which gave her bad dreams. Current outpatient psychiatrist is Dr. Ahuja. SOCIAL HISTORY: The patient was born and raised in [place], [place]. She is the 4th of 6 siblings. Having 5 brothers, 3 of whom are . The patient's parents were , but mom when the patient was 3 years of age. Father was a sauer. The patient's highest level of education is Bachelor's of Science and Accounting. 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 She was x1, but is currently . Not involved in any current relationships. She has 2 daughters from the marriage, and she currently lives in [place], [place]. She denies any prior service or any current legal difficulties. She is Congregation in terms of her mimi formation. She enjoys spending time with friends and eating out, and now she is spending time with her great granddaughter. MENTAL STATUS EXAM: The patient is a 64-year-old soft-spoken white female in no apparent distress. Speech is of regular rate and rhythm. The patient is cognitively oriented. Psychomotor activity within normal limits. There are no abnormal motor movements or tics observed. Gait steady. Station is normal. Mood is "sad sometimes," but okay overall. Affect is cooperative overall for the purposes of the inpatient consult, perhaps somewhat fatigued appearing. There is no behavioral or stated evidence of acute suicidal or homicidal ideation or acute psychotic, delusional, or paranoid symptoms. Thought processes are organized. There are no manic symptoms or loose associations evident. Judgment and insight appear unimpaired at this point in time. Motivation for help appears good. VITALS AT THE TIME OF PRESENTATION: 127/80, 104, 16, 97.1 degrees. IMPRESSION: [place] I: 1. Anxiety disorder, not otherwise specified, F41.9. 2. Depression, not otherwise specified, F32.9. 3. Rule out generalized anxiety disorder. 4. Rule out major depressive disorder. [place] II: None. [place] III: 1. Clostridium difficile. 2. Hyponatremia. 3. Status post cardiac transplant in 2007 secondary to cardiomyopathy. 4. History of diverticulitis. 5. History of vertigo. 6. History of migraines. 7. History of tachycardia. [place] IV: Severe. [place] V: 60-physical health issues. PLAN: 1. Continue current treatment regimen as laid out by the patient's primary inpatient medical treatment team. 2. We will hold off on making any psychiatric medication adjustments at this point in time as the patient appears psychiatrically stable and not a danger to herself or others, and the patient is wanting to follow up with her own Outpatient Psychiatry. 3. We will continue to follow up on an as-needed basis while the patient remains on the inpatient MICU if anything changes from a psychiatric standpoint. 4. We will follow up with the patient sooner if any complications in the interim. 5. Crisis plan is in place. STANLEY /[id number]
== END 2019-12-27 15:15 | disposition home or self-care (01) | DRG 426 ==
LOC: JD.ED 14:08 → JD.ICU 16:27
PROVIDERS: ADMIT Pediatrics; ATTEND Pediatrics
DX: E87.1 Hypo-osmolality and hyponatremia (principal); A04.72 Enterocolitis due to Clostridium difficile, not specified as recurrent; F41.8 Other specified anxiety disorders; R00.2 Palpitations; E83.42 Hypomagnesemia; Z94.1 Heart transplant status; E87.6 Hypokalemia; I12.9 Hypertensive chronic kidney disease with stage 1 through stage 4 chronic kidney disease, or unspecified chronic kidney disease; N18.3 Chronic kidney disease, stage 3 (moderate); I42.9 Cardiomyopathy, unspecified; E78.00 Pure hypercholesterolemia, unspecified; I48.91 Unspecified atrial fibrillation; I35.1 Nonrheumatic aortic (valve) insufficiency; Z88.1 Allergy status to other antibiotic agents; Z88.2 Allergy status to sulfonamides; Z88.7 Allergy status to serum and vaccine; Z79.82 Long term (current) use of aspirin; Z79.890 Hormone replacement therapy; Z98.49 Cataract extraction status, unspecified eye; Z79.899 Other long term (current) drug therapy; Z87.891 Personal history of nicotine dependence; N39.0 Urinary tract infection, site not specified
CPT/HCPCS: 36415; 71045; 71045-26; 80048; 80053; 83735; 83880; 83930; 83935; 83970; 84443; 84484; 85007; 85025; 85027; 85379; 85610; 85730; 87045; 87046; 87324; 87493; 87899; 89055; 90792; 93005; 93010; 96361; 96374; 96375; 99223; 99232; 99284; 99285-25; A9270-GY; J1650; J2060; J2405; J2597; J2765; J3475; J3480; J7030; J7060; Q3014

== ENCOUNTER 2020-01-25 10:21 | Emergency (ER) | payer BC ==
[2020-01-25 10:33] VITALS: BP 145/110; PULSE 135
--- NOTE | 2020-01-25 11:04 | EDM.PDOC ---
ED HPI GENERAL MEDICAL PROBLEM - General Chief Complaint: Gastrointestinal Problem Stated Complaint: C-DIFF Time Seen by Provider: 01/25/20 11:03 - History of Present Illness INITIAL COMMENTS - FREE TEXT/NARRATIVE: 64-year-old female presents the emergency room with lower abdominal pain. This is been an ongoing issue with her for the last couple of months. She was admitted at the end of November with a C. difficile infection she was treated and is uncertain if this is completely resolved. This morning she had a normal BM followed by one that was semi-loose has not had any fevers or chills she has some vague lower abdominal discomfort seems to favor the left side. She has not had any nausea or vomiting her situation is complicated been cardiac transplant recipient she is immunocompromised on graft protective medication. Her pulse was noted to be a little fast. I questioned her about this and normally she runs above 100. Lower Abdomen Pain Score (Numeric/FACES): 5 - Related Data Allergies Allergy/AdvReac Type Severity Reaction Status Date / Time cefuroxime [From Ceftin] Allergy Cannot Verified 01/25/20 10:34 Remember clindamycin Allergy Cannot Verified 01/25/20 10:34 Remember nitrofurantoin Allergy Cannot Verified 01/25/20 10:34 [From Macrobid] Remember Sulfa (Sulfonamide Allergy Hives Verified 01/25/20 10:34 Antibiotics) zoster vaccine live Allergy Cannot Verified 01/25/20 10:34 [From Zostavax (PF)] Remember dust Allergy Cannot Uncoded 01/25/20 10:34 Remember mold Allergy Wheezing Uncoded 01/25/20 10:34 Home Meds: Home Meds Pantoprazole [ProTONIX] 40 mg PO DAILY 03/10/19 [History] Simvastatin [Zocor] 10 mg PO QPM 03/10/19 [History] Tacrolimus [Prograf] 2.5 mg PO QAM 03/10/19 [History] Calcium Carbonate/Vitamin D3 [Calcium 500-Vit D3 125 Caplet] 1 tab PO BID [History] Lactobacillus Acidophilus [Probiotic] 1 cap PO BEDTIME 07/01/19 [History] Multivitamin [Daily Multiple Vitamin] 1 tab PO DAILY 07/01/19 [History] Tacrolimus [Prograf] 2 mg PO BEDTIME 07/01/19 [History] mycophenolate mofetiL [Cellcept] 1,500 mg PO BID 07/01/19 [History] Levothyroxine Sodium [Euthyrox] 75 mcg PO DAILY 12/19/19 [History] Losartan Potassium 25 mg PO DAILY 12/19/19 [History] Magnesium Gluconate [Mag-G] 54 mg PO QID 12/19/19 [History] Aspirin [Halfprin] 81 mg PO DAILY tab.ec 12/27/19 [Rx] Colestipol [Colestipol HCl] 2 gm PO BID 12/27/19 [History] Loratadine [Claritin] 10 mg PO DAILY PRN tablet 12/27/19 [Rx] Ondansetron [Zofran] 4 mg IV Q4H PRN vial 12/27/19 [Rx] Saccharomyces Boulardii [Florastor] 250 mg PO BEDTIME cap 12/27/19 [Rx] busPIRone [Buspar] 7.5 mg PO BID tablet 12/27/19 [Rx] Past Medical History HEENT History: Reports: Cataract, Impaired Vision Other HEENT History: Wears glasses, braces Cardiovascular History: Reports: Afib, Arrhythmia, Cardiomyopathy, High Cholesterol, Hypertension Other Cardiovascular History: heart transplant in 2007: prior to transplant had asystole, mitral and aortic valve insufficeincy, afib, cardiomyopathy Respiratory History: Reports: Other (See Below) Other Respiratory History: Severe allergies Gastrointestinal History: Reports: Colon Polyp, Diverticulosis, GERD Other Gastrointestinal History: hematochezia, abdominal pain Genitourinary History: Reports: Urinary Incontinence Other Genitourinary History: urge incontinence 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 Endocrine/Metabolic History: Reports: Hypothyroidism Hematologic History: Reports: Anemia Immunologic History: Reports: Solid Organ Transplant Other Immunologic History: Heart transplant 2007 Dermatologic History: Reports: Psoriasis - Infectious Disease History Infectious Disease History: Reports: Chicken Pox, Measles, Mumps - Past Surgical History Cardiovascular Surgical History: Reports: AICD, Other (See Below) Other Cardiovascular Surgeries/Procedures: heart transplant 2007 Social & Family History - Family History Family Medical History: Noncontributory Cardiac: Reports: Heart Failure, [place] - Tobacco Use Smoking Status *Q: Former Smoker Used Tobacco, but Quit: Yes Month/Year Tobacco Last Used: 2002 - Caffeine Use Caffeine Use: Reports: None - Recreational Drug Use Recreational Drug Use: No - Living Situation & Occupation Living situation: Reports: , Alone Occupation: Employed ED ROS GENERAL - Review of Systems Review Of Systems: See Below Constitutional: Reports: No Symptoms HEENT: Reports: No Symptoms Respiratory: Reports: No Symptoms Cardiovascular: Reports: No Symptoms GI/Abdominal: Reports: Abdominal Pain, Diarrhea (Occasional loose stool. No blood in her stool). Denies: Constipation : Reports: Pain. Denies: Dysuria, Flank Pain, Frequency, Hematuria, Urgency Musculoskeletal: Reports: No Symptoms Skin: Reports: No Symptoms Neurological: Reports: No Symptoms ED EXAM, GI/ABD - Physical Exam Exam: See Below Exam Limited By: No Limitations General Appearance: Alert, No Apparent Distress, Other (Pulse was initially 135 upon check-in now after she has had a chance to rest it is 115) Head: Atraumatic, Normocephalic Neck: Normal Inspection, Supple, Non-Tender, Full Range of Motion Respiratory/Chest: No Respiratory Distress, Lungs Clear, Normal Breath Sounds Cardiovascular: Regular Rate, Rhythm, No Edema, No Murmur, Tachycardia (Pulse roughly 120 during the time of my exam) GI/Abdominal Exam: Normal Bowel Sounds, Soft, Other (Mid lower abdominal discomfort and left lower abdominal discomfort with palpation no rigidity rebound or guarding noted.) Back Exam: Normal Inspection. No: CVA Tenderness (L), CVA Tenderness (R) Course - Vital Signs Last Recorded V/S: Last Vital Signs Temp 36.3 C 01/25/20 10:28 Pulse 135 H 01/25/20 10:28 Resp 16 01/25/20 10:28 BP 145/110 H 01/25/20 10:28 Pulse Ox 98 01/25/20 10:28 - Orders/Labs/Meds Orders: Active Orders 24 hr Category Date Time Status CULTURE URINE [RM] Stat Lab 01/25/20 12:26 Received Labs: Laboratory Tests 01/25/20 01/25/20 01/25/20 Range/Units 11:44 11:44 11:44 WBC 10.21 H (3.98-10.04) K/mm3 RBC 4.23 (3.98-5.22) M/mm3 Hgb 12.1 (11.2-15.7) gm/dl Hct 37.6 (34.1-44.9) % MCV 88.9 (79.4-94.8) fl MCH 28.6 (25.6-32.2) pg MCHC 32.2 (32.2-35.5) g/dl RDW Std Deviation 42.9 (36.4-46.3) fL Plt Count 301 (182-369) K/mm3 MPV 10.5 (9.4-12.3) fl Neut % (Auto) 79.4 H (34.0-71.1) % Lymph % (Auto) 12.5 L (19.3-51.7) % Eaton % (Auto) 7.2 (4.7-12.5) % Eos % (Auto) 0.5 L (0.7-5.8) Baso % (Auto) 0.1 (0.1-1.2) % Neut # (Auto) 8.10 H (1.56-6.13) K/mm3 Lymph # (Auto) 1.28 (1.18-3.74) K/mm3 Eaton # (Auto) 0.74 H (0.24-0.36) K/mm3 Eos # (Auto) 0.05 (0.04-0.36) K/mm3 Baso # (Auto) 0.01 (0.01-0.08) K/mm3 Manual Slide Review Normal smear Sodium 133 L (136-145) mEq/L Potassium 4.3 (3.5-5.1) mEq/L Chloride 96 L (98-107) mEq/L Carbon Dioxide 27 (21-32) mEq/L Anion Gap 14.3 (5-15) BUN 9 (7-18) mg/dL Creatinine 1.1 H (0.55-1.02) mg/dL Est Cr Clr Drug Dosing 50.24 mL/min Estimated GFR (MDRD) 50 (>60) mL/min BUN/Creatinine Ratio 8.2 L (14-18) Glucose 98 (80-115) mg/dL Calcium 9.6 (8.5-10.1) mg/dL Magnesium 1.0 L (1.8-2.4) mg/dl Total Bilirubin 0.3 (0.2-1.0) mg/dL AST 26 (15-37) U/L ALT 32 (14-59) U/L Alkaline Phosphatase 152 H (46-116) U/L C-Reactive Protein 0.3 (<1.0) mg/dL Total Protein 7.1 (6.4-8.2) g/dl Albumin 3.8 (3.4-5.0) g/dl Globulin 3.3 gm/dL Albumin/Globulin Ratio 1.2 (1-2) Urine Color (Yellow) Urine Appearance (Clear) Urine pH (5.0-8.0) Ur Specific [place] (1.005-1.030) Urine Protein (Negative) Urine Glucose (UA) (Negative) Urine Ketones (Negative) Urine Occult Blood (Negative) Urine Nitrite (Negative) Urine Bilirubin (Negative) Urine Urobilinogen (0.2-1.0) Ur Leukocyte Esterase (Negative) Urine RBC (0-5) /hpf Urine WBC (0-5) /hpf Ur Squamous Epith Cells (0-5) /hpf Urine Bacteria (FEW) /hpf Urine Mucus (FEW) /hpf C.difficile 027-NAP1-B1 C. difficile Tox (PCR) 01/25/20 01/25/20 Range/Units 12:08 12:26 WBC (3.98-10.04) K/mm3 RBC (3.98-5.22) M/mm3 Hgb (11.2-15.7) gm/dl Hct (34.1-44.9) % MCV (79.4-94.8) fl MCH (25.6-32.2) pg MCHC (32.2-35.5) g/dl RDW Std Deviation (36.4-46.3) fL Plt Count (182-369) K/mm3 MPV (9.4-12.3) fl Neut % (Auto) (34.0-71.1) % Lymph % (Auto) (19.3-51.7) % Eaton % (Auto) (4.7-12.5) % Eos % (Auto) (0.7-5.8) Baso % (Auto) (0.1-1.2) % Neut # (Auto) (1.56-6.13) K/mm3 Lymph # (Auto) (1.18-3.74) K/mm3 Eaton # (Auto) (0.24-0.36) K/mm3 Eos # (Auto) (0.04-0.36) K/mm3 Baso # (Auto) (0.01-0.08) K/mm3 Manual Slide Review Sodium (136-145) mEq/L Potassium (3.5-5.1) mEq/L Chloride (98-107) mEq/L Carbon Dioxide (21-32) mEq/L Anion Gap (5-15) BUN (7-18) mg/dL Creatinine (0.55-1.02) mg/dL Est Cr Clr Drug Dosing mL/min Estimated GFR (MDRD) (>60) mL/min BUN/Creatinine Ratio (14-18) Glucose (80-115) mg/dL Calcium (8.5-10.1) mg/dL Magnesium (1.8-2.4) mg/dl Total Bilirubin (0.2-1.0) mg/dL AST (15-37) U/L ALT (14-59) U/L Alkaline Phosphatase (46-116) U/L C-Reactive Protein (<1.0) mg/dL Total Protein (6.4-8.2) g/dl Albumin (3.4-5.0) g/dl Globulin gm/dL Albumin/Globulin Ratio (1-2) Urine Color Yellow (Yellow) Urine Appearance Clear (Clear) Urine pH 6.0 (5.0-8.0) Ur Specific [place] 1.015 (1.005-1.030) Urine Protein Negative (Negative) Urine Glucose (UA) Negative (Negative) Urine Ketones Negative (Negative) Urine Occult Blood Negative (Negative) Urine Nitrite Negative (Negative) Urine Bilirubin Negative (Negative) Urine Urobilinogen 0.2 (0.2-1.0) Ur Leukocyte Esterase Trace H (Negative) Urine RBC Not seen (0-5) /hpf Urine WBC 0-5 (0-5) /hpf Ur Squamous Epith Cells 0-5 (0-5) /hpf Urine Bacteria Rare (FEW) /hpf Urine Mucus Not seen (FEW) /hpf C.difficile 027-NAP1-B1 TNP C. difficile Tox (PCR) TNP Meds: Medications Discontinued Medications Generic Name Dose Route Start Last Admin Trade Name Lito PRN Reason Stop Dose Admin Dicyclomine HCl 20 mg 01/25/20 18:39 Bentyl PO 01/25/20 18:40 ONETIME ONE Hyoscyamine 0.125 mg 01/25/20 17:41 01/25/20 17:49 Hyomax-Sl SL 01/25/20 17:42 0.125 mg ONETIME ONE Administration Magnesium Sulfate 2 gm/ Premix 50 mls @ 25 mls/hr 01/25/20 14:33 01/25/20 15: 08 IV 01/25/20 16:32 25 mls/hr ONETIME ONE Administration Sodium Chloride 500 mls @ 500 mls/hr 01/25/20 14:39 01/25/20 15:08 Normal Saline IV 01/25/20 15:38 500 mls/hr .BOLUS ONE Administration - Re-Assessments/Exams Free Text/Narrative Re-Assessment/Exam: 01/25/20 14:38 Stool was too formed to do a C. difficile study on. Magnesium was low at 1.0 will give 2 g now IV will proceed up abdominal pelvic CT with IV and oral contrast pursuing the cause of this pain. 01/25/20 18:42 CT was unremarkable. I did give her a Levsin 0.125 mg and she had some improvement with that of no pharmacies open at this hour we can give her Bentyl through the machine on the waiting room however the patient decided she did not want to try this in case she has a reaction to it. We will discharge her with follow-up in the clinic Departure - Departure Time of Disposition: 18:43 Disposition: Home, Self-Care 01 Clinical Impression: Abdominal pain Qualifiers: Abdominal location: left upper quadrant Qualified Code(s): R10.12 - Left upper quadrant pain Irritable bowel syndrome (IBS) Qualifiers: Irritable bowel syndrome type: with diarrhea Qualified Code(s): K58.0 - Irritable bowel syndrome with diarrhea - Discharge Information Referrals: Zackery Townsend MD [Primary Care Provider] - Forms: ED Department Discharge Additional Instructions: Return to the emergency room with any questions problems or worsening symptoms. Follow-up with Dr. Landeros at this next week Sepsis Event Note - Evaluation Sepsis Screening Result: No Definite Risk - Focused Exam Vital Signs: Vital Signs Temp Pulse Resp BP Pulse Ox 01/25/20 10:28 36.3 C 135 H 16 145/110 H 98 Date Exam was Performed: 01/25/20 Time Exam was Performed: 18:42 - My Orders Last 24 Hours: My Active Orders 01/25/20 12:26 CULTURE URINE [RM] Stat - Assessment/Plan Last 24 Hours: My Active Orders 01/25/20 12:26 CULTURE URINE [RM] Stat
[2020-01-25] MEDS ORDERED: Magnesium Sulfate/Water 2 GM in Premix Bag 1 BAG IV ONE (14:33)
[2020-01-25] MEDS ORDERED: Sodium Chloride 0.9% 500 ML IV ONE (14:39)
--- NOTE | 2020-01-25 17:02 | CT ---
CT abdomen and pelvis Technique: Multiple axial sections were obtained from above the dome of the diaphragm inferiorly through the pubic symphysis. Intravenous and oral contrast was utilized. Delayed images were also obtained through the abdomen and pelvis. Comparison: Previous CT abdomen and pelvis exam of 12/16/19 and more remote exam of 03/25/14. Findings: Visualized lung bases show nothing acute. Liver contains no focal abnormality. Spleen appears within normal limits. Adrenal glands show no nodule. Pancreas shows no discrete abnormality. Aorta shows no aneurysm. No retroperitoneal adenopathy is seen. Surgical clips are seen from prior cholecystectomy. Kidneys show symmetric contrast enhancement. No hydronephrosis or mass is seen. Delayed images shows contrast excretion into the ureters which show no dilatation. Contrast is also noted within the bladder. Cyst is noted within the left side of the pelvis most likely ovarian in etiology. Cyst measures about 3.1 cm in size. This cyst on older study from 2013 is seen but measured 2.0 cm in size. No additional pelvic abnormality is appreciated. Appendix not visualized with certainty. Diverticuli seen within the sigmoid colon and descending colon without diverticulitis. No free fluid or inflammatory change is seen. Bone window settings were reviewed which shows mild degenerative change scattered within the spine. Degenerative change is also noted within the left hip. No acute osseous finding is appreciated. Impression: 1. Slightly enlarging cyst within the left ovary from previous study from 2013. This cyst currently measures 3.1 cm in size and on older study measured 2.0 cm in size cyst presumably is benign given the minimal growth in 6 years. 2. Other findings as noted above believed to be incidental and nonacute. 3. No etiology is identified to explain the patient's abdominal pain. Diagnostic code #2 This report was dictated in MDT
[2020-01-25] MEDS ORDERED: Hyoscyamine 0.125 MG Tab.SL SL ONE (17:41)
[2020-01-25] MEDS ORDERED: Dicyclomine 10 MG Cap PO ONE (18:39)
== END 2020-01-25 19:00 | disposition home or self-care (01) ==
LOC: JD.ED 10:21
DX: K58.0 Irritable bowel syndrome with diarrhea (principal); I10 Essential (primary) hypertension; E78.00 Pure hypercholesterolemia, unspecified; K21.9 Gastro-esophageal reflux disease without esophagitis; F41.9 Anxiety disorder, unspecified; F32.9 Major depressive disorder, single episode, unspecified; E03.9 Hypothyroidism, unspecified; I48.91 Unspecified atrial fibrillation; Z88.1 Allergy status to other antibiotic agents; Z88.2 Allergy status to sulfonamides; Z88.7 Allergy status to serum and vaccine; Z88.8 Allergy status to other drugs, medicaments and biological substances; Z79.82 Long term (current) use of aspirin; Z79.899 Other long term (current) drug therapy; Z87.891 Personal history of nicotine dependence; Z91.048 Other nonmedicinal substance allergy status
CPT/HCPCS: 36415; 74177; 80053; 81001; 83735; 85025; 86140; 87086; 96365; 96366; 99284; A9270; J3475; J7030

== ENCOUNTER 2020-02-25 20:03 | Emergency (ER) | payer BC ==
[2020-02-25 20:11] VITALS: PULSE 140
[2020-02-25] MEDS ORDERED: Magnesium Sulfate/Water 2 GM in Premix Bag 1 BAG IV STA (20:38)
--- NOTE | 2020-02-25 20:47 | EDM.PDOC ---
ED HPI GENERAL MEDICAL PROBLEM - General Chief Complaint: Cardiovascular Problem Stated Complaint: RACING HEART Time Seen by Provider: 02/25/20 20:13 Source of Information: Reports: Patient History Limitations: Reports: No Limitations - History of Present Illness INITIAL COMMENTS - FREE TEXT/NARRATIVE: Ms. Lopez is a pleasant 64-year-old woman with a past medical history significant for anxiety and untreated depression, status post a heart transplant in 2007, due to mitral and aortic valve regurgitation, cardiomyopathy , and atrial fibrillation, and recurrent hypomegnesemia of undetermined etiology , who now presents to the ED stating that she developed rapid palpitations around 15:00 this afternoon, but that they got worse around 18:00. She found her pulse rate to be 122 at 19:00. She states that since her heart transplant, her heart rate is always elevated, typically between 110 and 120 bpm. She states that when she feels rapid palpitations, her heart rate usually diminishes after she takes some lorazepam, therefore she took 2 tablets of lorazepam 0.5 mg around 19:00, but they did not help. She has chronic dyspnea on exertion, which is unchanged, but no new dyspnea at rest. She states that she has had nausea without emesis since 19:30. No recent chest pain or diaphoresis. The patient states that her heart typically races when her magnesium level is low. She had a routine magnesium level drawn earlier today, returning at 1.2, which she states is not all that low for her. She also states that when she is given a magnesium infusion, as she most recently did this past , 2019, it oftentimes causes muscle cramps. Here in the ED, the patient is initially found to be tachycardic at 140 bpm, otherwise, she is hemodynamically stable, afebrile, saturating 98% on room air. Other than the rapid palpitations, nausea, and dyspnea on exertion, the patient denies recent fever, chills, sore throat, ear pain, nasal or sinus congestion, cough, dyspnea, chest pain, vomiting, constipation, diarrhea, abdominal pain, urinary symptoms, recent weight gain or weight loss, recent bloody bowel movements or black bowel movements, recent joint aches, headaches, or rashes. The patient's PCP is Dr. Zackery Landeros. Her Draw End Hand is Dr. Dr. James López, at the [facility]. Her Eyewear Manufacturing Tech is Dr. Taisha Norton. Her Tester Rocket Engine is Dr. Joy Pitt. Her Farm Assistant is Dr. Ange Mcintyre. - Related Data Allergies Allergy/AdvReac Type Severity Reaction Status Date / Time cefuroxime [From Ceftin] Allergy Cannot Verified 02/25/20 20:09 Remember clindamycin Allergy Cannot Verified 02/25/20 20:09 Remember nitrofurantoin Allergy Cannot Verified 02/25/20 20:09 [From Macrobid] Remember Sulfa (Sulfonamide Allergy Hives Verified 02/25/20 20:09 Antibiotics) zoster vaccine live Allergy Cannot Verified 02/25/20 20:09 [From Zostavax (PF)] Remember dust Allergy Cannot Uncoded 02/25/20 20:09 Remember mold Allergy Wheezing Uncoded 02/25/20 20:09 Home Meds: Home Meds Simvastatin [Zocor] 10 mg PO QPM 03/10/19 [History] Tacrolimus [Prograf] 2.5 mg PO QAM 03/10/19 [History] Calcium Carbonate/Vitamin D3 [Calcium 500-Vit D3 125 Caplet] 1 tab PO BID [History] Lactobacillus Acidophilus [Probiotic] 1 cap PO BEDTIME 07/01/19 [History] Multivitamin [Daily Multiple Vitamin] 1 tab PO DAILY 07/01/19 [History] Tacrolimus [Prograf] 2 mg PO BEDTIME 07/01/19 [History] mycophenolate mofetiL [Cellcept] 1,500 mg PO BID 07/01/19 [History] Levothyroxine Sodium [Euthyrox] 75 mcg PO DAILY 12/19/19 [History] Losartan Potassium 25 mg PO DAILY 12/19/19 [History] Magnesium Gluconate [Mag-G] 54 mg PO QID 12/19/19 [History] Aspirin [Halfprin] 81 mg PO DAILY tab.ec 12/27/19 [Rx] Loratadine [Claritin] 10 mg PO DAILY PRN tablet 12/27/19 [Rx] busPIRone [Buspar] 7.5 mg PO BID tablet 12/27/19 [Rx] Past Medical History HEENT History: Reports: Allergic Rhinitis, Impaired Vision (wears glasses) Cardiovascular History: Reports: High Cholesterol, Hypertension, Other (See Below) (Heart transplant in 2007: prior to transplant had asystole, mitral and aortic valve regurgitation, cardiomyopathy, and A-fib) Gastrointestinal History: Reports: Colon Polyp, Diverticulosis (diverticulitis) , GERD Genitourinary History: Reports: Urinary Incontinence (stress incontinence) MANAGER HOME History: Reports: Other (See Below) (Ovarian cysts) Musculoskeletal History: Reports: Fracture (left foot) Neurological History: Reports: Migraines Psychiatric History: Reports: Anxiety, Depression (untreated) Endocrine/Metabolic History: Reports: Hypothyroidism Hematologic History: Reports: Other (See Below) (Hypomagnesemia) Immunologic History: Reports: Immunosuppression (for heart transplant) Dermatologic History: Reports: Psoriasis - Infectious Disease History Infectious Disease History: Reports: Chicken Pox, Measles, Mumps - Past Surgical History HEENT Surgical History: Reports: Oral Surgery (wisdom teeth extraction) Cardiovascular Surgical History: Reports: AICD (removed, with lead left in place ), Other (See Below) (Heart tansplant 2007) GI Surgical History: Reports: Appendectomy, Cholecystectomy (around 2015), Other (See Below) (Exploratory laparoscopy) Social & Family History - Family History Family Medical History: Noncontributory Cardiac: Reports: Heart Failure, [place] - Tobacco Use Smoking Status *Q: Former Smoker Years of Tobacco use: 29 Packs/Tins Daily: 1 Month/Year Tobacco Last Used: Quit 2002 - Caffeine Use Caffeine Use: Reports: None - Alcohol Use Alcohol Use History: No - Recreational Drug Use Recreational Drug Use: Yes Drug Use in Last 12 Months: No Recreational Drug Type: Reports: Marijuana/Hashish (last smoked in HS) - Living Situation & Occupation Living situation: Reports: , Alone 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 ED EXAM, GENERAL - Physical Exam Exam: See Below Exam Limited By: No Limitations General Appearance: Alert, WD/WN, No Apparent Distress Eye Exam: Bilateral Eye: EOMI, Normal Inspection Ears: Normal External Exam, Hearing Grossly Normal Nose: Normal Inspection Throat/Mouth: Normal Inspection, Normal Lips, Normal Voice, No Airway Compromise Head: Atraumatic, Normocephalic Neck: Normal Inspection, Full Range of Motion Respiratory/Chest: No Respiratory Distress, Lungs Clear, Normal Breath Sounds, No Accessory Muscle Use Cardiovascular: Normal Peripheral Pulses, No Edema, No Gallop, No JVD, No Murmur , No Rub, Tachycardia (regular) Peripheral Pulses: 4+: Radial (L), Radial (R) GI/Abdominal: Normal Bowel Sounds, Soft, No Organomegaly, No Distention, No Abnormal Bruit, No Mass, Tender (upper abdomen only, nontender elsewhere) (Female) Exam: Deferred Rectal (Female) Exam: Deferred Back Exam: Normal Inspection, Full Range of Motion. No: CVA Tenderness (L), CVA Tenderness (R) Extremities: Normal Inspection, Normal Range of Motion, No Pedal Edema, Normal Capillary Refill Neurological: Alert, Oriented, Normal Cognition, No Motor/Sensory Deficits Psychiatric: Normal Affect Skin Exam: Warm, Dry, Intact, Normal Color, No Rash EKG INTERPRETATION EKG Date: 02/25/20 Time: 20:07 Rhythm: Other (Sinus tachycardia) Rate (Beats/Min): 138 Price: Normal P-Wave: Present QRS: RBBB ST-T: Elevated (in leads III and AvF, but not in II or anterolateral leads) QT: Normal Comparison: No Change (12/23/2019) Course - Vital Signs Last Recorded V/S: Last Vital Signs Temp 36.3 C 02/25/20 20:09 Pulse 140 H 02/25/20 20:09 Resp 18 02/25/20 20:09 BP Pulse Ox 98 02/25/20 20:09 Orthostatic Blood Pressure [ 137/96 Sitting] Orthostatic Blood Pressure [ 134/99 Standing] Orthostatic Blood Pressure [ 121/82 Supine] - Orders/Labs/Meds Orders: Active Orders 24 hr Category Date Time Status EKG Documentation Completion [RC] STAT Care 02/25/20 20:36 Active Orthostatic Vital Signs [RC] STAT Care 02/25/20 20:36 Active Labs: Laboratory Tests 02/25/20 02/25/20 02/25/20 Range/Units 20:20 20:20 20:20 WBC 11.51 H (3.98-10.04) K/mm3 RBC 4.09 (3.98-5.22) M/mm3 Hgb 12.1 (11.2-15.7) gm/dl Hct 36.3 (34.1-44.9) % MCV 88.8 (79.4-94.8) fl MCH 29.6 (25.6-32.2) pg MCHC 33.3 (32.2-35.5) g/dl RDW Std Deviation 40.5 (36.4-46.3) fL Plt Count 303 (182-369) K/mm3 MPV 11.1 (9.4-12.3) fl Neutrophils % (Manual) 62 H (40-60) % Band Neutrophils % 0 (0-10) % Lymphocytes % (Manual) 28 (20-40) % Atypical Lymphs % 0 % Monocytes % (Manual) 9 (2-10) % Eosinophils % (Manual) 1 (0.7-5.8) % Basophils % (Manual) 0 L (0.1-1.2) Platelet Estimate Adequate Plt Morphology Comment Normal Anisocytosis 1+ slight RBC Morph Comment Not Reportable PT 10.6 (9.7-12.0) SECONDS INR 0.97 APTT 27 D (22-31) SECONDS D-Dimer, Quantitative 0.34 (0.19-0.50) mg/L Sodium 134 L (136-145) mEq/L Potassium 3.8 (3.5-5.1) mEq/L Chloride 98 (98-107) mEq/L Carbon Dioxide 27 (21-32) mEq/L Anion Gap 12.8 (5-15) BUN 6 L (7-18) mg/dL Creatinine 1.1 H (0.55-1.02) mg/dL Est Cr Clr Drug Dosing 52.12 mL/min Estimated GFR (MDRD) 50 (>60) mL/min BUN/Creatinine Ratio 5.5 L (14-18) Glucose 114 (80-115) mg/dL Calcium 8.9 (8.5-10.1) mg/dL Magnesium 1.1 L (1.8-2.4) mg/dl Total Bilirubin 0.4 (0.2-1.0) mg/dL AST 22 (15-37) U/L ALT 25 (14-59) U/L Alkaline Phosphatase 125 H (46-116) U/L Troponin I < 0.017 (0.00-0.056) ng/mL Total Protein 7.3 (6.4-8.2) g/dl Albumin 4.0 (3.4-5.0) g/dl Globulin 3.3 gm/dL Albumin/Globulin Ratio 1.2 (1-2) Lipase 92 (73-393) U/L TSH 3rd Generation 1.315 (0.358-3.74) uIU/mL 02/25/20 Range/Units 23:00 WBC (3.98-10.04) K/mm3 RBC (3.98-5.22) M/mm3 Hgb (11.2-15.7) gm/dl Hct (34.1-44.9) % MCV (79.4-94.8) fl MCH (25.6-32.2) pg MCHC (32.2-35.5) g/dl RDW Std Deviation (36.4-46.3) fL Plt Count (182-369) K/mm3 MPV (9.4-12.3) fl Neutrophils % (Manual) (40-60) % Band Neutrophils % (0-10) % Lymphocytes % (Manual) (20-40) % Atypical Lymphs % % Monocytes % (Manual) (2-10) % Eosinophils % (Manual) (0.7-5.8) % Basophils % (Manual) (0.1-1.2) Platelet Estimate Plt Morphology Comment Anisocytosis RBC Morph Comment PT (9.7-12.0) SECONDS INR APTT (22-31) SECONDS D-Dimer, Quantitative (0.19-0.50) mg/L Sodium (136-145) mEq/L Potassium (3.5-5.1) mEq/L Chloride (98-107) mEq/L Carbon Dioxide (21-32) mEq/L Anion Gap (5-15) BUN (7-18) mg/dL Creatinine (0.55-1.02) mg/dL Est Cr Clr Drug Dosing mL/min Estimated GFR (MDRD) (>60) mL/min BUN/Creatinine Ratio (14-18) Glucose (80-115) mg/dL Calcium (8.5-10.1) mg/dL Magnesium 2.1 (1.8-2.4) mg/dl Total Bilirubin (0.2-1.0) mg/dL AST (15-37) U/L ALT (14-59) U/L Alkaline Phosphatase (46-116) U/L Troponin I (0.00-0.056) ng/mL Total Protein (6.4-8.2) g/dl Albumin (3.4-5.0) g/dl Globulin gm/dL Albumin/Globulin Ratio (1-2) Lipase (73-393) U/L TSH 3rd Generation (0.358-3.74) uIU/mL Meds: Medications Discontinued Medications Generic Name Dose Route Start Last Admin Trade Name Lito PRN Reason Stop Dose Admin Magnesium Sulfate 2 gm/ Premix 50 mls @ 25 mls/hr 02/25/20 20:38 02/25/20 20: 48 IV 02/25/20 22:37 25 mls/hr ONETIME STA Administration - Re-Assessments/Exams Free Text/Narrative Re-Assessment/Exam: 02/25/20 20:43 As above, the patient presents with rapid palpitations. Her ECG indicates a sinus tachycardia with very subtle ST elevation in 2 of 3 inferior leads and a right bundle branch block. She states that she chronically has tachycardia, possibly related to anxiety, since her symptoms often improve after she takes Ativan. Additionally, her magnesium level was depressed at 1.2 earlier today, although the patient states that that is not considered low for her. On examination, she has some upper abdominal tenderness. I have ordered a work-up that includes blood work, a chest x-ray, and orthostatics. In the meantime, the patient will be given a 2 g Mg-rider. 02/25/20 21:27 Two-view chest radiograph reviewed. The cardiac silhouette is within normal limits. No pulmonary vascular congestion. No pleural effusions. No focal infiltrate. No pneumothorax. A disconnected left sided AICD wire is noted. Sternotomy wires noted. Formal read per the Radiologist pending. 02/25/20 21:35 The patient's CBC is remarkable for a WBC count mildly elevated 11.51, but with 0% bandemia. The remainder of her CBC is unremarkable. Her CMP is remarkable for a potassium slightly depressed at 134, and a Cr slightly elevated at 1.1, but with a BUN normal at 6. The remainder of her CMP is unremarkable. Her magnesium level is significantly depressed at 1.1. Her troponin is undetectably low. Her TSH is within normal limits at 1.315. Her lipase is within normal limits at 92. Her D-dimer is within normal limits at 0.34. Her coags are within normal limits. Orthostatics are still pending. 02/25/20 22:07 The patient is not orthostatic. 02/25/20 22:10 Test results discussed with the patient. The patient states that she just does not feel well. She states that she feels groggy. I explained that hypomagnesemia oftentimes makes patients to feel generally weak. My recommendation is that when her current Mg-rider has finished infusing, that we recheck a magnesium level, and continue replacement if it is not getting near normal. The patient agreed. 02/25/20 23:05 Without specific treatment, the patient's heart rate is now down to 110, well within her normal. 02/25/20 23:46 The patient's repeat magnesium level is now normal at 2.1. 02/25/20 23:50 Test results discussed with the patient. With her magnesium now repleted, I believe we can safely discharge her home. I am recommending that she follow-up with her PCP to discuss the possibility of a referral to a Director Of Purchasing or Electrical Linesworker, so that the cause of her recurrent hypomagnesemia can be determined. Departure - Departure Time of Disposition: 23:52 Disposition: Home, Self-Care 01 Condition: Good Clinical Impression: Sinus tachycardia, Hypomagnesemia Referrals: Zackery Townsend MD [Primary Care Provider] - James López MD [Physician] - Taisha Norton MD [Ordering Only Provider] - Joy Pitt MD [Physician] - Ange Mcintyre MD [Ordering Only Provider] - Forms: ED Department Discharge Additional Instructions: You were seen in the emergency room after developing rapid palpitations around 3 :00 this afternoon. Work-up in the ER included blood work, positional blood pressure checks, a chest x-ray, and an ECG. Your work-up found your magnesium level to be significantly decreased at 1.1. You were given replacement IV magnesium in the ER, and your repeat level was normal, at 2.1. The remainder of your work-up was unremarkable. You have not suffered a heart attack. You do not have a blood clot in your lungs. There is no sign of an infection, such as pneumonia. You do not have pancreatitis. You are not hyperthyroid. We recommend that you follow-up with your PCP, Dr. Zackery Landeros, to discuss the possibility of referral to a Director Of Purchasing or Electrical Linesworker, so that the cause of your recurrent hypomagnesemia can be determined. Otherwise, we recommend that you continue to take your current medications as prescribed. If any other problems, please do not hesitate to return to the ER. Sepsis Event Note - Evaluation Sepsis Screening Result: No Definite Risk - Focused Exam Vital Signs: Vital Signs Temp Pulse Resp Pulse Ox 02/25/20 20:09 36.3 C 140 H 18 98 Date Exam was Performed: 02/26/20 Time Exam was Performed: 00:07 - My Orders Last 24 Hours: My Active Orders 02/25/20 20:36 EKG Documentation Completion [RC] STAT Orthostatic Vital Signs [RC] STAT - Assessment/Plan Last 24 Hours: My Active Orders 02/25/20 20:36 EKG Documentation Completion [RC] STAT Orthostatic Vital Signs [RC] STAT
--- NOTE | 2020-02-25 21:57 | CR ---
Chest: PA and lateral views of the chest were obtained. Comparison: Prior chest x-ray of 12/23/19. Heart size and mediastinum are within normal limits. AICD is present. Sternotomy is noted. Surgical clips are seen within the right upper abdomen from previous cholecystectomy. Mild degenerative change is noted within the spine with mild scoliosis. Lungs are clear with no acute parenchymal change. Impression: 1. Findings as noted above. 2. Nothing acute is appreciated. Diagnostic code #2 This report was dictated in MDT
== END 2020-02-26 00:14 | disposition home or self-care (01) ==
LOC: JD.ED 20:03
DX: R00.0 Tachycardia, unspecified (principal); E83.42 Hypomagnesemia; F41.9 Anxiety disorder, unspecified; F32.9 Major depressive disorder, single episode, unspecified; I10 Essential (primary) hypertension; E03.9 Hypothyroidism, unspecified; I48.91 Unspecified atrial fibrillation; Z88.1 Allergy status to other antibiotic agents; Z88.2 Allergy status to sulfonamides; Z91.09 Other allergy status, other than to drugs and biological substances; Z79.899 Other long term (current) drug therapy; Z79.82 Long term (current) use of aspirin; E78.00 Pure hypercholesterolemia, unspecified; Z87.891 Personal history of nicotine dependence
CPT/HCPCS: 36415; 71046; 80053; 83690; 83735; 84443; 84484; 85007; 85027; 85379; 85610; 85730; 93005; 96365; 96366; 99285; J3475; 93010; 99283

== ENCOUNTER 2020-06-05 12:22 | Emergency (ER) | payer BC ==
[2020-06-05 12:40] VITALS: BP 127/81; PULSE 133
[2020-06-05] MEDS ORDERED: Sodium Chloride 0.9% 10 ML Syringe FLUSH PRN (13:18)
[2020-06-05] MEDS ORDERED: Magnesium Sulfate/Water 2 GM in Premix Bag 1 BAG IV ONE (13:29)
--- NOTE | 2020-06-05 14:04 | EDM.PDOC ---
ED HPI GENERAL MEDICAL PROBLEM - General Chief Complaint: Cardiovascular Problem Stated Complaint: HEART TRANSPLANT PT NEEDS MAGNESIUM Time Seen by Provider: 06/05/20 12:32 Source of Information: Reports: Patient, RN Notes Reviewed - History of Present Illness INITIAL COMMENTS - FREE TEXT/NARRATIVE: 65 yr old female comes in with concerns about low magnesium. she tends to run low chronically, has been running at 1.2 this past week. Hx of heart transplant many yrs ago, on immunosupresent meds. She was prescribed some higher dose magnesium orally but not tolerating that well. That has given her nausea, diarrhea and muscle cramps. She also is running faster heart rate than usual with heart rate in the 120's at home this morning. Nno chest pain, cough or difficulty breathing. - Related Data Allergies Allergy/AdvReac Type Severity Reaction Status Date / Time cefuroxime [From Ceftin] Allergy Cannot Verified 06/05/20 12:35 Remember clindamycin Allergy Cannot Verified 06/05/20 12:35 Remember nitrofurantoin Allergy Cannot Verified 06/05/20 12:35 [From Macrobid] Remember Sulfa (Sulfonamide Allergy Hives Verified 06/05/20 12:35 Antibiotics) zoster vaccine live Allergy Cannot Verified 06/05/20 12:35 [From Zostavax (PF)] Remember dust Allergy Cannot Uncoded 06/05/20 12:35 Remember mold Allergy Wheezing Uncoded 06/05/20 12:35 Home Meds: Home Meds Simvastatin [Zocor] 10 mg PO QPM 03/10/19 [History] Tacrolimus [Prograf] 2.5 mg PO QAM 03/10/19 [History] Calcium Carbonate/Vitamin D3 [Calcium 500-Vit D3 125 Caplet] 2 tab PO DAILY 06/23/19 [History] Lactobacillus Acidophilus [Probiotic] 1 cap PO BEDTIME 07/01/19 [History] Multivitamin [Daily Multiple Vitamin] 1 tab PO DAILY 07/01/19 [History] Tacrolimus [Prograf] 2 mg PO BEDTIME 07/01/19 [History] mycophenolate mofetiL [Cellcept] 1,500 mg PO BID 07/01/19 [History] Levothyroxine Sodium [Euthyrox] 75 mcg PO DAILY 12/19/19 [History] Losartan Potassium 25 mg PO DAILY 12/19/19 [History] Aspirin [Halfprin] 81 mg PO DAILY tab.ec 12/27/19 [Rx] busPIRone [Buspar] 7.5 mg PO BID tablet 12/27/19 [Rx] Famotidine 40 mg PO BEDTIME 06/05/20 [History] Fexofenadine HCl 180 mg PO DAILY 06/05/20 [History] LORazepam [Ativan] 0.5 mg PO TID PRN 06/05/20 [History] Magnesium l-Lactate [Magnesium l-Lactate Dihyd Sr] 5 tab PO BID 06/05/20 [History] Nitrofurantoin Monohyd/M-Cryst [Macrobid 100 mg Capsule] 100 mg PO BID #10 capsule 06/05/20 [Rx] calcium polycarbophiL [Fiber Tabs] 1 tab PO BID 06/05/20 [History] estradioL [Estradiol] 1 gm TOP ASDIRECTED 06/05/20 [History] Past Medical History HEENT History: Reports: Allergic Rhinitis, Impaired Vision Other HEENT History: Wears glasses, braces Cardiovascular History: Reports: High Cholesterol, Hypertension, Other (See Below) Other Cardiovascular History: heart transplant in 2007: prior to transplant had asystole, mitral and aortic valve insufficeincy, afib, cardiomyopathy Respiratory History: Reports: Other (See Below) Other Respiratory History: Severe allergies Gastrointestinal History: Reports: Colon Polyp, Diverticulosis, GERD Other Gastrointestinal History: hematochezia, abdominal pain Genitourinary History: Reports: Urinary Incontinence Other Genitourinary History: urge incontinence VICE PRESIDENT OF DEVELOPMENT History: Reports: Other (See Below) Other VICE PRESIDENT OF DEVELOPMENT History: Cyst left ovary, and two cyst in left breasts. 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 Endocrine/Metabolic History: Reports: Hypothyroidism Hematologic History: Reports: Other (See Below) Other Hematologic History: magnesium deficiency Immunologic History: Reports: Immunosuppression Other Immunologic History: Heart transplant 2008 Dermatologic History: Reports: Psoriasis - Infectious Disease History Infectious Disease History: Reports: Chicken Pox, Measles, Mumps - Past Surgical History HEENT Surgical History: Reports: Oral Surgery Cardiovascular Surgical History: Reports: AICD, Other (See Below) Other Cardiovascular Surgeries/Procedures: heart transplant GI Surgical History: Reports: Appendectomy, Cholecystectomy, Other (See Below) Social & Family History - Family History Family Medical History: Noncontributory Cardiac: Reports: Heart Failure, [place] - Tobacco Use Smoking Status *Q: Former Smoker Used Tobacco, but Quit: Yes Month/Year Tobacco Last Used: many years ago - Caffeine Use Caffeine Use: Reports: None - Recreational Drug Use Recreational Drug Use: No - Living Situation & Occupation Living situation: Reports: , Alone 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 Denies: Chest Pain GI/Abdominal: Reports: Diarrhea, Decreased Appetite, Nausea. Denies: Abdominal Pain, Vomiting : Reports: Dysuria Musculoskeletal: Denies: Back Pain Skin: Reports: No Symptoms Neurological: Reports: No Symptoms ED EXAM, GENERAL - Physical Exam Exam: See Below General Appearance: Alert, No Apparent Distress Eye Exam: Bilateral Eye: Normal Inspection Head: Atraumatic. No: Facial Swelling Neck: Supple Respiratory/Chest: No Respiratory Distress, Lungs Clear, Normal Breath Sounds Cardiovascular: Tachycardia GI/Abdominal: Soft, Non-Tender Back Exam: No: CVA Tenderness (L), CVA Tenderness (R) Extremities: No: Pedal Edema, Leg Pain Skin Exam: Warm, Dry, Normal Color EKG INTERPRETATION EKG Date: 06/05/20 Rhythm: Other (sinus tach, rate 117) [place]: Normal QRS: RBBB ST-T: Other (very mild st elevation inf. leads.) Course - Vital Signs Last Recorded V/S: Last Vital Signs Temp 97.7 F 06/05/20 12:31 Pulse 133 H 06/05/20 12:31 Resp 18 06/05/20 12:31 BP 127/81 06/05/20 12:31 Pulse Ox 99 06/05/20 12:31 - Orders/Labs/Meds Labs: Laboratory Tests 06/05/20 06/05/20 06/05/20 Range/Units 12:35 12:35 12:35 WBC 16.15 H (3.98-10.04) K/mm3 RBC 4.50 (3.98-5.22) M/mm3 Hgb 13.0 (11.2-15.7) gm/dl Hct 39.4 (34.1-44.9) % MCV 87.6 (79.4-94.8) fl MCH 28.9 (25.6-32.2) pg MCHC 33.0 (32.2-35.5) g/dl RDW Std Deviation 39.7 (36.4-46.3) fL Plt Count 265 (182-369) K/mm3 MPV 11.0 (9.4-12.3) fl Neut % (Auto) 84.1 H (34.0-71.1) % Lymph % (Auto) 6.4 L (19.3-51.7) % [place] % (Auto) 8.9 (4.7-12.5) % Eos % (Auto) 0.3 L (0.7-5.8) Baso % (Auto) 0.1 (0.1-1.2) % Neut # (Auto) 13.59 H (1.56-6.13) K/mm3 Lymph # (Auto) 1.03 L (1.18-3.74) K/mm3 [place] # (Auto) 1.43 H (0.24-0.36) K/mm3 Eos # (Auto) 0.05 (0.04-0.36) K/mm3 Baso # (Auto) 0.02 (0.01-0.08) K/mm3 Manual Slide Review Abnormal smear Sodium 131 L (136-145) mEq/L Potassium 4.6 (3.5-5.1) mEq/L Chloride 94 L (98-107) mEq/L Carbon Dioxide 27 (21-32) mEq/L Anion Gap 14.6 (5-15) BUN 14 (7-18) mg/dL Creatinine 1.0 (0.55-1.02) mg/dL Est Cr Clr Drug Dosing 54.54 mL/min Estimated GFR (MDRD) 56 (>60) mL/min BUN/Creatinine Ratio 14.0 (14-18) Glucose 120 H (80-115) mg/dL Calcium 8.8 (8.5-10.1) mg/dL Magnesium 1.4 L (1.8-2.4) mg/dl Total Bilirubin 0.5 (0.2-1.0) mg/dL AST 30 (15-37) U/L ALT 40 (14-59) U/L Alkaline Phosphatase 165 H (46-116) U/L Total Protein 7.7 (6.4-8.2) g/dl Albumin 4.0 (3.4-5.0) g/dl Globulin 3.7 gm/dL Albumin/Globulin Ratio 1.1 (1-2) Urine Color (Yellow) Urine Appearance (Clear) Urine pH (5.0-8.0) Ur Specific [place] (1.005-1.030) Urine Protein (Negative) Urine Glucose (UA) (Negative) Urine Ketones (Negative) Urine Occult Blood (Negative) Urine Nitrite (Negative) Urine Bilirubin (Negative) Urine Urobilinogen (0.2-1.0) Ur Leukocyte Esterase (Negative) Urine RBC (0-5) /hpf Urine WBC (0-5) /hpf Urine WBC Clumps (NOT SEEN) /hpf Ur Squamous Epith Cells (0-5) /hpf Urine Bacteria (FEW) /hpf Urine Mucus (FEW) /hpf 06/05/20 Range/Units 14:35 WBC (3.98-10.04) K/mm3 RBC (3.98-5.22) M/mm3 Hgb (11.2-15.7) gm/dl Hct (34.1-44.9) % MCV (79.4-94.8) fl MCH (25.6-32.2) pg MCHC (32.2-35.5) g/dl RDW Std Deviation (36.4-46.3) fL Plt Count (182-369) K/mm3 MPV (9.4-12.3) fl Neut % (Auto) (34.0-71.1) % Lymph % (Auto) (19.3-51.7) % [place] % (Auto) (4.7-12.5) % Eos % (Auto) (0.7-5.8) Baso % (Auto) (0.1-1.2) % Neut # (Auto) (1.56-6.13) K/mm3 Lymph # (Auto) (1.18-3.74) K/mm3 [place] # (Auto) (0.24-0.36) K/mm3 Eos # (Auto) (0.04-0.36) K/mm3 Baso # (Auto) (0.01-0.08) K/mm3 Manual Slide Review Sodium (136-145) mEq/L Potassium (3.5-5.1) mEq/L Chloride (98-107) mEq/L Carbon Dioxide (21-32) mEq/L Anion Gap (5-15) BUN (7-18) mg/dL Creatinine (0.55-1.02) mg/dL Est Cr Clr Drug Dosing mL/min Estimated GFR (MDRD) (>60) mL/min BUN/Creatinine Ratio (14-18) Glucose (80-115) mg/dL Calcium (8.5-10.1) mg/dL Magnesium (1.8-2.4) mg/dl Total Bilirubin (0.2-1.0) mg/dL AST (15-37) U/L ALT (14-59) U/L Alkaline Phosphatase (46-116) U/L Total Protein (6.4-8.2) g/dl Albumin (3.4-5.0) g/dl Globulin gm/dL Albumin/Globulin Ratio (1-2) Urine Color Yellow (Yellow) Urine Appearance Clear (Clear) Urine pH 8.5 H (5.0-8.0) Ur Specific [place] 1.015 (1.005-1.030) Urine Protein Trace H (Negative) Urine Glucose (UA) Negative (Negative) Urine Ketones Negative (Negative) Urine Occult Blood 1+ H (Negative) Urine Nitrite Negative (Negative) Urine Bilirubin Negative (Negative) Urine Urobilinogen 0.2 (0.2-1.0) Ur Leukocyte Esterase 2+ H (Negative) Urine RBC 0-5 (0-5) /hpf Urine WBC 50-75 H (0-5) /hpf Urine WBC Clumps Rare (NOT SEEN) /hpf Ur Squamous Epith Cells 0-5 (0-5) /hpf Urine Bacteria Few (FEW) /hpf Urine Mucus Not seen (FEW) /hpf Meds: Medications Discontinued Medications Generic Name Dose Route Start Last Admin Trade Name Freq PRN Reason Stop Dose Admin Magnesium Sulfate 2 gm/ Premix 50 mls @ 25 mls/hr 06/05/20 13:29 06/05/20 13:39 IV 06/05/20 15:28 25 mls/hr ONETIME ONE Administration Nitrofurantoin Macrocrystals 100 mg 06/05/20 16:33 06/05/20 16:47 Macrobid PO 06/05/20 16:34 100 mg ONETIME ONE Administration Sodium Chloride 10 ml 06/05/20 13:18 06/05/20 13:22 Saline Flush FLUSH 10 ml ASDIRECTED PRN Administration Keep Vein Open - Re-Assessments/Exams Free Text/Narrative Re-Assessment/Exam: 06/07/20 07:06 did give her 2 gram MagSo4 IV, she felt better after that, heart rate came down closer to 100 which is more nl for her, discharge instr. as documented. Departure - Departure Time of Disposition: 16:12 Disposition: Home, Self-Care 01 Condition: Fair Clinical Impression: Hypomagnesemia Prescriptions: Nitrofurantoin Monohyd/M-Cryst [Macrobid 100 mg Capsule] 100 mg PO BID #10 capsule Instructions: Hypomagnesemia Referrals: Zackery Townsend MD [Primary Care Provider] - Forms: ED Department Discharge Additional Instructions: Your magnesium came back at 1.4. drawn on arrival to ED. You have been given 2 grams Mag sulfate IV. You do have a UTI, urine culture ordered. That usually takes about 48 hrs to grow out. Macrobid antibiotic 100 mg twice daily for 5 days. That has been sent electronic to [facility]. I you start having any allergic symptoms to the macrobid than stop it imedicately. Go back to one of your prior magnesium replacement regimens that hopefully will be better tolerated. Drink plenty of water to maintain hydration. Probiotic twice daily should be helpful. Follow up clinic in about 5 days for recheck, to make sure the UTI clears up as expected. Return to ED as needed. Sepsis Event Note (ED) - Evaluation Sepsis Screening Result: No Definite Risk
[2020-06-05] MEDS ORDERED: Nitrofurantoin Monohydrate/Macrocrystalline 100 MG Cap PO ONE (16:33)
== END 2020-06-05 16:48 | disposition home or self-care (01) ==
LOC: JD.ED 12:22
DX: E83.42 Hypomagnesemia (principal); E78.00 Pure hypercholesterolemia, unspecified; I48.91 Unspecified atrial fibrillation; E03.9 Hypothyroidism, unspecified; F41.9 Anxiety disorder, unspecified; Z88.1 Allergy status to other antibiotic agents; Z88.2 Allergy status to sulfonamides; Z88.8 Allergy status to other drugs, medicaments and biological substances; Z91.048 Other nonmedicinal substance allergy status; Z79.899 Other long term (current) drug therapy
CPT/HCPCS: 36415; 80053; 81001; 83735; 85025; 87086; 87088; 87186; 93005; 96365; 96366; 99283; A9270; J3475; 93010

== ENCOUNTER 2020-06-22 14:43 | Emergency (ER) | payer BC ==
[2020-06-22] MEDS ORDERED: Sodium Chloride 0.9% 10 ML Syringe FLUSH PRN (14:59)
[2020-06-22] MEDS ORDERED: Magnesium Sulfate/Water 2 GM in Premix Bag 1 BAG IV ONE (14:59)
--- NOTE | 2020-06-22 15:16 | EDM.PDOC ---
ED HPI GENERAL MEDICAL PROBLEM - General Chief Complaint: Cardiovascular Problem Stated Complaint: LOW MAGNESIUM Time Seen by Provider: 06/22/20 14:57 Source of Information: Reports: Patient, RN Notes Reviewed History Limitations: Reports: No Limitations - History of Present Illness INITIAL COMMENTS - FREE TEXT/NARRATIVE: Patient is a 65-year-old female who presents to the ED for the evaluation of her low magnesium level. Patient has been known to have chronic low magnesium levels. She states that once her stools get a little bit looser, she can usually tell that she has low magnesium. She went to the clinic today, and had her her mag level drawn, and it was a 1.1. She was directed by her provider to come to the ER for management. Patient is not complaining of any chest pain, or any heart issues, no shortness of breath no cough, no fever/chills, nausea/vomiting/diarrhea. Patient does have a history of a heart transplant roughly 12 years ago. Patient has no other signs/symptoms or concerns other than the low magnesium at today's visit. - Related Data Allergies Allergy/AdvReac Type Severity Reaction Status Date / Time cefuroxime [From Ceftin] Allergy Cannot Verified 06/22/20 15:02 Remember clindamycin Allergy Cannot Verified 06/22/20 15:02 Remember nitrofurantoin Allergy Cannot Verified 06/22/20 15:02 [From Macrobid] Remember Sulfa (Sulfonamide Allergy Hives Verified 06/22/20 15:02 Antibiotics) zoster vaccine live Allergy Cannot Verified 06/22/20 15:02 [From Zostavax (PF)] Remember dust Allergy Cannot Uncoded 06/22/20 15:02 Remember mold Allergy Wheezing Uncoded 06/22/20 15:02 Home Meds: Home Meds Simvastatin [Zocor] 10 mg PO QPM 03/10/19 [History] Tacrolimus [Prograf] 2.5 mg PO QAM 03/10/19 [History] Calcium Carbonate/Vitamin D3 [Calcium 500-Vit D3 125 Caplet] 2 tab PO DAILY 06/23/19 [History] Lactobacillus Acidophilus [Probiotic] 1 cap PO BEDTIME 07/01/19 [History] Multivitamin [Daily Multiple Vitamin] 1 tab PO DAILY 07/01/19 [History] Tacrolimus [Prograf] 2 mg PO BEDTIME 07/01/19 [History] mycophenolate mofetiL [Cellcept] 1,500 mg PO BID 07/01/19 [History] Levothyroxine Sodium [Euthyrox] 75 mcg PO DAILY 12/19/19 [History] Losartan Potassium 25 mg PO DAILY 12/19/19 [History] Aspirin [Halfprin] 81 mg PO DAILY tab.ec 12/27/19 [Rx] busPIRone [Buspar] 7.5 mg PO BID tablet 12/27/19 [Rx] Famotidine 40 mg PO BEDTIME 06/05/20 [History] Fexofenadine HCl 180 mg PO DAILY 06/05/20 [History] LORazepam [Ativan] 0.5 mg PO TID PRN 06/05/20 [History] Magnesium l-Lactate [Magnesium l-Lactate Dihyd Sr] 5 tab PO BID 06/05/20 [History] Nitrofurantoin Monohyd/M-Cryst [Macrobid 100 mg Capsule] 100 mg PO BID #10 capsule 06/05/20 [Rx] calcium polycarbophiL [Fiber Tabs] 1 tab PO BID 06/05/20 [History] estradioL [Estradiol] 1 gm TOP ASDIRECTED 06/05/20 [History] Past Medical History HEENT History: Reports: Allergic Rhinitis, Impaired Vision Other HEENT History: Wears glasses, braces Cardiovascular History: Reports: High Cholesterol, Hypertension, Other (See Below) Other Cardiovascular History: heart transplant in 2007: prior to transplant had asystole, mitral and aortic valve insufficeincy, afib, cardiomyopathy Respiratory History: Reports: Other (See Below) Other Respiratory History: Severe allergies Gastrointestinal History: Reports: Colon Polyp, Diverticulosis, GERD Other Gastrointestinal History: hematochezia, abdominal pain Genitourinary History: Reports: Urinary Incontinence Other Genitourinary History: urge incontinence TRAFFIC OPERATOR History: Reports: Other (See Below) Other TRAFFIC OPERATOR History: Cyst left ovary, and two cyst in left breasts. 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 Endocrine/Metabolic History: Reports: Hypothyroidism Hematologic History: Reports: Other (See Below) Other Hematologic History: magnesium deficiency Immunologic History: Reports: Immunosuppression Other Immunologic History: Heart transplant 2007 Dermatologic History: Reports: Psoriasis - Infectious Disease History Infectious Disease History: Reports: Chicken Pox, Measles, Mumps - Past Surgical History HEENT Surgical History: Reports: Oral Surgery Cardiovascular Surgical History: Reports: AICD, Other (See Below) Other Cardiovascular Surgeries/Procedures: heart transplant GI Surgical History: Reports: Appendectomy, Cholecystectomy, Other (See Below) Social & Family History - Family History Family Medical History: Noncontributory Cardiac: Reports: Heart Failure, [place] - Tobacco Use Smoking Status *Q: Never Smoker Second Hand Smoke Exposure: No - Caffeine Use Caffeine Use: Reports: None - Recreational Drug Use Recreational Drug Use: No - Living Situation & Occupation Living situation: Reports: , Alone 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 ED EXAM, GENERAL - Physical Exam Exam: See Below Exam Limited By: No Limitations General Appearance: Alert, WD/WN, No Apparent Distress Respiratory/Chest: No Respiratory Distress, Lungs Clear, Normal Breath Sounds, No Accessory Muscle Use, Chest Non-Tender Cardiovascular: Normal Peripheral Pulses, Regular Rate, Rhythm, No Murmur Peripheral Pulses: 2+: Radial (L), Radial (R) Extremities: Normal Inspection, Normal Capillary Refill Neurological: Alert, Oriented, Normal Cognition, No Motor/Sensory Deficits Psychiatric: Normal Affect, Normal Mood Skin Exam: Warm, Dry, Intact, Normal Color, No Rash Course - Vital Signs Last Recorded V/S: Last Vital Signs Temp 97.2 F 06/22/20 14:59 Pulse 98 06/22/20 14:59 Resp 18 06/22/20 14:59 BP 156/101 H 06/22/20 14:59 Pulse Ox 100 06/22/20 14:59 - Orders/Labs/Meds Orders: Active Orders 24 hr Category Date Time Status Peripheral IV Care [RC] . DIRECTED Care 06/22/20 14:59 Active Magnesium Sulfate/Water [Magnesium Sulfate in Water Med 06/22/20 14:59 Active Premix] 2 gm Premix Bag 1 bag IV ONETIME Sodium Chloride 0.9% [Saline Flush] Med 06/22/20 14:59 Active 10 ml FLUSH ASDIRECTED PRN Peripheral IV Insertion Adult [OM.PC] Routine Oth 06/22/20 14:59 Ordered Medication Orders Magnesium Sulfate 2 gm/ Premix 50 mls @ 25 mls/hr IV ONETIME ONE Stop: 06/22/20 16:58 Last Admin: 06/22/20 15:18 Dose: 25 mls/hr Documented by: BLAISE Sodium Chloride (Saline Flush) 10 ml FLUSH ASDIRECTED PRN PRN Reason: Keep Vein Open Last Admin: 06/22/20 15:20 Dose: 10 ml Documented by: BLAISE Meds: Medications Generic Name Dose Route Start Last Admin Trade Name Lito PRN Reason Stop Dose Admin Magnesium Sulfate 2 gm/ Premix 50 mls @ 25 mls/hr 06/22/20 14:59 06/22/20 15:18 IV 06/22/20 16:58 25 mls/hr ONETIME ONE Administration Sodium Chloride 10 ml 06/22/20 14:59 06/22/20 15:20 Saline Flush FLUSH 10 ml ASDIRECTED PRN Administration Keep Vein Open - Re-Assessments/Exams Free Text/Narrative Re-Assessment/Exam: 06/22/20 15:16 Patient presents to the ED for evaluation of her low magnesium. [facility] was called and they did verify her magnesium level was 1.1. At this time she is having no other signs/symptoms, complaints or concerns. We will have an IV placed, give her 2 g of mag for supplementation. Patient already takes oral supplementation as well. Departure - Departure Time of Disposition: 16:32 Disposition: Home, Self-Care 01 Condition: Good Clinical Impression: Hypomagnesemia Instructions: Hypomagnesemia Referrals: Zackery Townsend MD [Primary Care Provider] - Forms: ED Department Discharge Additional Instructions: You were evaluated in the ER today for your low magnesium levels. You were given 2 g IV magnesium for supplementation of this. Please continue to take all your other regular medications as previously prescribed by your primary care provider. Follow-up with your regular care provider, sometime possibly by the end of this week, or early next week for repeat labs to make sure that your magnesium level is coming back to within normal limits. Please return to the ER at any time if symptoms change or worsen. Sepsis Event Note (ED) - Evaluation Sepsis Screening Result: No Definite Risk - Focused Exam Vital Signs: Vital Signs Temp Pulse Resp BP Pulse Ox 06/22/20 14:59 97.2 F 98 18 156/101 H 100 - My Orders Last 24 Hours: My Active Orders 06/22/20 14:59 Peripheral IV Care [RC] . DIRECTED Magnesium Sulfate/Water [Magnesium Sulfate in Water Premix] 2 gm Premix Bag 1 bag IV ONETIME Sodium Chloride 0.9% [Saline Flush] 10 ml FLUSH ASDIRECTED PRN Peripheral IV Insertion Adult [OM.PC] Routine - Assessment/Plan Last 24 Hours: My Active Orders 06/22/20 14:59 Peripheral IV Care [RC] . DIRECTED Magnesium Sulfate/Water [Magnesium Sulfate in Water Premix] 2 gm Premix Bag 1 bag IV ONETIME Sodium Chloride 0.9% [Saline Flush] 10 ml FLUSH ASDIRECTED PRN Peripheral IV Insertion Adult [OM.PC] Routine
[2020-06-22 17:08] VITALS: BP 149/90; PULSE 76
== END 2020-06-22 17:08 | disposition home or self-care (01) ==
LOC: JD.ED 14:43
DX: E83.42 Hypomagnesemia (principal); I10 Essential (primary) hypertension; K21.9 Gastro-esophageal reflux disease without esophagitis; F41.9 Anxiety disorder, unspecified; F32.9 Major depressive disorder, single episode, unspecified; E03.9 Hypothyroidism, unspecified; Z88.0 Allergy status to penicillin; Z88.2 Allergy status to sulfonamides; Z88.1 Allergy status to other antibiotic agents; Z91.09 Other allergy status, other than to drugs and biological substances; Z88.7 Allergy status to serum and vaccine; Z79.82 Long term (current) use of aspirin; Z90.49 Acquired absence of other specified parts of digestive tract; Z79.899 Other long term (current) drug therapy
CPT/HCPCS: 96365; 96366; 99283; J3475

== ENCOUNTER 2020-06-28 15:15 | Emergency (ER) | payer BC ==
[2020-06-28 16:00] VITALS: BP 139/87; PULSE 113
[2020-06-28] MEDS ORDERED: Magnesium Sulfate/Water 2 GM in Premix Bag 1 BAG IV ONE (17:14)
[2020-06-28] MEDS ORDERED: Sodium Chloride 0.9% 10 ML Syringe FLUSH PRN (17:14)
[2020-06-28] MEDS ORDERED: Sodium Chloride 0.9% 1,000 ML IV ONE (17:14)
[2020-06-28] MEDS ORDERED: Metoclopramide 10 MG/2 ML SDV IVPUSH ONE (17:16)
--- NOTE | 2020-06-28 17:42 | EDM.PDOC ---
ED HPI GENERAL MEDICAL PROBLEM - General Chief Complaint: General Stated Complaint: LOW MAGNESIUM Time Seen by Provider: 06/28/20 17:13 Source of Information: Reports: Patient, RN Notes Reviewed History Limitations: Reports: No Limitations - History of Present Illness INITIAL COMMENTS - FREE TEXT/NARRATIVE: Patient is a 65-year-old female who presents to the ED for the evaluation of a low magnesium. The patient is a heart transplant patient, she is on antirejection medications. She states she normally has low magnesium, she does take oral supplementation and has recently had her dosing adjusted. She states that due to this adjustment in dosing, she frequents between formed stools and loose stools, so this exacerbates the magnesium levels being low. She felt like her magnesium was low again today, so she had her labs drawn and reported it was 1.1. She is a little bit nauseous, states she does have some abdomen pain due to taking so much magnesium. She has not had any vomiting at this time and diarrhea has ceased. She is not had any fevers or chills, or any cough/shortness of breath. The patient is being looked after by an spring coiling machine setter at [facility] named [facility], primary care provider is Dr. Landeros, she also has her specialists at the [facility], she states she has not had her yearly checkup due to COVID-19. Her appointment was canceled apparently. She does state that she did develop a new antibody, a year or 2 ago, and states that she has been having issues with her magnesium since this antibody has shown up in her blood. - Related Data Allergies Allergy/AdvReac Type Severity Reaction Status Date / Time cefuroxime [From Ceftin] Allergy Cannot Verified 06/28/20 16:00 Remember clindamycin Allergy Cannot Verified 06/28/20 16:00 Remember nitrofurantoin Allergy Cannot Verified 06/28/20 16:00 [From Macrobid] Remember Sulfa (Sulfonamide Allergy Hives Verified 06/28/20 16:00 Antibiotics) zoster vaccine live Allergy Cannot Verified 06/28/20 16:00 [From Zostavax (PF)] Remember dust Allergy Cannot Uncoded 06/22/20 15:02 Remember mold Allergy Wheezing Uncoded 06/22/20 15:02 Home Meds: Home Meds Simvastatin [Zocor] 10 mg PO QPM 03/10/19 [History] Tacrolimus [Prograf] 2.5 mg PO QAM 03/10/19 [History] Calcium Carbonate/Vitamin D3 [Calcium 500-Vit D3 125 Caplet] 2 tab PO DAILY 06/23/19 [History] Lactobacillus Acidophilus [Probiotic] 1 cap PO BEDTIME 07/01/19 [History] Multivitamin [Daily Multiple Vitamin] 1 tab PO DAILY 07/01/19 [History] Tacrolimus [Prograf] 2 mg PO BEDTIME 07/01/19 [History] mycophenolate mofetiL [Cellcept] 1,500 mg PO BID 07/01/19 [History] Levothyroxine Sodium [Euthyrox] 75 mcg PO DAILY 12/19/19 [History] Losartan Potassium 25 mg PO DAILY 12/19/19 [History] Aspirin [Halfprin] 81 mg PO DAILY tab.ec 12/27/19 [Rx] busPIRone [Buspar] 7.5 mg PO BID tablet 12/27/19 [Rx] Famotidine 40 mg PO BEDTIME 06/05/20 [History] Fexofenadine HCl 180 mg PO DAILY 06/05/20 [History] LORazepam [Ativan] 0.5 mg PO TID PRN 06/05/20 [History] Magnesium l-Lactate [Magnesium l-Lactate Dihyd Sr] 5 tab PO BID 06/05/20 [History] calcium polycarbophiL [Fiber Tabs] 1 tab PO BID 06/05/20 [History] estradioL [Estradiol] 1 gm TOP ASDIRECTED 06/05/20 [History] Past Medical History HEENT History: Reports: Allergic Rhinitis, Impaired Vision Other HEENT History: Wears glasses, braces Cardiovascular History: Reports: High Cholesterol, Hypertension, Other (See Below) Other Cardiovascular History: heart transplant in 2007: prior to transplant had asystole, mitral and aortic valve insufficeincy, afib, cardiomyopathy Respiratory History: Reports: Other (See Below) Other Respiratory History: Severe allergies Gastrointestinal History: Reports: Colon Polyp, Diverticulosis, GERD, Other (See Below) Other Gastrointestinal History: hematochezia, abdominal pain Genitourinary History: Reports: Urinary Incontinence Other Genitourinary History: urge incontinence TRIPPER History: Reports: Other (See Below) Other TRIPPER History: Cyst left ovary, and two cyst in left breasts. 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 Endocrine/Metabolic History: Reports: Hypomagnesemia, Hypothyroidism Hematologic History: Reports: Other (See Below) Other Hematologic History: magnesium deficiency Immunologic History: Reports: Immunosuppression Other Immunologic History: Heart transplant 2008 Dermatologic History: Reports: Psoriasis - Infectious Disease History Infectious Disease History: Reports: Chicken Pox, Measles, Mumps - Past Surgical History HEENT Surgical History: Reports: Oral Surgery Cardiovascular Surgical History: Reports: AICD, Other (See Below) Other Cardiovascular Surgeries/Procedures: heart transplant GI Surgical History: Reports: Appendectomy, Cholecystectomy, Other (See Below) Social & Family History - Family History Family Medical History: Noncontributory Cardiac: Reports: Heart Failure, ID - Caffeine Use Caffeine Use: Reports: None - Living Situation & Occupation Living situation: Reports: , Alone 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 ED EXAM, GENERAL - Physical Exam Exam: See Below Exam Limited By: No Limitations General Appearance: Alert, WD/WN, No Apparent Distress Respiratory/Chest: No Respiratory Distress, Lungs Clear, Normal Breath Sounds, No Accessory Muscle Use, Chest Non-Tender Cardiovascular: Normal Peripheral Pulses, Regular Rate, Rhythm, No Murmur GI/Abdominal: Normal Bowel Sounds, Soft, No Organomegaly, No Distention, Tender (generalized, but mainly over her mid upper abdomen) Extremities: Normal Inspection, Normal Capillary Refill Neurological: Alert, Oriented, Normal Cognition, No Motor/Sensory Deficits Psychiatric: Normal Affect, Normal Mood Skin Exam: Warm, Dry, Intact, No Rash, Pallor (generalized pallor) Course - Vital Signs Last Recorded V/S: Last Vital Signs Temp 98.7 F 06/28/20 15:55 Pulse 113 H 06/28/20 15:55 Resp 18 06/28/20 15:55 BP 139/87 06/28/20 15:55 Pulse Ox 98 06/28/20 15:55 - Orders/Labs/Meds Orders: Active Orders 24 hr Category Date Time Status Peripheral IV Insertion Adult [OM.PC] Routine Oth 06/28/20 17:14 Ordered Labs: Laboratory Tests 06/28/20 Range/Units 18:03 Sodium 131 L (136-145) mEq/L Potassium 4.2 (3.5-5.1) mEq/L Chloride 93 L (98-107) mEq/L Carbon Dioxide 30 (21-32) mEq/L Anion Gap 12.2 (5-15) BUN 13 (7-18) mg/dL Creatinine 1.0 (0.55-1.02) mg/dL Est Cr Clr Drug Dosing 54.54 mL/min Estimated GFR (MDRD) 56 (>60) mL/min BUN/Creatinine Ratio 13.0 L (14-18) Glucose 89 (80-115) mg/dL Calcium 9.1 (8.5-10.1) mg/dL Magnesium 1.2 L (1.8-2.4) mg/dl Total Bilirubin 0.6 (0.2-1.0) mg/dL AST 16 (15-37) U/L ALT 23 (14-59) U/L Alkaline Phosphatase 145 H (46-116) U/L Total Protein 7.8 (6.4-8.2) g/dl Albumin 4.2 (3.4-5.0) g/dl Globulin 3.6 gm/dL Albumin/Globulin Ratio 1.2 (1-2) Meds: Medications Discontinued Medications Generic Name Dose Route Start Last Admin Trade Name Freq PRN Reason Stop Dose Admin Magnesium Sulfate 2 gm/ Premix 50 mls @ 25 mls/hr 06/28/20 17:14 06/28/20 18:12 IV 06/28/20 19:13 25 mls/hr ONETIME ONE Administration Sodium Chloride 1,000 mls @ 150 mls/hr 06/28/20 17:14 06/28/20 18:10 Normal Saline IV 06/28/20 23:53 150 mls/hr ONETIME ONE Administration Metoclopramide HCl 10 mg 06/28/20 17:16 06/28/20 18:10 Reglan IVPUSH 06/28/20 17:17 10 mg ONETIME ONE Administration Sodium Chloride 10 ml 06/28/20 17:14 06/28/20 18:13 Saline Flush FLUSH 10 ml ASDIRECTED PRN Administration Keep Vein Open - Re-Assessments/Exams Free Text/Narrative Re-Assessment/Exam: 06/28/20 17:45 Patient presents to the ED for evaluation of her low magnesium level. IV will be placed along with 2 g of mag ordered, for her reported low magnesium of 1.1. Will repeat magnesium and CMP. Patient also be given 10 mg Reglan for nausea management. She will have normal saline running at 150 mils per hour along with the magnesium. 06/28/20 19:17 Magnesium is low again at 1.2. CMP is impressive for a mildly low sodium level of 131. Other parts of the metabolic panel essentially unremarkable. ALP is mildly elevated at 145. Patient is carrying a bag of normal saline along with the magnesium, she will be discharged after the magnesium has been given. Departure - Departure Time of Disposition: 19:18 Disposition: Home, Self-Care 01 Condition: Good Clinical Impression: Hyponatremia, Hypomagnesemia, Nausea - Discharge Information *PRESCRIPTION DRUG MONITORING PROGRAM REVIEWED*: No *COPY OF PRESCRIPTION DRUG MONITORING REPORT IN PATIENT DENI: No Instructions: Hypomagnesemia Referrals: Zackery Townsend MD [Primary Care Provider] - Forms: ED Department Discharge Additional Instructions: You were evaluated in the ER today for your low magnesium level. Your laboratory evaluation demonstrated a mildly low sodium level as well, but you did receive IV fluids for management of this along with 2 g of IV magnesium. Please continue to take your magnesium as directed by your primary care doctor, you should follow-up with their office for recommendations on adjustment of this level. I also highly recommend that you follow-up with your specialists for your transplant team for further evaluation and management, and investigation on why your magnesium is always chronically low. Please return to the ER at any time if symptoms change or worsen. Sepsis Event Note (ED) - Evaluation Sepsis Screening Result: No Definite Risk - Focused Exam Vital Signs: Vital Signs Temp Pulse Resp BP Pulse Ox 06/28/20 15:55 98.7 F 113 H 18 139/87 98 - My Orders Last 24 Hours: My Active Orders 06/28/20 17:14 Peripheral IV Insertion Adult [OM.PC] Routine - Assessment/Plan Last 24 Hours: My Active Orders 06/28/20 17:14 Peripheral IV Insertion Adult [OM.PC] Routine
== END 2020-06-28 20:18 | disposition home or self-care (01) ==
LOC: JD.ED 15:15
DX: E83.42 Hypomagnesemia (principal); E87.1 Hypo-osmolality and hyponatremia; E78.00 Pure hypercholesterolemia, unspecified; I10 Essential (primary) hypertension; I48.91 Unspecified atrial fibrillation; K21.9 Gastro-esophageal reflux disease without esophagitis; E03.9 Hypothyroidism, unspecified; F32.9 Major depressive disorder, single episode, unspecified; F41.9 Anxiety disorder, unspecified; Z88.2 Allergy status to sulfonamides; Z88.1 Allergy status to other antibiotic agents; Z91.048 Other nonmedicinal substance allergy status; Z88.7 Allergy status to serum and vaccine; Z90.49 Acquired absence of other specified parts of digestive tract; Z79.899 Other long term (current) drug therapy; Z79.82 Long term (current) use of aspirin; Z79.02 Long term (current) use of antithrombotics/antiplatelets
CPT/HCPCS: 36415; 80053; 83735; 96365; 96366; 96375; 99283; J2765; J3475; J7030

== ENCOUNTER 2020-07-28 06:54 | Inpatient (IN) | payer BC ==
--- NOTE | 2020-07-28 07:45 | EDM.PDOC ---
ED HPI GENERAL MEDICAL PROBLEM - General Chief Complaint: Gastrointestinal Problem Stated Complaint: HEARTBURN Time Seen by Provider: 07/28/20 07:42 Source of Information: Reports: Patient History Limitations: Reports: No Limitations - History of Present Illness INITIAL COMMENTS - FREE TEXT/NARRATIVE: 65-year-old female presents to the ED with increased trouble swallowing which is not a new problem for her. She has a history of nonspecific esophagitis. She states most recently it may be secondary to one of her medicines or pills getting stuck in her esophagus. Patient has a history of heart transplant in 2007 and remains on Prograf and CellCept. She has had chronic problems with hypomagnesemia felt to be secondary to above medications with wasting of magnesium and inability to reabsorb it. She is on high dose of magnesium to try and maintain of 1.4-1.8. She takes 12 tablets/day usually 3 tablets every 6 hours which unfortunately is causing increased abdominal cramps and chronic diarrhea. This morning she lost control of her bowel before she could get to the bathroom. Intermittent associated abdominal cramping. Some bleeding per rectum due to the explosiveness of the stools. She has history of hemorrhoids. Blood is more noted with wiping after bowel movement. She has a history of C. difficile enteritis. She has not been on any recent antibiotics. Her weight has gradually decreased over the last year from 158 to about 142 pounds. She recently tried a different formulation of magnesium which seemed to make things much worse. She just went back to her magnesium gluconate tablets a day or so ago. No fever no chills. Blood preasure has been running lower than normal. Denies cough or sputum production. No genitourinary complaints. Onset: Other Duration: Chronic, Getting Worse (Chronic although problems getting worse.) Location: Reports: Abdomen (Diffuse abdominal cramping and severe diarrhea 6-8 times per day.) Quality: Reports: Other (Diffuse intermittent abdominal pain due to cramping.) Severity: Moderate Improves with: Reports: None Worsens with: Reports: None Context: Reports: Other (Chronic problems with diarrhea secondary to magnesium supplements.). Denies: Activity, Exercise, Lifting, Sick Contact, Trauma Associated Symptoms: Reports: Loss of Appetite, Malaise, Nausea/Vomiting, Other (Nausea without vomiting diarrhea usually explosive 6 or 8 times daily). 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.) Abdomen Pain Score (Numeric/FACES): 5 - Related Data Allergies Allergy/AdvReac Type Severity Reaction Status Date / Time cefuroxime [From Ceftin] Allergy Cannot Verified 07/28/20 13:12 Remember clindamycin Allergy Cannot Verified 07/28/20 13:12 Remember Sulfa (Sulfonamide Allergy Hives Verified 07/28/20 13:12 Antibiotics) zoster vaccine live Allergy Cannot Verified 07/28/20 13:12 [From Zostavax (PF)] Remember dust Allergy Cannot Uncoded 07/28/20 13:12 Remember mold Allergy Wheezing Uncoded 07/28/20 13:12 Home Meds: Home Meds Simvastatin [Zocor] 10 mg PO QPM 03/10/19 [History] Tacrolimus [Prograf] 2.5 mg PO QAM 03/10/19 [History] Calcium Carbonate/Vitamin D3 [Calcium 500-Vit D3 125 Caplet] 2 tab PO DAILY 06/23/19 [History] Lactobacillus Acidophilus [Probiotic] 1 cap PO BEDTIME 07/01/19 [History] Multivitamin [Daily Multiple Vitamin] 1 tab PO DAILY 07/01/19 [History] Tacrolimus [Prograf] 2 mg PO BEDTIME 07/01/19 [History] mycophenolate mofetiL [Cellcept] 1,500 mg PO BID 07/01/19 [History] Levothyroxine Sodium [Euthyrox] 75 mcg PO DAILY 12/19/19 [History] Losartan Potassium 25 mg PO DAILY 12/19/19 [History] Aspirin [Halfprin] 81 mg PO DAILY tab.ec 12/27/19 [Rx] busPIRone [Buspar] 7.5 mg PO BID tablet 12/27/19 [Rx] Famotidine 40 mg PO BEDTIME 06/05/20 [History] Fexofenadine HCl 180 mg PO DAILY 06/05/20 [History] LORazepam [Ativan] 0.5 mg PO TID PRN 06/05/20 [History] calcium polycarbophiL [Fiber Tabs] 1 tab PO BID 06/05/20 [History] Magnesium Oxide [Magnesium] 1,200 mg PO TID 07/28/20 [History] Past Medical History HEENT History: Reports: Allergic Rhinitis, Impaired Vision Other HEENT History: Wears glasses, braces Cardiovascular History: Reports: High Cholesterol, Hypertension, Other (See Below) Other Cardiovascular History: heart transplant in 2007: prior to transplant had asystole, mitral and aortic valve insufficeincy, afib, cardiomyopathy Respiratory History: Reports: Other (See Below) Other Respiratory History: Severe allergies Gastrointestinal History: Reports: Colon Polyp, Diverticulosis, GERD, Other (See Below) Other Gastrointestinal History: hematochezia, abdominal pain Genitourinary History: Reports: Urinary Incontinence Other Genitourinary History: urge incontinence TRANSPORTATION AID History: Reports: Other (See Below) Other TRANSPORTATION AID History: Cyst left ovary, and two cyst in left breasts. 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 Endocrine/Metabolic History: Reports: Hypomagnesemia, Hypothyroidism Hematologic History: Reports: Other (See Below) Other Hematologic History: magnesium deficiency Immunologic History: Reports: Immunosuppression Other Immunologic History: Heart transplant 2008 Dermatologic History: Reports: Psoriasis - Infectious Disease History Infectious Disease History: Reports: Chicken Pox, Measles, Mumps - Past Surgical History HEENT Surgical History: Reports: Oral Surgery Cardiovascular Surgical History: Reports: AICD, Other (See Below) Other Cardiovascular Surgeries/Procedures: heart transplant GI Surgical History: Reports: Appendectomy, Cholecystectomy, Other (See Below) Social & Family History - Family History Family Medical History: Noncontributory Cardiac: Reports: Heart Failure, [place] - Tobacco Use Tobacco Use Status *Q: Never Tobacco User - Caffeine Use Caffeine Use: Reports: None - Recreational Drug Use Recreational Drug Use: No - Living Situation & Occupation Living situation: Reports: , Alone 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 ED ROS GENERAL - Review of Systems Review Of Systems: See Below Constitutional: Reports: Malaise, Weakness, Fatigue, Decreased Appetite, Weight Loss, Other (Difficulty swallowing.). Denies: Fever, Chills HEENT: Reports: No Symptoms Respiratory: Denies: Shortness of Breath, Wheezing, Pleuritic Chest Pain, Cough, Sputum Cardiovascular: Reports: Lightheadedness. Denies: Chest Pain, Blood Pressure Problem, Claudication, Dyspnea on Exertion, Edema, Orthopnea, Palpitations Endocrine: Reports: Fatigue GI/Abdominal: Reports: Abdominal Pain (And diffuse abdominal cramping pain), Diarrhea (Chronic diarrhea loose yellow and explosive usually 6-8 times daily), Difficulty Swallowing (Almost daily. [place] to be due to medication.), Flatus, Hematochezia, Nausea (Occasionally.), Stool Incontinence. Denies: Distension, Hematemesis, Melena, Vomiting (Explosive diarrhea stools.), Other : Reports: No Symptoms Musculoskeletal: Reports: Other (She has muscle weakness intermittently particularly if her magnesium is low.) Skin: Reports: No Symptoms Neurological: Reports: No Symptoms, Dizziness, Weakness (At times dizzy lightheaded.). Denies: Confusion Psychiatric: Reports: No Symptoms Hematologic/Lymphatic: Reports: No Symptoms ED EXAM, GI/ABD - Physical Exam Exam: See Below Exam Limited By: No Limitations General Appearance: Alert, WD/WN, No Apparent Distress, Other (Patient appears rather pallid in color. Temperature is 37.0 with a heart rate of 115 and sinus on the monitor . Of note this is her heart transplant [place] rate. She does not have a pacemaker) Eyes: Bilateral: Normal Appearance (No scleral icterus mild peripheral pallor.) Throat/Mouth: Other (Tongue is dry and coated. Has a bit of geographic tongue.) Head: Atraumatic, Normocephalic Neck: Normal Inspection, Supple, Non-Tender, Full Range of Motion. No: Lymphadenopathy (L), Lymphadenopathy (R), Thyromegaly Respiratory/Chest: No Respiratory Distress, Lungs Clear, Normal Breath Sounds, No Accessory Muscle Use Cardiovascular: Normal Peripheral Pulses, Regular Rate, Rhythm, No Edema, No Gallop, No Rub, Systolic Murmur (Left lower sternal border I think there is an early diastolic murmur present.) GI/Abdominal Exam: Soft, Non-Tender, No Organomegaly, No Distention, Abnormal Bowel Sounds (Bowel sounds are hyperactive in all 4 quadrants.). No: Distended Back Exam: Normal Inspection, Full Range of Motion. No: CVA Tenderness (L), CVA Tenderness (R) Extremities: Normal Inspection, Normal Range of Motion, Non-Tender, No Pedal Edema Neurological: Alert, Oriented, CN II-XII Intact, Normal Cognition Psychiatric: Normal Affect, Normal Mood Skin Exam: Warm, Dry, Intact, Normal Color, No Rash Course - Vital Signs Last Recorded V/S: Last Vital Signs Temp 37.0 C 07/28/20 07:22 Pulse 115 H 07/28/20 07:22 Resp 19 07/28/20 07:22 BP 125/87 07/28/20 07:22 Pulse Ox 97 07/28/20 07:22 Orthostatic Blood Pressure [ 115/86 Standing] Orthostatic Blood Pressure [ 113/73 Sitting] Orthostatic Blood Pressure [ 111/70 Supine] - Orders/Labs/Meds Orders: Active Orders 24 hr Category Date Time Status Admission Status [Patient Status] [ADT] Routine ADT 07/28/20 13:32 Ordered Orthostatic Vital Signs [RC] ASDIRECTED Care 07/28/20 07:58 Active C DIFFICILE TOXIN IMMUNOASSAY [MREF] Stat Lab 07/28/20 10:10 Received Dextrose 5%-0.9% NaCl [Dextrose 5%-Normal Saline] 1,000 Med 07/28/20 08:00 Active ml IV ASDIRECTED Magnesium Sulfate/Water [Magnesium Sulfate in Water Med 07/28/20 13:16 Ordered Premix] 4 gm Premix Bag 1 bag IV ONETIME Medication Orders Dextrose/Sodium Chloride (Dextrose 5%-Normal Saline) 1,000 mls @ 150 mls/hr IV ASDIRECTED EDUARDO Last Admin: 07/28/20 08:45 Dose: 150 mls/hr Documented by: PAO Magnesium Sulfate 4 gm/ Premix 50 mls @ 12.5 mls/hr IV ONETIME ONE Stop: 07/28/20 17:15 Labs: Laboratory Tests 07/28/20 07/28/20 07/28/20 Range/Units 08:40 08:40 08:40 WBC 9.67 (3.98-10.04) K/mm3 RBC 4.03 (3.98-5.22) M/mm3 Hgb 11.7 (11.2-15.7) gm/dl Hct 35.9 (34.1-44.9) % MCV 89.1 D (79.4-94.8) fl MCH 29.0 (25.6-32.2) pg MCHC 32.6 (32.2-35.5) g/dl RDW Std Deviation 41.2 (36.4-46.3) fL Plt Count 263 (182-369) K/mm3 MPV 11.2 (9.4-12.3) fl Neut % (Auto) 78.4 H (34.0-71.1) % Lymph % (Auto) 13.2 L (19.3-51.7) % [place] % (Auto) 6.9 (4.7-12.5) % Eos % (Auto) 1.2 (0.7-5.8) Baso % (Auto) 0.1 (0.1-1.2) % Neut # (Auto) 7.57 H (1.56-6.13) K/mm3 Lymph # (Auto) 1.28 (1.18-3.74) K/mm3 [place] # (Auto) 0.67 H (0.24-0.36) K/mm3 Eos # (Auto) 0.12 (0.04-0.36) K/mm3 Baso # (Auto) 0.01 (0.01-0.08) K/mm3 Sodium 136 (136-145) mEq/L Potassium 4.6 (3.5-5.1) mEq/L Chloride 102 (98-107) mEq/L Carbon Dioxide 25 (21-32) mEq/L Anion Gap 13.6 (5-15) BUN 9 (7-18) mg/dL Creatinine 1.0 (0.55-1.02) mg/dL Est Cr Clr Drug Dosing 54.54 mL/min Estimated GFR (MDRD) 56 (>60) mL/min BUN/Creatinine Ratio 9.0 L (14-18) Glucose 90 (80-115) mg/dL Calcium 9.0 (8.5-10.1) mg/dL Magnesium 1.4 L (1.8-2.4) mg/dl Total Bilirubin 0.5 (0.2-1.0) mg/dL AST 23 (15-37) U/L ALT 35 (14-59) U/L Alkaline Phosphatase 164 H (46-116) U/L Troponin I < 0.017 (0.00-0.056) ng/mL NT-Pro-B Natriuret Pep 187 H (0-125) pg/mL Total Protein 7.2 (6.4-8.2) g/dl Albumin 3.9 (3.4-5.0) g/dl Globulin 3.3 gm/dL Albumin/Globulin Ratio 1.2 (1-2) Lipase 73 (73-393) U/L Vitamin B12 (193-986) pg/ml Urine Color (Yellow) Urine Appearance (Clear) Urine pH (5.0-8.0) Ur Specific [place] (1.005-1.030) Urine Protein (Negative) Urine Glucose (UA) (Negative) Urine Ketones (Negative) Urine Occult Blood (Negative) Urine Nitrite (Negative) Urine Bilirubin (Negative) Urine Urobilinogen (0.2-1.0) Ur Leukocyte Esterase (Negative) U Hyaline Cast (Auto) (0-5) /lpf Urine RBC (0-5) /hpf Urine WBC (0-5) /hpf Ur Epithelial Cells (0-5) /hpf Urine Bacteria (FEW) /hpf Urine Mucus (FEW) /hpf C.difficile [id number]-[id number] C. difficile Tox (PCR) 07/28/20 07/28/20 07/28/20 Range/Units 08:40 10:10 10:10 WBC (3.98-10.04) K/mm3 RBC (3.98-5.22) M/mm3 Hgb (11.2-15.7) gm/dl Hct (34.1-44.9) % MCV (79.4-94.8) fl MCH (25.6-32.2) pg MCHC (32.2-35.5) g/dl RDW Std Deviation (36.4-46.3) fL Plt Count (182-369) K/mm3 MPV (9.4-12.3) fl Neut % (Auto) (34.0-71.1) % Lymph % (Auto) (19.3-51.7) % [place] % (Auto) (4.7-12.5) % Eos % (Auto) (0.7-5.8) Baso % (Auto) (0.1-1.2) % Neut # (Auto) (1.56-6.13) K/mm3 Lymph # (Auto) (1.18-3.74) K/mm3 [place] # (Auto) (0.24-0.36) K/mm3 Eos # (Auto) (0.04-0.36) K/mm3 Baso # (Auto) (0.01-0.08) K/mm3 Sodium (136-145) mEq/L Potassium (3.5-5.1) mEq/L Chloride (98-107) mEq/L Carbon Dioxide (21-32) mEq/L Anion Gap (5-15) BUN (7-18) mg/dL Creatinine (0.55-1.02) mg/dL Est Cr Clr Drug Dosing mL/min Estimated GFR (MDRD) (>60) mL/min BUN/Creatinine Ratio (14-18) Glucose (80-115) mg/dL Calcium (8.5-10.1) mg/dL Magnesium (1.8-2.4) mg/dl Total Bilirubin (0.2-1.0) mg/dL AST (15-37) U/L ALT (14-59) U/L Alkaline Phosphatase (46-116) U/L Troponin I (0.00-0.056) ng/mL NT-Pro-B Natriuret Pep (0-125) pg/mL Total Protein (6.4-8.2) g/dl Albumin (3.4-5.0) g/dl Globulin gm/dL Albumin/Globulin Ratio (1-2) Lipase (73-393) U/L Vitamin B12 630 (193-986) pg/ml Urine Color Yellow (Yellow) Urine Appearance Clear (Clear) Urine pH 6.0 (5.0-8.0) Ur Specific [place] 1.015 (1.005-1.030) Urine Protein Negative (Negative) Urine Glucose (UA) Negative (Negative) Urine Ketones Negative (Negative) Urine Occult Blood Negative (Negative) Urine Nitrite Negative (Negative) Urine Bilirubin Negative (Negative) Urine Urobilinogen 0.2 (0.2-1.0) Ur Leukocyte Esterase Trace H (Negative) U Hyaline Cast (Auto) 0-5 (0-5) /lpf Urine RBC 0-5 (0-5) /hpf Urine WBC 5-10 H (0-5) /hpf Ur Epithelial Cells 0-5 (0-5) /hpf Urine Bacteria Few (FEW) /hpf Urine Mucus Not seen (FEW) /hpf C.difficile [id number]-NAP1-B1 Presumptive negative C. difficile Tox (PCR) Positive H Meds: Medications Generic Name Dose Route Start Last Admin Trade Name Lito PRN Reason Stop Dose Admin Dextrose/Sodium Chloride 1,000 mls @ 150 mls/hr 07/28/20 08:00 07/28/20 08:45 Dextrose 5%-Normal Saline IV 150 mls/hr ASDIRECTED EDUARDO Administration Magnesium Sulfate 4 gm/ Premix 50 mls @ 12.5 mls/hr 07/28/20 13:16 IV 07/28/20 17:15 ONETIME ONE Discontinued Medications Generic Name Dose Route Start Last Admin Trade Name Freq PRN Reason Stop Dose Admin Dicyclomine HCl 20 mg 07/28/20 11:42 07/28/20 11:55 Bentyl PO 07/28/20 11:43 20 mg ONETIME ONE Administration Hydromorphone HCl 0.5 mg 07/28/20 11:05 07/28/20 11:53 Dilaudid IVPUSH 07/28/20 11:06 0.5 mg ONETIME ONE Administration Ondansetron HCl 4 mg 07/28/20 11:05 07/28/20 11:51 Zofran IVPUSH 07/28/20 11:06 4 mg ONETIME ONE Administration Vancomycin HCl 125 mg 07/28/20 13:11 Vancocin 125 Mg Capsule PO 07/28/20 13:12 ONETIME ONE - Radiology Interpretation Free Text/Narrative:: 65-year-old female presents to the ED for evaluation of stool incontinence and increased diarrhea. Patient has chronic diarrhea issues due to magnesium supplementation. Since heart transplant she has developed hypomagnesemia felt to be due to Prograf and/or CellCept which he takes on a daily basis basis. She has tried various formulations of magnesium supplementation and is currently on 3 tablets 4 times daily to try to maintain a serum magnesium between 1.4 and 1.8. However any change in formulation or timing of the medicine results in increased diarrhea. This morning she did not make it to the bathroom had stool incontinence. She finds the stools to be very explosive in nature. She has not had her serum magnesium checked for a period of time. She reports most recently there was a change in the formulation of her magnesium which she gets from the [facility]. She states this seemed to cause more diarrhea. She recently went back to her magnesium gluconate tablets that she had leftover. This was 2 days ago. Lungs are clear . Heart rate 115-minute. Blood pressure 110/64. Plan patient will have routine labs including a serum magnesium level. I believe current problems are secondary to magnesium supplementation. With the chronic diarrhea she has had progressive weight loss and difficulty eating. Associated mild odynophagia and GERD. She takes Pepcid 40 mg daily. Stool will be tested for C. difficile as well as she has had this in the past but admits to no recent antibiotic usage. - Re-Assessments/Exams Free Text/Narrative Re-Assessment/Exam: 07/28/20 08:58 heart rate remains 98 to 110/min. BP 104/75. O2 sats 100% room air. 07/28/20 09:29 White count is normal at 9.67. Differential reveals 78% neutrophils. Hemoglobin slightly low at 11.7 with hematocrit of 35.9. Platelet count is 263,000. 07/28/20 09:34 Chemistry shows a sodium of 136 and a potassium of 4.6. Chloride 102 with a bicarb of 25. Anion gap is 13.6 with a BUN of 9 and a creatinine of 1.0. Glucose is 90 with a calcium of 9.0 magnesium is low at 1.4. Liver function normal other than slightly elevated alkaline phosphatase at 164 likely due to secondary hyperparathyroidism. Troponin was less than 0.017. Lipase was normal at 73 total protein is 7.2 with an albumin fraction of 3.9. 07/28/20 11:00: Patient reports increased abdominal pain since eating. Associated increased nausea. We will therefore give her Zofran 4 mg IV and Dilaudid 0.5 mg IV for pain relief. Patient has passed a stool sample for C. difficile evaluation. She was able to do this before she ate anything.Urinalysis shows trace leukocyte esterase with 5-10 WBCs per high-power field. Few bacteria appreciated. 07/28/20 11:27 patient's stool did come back positive for C. difficile infection. This may be due to the loss of her normal GI kj secondary to magnesium induced diarrhea but she has a lot of abdominal cramping pain and is made worse by eating. Therefore I will treat her with vancomycin 125 mg p.o. 4 times daily as she is intolerant to vancomycin. She will be treated with Bentyl 20 mg p.o. at this time for increased abdominal cramping since she ate. Patient indicates she has not yet received any Dilaudid for pain relief. Will discuss whether she wants to go home or stay in the hospital for initial treatment of C. difficile enteritis. BNP came back at 187. 07/28/20 13:15 She has decided that she would like to stay in the hospital and I concur with this. I will therefore proceed with magnesium infusion 4 g IV. She will also be started on oral vancomycin 125 mg capsule 4 times daily. It is of concern that she may be not be keeping down her tacrolimus or CellCept or is passing right through her because of the extensive diarrhea which places her at higher risk of rejection of her heart. I have discussed the case with Dr. Roblero on-call hospitalist and he has agreed to the admission. Patient will be admitted to the med surgery floor. Note abdominal cramps are much improved after receiving the 0.5 mg of Dilaudid IV. She is also received first dose of Bentyl 20 mg p.o. I discussed discharging the patient on amiloride 5 mg tablet starting with half a tablet once daily for a week to see if this would help reduce the magnesium loss from her kidneys. She will require a serum potassium level within 6 or 7 days of starting this medication as the side effect of amiloride may be hyperkalemia. She at any rate needs to reduce her magnesium tablets to 6 tablets daily as more is not better and causing significant side effects. C. difficile positivity in her stool may represent pathology but it also may be due to loss of her normal GI kj from 3 days of severe diarrhea. Departure - Departure Time of Disposition: 13:35 Disposition: Admitted As Inpatient 66 Condition: Fair Clinical Impression: C. difficile diarrhea, Hypomagnesemia, Heart transplant recipient, Acquired immunocompromised state Abdominal pain Qualifiers: Abdominal location: left upper quadrant Qualified Code(s): R10.12 - Left upper quadrant pain - Discharge Information *PRESCRIPTION DRUG MONITORING PROGRAM REVIEWED*: Not Applicable *COPY OF PRESCRIPTION DRUG MONITORING REPORT IN PATIENT DENI: Not Applicable Referrals: Zackery Townsend MD [Primary Care Provider] - Forms: ED Department Discharge Sepsis Event Note (ED) - Evaluation Sepsis Screening Result: No Definite Risk - Focused Exam Vital Signs: Vital Signs Temp Pulse Resp BP Pulse Ox 07/28/20 07:22 37.0 C 115 H 19 125/87 97 - My Orders Last 24 Hours: My Active Orders 07/28/20 07:58 Orthostatic Vital Signs [RC] ASDIRECTED 07/28/20 08:00 Dextrose 5%-0.9% NaCl [Dextrose 5%-Normal Saline] 1,000 ml IV ASDIRECTED 07/28/20 10:10 C DIFFICILE TOXIN IMMUNOASSAY [MREF] Stat 07/28/20 13:16 Magnesium Sulfate/Water [Magnesium Sulfate in Water Premix] 4 gm Premix Bag 1 bag IV ONETIME 07/28/20 13:32 Admission Status [Patient Status] [ADT] Routine - Assessment/Plan Last 24 Hours: My Active Orders 07/28/20 07:58 Orthostatic Vital Signs [RC] ASDIRECTED 07/28/20 08:00 Dextrose 5%-0.9% NaCl [Dextrose 5%-Normal Saline] 1,000 ml IV ASDIRECTED 07/28/20 10:10 C DIFFICILE TOXIN IMMUNOASSAY [MREF] Stat 07/28/20 13:16 Magnesium Sulfate/Water [Magnesium Sulfate in Water Premix] 4 gm Premix Bag 1 bag IV ONETIME 07/28/20 13:32 Admission Status [Patient Status] [ADT] Routine
[2020-07-28] MEDS: Dextrose 5%-0.9% NaCl 1,000 ML IV SCH ×2 (08:45→17:08)
[2020-07-28] MEDS ORDERED: Ondansetron 4 MG/2 ML SDV IVPUSH ONE (11:05)
[2020-07-28] MEDS ORDERED: HYDROmorphone 0.5 MG/0.5 ML Syringe IVPUSH ONE (11:05)
[2020-07-28] MEDS ORDERED: Dicyclomine 10 MG Cap PO ONE (11:42)
[2020-07-28] MEDS ORDERED: Vancomycin 125 MG Cap PO ONE (13:11)
[2020-07-28] MEDS ORDERED: Magnesium Sulfate/Water 4 GM in Premix Bag 1 BAG IV ONE (13:16)
[2020-07-28] MEDS ORDERED: Ondansetron 4 MG/2 ML SDV IV PRN (14:18)
[2020-07-28] MEDS ORDERED: Dicyclomine 10 MG Cap PO PRN (14:22)
--- NOTE | 2020-07-28 14:31 | PCM.HP.2 ---
H&P History of Present Illness - General Date of Service: 07/28/20 Admit Problem/Dx: Admission Diagnosis/Problem Admission Diagnosis/Problem Diarrhea due to drug Source of Information: Patient, Old Records, Provider History Limitations: Reports: No Limitations - History of Present Illness Initial Comments - Free Text/Narative: 65-year-old female presents to the ED with increased trouble swallowing which is not a new problem for her. She has a history of nonspecific esophagitis. She states most recently it may be secondary to one of her medicines or pills getting stuck in her esophagus. Patient has a history of heart transplant in 2007 and remains on Prograf and CellCept. She has had chronic problems with hypomagnesemia felt to be secondary to above medications with wasting of magnesium and inability to reabsorb it. She is on high dose of magnesium to try and maintain of 1.4-1.8. She takes 12 tablets/day usually 3 tablets every 6 hours which unfortunately is causing increased abdominal cramps and chronic diarrhea. This morning she lost control of her bowel before she could get to the bathroom. Intermittent associated abdominal cramping. Some bleeding per rectum due to the explosiveness of the stools. She has history of hemorrhoids. Blood is more noted with wiping after bowel movement. She has a history of C. difficile enteritis. She has not been on any recent antibiotics. Her weight has gradually decreased over the last year from 158 to about 142 pounds. She recently tried a different formulation of magnesium which seemed to make things much worse. She just went back to her magnesium gluconate tablets a day or so ago. No fever no chills. Blood preasure has been running lower than normal. Denies cough or sputum production. No genitourinary complaints. Abdomen Pain Score (Numeric/FACES): 5 - Related Data Allergies/Adverse Reactions: Allergies Allergy/AdvReac Type Severity Reaction Status Date / Time cefuroxime [From Ceftin] Allergy Cannot Verified 07/28/20 13:12 Remember clindamycin Allergy Cannot Verified 07/28/20 13:12 Remember Sulfa (Sulfonamide Allergy Hives Verified 07/28/20 13:12 Antibiotics) zoster vaccine live Allergy Cannot Verified 07/28/20 13:12 [From Zostavax (PF)] Remember dust Allergy Cannot Uncoded 07/28/20 13:12 Remember mold Allergy Wheezing Uncoded 07/28/20 13:12 Home Medications: Home Meds Simvastatin [Zocor] 10 mg PO QPM 03/10/19 [History] Tacrolimus [Prograf] 2.5 mg PO QAM 03/10/19 [History] Calcium Carbonate/Vitamin D3 [Calcium 500-Vit D3 125 Caplet] 500 - 600 mg PO BID 06/23/19 [History] Lactobacillus Acidophilus [Probiotic] 1 cap PO BEDTIME 07/01/19 [History] Multivitamin [Daily Multiple Vitamin] 1 tab PO DAILY 07/01/19 [History] Tacrolimus [Prograf] 2 mg PO BEDTIME 07/01/19 [History] mycophenolate mofetiL [Cellcept] 1,500 mg PO BID 07/01/19 [History] Levothyroxine Sodium [Euthyrox] 75 mcg PO DAILY 12/19/19 [History] Losartan Potassium 25 mg PO DAILY 12/19/19 [History] Aspirin [Halfprin] 81 mg PO DAILY tab.ec 12/27/19 [Rx] busPIRone [Buspar] 7.5 mg PO BID tablet 12/27/19 [Rx] Famotidine 40 mg PO BEDTIME 06/05/20 [History] Fexofenadine HCl 180 mg PO DAILY 06/05/20 [History] LORazepam [Ativan] 0.5 mg PO TID PRN 06/05/20 [History] calcium polycarbophiL [Fiber Tabs] 1 tab PO BID 06/05/20 [History] Magnesium Oxide [Magnesium] 1,200 mg PO TID 07/28/20 [History] Past Medical History HEENT History: Reports: Allergic Rhinitis, Impaired Vision Other HEENT History: Wears glasses, braces Cardiovascular History: Reports: High Cholesterol, Hypertension, Other (See Below) Other Cardiovascular History: heart transplant in 2007: prior to transplant had asystole, mitral and aortic valve insufficeincy, afib, cardiomyopathy Respiratory History: Reports: Other (See Below) Other Respiratory History: Severe allergies Gastrointestinal History: Reports: Colon Polyp, Diverticulosis, GERD, Other (See Below) Other Gastrointestinal History: hematochezia, abdominal pain Genitourinary History: Reports: Urinary Incontinence Other Genitourinary History: urge incontinence [employer] MANAGER History: Reports: Other (See Below) Other OB/BYN History: Cyst left ovary, and two cyst in left breasts. 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 Endocrine/Metabolic History: Reports: Hypomagnesemia, Hypothyroidism Hematologic History: Reports: Other (See Below) Other Hematologic History: magnesium deficiency Immunologic History: Reports: Immunosuppression Other Immunologic History: Heart transplant 2008 Dermatologic History: Reports: Psoriasis - Infectious Disease History Infectious Disease History: Reports: Chicken Pox, Measles, Mumps - Past Surgical History HEENT Surgical History: Reports: Oral Surgery Cardiovascular Surgical History: Reports: AICD, Other (See Below) Other Cardiovascular Surgeries/Procedures: heart transplant GI Surgical History: Reports: Appendectomy, Cholecystectomy, Other (See Below) Social & Family History - Family History Family Medical History: Noncontributory Cardiac: Reports: Heart Failure, MD - Tobacco Use Tobacco Use Status *Q: Never Tobacco User - Caffeine Use Caffeine Use: Reports: None - Recreational Drug Use Recreational Drug Use: No - Living Situation & Occupation Living situation: Reports: , Alone 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) H&P Review of Systems - Review of Systems: Review Of Systems: See Below General: Reports: Malaise, Fatigue, Decreased Appetite HEENT: Reports: Glasses Pulmonary: Reports: No Symptoms Cardiovascular: Reports: No Symptoms Gastrointestinal: Reports: Abdominal Pain, Diarrhea, Decreased Appetite, Mucous in Stool, Nausea, Stool Incontinence Genitourinary: Reports: No Symptoms Musculoskeletal: Reports: No Symptoms Skin: Reports: No Symptoms Psychiatric: Reports: No Symptoms Neurological: Reports: No Symptoms Hematologic/Lymphatic: Reports: No Symptoms Immunologic: Reports: No Symptoms Exam - Exam Exam: See Below - Vital Signs Vital Signs: Last Vital Signs Temp 97.6 F 07/28/20 13:30 Pulse 100 07/28/20 13:30 Resp 16 07/28/20 13:30 BP 113/76 07/28/20 13:30 Pulse Ox 100 07/28/20 13:30 Orthostatic Blood Pressure [ 115/86 Standing] Orthostatic Blood Pressure [ 113/73 Sitting] Orthostatic Blood Pressure [ 111/70 Supine] Weight: 142 lb - Exam General: Alert, Oriented, Cooperative HEENT: Conjunctiva Clear, EACs Clear, Hearing Intact, Mucosa Moist & [place], Pupils Equal, Pupils Reactive Neck: Supple, Trachea Midline. No: Lymphadenopathy Lungs: Clear to Auscultation, Normal Respiratory Effort Cardiovascular: Regular Rate, Regular Rhythm, Normal S1, Normal S2 GI/Abdominal Exam: Normal Bowel Sounds, Soft, No Distention, Tender (Female) Exam: Deferred Rectal (Female) Exam: Deferred Back Exam: Normal Inspection, Full Range of Motion Extremities: Normal Inspection, Normal Range of Motion, Non-Tender, No Pedal Edema, Normal Capillary Refill Peripheral Pulses: 2+: Radial (L), Radial (R), Dorsalis Pedis (L), Dorsalis Pedis (R) Skin: Warm, Dry, Intact Neuro Extensive - Mental Status: Alert, Oriented x3, Normal Mood/Affect, Normal Cognition, Memory Intact Psychiatric: Alert, Normal Affect, Normal Mood - Patient Data Lab Results Last 24 hrs: Laboratory Results - last 24 hr 07/28/20 07/28/20 07/28/20 Range/Units 08:40 08:40 08:40 WBC 9.67 (3.98-10.04) K/mm3 RBC 4.03 (3.98-5.22) M/mm3 Hgb 11.7 (11.2-15.7) gm/dl Hct 35.9 (34.1-44.9) % MCV 89.1 D (79.4-94.8) fl MCH 29.0 (25.6-32.2) pg MCHC 32.6 (32.2-35.5) g/dl RDW Std Deviation 41.2 (36.4-46.3) fL Plt Count 263 (182-369) K/mm3 MPV 11.2 (9.4-12.3) fl Neut % (Auto) 78.4 H (34.0-71.1) % Lymph % (Auto) 13.2 L (19.3-51.7) % [place] % (Auto) 6.9 (4.7-12.5) % Eos % (Auto) 1.2 (0.7-5.8) Baso % (Auto) 0.1 (0.1-1.2) % Neut # (Auto) 7.57 H (1.56-6.13) K/mm3 Lymph # (Auto) 1.28 (1.18-3.74) K/mm3 [place] # (Auto) 0.67 H (0.24-0.36) K/mm3 Eos # (Auto) 0.12 (0.04-0.36) K/mm3 Baso # (Auto) 0.01 (0.01-0.08) K/mm3 Sodium 136 (136-145) mEq/L Potassium 4.6 (3.5-5.1) mEq/L Chloride 102 (98-107) mEq/L Carbon Dioxide 25 (21-32) mEq/L Anion Gap 13.6 (5-15) BUN 9 (7-18) mg/dL Creatinine 1.0 (0.55-1.02) mg/dL Est Cr Clr Drug Dosing 54.54 mL/min Estimated GFR (MDRD) 56 (>60) mL/min BUN/Creatinine Ratio 9.0 L (14-18) Glucose 90 (80-115) mg/dL Calcium 9.0 (8.5-10.1) mg/dL Magnesium 1.4 L (1.8-2.4) mg/dl Total Bilirubin 0.5 (0.2-1.0) mg/dL AST 23 (15-37) U/L ALT 35 (14-59) U/L Alkaline Phosphatase 164 H (46-116) U/L Troponin I < 0.017 (0.00-0.056) ng/mL NT-Pro-B Natriuret Pep 187 H (0-125) pg/mL Total Protein 7.2 (6.4-8.2) g/dl Albumin 3.9 (3.4-5.0) g/dl Globulin 3.3 gm/dL Albumin/Globulin Ratio 1.2 (1-2) Lipase 73 (73-393) U/L Vitamin B12 (193-986) pg/ml Urine Color (Yellow) Urine Appearance (Clear) Urine pH (5.0-8.0) Ur Specific [place] (1.005-1.030) Urine Protein (Negative) Urine Glucose (UA) (Negative) Urine Ketones (Negative) Urine Occult Blood (Negative) Urine Nitrite (Negative) Urine Bilirubin (Negative) Urine Urobilinogen (0.2-1.0) Ur Leukocyte Esterase (Negative) U Hyaline Cast (Auto) (0-5) /lpf Urine RBC (0-5) /hpf Urine WBC (0-5) /hpf Ur Epithelial Cells (0-5) /hpf Urine Bacteria (FEW) /hpf Urine Mucus (FEW) /hpf C.difficile [id number]-[id number] C. difficile Tox (PCR) 07/28/20 07/28/20 07/28/20 Range/Units 08:40 10:10 10:10 WBC (3.98-10.04) K/mm3 RBC (3.98-5.22) M/mm3 Hgb (11.2-15.7) gm/dl Hct (34.1-44.9) % MCV (79.4-94.8) fl MCH (25.6-32.2) pg MCHC (32.2-35.5) g/dl RDW Std Deviation (36.4-46.3) fL Plt Count (182-369) K/mm3 MPV (9.4-12.3) fl Neut % (Auto) (34.0-71.1) % Lymph % (Auto) (19.3-51.7) % [place] % (Auto) (4.7-12.5) % Eos % (Auto) (0.7-5.8) Baso % (Auto) (0.1-1.2) % Neut # (Auto) (1.56-6.13) K/mm3 Lymph # (Auto) (1.18-3.74) K/mm3 [place] # (Auto) (0.24-0.36) K/mm3 Eos # (Auto) (0.04-0.36) K/mm3 Baso # (Auto) (0.01-0.08) K/mm3 Sodium (136-145) mEq/L Potassium (3.5-5.1) mEq/L Chloride (98-107) mEq/L Carbon Dioxide (21-32) mEq/L Anion Gap (5-15) BUN (7-18) mg/dL Creatinine (0.55-1.02) mg/dL Est Cr Clr Drug Dosing mL/min Estimated GFR (MDRD) (>60) mL/min BUN/Creatinine Ratio (14-18) Glucose (80-115) mg/dL Calcium (8.5-10.1) mg/dL Magnesium (1.8-2.4) mg/dl Total Bilirubin (0.2-1.0) mg/dL AST (15-37) U/L ALT (14-59) U/L Alkaline Phosphatase (46-116) U/L Troponin I (0.00-0.056) ng/mL NT-Pro-B Natriuret Pep (0-125) pg/mL Total Protein (6.4-8.2) g/dl Albumin (3.4-5.0) g/dl Globulin gm/dL Albumin/Globulin Ratio (1-2) Lipase (73-393) U/L Vitamin B12 630 (193-986) pg/ml Urine Color Yellow (Yellow) Urine Appearance Clear (Clear) Urine pH 6.0 (5.0-8.0) Ur Specific [place] 1.015 (1.005-1.030) Urine Protein Negative (Negative) Urine Glucose (UA) Negative (Negative) Urine Ketones Negative (Negative) Urine Occult Blood Negative (Negative) Urine Nitrite Negative (Negative) Urine Bilirubin Negative (Negative) Urine Urobilinogen 0.2 (0.2-1.0) Ur Leukocyte Esterase Trace H (Negative) U Hyaline Cast (Auto) 0-5 (0-5) /lpf Urine RBC 0-5 (0-5) /hpf Urine WBC 5-10 H (0-5) /hpf Ur Epithelial Cells 0-5 (0-5) /hpf Urine Bacteria Few (FEW) /hpf Urine Mucus Not seen (FEW) /hpf C.difficile 027-NAP1-B1 Presumptive negative C. difficile Tox (PCR) Positive H Result Diagrams: 07/28/20 08:40 07/28/20 08:40 Sepsis Event Note - Evaluation Sepsis Screening Result: No Definite Risk - Focused Exam Vital Signs: Vital Signs Temp Pulse Resp BP Pulse Ox 07/28/20 13:30 97.6 F 100 16 113/76 100 07/28/20 07:22 98.6 F 115 H 19 125/87 97 - Problem List (1) Abdominal pain SNOMED Code(s): 81423020 ICD Code: R10.9 - UNSPECIFIED ABDOMINAL PAIN Status: Acute Priority: High Current Visit: Yes Qualifiers: Abdominal location: left upper quadrant Qualified Code(s): R10.12 - Left upper quadrant pain (2) Acquired immunocompromised state SNOMED Code(s): 125818932 ICD Code: D84.9 - IMMUNODEFICIENCY, UNSPECIFIED Status: Chronic Priority: High Current Visit: Yes (3) C. difficile diarrhea SNOMED Code(s): 7656427526784 ICD Code: A04.72 - ENTEROCOLITIS D/T CLOSTRIDIUM DIFFICILE, NOT SPCF RECUR Status: Acute Priority: High Current Visit: Yes (4) Hypomagnesemia SNOMED Code(s): 066076633 ICD Code: E83.42 - HYPOMAGNESEMIA Status: Chronic Priority: High Current Visit: Yes (5) Abdominal pain SNOMED Code(s): 65998535 ICD Code: R10.9 - UNSPECIFIED ABDOMINAL PAIN Status: Acute Priority: High Current Visit: No Problem List Initiated/Reviewed/Updated: Yes Orders Last 24hrs: Active Orders 24 hr Category Date Time Status Admission Status [Patient Status] [ADT] Routine ADT 07/28/20 13:32 Active Patient Status [ADT] Routine ADT 07/28/20 14:18 Active Cardiac Monitoring [RC] CONTINUOUS Care 07/28/20 14:19 Active Height and Weight [RC] DAILY Care 07/28/20 14:18 Active Intake and Output [RC] QSHIFT Care 07/28/20 14:19 Active Orthostatic Vital Signs [RC] ASDIRECTED Care 07/28/20 07:58 Active Oxygen Therapy [RC] PRN Care 07/28/20 14:18 Active Up With Assistance [RC] ASDIRECTED Care 07/28/20 14:18 Active VTE/DVT Education [RC] PER UNIT ROUTINE Care 07/28/20 14:18 Active Vital Signs [RC] Q4H Care 07/28/20 14:18 Active Consult to Chips Screen Tender [CONS] Routine Cons 07/28/20 14:18 Active Consult to Spiritual Care [CONS] Routine Cons 07/28/20 14:18 Active Regular Diet [DIET] Diet 07/28/20 Dinner Active C DIFFICILE TOXIN IMMUNOASSAY [MREF] Stat Lab 07/28/20 10:10 Received CBC WITH AUTO DIFF [HEME] AM Lab 07/29/20 05:11 Ordered COMPREHENSIVE METABOLIC PN,CMP [CHEM] AM Lab 07/29/20 05:11 Ordered CORONAVIRUS COVID-19 CHRISTIANO [MOLEC] Stat Lab 07/28/20 14:15 Received MAGNESIUM [CHEM] AM Lab 07/29/20 05:11 Ordered Acetaminophen [TylenoL] Med 07/28/20 14:18 Active 650 mg PO Q4H PRN Dextrose 5%-0.9% NaCl [Dextrose 5%-Normal Saline] 1,000 Med 07/28/20 08:00 Active ml IV ASDIRECTED Dicyclomine [Bentyl] Med 07/28/20 14:22 Active 10 mg PO QIDACANDBED PRN Magnesium Sulfate/Water [Magnesium Sulfate in Water Med 07/28/20 13:16 Active Premix] 4 gm Premix Bag 1 bag IV ONETIME Ondansetron [Zofran] Med 07/28/20 14:18 Active 4 mg IV Q4H PRN Vancomycin [Vancocin 125 MG Capsule] Med 07/28/20 17:00 Active 125 mg PO QID Resuscitation Status Routine Resus Stat 07/28/20 14:18 Ordered Medication Orders Acetaminophen (Tylenol) 650 mg PO Q4H PRN PRN Reason: Pain (Mild 1-3)/fever Dicyclomine HCl (Bentyl) 10 mg PO QIDACANDBED PRN PRN Reason: Abdominal Pain Dextrose/Sodium Chloride (Dextrose 5%-Normal Saline) 1,000 mls @ 150 mls/hr IV ASDIRECTED [facility] Last Admin: 07/28/20 08:45 Dose: 150 mls/hr Documented by: PAO Magnesium Sulfate 4 gm/ Premix 50 mls @ 12.5 mls/hr IV ONETIME ONE Stop: 07/28/20 17:15 Last Admin: 07/28/20 13:38 Dose: 12.5 mls/hr Documented by: PAO Ondansetron HCl (Zofran) 4 mg IV Q4H PRN PRN Reason: Nausea/Vomiting Vancomycin HCl (Vancocin 125 Mg Capsule) 125 mg PO QID [facility] Assessment/Plan Comment:: 07/28/20 * Significant history of diarrhea stools due to high intake of magnesium. * Incontinent of stool today which has started to become yellow and frothy. * History of antibiotic use starting on 911 for treatment of a UTI with Macrobid. * History of a heart transplant currently followed by the [facility] and page technician Sarah Costello at [facility] in [place] * Chronic hypomagnesemia due to Prograf and or CellCept. * White count is normal at 9.67. Differential reveals 78% neutrophils. Hemoglobin slightly low at 11.7 with hematocrit of 35.9. Platelet count is 263,000, Chemistry shows a sodium of 136 and a potassium of 4.6. Chloride 102 with a bicarb of 25. Anion gap is 13.6 with a BUN of 9 and a creatinine of 1.0. Glucose is 90 with a calcium of 9.0 magnesium is low at 1.4. Liver function normal other than slightly elevated alkaline phosphatase at 164 likely due to secondary hyperparathyroidism. Troponin was less than 0.017. Lipase was normal at 73 total protein is 7.2 with an albumin fraction of 3.9., Urinalysis shows trace leukocyte esterase with 5-10 WBCs per high-power field. Few bacteria appreciated, C. difficile 027NAP 1B1 is presumptive negative, C. difficile toxin is positive. This associated with the recent antibiotic use and the change in stool lead me to believe we should treat her for C. difficile. * Received 4 g of IV magnesium in the emergency department * Was started on p.o. vancomycin in the emergency department PLAN: * D5NS at 75 mL's per hour * Vancomycin 125 mg p.o. 4 times daily. * Bentyl 4 times daily as needed for stomach cramping * We will continue all of the patient's home medications. * Dietary to consult. * Spiritual care to consult. * Lovenox for DVT prophylaxis. * Repeat labs in the a.m. And correct any electrolyte abnormalities. - Mortality Measure Prognosis:: Good
[2020-07-28] MEDS ORDERED: LORazepam 0.5 MG Tab PO PRN (16:45)
[2020-07-28] MEDS ORDERED: Dextrose 5%-0.9% NaCl 1,000 ML IV SCH (17:00)
[2020-07-28] MEDS: Vancomycin 125 MG Cap PO SCH ×2 (17:07→20:25)
[2020-07-28] MEDS ORDERED: Simvastatin 10 MG Tab PO SCH ×2 (18:00→21:00)
[2020-07-28] MEDS: busPIRone 15 MG Tab PO SCH (20:24)
[2020-07-28] MEDS: Calcium Polycarbophil 625 MG Tab PO SCH (20:24)
[2020-07-28] MEDS: Acetaminophen 325 MG Tab PO PRN (20:25)
[2020-07-28] MEDS: MYCOPHENOLATE MOFETIL 500 MG PO SCH (20:26)
[2020-07-28] MEDS ORDERED: Famotidine 20 MG Tab PO SCH (21:00)
[2020-07-28] MEDS ORDERED: Saccharomyces Boulardii (Probiotic) 250 MG Cap PO SCH (21:00)
[2020-07-29] MEDS ORDERED: Levothyroxine 75 MCG Tab PO SCH (06:00)
[2020-07-29] MEDS ORDERED: Losartan 25 MG Tab PO SCH (09:00)
[2020-07-29] MEDS ORDERED: Aspirin 81 MG Tab.EC PO SCH (09:00)
[2020-07-29] MEDS ORDERED: Loratadine 10 MG Tab PO SCH (09:00)
[2020-07-29] MEDS: Calcium Polycarbophil 625 MG Tab PO SCH (09:06)
[2020-07-29] MEDS: Vancomycin 125 MG Cap PO SCH (09:06)
[2020-07-29] MEDS: busPIRone 15 MG Tab PO SCH (09:08)
[2020-07-29] MEDS: Acetaminophen 325 MG Tab PO PRN (09:15)
[2020-07-29] MEDS: MYCOPHENOLATE MOFETIL 500 MG PO SCH (09:50)
[2020-07-29 11:50] VITALS: BP 114/73; PULSE 99
--- NOTE | 2020-07-29 13:57 | PCM.DCSUM1 ---
Discharge Summary - Hospital Course HPI Initial Comments: 65-year-old female presents to the ED with increased trouble swallowing which is not a new problem for her. She has a history of nonspecific esophagitis. She states most recently it may be secondary to one of her medicines or pills getting stuck in her esophagus. Patient has a history of heart transplant in 2007 and remains on Prograf and CellCept. She has had chronic problems with hypomagnesemia felt to be secondary to above medications with wasting of magnesium and inability to reabsorb it. She is on high dose of magnesium to try and maintain of 1.4-1.8. She takes 12 tablets/day usually 3 tablets every 6 hours which unfortunately is causing increased abdominal cramps and chronic diarrhea. This morning she lost control of her bowel before she could get to the bathroom. Intermittent associated abdominal cramping. Some bleeding per rectum due to the explosiveness of the stools. She has history of hemorrhoids. Blood is more noted with wiping after bowel movement. She has a history of C. difficile enteritis. She has not been on any recent antibiotics. Her weight has gradually decreased over the last year from 158 to about 142 pounds. She recently tried a different formulation of magnesium which seemed to make things much worse. She just went back to her magnesium gluconate tablets a day or so ago. No fever no chills. Blood preasure has been running lower than normal. Denies cough or sputum production. No genitourinary complaints. Diagnosis: Stroke: No - Discharge Data Discharge Date: 07/29/20 (Admit date: 07/28/20) Discharge Disposition: Home, Self-Care 01 Condition: Good - Referral to Home Health Primary Care Physician: Zackery Townsend MD - Discharge Diagnosis/Problem(s) (1) Abdominal pain SNOMED Code(s): 86513492 ICD Code: R10.9 - UNSPECIFIED ABDOMINAL PAIN Status: Acute Priority: High Current Visit: Yes Qualifiers: Abdominal location: left upper quadrant Qualified Code(s): R10.12 - Left upper quadrant pain (2) Acquired immunocompromised state SNOMED Code(s): 790966766 ICD Code: D84.9 - IMMUNODEFICIENCY, UNSPECIFIED Status: Chronic Priority: High Current Visit: Yes (3) C. difficile diarrhea SNOMED Code(s): 7745829406814 ICD Code: A04.72 - ENTEROCOLITIS D/T CLOSTRIDIUM DIFFICILE, NOT SPCF RECUR Status: Acute Priority: High Current Visit: Yes (4) Hypomagnesemia SNOMED Code(s): 813025520 ICD Code: E83.42 - HYPOMAGNESEMIA Status: Chronic Priority: High Current Visit: Yes (5) Abdominal pain SNOMED Code(s): 91098532 ICD Code: R10.9 - UNSPECIFIED ABDOMINAL PAIN Status: Acute Priority: High Current Visit: No - Patient Summary/Data Consults: Consultations 07/28/20 14:18 Consult to Nurses[employer] Association Executive Director [CONS] Routine Consult to Spiritual Care [CONS] Routine Hospital Course: Patient was admitted through the ER yesterday due to having a magnesium level of 1.4, and diarrhea for which she was incontinent. Patient is a heart transplant recipient and she is on chronic rejection meds however these have caused her kidneys to excrete magnesium for which she is taking high-dose magnesium supplements. Currently taking magnesium oxide 4 tablets 3 times a day which cause her to have diarrhea. She states however what made her come to the ER was the fact that she was incontinent of stool and that the form and consistency of it was different than what she has normally had. The ER physician treated her with 4 g of magnesium IV and sent a stool for C. difficile. C. difficile toxin was positive for C. difficile, and C. difficile [id number] 1-B1 was presumptive negative. Treatment was started with vancomycin 125 mg orally. The patient was then admitted to [facility] floor where she had no further diarrhea stools yesterday and had a formed stool this morning. At this time it was decided upon after consulting with Dr. Russell that we would discontinue the treatment for C. difficile, as the patient likely does not have active C. difficile infection. Patient had not been treated with antibiotics since 89 for a UTI. I did consult with the patient's business objects architect Diane Sims at [facility] in [place] as to what her recommendations would be for medications. She states that the patient could either go home on the magnesium oxide that she is currently taking 4 tabs 3 times a day or take magnesium lactate 84 mg extended release 2 tabs 3 times a day or magnesium gluconate 4 tabs 3 times a day. She states that she also needs to be taking Benefiber or Metamucil to bulk up her stools. The patient did not report diarrhea from taking the magnesium lactate however she complained that the tabs were too large for her to swallow. I recommended that once she cut these tabs she may be soak them in water and then swallow them. She already had a follow-up appointment scheduled with Diane Sims for August 03. Recommended that she keep the scheduled appointment. Of note Sarah also reports that transplant team at the [facility] recommend patients magnesium be between 1.4-1.8. They state that this is an acceptable range for this patient. - Patient Instructions Diet: Usual Diet as Tolerated Activity: As Tolerated Other/Special Instructions: Discharge to home. Follow-up with Diane TELLEZ- Hanna, in Endocrinology at [facility] on Sunday as previously scheduled. Diane recommends that the patient either takes magnesium lactate 84 mg extended release 2 tabs 3 times a day or current magnesium oxide, or magnesium gluconate 4 tabs 3 times a day. She states that it is up to the patient which form of magnesium she would like to take. She also reinforces that the patient be taking some form of fiber supplement to decrease her diarrhea. If your condition should worsen or change please return to the ER. - Discharge Plan *PRESCRIPTION DRUG MONITORING PROGRAM REVIEWED*: Not Applicable *COPY OF PRESCRIPTION DRUG MONITORING REPORT IN PATIENT DENI: Not Applicable Home Medications: Home Meds Simvastatin [Zocor] 10 mg PO QPM 03/10/19 [History] Tacrolimus [Prograf] 2.5 mg PO QAM 03/10/19 [History] Calcium Carbonate/Vitamin D3 [Calcium 500-Vit D3 125 Caplet] 1,000 mg PO DAILY 06/23/19 [History] Lactobacillus Acidophilus [Probiotic] 1 cap PO BEDTIME 07/01/19 [History] Multivitamin [Daily Multiple Vitamin] 1 tab PO DAILY 07/01/19 [History] Tacrolimus [Prograf] 2 mg PO BEDTIME 07/01/19 [History] mycophenolate mofetiL [Cellcept] 1,500 mg PO BID 07/01/19 [History] Levothyroxine Sodium [Euthyrox] 75 mcg PO DAILY 12/19/19 [History] Losartan Potassium 25 mg PO DAILY 12/19/19 [History] Aspirin [Halfprin] 81 mg PO DAILY tab.ec 12/27/19 [Rx] busPIRone [Buspar] 7.5 mg PO BID tablet 12/27/19 [Rx] Famotidine 40 mg PO BEDTIME 06/05/20 [History] Fexofenadine HCl 180 mg PO DAILY 06/05/20 [History] LORazepam [Ativan] 0.5 mg PO TID PRN 06/05/20 [History] calcium polycarbophiL [Fiber Tabs] 1 tab PO BID 06/05/20 [History] Magnesium Oxide [Magnesium] 1,200 mg PO TID 07/28/20 [History] Oxygen Therapy Mode: Room Air Patient Handouts: Hypomagnesemia, Sepsis, Diagnosis, Adult, Clostridioides Difficile Infection Forms: ED Department Discharge Referrals: Zackery Townsend MD [Primary Care Provider] - - Discharge Summary/Plan Comment DC Time >30 min.: Yes (consulting with Endocrinology) - General Info Date of Service: 07/29/20 Admission Dx/Problem (Free Text: Admission Diagnosis/Problem Admission Diagnosis/Problem Diarrhea due to drug Subjective Update: Is better today. Has not had any diarrhea and has had a soft formed stool. Functional Status: Reports: Tolerating Diet, Urinating - Review of Systems General: Reports: No Symptoms HEENT: Reports: Headaches Pulmonary: Reports: No Symptoms Cardiovascular: Reports: No Symptoms Gastrointestinal: Denies: Constipation, Diarrhea, Nausea, Vomiting Genitourinary: Reports: No Symptoms Musculoskeletal: Reports: No Symptoms Skin: Reports: No Symptoms Neurological: Reports: No Symptoms Psychiatric: Reports: No Symptoms - Patient Data Vitals - Most Recent: Last Vital Signs Temp 98.2 F 07/29/20 11:39 Pulse 99 07/29/20 11:39 Resp 16 07/29/20 11:39 BP 114/73 07/29/20 11:39 Pulse Ox 97 07/29/20 11:39 Orthostatic Blood Pressure [ 115/86 Standing] Orthostatic Blood Pressure [ 113/73 Sitting] Orthostatic Blood Pressure [ 111/70 Supine] Weight - Most Recent: 143 lb 3.2 oz I&O - Last 24 hours: Intake & Output 07/28/20 07/29/20 07/29/20 22:59 06:59 14:59 Intake Total 1245 1468 120 Output Total 200 400 Balance 1045 1068 120 Lab Results - Last 24 hrs: Laboratory Results - last 24 hr 1007/29/20 07/29/20 Range/Units 14:15 05:47 05:47 WBC 7.31 (3.98-10.04) K/mm3 RBC 3.70 L (3.98-5.22) M/mm3 Hgb 10.7 L (11.2-15.7) gm/dl Hct 33.5 L (34.1-44.9) % MCV 90.5 (79.4-94.8) fl MCH 28.9 (25.6-32.2) pg MCHC 31.9 L (32.2-35.5) g/dl RDW Std Deviation 43.0 (36.4-46.3) fL Plt Count 246 (182-369) K/mm3 MPV 11.5 (9.4-12.3) fl Neut % (Auto) 64.4 (34.0-71.1) % Lymph % (Auto) 23.4 (19.3-51.7) % [place] % (Auto) 10.1 (4.7-12.5) % Eos % (Auto) 1.9 (0.7-5.8) Baso % (Auto) 0.1 (0.1-1.2) % Neut # (Auto) 4.70 (1.56-6.13) K/mm3 Lymph # (Auto) 1.71 (1.18-3.74) K/mm3 [place] # (Auto) 0.74 H (0.24-0.36) K/mm3 Eos # (Auto) 0.14 (0.04-0.36) K/mm3 Baso # (Auto) 0.01 (0.01-0.08) K/mm3 Sodium 137 (136-145) mEq/L Potassium 4.3 (3.5-5.1) mEq/L Chloride 107 (98-107) mEq/L Carbon Dioxide 23 (21-32) mEq/L Anion Gap 11.3 (5-15) BUN 7 (7-18) mg/dL Creatinine 0.9 (0.55-1.02) mg/dL Est Cr Clr Drug Dosing 60.60 mL/min Estimated GFR (MDRD) > 60 (>60) mL/min BUN/Creatinine Ratio 7.8 L (14-18) Glucose 98 (80-115) mg/dL Calcium 8.2 L (8.5-10.1) mg/dL Magnesium 2.0 (1.8-2.4) mg/dl Total Bilirubin 0.3 (0.2-1.0) mg/dL AST 19 (15-37) U/L ALT 34 (14-59) U/L Alkaline Phosphatase 137 H (46-116) U/L Total Protein 6.1 L (6.4-8.2) g/dl Albumin 3.1 L (3.4-5.0) g/dl Globulin 3.0 gm/dL Albumin/Globulin Ratio 1.0 (1-2) SARS-CoV-2 RNA (CHRISTIANO) Negative (NEGATIVE) TRUDY Results - Last 24 hrs: Microbiology 07/28/20 10:10 Clostridioides difficile Toxin Assay - Final Stool / Feces Med Orders - Current: Current Medications Acetaminophen (Tylenol) 650 mg PO Q4H PRN PRN Reason: Pain (Mild 1-3)/fever Last Admin: 07/29/20 09:15 Dose: 650 mg Documented by: Aspirin (Halfprin) 81 mg PO DAILY [facility] Last Admin: 07/29/20 09:06 Dose: 81 mg Documented by: Buspirone HCl (Buspar) 7.5 mg PO BID [facility] Last Admin: 07/29/20 09:08 Dose: 7.5 mg Documented by: Calcium Polycarbophil (Fibercon) 625 mg PO BID [facility] Last Admin: 07/29/20 09:06 Dose: 625 mg Documented by: Dicyclomine HCl (Bentyl) 10 mg PO QIDACANDBED PRN PRN Reason: Abdominal Pain Last Admin: 07/28/20 17:07 Dose: 10 mg Documented by: Famotidine (Pepcid) 40 mg PO BEDTIME [facility] Last Admin: 07/28/20 20:23 Dose: 40 mg Documented by: Dextrose/Sodium Chloride (Dextrose 5%-Normal Saline) 1,000 mls @ 75 mls/hr IV ASDIRECTED [facility] Last Admin: 07/29/20 09:15 Dose: 75 mls/hr Documented by: Levothyroxine Sodium (Levothyroxine) 75 mcg PO ACBREAKFAST [facility] Last Admin: 07/29/20 06:04 Dose: 75 mcg Documented by: Loratadine (Claritin) 10 mg PO DAILY [facility] Last Admin: 07/29/20 09:10 Dose: 10 mg Documented by: Lorazepam (Ativan) 0.5 mg PO TID PRN PRN Reason: Anxiety Last Admin: 07/29/20 07:37 Dose: 0.5 mg Documented by: Losartan Potassium (Cozaar) 25 mg PO DAILY [facility] Last Admin: 07/29/20 09:09 Dose: 25 mg Documented by: Ondansetron HCl (Zofran) 4 mg IV Q4H PRN PRN Reason: Nausea/Vomiting Mycophenolate Mofetil [Cellcept] 500 Mg 0 each PO BID [facility] Last Admin: 07/29/20 09:50 Dose: 1 each Documented by: Tacrolimus 0.5 Mg 0 each PO BEDTIME [facility] Last Admin: 07/28/20 20:26 Dose: 1 each Documented by: Tacrolimus 0.5 Mg 0 each PO DAILY [facility] Last Admin: 07/29/20 09:51 Dose: 1 each Documented by: Saccharomyces Boulardii (Florastor) 250 mg PO BEDTIME [facility] Last Admin: 07/28/20 20:25 Dose: 250 mg Documented by: Simvastatin (Zocor) 10 mg PO BEDTIME [facility] Last Admin: 07/28/20 20:25 Dose: 10 mg Documented by: Discontinued Medications Dicyclomine HCl (Bentyl) 20 mg PO ONETIME ONE Stop: 07/28/20 11:43 Last Admin: 07/28/20 11:55 Dose: 20 mg Documented by: Hydromorphone HCl (Dilaudid) 0.5 mg IVPUSH ONETIME ONE Stop: 07/28/20 11:06 Last Admin: 07/28/20 11:53 Dose: 0.5 mg Documented by: Dextrose/Sodium Chloride (Dextrose 5%-Normal Saline) 1,000 mls @ 150 mls/hr IV ASDIRECTED [facility] Last Admin: 07/28/20 17:08 Dose: 75 mls/hr Documented by: Magnesium Sulfate 4 gm/ Premix 50 mls @ 12.5 mls/hr IV ONETIME ONE Stop: 07/28/20 17:15 Last Admin: 07/28/20 13:38 Dose: 12.5 mls/hr Documented by: Ondansetron HCl (Zofran) 4 mg IVPUSH ONETIME ONE Stop: 07/28/20 11:06 Last Admin: 07/28/20 11:51 Dose: 4 mg Documented by: Simvastatin (Zocor) 10 mg PO QPM [facility] Vancomycin HCl (Vancocin 125 Mg Capsule) 125 mg PO ONETIME ONE Stop: 07/28/20 13:12 Last Admin: 07/28/20 14:06 Dose: 125 mg Documented by: Vancomycin HCl (Vancocin 125 Mg Capsule) 125 mg PO QID [facility] Last Admin: 07/29/20 09:06 Dose: 125 mg Documented by: - Exam Quality Assessment: Denies: Supplemental Oxygen, DVT Prophylaxis General: Reports: Alert, Oriented, Cooperative HEENT: Reports: Pupils Equal, Pupils Reactive, Mucous Membr. Moist/[place] Neck: Reports: Supple, Trachea Midline. Denies: Lymphadenopathy Lungs: Reports: Clear to Auscultation, Normal Respiratory Effort Cardiovascular: Reports: Regular Rate, Regular Rhythm, No Murmurs GI/Abdominal Exam: Normal Bowel Sounds, Soft, Non-Tender, No Distention (Female) Exam: Deferred Rectal (Female) Exam: Deferred Back Exam: Reports: Normal Inspection, Full Range of Motion Extremities: Normal Inspection, Normal Range of Motion, Non-Tender, No Pedal Edema, Normal Capillary Refill Skin: Reports: Warm, Dry, Intact Neurological: Reports: No New Focal Deficit Psy/Mental Status: Reports: Alert, Normal Affect, Normal Mood
[2020-07-29] MEDS ORDERED: FLU Vacc QV2020-21(65YR UP)/PF 240 MCG/0.7 ML Syringe IM ONE (15:15)
== END 2020-07-29 15:14 | disposition home or self-care (01) | DRG 248 ==
LOC: JD.ED 06:54 → JD.MS 13:32 → UNDOADMIN 13:32 → JD.MS 14:18 → EEVIPCON 14:18
PROVIDERS: ADMIT Emergency Medicine; ATTEND Family Medicine
DX: A04.72 Enterocolitis due to Clostridium difficile, not specified as recurrent (principal); E83.42 Hypomagnesemia; D84.9 Immunodeficiency, unspecified; H54.7 Unspecified visual loss; E78.00 Pure hypercholesterolemia, unspecified; I10 Essential (primary) hypertension; I08.0 Rheumatic disorders of both mitral and aortic valves; I48.91 Unspecified atrial fibrillation; I42.9 Cardiomyopathy, unspecified; K21.9 Gastro-esophageal reflux disease without esophagitis; R32 Unspecified urinary incontinence; G43.909 Migraine, unspecified, not intractable, without status migrainosus; F41.9 Anxiety disorder, unspecified; F32.9 Major depressive disorder, single episode, unspecified; E03.9 Hypothyroidism, unspecified; Z90.49 Acquired absence of other specified parts of digestive tract; Z94.1 Heart transplant status; Z79.82 Long term (current) use of aspirin; Z79.899 Other long term (current) drug therapy; Z79.890 Hormone replacement therapy; Z98.890 Other specified postprocedural states; Z95.810 Presence of automatic (implantable) cardiac defibrillator; Z20.828 Contact with and (suspected) exposure to other viral communicable diseases
CPT/HCPCS: 36415; 80053; 81001; 82607; 83690; 83735; 83880; 84484; 85025; 87324; 87493; 90662; 96361; 96365; 96375; 99284-25; A9270-GY; G0008; J1170; J2405; J3475; J7042; U0002

== ENCOUNTER 2020-08-01 07:41 | Emergency (ER) | payer BC, MEDICARE ==
[2020-08-01 08:02] VITALS: BP 115/90; PULSE 130
[2020-08-01] MEDS ORDERED: Sodium Chloride 0.9% 10 ML Syringe FLUSH PRN (08:20)
[2020-08-01] MEDS ORDERED: Sodium Chloride 0.9% 1,000 ML IV SCH (08:30)
--- NOTE | 2020-08-01 08:55 | EDM.PDOC ---
ED HPI GENERAL MEDICAL PROBLEM - General Chief Complaint: Gastrointestinal Problem Stated Complaint: UNABLE TO EAT OR DRINK Time Seen by Provider: 08/01/20 08:02 Source of Information: Reports: Patient History Limitations: Reports: No Limitations - History of Present Illness INITIAL COMMENTS - FREE TEXT/NARRATIVE: The patient presents with diarrhea and generalized weakness. The patient has a history of heart transplant back in 2007. She is on antirejection medication prograff and cellcept. Both medications are affecting her ability to absorb and keep magnesium. She is on magnesium supplements and she will get magnesium infusions at times. She was on macrobid for a UTI on 06/11. She normally has loose stools but 1 week ago she developed diarrhea that would happen almost every time she ate. she was seen here on Sunday and her C-dif toxin was positive but not the C-dif. She was admitted and started on oral vancomycin. She did good for a day and was discharged. The hospitalist service determined that this was not an acute C-dif infection and they stopped the vancomycin. She went home and got worse with more diarrhea and everything she is eating causes h er to have diarrhea. She also had some changes on her oral magnesium before all this started and now she is back to pills that are hard to swallow for her. She has no fever, cough, congestion, runny nose, chest pain, or shortness of breath. She has some stomach cramps at times. Onset: Gradual Duration: Week(s): Location: Reports: Abdomen Quality: Reports: Ache Severity: Mild Improves with: Reports: None Worsens with: Reports: None Associated Symptoms: Denies: Chest Pain, Cough, Fever/Chills, Headaches, Nausea/Vomiting, Shortness of Breath - Related Data Allergies Allergy/AdvReac Type Severity Reaction Status Date / Time cefuroxime [From Ceftin] Allergy Cannot Verified 07/28/20 16:31 Remember clindamycin Allergy Cannot Verified 07/28/20 16:31 Remember Sulfa (Sulfonamide Allergy Hives Verified 07/28/20 16:31 Antibiotics) zoster vaccine live Allergy Cannot Verified 07/28/20 16:31 [From Zostavax (PF)] Remember dust Allergy Cannot Uncoded 07/28/20 13:12 Remember mold Allergy Wheezing Uncoded 07/28/20 13:12 Home Meds: Home Meds Simvastatin [Zocor] 10 mg PO QPM 03/10/19 [History] Tacrolimus [Prograf] 2.5 mg PO QAM 03/10/19 [History] Calcium Carbonate/Vitamin D3 [Calcium 500-Vit D3 125 Caplet] 1,000 mg PO DAILY 06/23/19 [History] Lactobacillus Acidophilus [Probiotic] 1 cap PO BEDTIME 07/01/19 [History] Multivitamin [Daily Multiple Vitamin] 1 tab PO DAILY 07/01/19 [History] Tacrolimus [Prograf] 2 mg PO BEDTIME 07/01/19 [History] mycophenolate mofetiL [Cellcept] 1,500 mg PO BID 07/01/19 [History] Levothyroxine Sodium [Euthyrox] 75 mcg PO DAILY 12/19/19 [History] Losartan Potassium 25 mg PO DAILY 12/19/19 [History] Aspirin [Halfprin] 81 mg PO DAILY tab.ec 12/27/19 [Rx] busPIRone [Buspar] 7.5 mg PO BID tablet 12/27/19 [Rx] Famotidine 40 mg PO BEDTIME 06/05/20 [History] Fexofenadine HCl 180 mg PO DAILY 06/05/20 [History] LORazepam [Ativan] 0.5 mg PO TID PRN 06/05/20 [History] calcium polycarbophiL [Fiber Tabs] 1 tab PO BID 06/05/20 [History] Magnesium Oxide [Magnesium] 1,200 mg PO TID 07/28/20 [History] Past Medical History HEENT History: Reports: Allergic Rhinitis, Impaired Vision Other HEENT History: Wears glasses, braces Cardiovascular History: Reports: High Cholesterol, Hypertension, Other (See Below) Other Cardiovascular History: heart transplant in 2007: prior to transplant had asystole, mitral and aortic valve insufficeincy, afib, cardiomyopathy Respiratory History: Reports: Other (See Below) Other Respiratory History: Severe allergies Gastrointestinal History: Reports: Colon Polyp, Diverticulosis, GERD, Other (See Below) Other Gastrointestinal History: abdominal pain Genitourinary History: Reports: Urinary Incontinence Other Genitourinary History: urge incontinence GASTROENTEROLOGY MANAGER History: Reports: Other (See Below) Other GASTROENTEROLOGY MANAGER History: Cyst left ovary, and two cyst in left breasts. 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 Endocrine/Metabolic History: Reports: Hypomagnesemia, Hypothyroidism Hematologic History: Reports: Other (See Below) Other Hematologic History: magnesium deficiency Immunologic History: Reports: Immunosuppression Other Immunologic History: Heart transplant 2008 Dermatologic History: Reports: Psoriasis - Infectious Disease History Infectious Disease History: Reports: C-Difficile - Past Surgical History HEENT Surgical History: Reports: Oral Surgery Cardiovascular Surgical History: Reports: AICD, Other (See Below) Other Cardiovascular Surgeries/Procedures: heart transplant GI Surgical History: Reports: Appendectomy, Cholecystectomy, Other (See Below) Social & Family History - Family History Family Medical History: Noncontributory Cardiac: Reports: Heart Failure, ID - Tobacco Use Tobacco Use Status *Q: Unknown Ever Used Tobacco - Caffeine Use Caffeine Use: Reports: Soda - Living Situation & Occupation Living situation: Reports: , Alone 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 Denies: Nausea, Vomiting : Reports: No Symptoms Musculoskeletal: Reports: No Symptoms ED EXAM, GI/ABD - Physical Exam Exam: See Below Exam Limited By: No Limitations General Appearance: Alert, No Apparent Distress Ears: Normal External Exam Nose: Normal Inspection Head: Atraumatic, Normocephalic Neck: Normal Inspection Respiratory/Chest: No Respiratory Distress, Lungs Clear, Normal Breath Sounds Cardiovascular: Regular Rate, Rhythm, No Edema, No Murmur GI/Abdominal Exam: Soft, Non-Tender, No Organomegaly, No Mass Back Exam: Normal Inspection Extremities: Normal Inspection Course - Vital Signs Last Recorded V/S: Last Vital Signs Temp 98.2 F 08/01/20 07:58 Pulse 130 H 08/01/20 07:58 Resp 18 08/01/20 07:58 BP 115/90 08/01/20 07:58 Pulse Ox 95 08/01/20 07:58 - Orders/Labs/Meds Orders: Active Orders 24 hr Category Date Time Status Cardiac Monitoring [RC] . DIRECTED Care 08/01/20 08:20 Active Peripheral IV Care [RC] . DIRECTED Care 08/01/20 08:21 Active Magnesium Sulfate/Water [Magnesium Sulfate in Water Med 08/01/20 10:16 Active Premix] 2 gm in 50 ml IV ONETIME Magnesium Sulfate/Water [Magnesium Sulfate in Water Med 08/01/20 10:17 Active Premix] 2 gm in 50 ml IV ONETIME Sodium Chloride 0.9% [Normal Saline] 1,000 ml Med 08/01/20 08:30 Active IV .BOLUS Sodium Chloride 0.9% [Saline Flush] Med 08/01/20 08:20 Active 10 ml FLUSH ASDIRECTED PRN Peripheral IV Insertion Adult [OM.PC] Stat Oth 08/01/20 08:20 Ordered Medication Orders Sodium Chloride (Normal Saline) 1,000 mls @ 1,000 mls/hr IV .BOLUS EDUARDO Last Admin: 08/01/20 08:46 Dose: 1,000 mls/hr Documented by: JEANINE Magnesium Sulfate (Magnesium Sulfate In Water Premix) 2 gm in 50 mls @ 25 mls/hr IV ONETIME ONE Stop: 08/01/20 12:15 Last Admin: 08/01/20 10:18 Dose: 25 mls/hr Documented by: LATRELL Magnesium Sulfate (Magnesium Sulfate In Water Premix) 2 gm in 50 mls @ 25 mls/hr IV ONETIME ONE Stop: 08/01/20 12:16 Sodium Chloride (Saline Flush) 10 ml FLUSH ASDIRECTED PRN PRN Reason: Keep Vein Open Last Admin: 08/01/20 08:47 Dose: 10 ml Documented by: JEANINE Labs: Laboratory Tests 08/01/20 08/01/20 08/01/20 Range/Units 08:45 08:45 08:45 WBC 7.04 (3.98-10.04) K/mm3 RBC 4.56 (3.98-5.22) M/mm3 Hgb 13.2 D (11.2-15.7) gm/dl Hct 40.2 (34.1-44.9) % MCV 88.2 (79.4-94.8) fl MCH 28.9 (25.6-32.2) pg MCHC 32.8 (32.2-35.5) g/dl RDW Std Deviation 42.5 (36.4-46.3) fL Plt Count 297 (182-369) K/mm3 MPV 11.0 (9.4-12.3) fl Neut % (Auto) 67.1 (34.0-71.1) % Lymph % (Auto) 18.9 L (19.3-51.7) % [place] % (Auto) 12.8 H (4.7-12.5) % Eos % (Auto) 1.0 (0.7-5.8) Baso % (Auto) 0.1 (0.1-1.2) % Neut # (Auto) 4.72 (1.56-6.13) K/mm3 Lymph # (Auto) 1.33 (1.18-3.74) K/mm3 [place] # (Auto) 0.90 H (0.24-0.36) K/mm3 Eos # (Auto) 0.07 (0.04-0.36) K/mm3 Baso # (Auto) 0.01 (0.01-0.08) K/mm3 D-Dimer, Quantitative 0.28 (0.19-0.50) mg/L Sodium 138 (136-145) mEq/L Potassium 3.4 L (3.5-5.1) mEq/L Chloride 102 (98-107) mEq/L Carbon Dioxide 19 L (21-32) mEq/L Anion Gap 20.4 H (5-15) BUN 10 (7-18) mg/dL Creatinine 1.9 H (0.55-1.02) mg/dL Est Cr Clr Drug Dosing TNP Estimated GFR (MDRD) 27 (>60) mL/min BUN/Creatinine Ratio 5.3 L (14-18) Glucose 88 (80-115) mg/dL Lactic Acid (0.4-2.0) mmol/L Calcium 9.6 (8.5-10.1) mg/dL Magnesium 1.1 L (1.8-2.4) mg/dl Total Bilirubin 0.4 (0.2-1.0) mg/dL AST 27 (15-37) U/L ALT 32 (14-59) U/L Alkaline Phosphatase 190 H (46-116) U/L C-Reactive Protein 0.3 (<1.0) mg/dL Total Protein 7.8 (6.4-8.2) g/dl Albumin 4.1 (3.4-5.0) g/dl Globulin 3.7 gm/dL Albumin/Globulin Ratio 1.1 (1-2) Lipase 69 L (73-393) U/L SARS-CoV-2 RNA (CHRISTIANO) (NEGATIVE) 08/01/20 08/01/20 Range/Units 08:45 08:45 WBC (3.98-10.04) K/mm3 RBC (3.98-5.22) M/mm3 Hgb (11.2-15.7) gm/dl Hct (34.1-44.9) % MCV (79.4-94.8) fl MCH (25.6-32.2) pg MCHC (32.2-35.5) g/dl RDW Std Deviation (36.4-46.3) fL Plt Count (182-369) K/mm3 MPV (9.4-12.3) fl Neut % (Auto) (34.0-71.1) % Lymph % (Auto) (19.3-51.7) % [place] % (Auto) (4.7-12.5) % Eos % (Auto) (0.7-5.8) Baso % (Auto) (0.1-1.2) % Neut # (Auto) (1.56-6.13) K/mm3 Lymph # (Auto) (1.18-3.74) K/mm3 [place] # (Auto) (0.24-0.36) K/mm3 Eos # (Auto) (0.04-0.36) K/mm3 Baso # (Auto) (0.01-0.08) K/mm3 D-Dimer, Quantitative (0.19-0.50) mg/L Sodium (136-145) mEq/L Potassium (3.5-5.1) mEq/L Chloride (98-107) mEq/L Carbon Dioxide (21-32) mEq/L Anion Gap (5-15) BUN (7-18) mg/dL Creatinine (0.55-1.02) mg/dL Est Cr Clr Drug Dosing Estimated GFR (MDRD) (>60) mL/min BUN/Creatinine Ratio (14-18) Glucose (80-115) mg/dL Lactic Acid 0.9 (0.4-2.0) mmol/L Calcium (8.5-10.1) mg/dL Magnesium (1.8-2.4) mg/dl Total Bilirubin (0.2-1.0) mg/dL AST (15-37) U/L ALT (14-59) U/L Alkaline Phosphatase (46-116) U/L C-Reactive Protein (<1.0) mg/dL Total Protein (6.4-8.2) g/dl Albumin (3.4-5.0) g/dl Globulin gm/dL Albumin/Globulin Ratio (1-2) Lipase (73-393) U/L SARS-CoV-2 RNA (CHRISTIANO) Negative (NEGATIVE) Meds: Medications Generic Name Dose Route Start Last Admin Trade Name Freq PRN Reason Stop Dose Admin Sodium Chloride 1,000 mls @ 1,000 mls/hr 08/01/20 08:30 08/01/20 08:46 Normal Saline IV 1,000 mls/hr .BOLUS EDUARDO Administration Magnesium Sulfate 2 gm in 50 mls @ 25 mls/hr 08/01/20 10:16 08/01/20 10:18 Magnesium Sulfate In Water Premix IV 08/01/20 12:15 25 mls/hr ONETIME ONE Administration Magnesium Sulfate 2 gm in 50 mls @ 25 mls/hr 08/01/20 10:17 Magnesium Sulfate In Water Premix IV 08/01/20 12:16 ONETIME ONE Sodium Chloride 10 ml 08/01/20 08:20 08/01/20 08:47 Saline Flush FLUSH 10 ml ASDIRECTED PRN Administration Keep Vein Open Discontinued Medications Generic Name Dose Route Start Last Admin Trade Name Freq PRN Reason Stop Dose Admin Magnesium Sulfate/Dextrose 1 100 mls @ 100 mls/hr 08/01/20 09:45 gm/ Premix IV 08/01/20 13:44 Q1H EDUARDO Magnesium Sulfate Confirm 08/01/20 10:09 Magnesium Sulfate In Water Premix Administered 08/01/20 10:10 Dose 2 gm in 50 mls @ as directed .ROUTE .STK-MED ONE - Re-Assessments/Exams Free Text/Narrative Re-Assessment/Exam: 08/01/20 09:50 I ordered an IV NS 1L bolus and labs. Her CBC looks good. Her K was a little low at 3.4. Her anion gap is elevated at 20.4. Her creatinine is elevated at 1 .9. Her magnesium is low at 1.1. I have ordered 4 grams of magnesium. I am waiting for the COVID 19 test. 08/01/20 10:25 The COVID 19 test is negative. I feel she needs to be admitted but our hosp italist is reluctant to admit her here. I called [facility] in [place] and talked with Dr Arriaza the hospitalist and she agreed to the transfer. Departure - Departure Time of Disposition: 10:30 Disposition: DC/Tfer to [facility] 02 Condition: Fair Clinical Impression: Heart transplant recipient, Acquired immunocompromised state, Dehydration, Renal insufficiency, Hypomagnesemia - Discharge Information Referrals: Zackery Townsend MD [Primary Care Provider] - Forms: ED Department Discharge Sepsis Event Note (ED) - Evaluation Sepsis Screening Result: No Definite Risk - Focused Exam Vital Signs: Vital Signs Temp Pulse Resp BP Pulse Ox 08/01/20 07:58 98.2 F 130 H 18 115/90 95 - My Orders Last 24 Hours: My Active Orders 08/01/20 08:20 Cardiac Monitoring [RC] . DIRECTED Sodium Chloride 0.9% [Saline Flush] 10 ml FLUSH ASDIRECTED PRN Peripheral IV Insertion Adult [OM.PC] Stat 08/01/20 08:21 Peripheral IV Care [RC] . DIRECTED 08/01/20 08:30 Sodium Chloride 0.9% [Normal Saline] 1,000 ml IV .BOLUS 08/01/20 10:16 Magnesium Sulfate/Water [Magnesium Sulfate in Water Premix] 2 gm in 50 ml IV ONETIME 08/01/20 10:17 Magnesium Sulfate/Water [Magnesium Sulfate in Water Premix] 2 gm in 50 ml IV ON ETIME - Assessment/Plan Last 24 Hours: My Active Orders 08/01/20 08:20 Cardiac Monitoring [RC] . DIRECTED Sodium Chloride 0.9% [Saline Flush] 10 ml FLUSH ASDIRECTED PRN Peripheral IV Insertion Adult [OM.PC] Stat 08/01/20 08:21 Peripheral IV Care [RC] . DIRECTED 08/01/20 08:30 Sodium Chloride 0.9% [Normal Saline] 1,000 ml IV .BOLUS 08/01/20 10:16 Magnesium Sulfate/Water [Magnesium Sulfate in Water Premix] 2 gm in 50 ml IV ONETIME 11/01/20 10:17 Magnesium Sulfate/Water [Magnesium Sulfate in Water Premix] 2 gm in 50 ml IV ONETIME
[2020-08-01] MEDS ORDERED: Magnesium Sulfate/Water 2 GM/50 ML BAG ONE (10:09)
[2020-08-01] MEDS ORDERED: Magnesium Sulfate/Water 2 GM/50 ML BAG IV ONE ×2 (10:16→10:17)
[2020-08-01] MEDS ORDERED: Sodium Chloride 0.9% 1,000 ML IV ONE (10:27)
[2020-08-01] MEDS ORDERED: Sodium Chloride 0.9% 1,000 ML ONE (10:28)
[2020-08-01] MEDS ORDERED: LORazepam 2 MG/ML SDV IVPUSH ONE (10:44)
== END 2020-08-01 11:30 ==
LOC: JD.ED 07:41
DX: E86.0 Dehydration (principal); N28.9 Disorder of kidney and ureter, unspecified; E83.42 Hypomagnesemia; Z94.1 Heart transplant status; D84.9 Immunodeficiency, unspecified; R79.89 Other specified abnormal findings of blood chemistry; I10 Essential (primary) hypertension; K21.9 Gastro-esophageal reflux disease without esophagitis; F41.9 Anxiety disorder, unspecified; F32.9 Major depressive disorder, single episode, unspecified; E03.9 Hypothyroidism, unspecified; Z90.49 Acquired absence of other specified parts of digestive tract; Z20.828 Contact with and (suspected) exposure to other viral communicable diseases; Z88.1 Allergy status to other antibiotic agents; Z88.2 Allergy status to sulfonamides; Z91.09 Other allergy status, other than to drugs and biological substances; Z79.82 Long term (current) use of aspirin; Z79.899 Other long term (current) drug therapy
CPT/HCPCS: 36415; 80053; 83605; 83690; 83735; 85025; 85379; 86140; 87635; 96365; 96375; 99285; J2060; J3475; J7030; U0002

== ENCOUNTER 2020-11-01 16:48 | Emergency (ER) | payer BC ==
[2020-11-01 17:07] VITALS: BP 160/98; PULSE 135
[2020-11-01] MEDS ORDERED: Ondansetron 4 MG/2 ML SDV IVPUSH ONE (17:20)
[2020-11-01] MEDS ORDERED: Sodium Chloride 0.9% 1,000 ML IV STA (17:20)
[2020-11-01] MEDS ORDERED: Sodium Chloride 0.9% 10 ML Syringe FLUSH PRN (17:20)
[2020-11-01] MEDS ORDERED: HYDROmorphone 0.5 MG/0.5 ML Syringe IVPUSH ONE ×2 (17:23→19:10)
--- NOTE | 2020-11-01 17:57 | EDM.PDOC ---
<Shiv Dumas - Last Filed: 11/01/20 19:01> ED HPI GENERAL MEDICAL PROBLEM - General Chief Complaint: Cardiovascular Problem Stated Complaint: BLOOD PRESSURE HIGH/HEART BEAT FAST Time Seen by Provider: 11/01/20 17:02 Source of Information: Reports: Patient History Limitations: Reports: No Limitations - History of Present Illness INITIAL COMMENTS - FREE TEXT/NARRATIVE: The patient presents with upper abdominal pain. This started today. She does have a history of abdominal issues with abdominal pain and diarrhea. She had an EGD and colonoscopy. She had that done by a kick plate installer. They tried treating her with some medications but they made her feel worse. At this point they do not know what to do with her according to the patient. The patient had a heart transplant in 2008 and is on rejection medications. Today when she noticed the symptoms she checked her BP and heart rate and they were both going up. She came in to be evaluated. Onset: Gradual Duration: Hour(s): Location: Reports: Abdomen Quality: Reports: Sharp Severity: Moderate Improves with: Reports: None Worsens with: Reports: None Associated Symptoms: Reports: Nausea/Vomiting. Denies: Chest Pain, Cough, Fever/Chills, Headaches, Shortness of Breath Upper Abdominal Pain Score (Numeric/FACES): 5 - Related Data Allergies Allergy/AdvReac Type Severity Reaction Status Date / Time cefuroxime [From Ceftin] Allergy Cannot Verified 08/11/20 11:52 Remember clindamycin Allergy Cannot Verified 08/11/20 11:52 Remember Sulfa (Sulfonamide Allergy Hives Verified 08/11/20 11:52 Antibiotics) zoster vaccine live Allergy Cannot Verified 08/11/20 11:52 [From Zostavax (PF)] Remember dust Allergy Cannot Uncoded 08/11/20 11:52 Remember mold Allergy Wheezing Uncoded 08/11/20 11:52 Home Meds: Home Meds Simvastatin [Zocor] 10 mg PO QPM 03/10/19 [History] Tacrolimus [Prograf] 2.5 mg PO QAM 03/10/19 [History] Calcium Carbonate/Vitamin D3 [Calcium 500-Vit D3 125 Caplet] 1,000 mg PO DAILY 06/23/19 [History] Lactobacillus Acidophilus [Probiotic] 1 cap PO BEDTIME 07/01/19 [History] Multivitamin [Daily Multiple Vitamin] 1 tab PO DAILY 07/01/19 [History] Tacrolimus [Prograf] 2 mg PO BEDTIME 07/01/19 [History] mycophenolate mofetiL [Cellcept] 1,500 mg PO BID 07/01/19 [History] Levothyroxine Sodium [Euthyrox] 75 mcg PO DAILY 12/19/19 [History] Losartan Potassium 25 mg PO DAILY 12/19/19 [History] Aspirin [Halfprin] 81 mg PO DAILY tab.ec 12/27/19 [Rx] busPIRone [Buspar] 7.5 mg PO BID tablet 12/27/19 [Rx] Famotidine 40 mg PO BEDTIME 06/05/20 [History] Fexofenadine HCl 180 mg PO DAILY 06/05/20 [History] LORazepam [Ativan] 0.5 mg PO TID PRN 06/05/20 [History] calcium polycarbophiL [Fiber Tabs] 1 tab PO BID 06/05/20 [History] Magnesium Oxide [Magnesium] 1,200 mg PO TID 07/28/20 [History] Acetaminophen/HYDROcodone [[place] 325-5 MG] 1 - 2 tab PO Q6H PRN #20 tablet 11/02/20 [Rx] Levofloxacin 1 tab PO QPM #6 tablet 11/02/20 [Rx] metroNIDAZOLE [Metronidazole] 1 tab PO Q8H #20 tablet 11/02/20 [Rx] Past Medical History HEENT History: Reports: Allergic Rhinitis, Impaired Vision Other HEENT History: Wears glasses, braces Cardiovascular History: Reports: High Cholesterol, Hypertension, Other (See Below) Other Cardiovascular History: heart transplant in 2007: prior to transplant had asystole, mitral and aortic valve insufficeincy, afib, cardiomyopathy Respiratory History: Reports: Other (See Below) Other Respiratory History: Severe allergies Gastrointestinal History: Reports: Colon Polyp, Diverticulosis, GERD, Other (See Below) Other Gastrointestinal History: abdominal pain Genitourinary History: Reports: Urinary Incontinence Other Genitourinary History: urge incontinence STRADDLE CARRIER OPERATOR History: Reports: Other (See Below) Other STRADDLE CARRIER OPERATOR History: Cyst left ovary, and two cyst in left breasts. 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 Endocrine/Metabolic History: Reports: Hypomagnesemia, Hypothyroidism Hematologic History: Reports: Other (See Below) Other Hematologic History: magnesium deficiency Immunologic History: Reports: Immunosuppression Other Immunologic History: Heart transplant 2008 Dermatologic History: Reports: Psoriasis - Infectious Disease History Infectious Disease History: Reports: C-Difficile, Other (See Below) Other Infectious Disease History: noravirus - Past Surgical History HEENT Surgical History: Reports: Oral Surgery Cardiovascular Surgical History: Reports: AICD, Other (See Below) Other Cardiovascular Surgeries/Procedures: heart transplant Respiratory Surgical History: Reports: None GI Surgical History: Reports: Appendectomy, Cholecystectomy, Other (See Below) Female Surgical History: Reports: None Endocrine Surgical History: Reports: None Neurological Surgical History: Reports: None Musculoskeletal Surgical History: Reports: None Dermatological Surgical History: Reports: None Social & Family History - Family History Family Medical History: No Pertinent Family History Cardiac: Reports: Heart Failure, OR - Tobacco Use Tobacco Use Status *Q: Never Tobacco User - Caffeine Use Caffeine Use: Reports: Soda - Recreational Drug Use Recreational Drug Use: No - Living Situation & Occupation Living situation: Reports: , Alone 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 Denies: Diarrhea, Vomiting : Reports: No Symptoms Musculoskeletal: Reports: No Symptoms Skin: Reports: No Symptoms Neurological: Reports: No Symptoms ED EXAM, GENERAL - Physical Exam Exam: See Below Exam Limited By: No Limitations General Appearance: Alert, No Apparent Distress Ears: Normal External Exam Nose: Normal Inspection Head: Atraumatic, Normocephalic Neck: Normal Inspection Respiratory/Chest: No Respiratory Distress, Lungs Clear, Normal Breath Sounds Cardiovascular: Regular Rate, Rhythm, No Edema, No Murmur GI/Abdominal: Soft, No Organomegaly, No Mass, Tender (Moderate tenderness to the upper abdomen) Back Exam: Normal Inspection Extremities: Normal Inspection #1 Interpretation EKG Date: 11/01/20 Time: 17:01 Rhythm: Other (Sinus tachycardia) Rate (Beats/Min): 131 Tyner: LAD-Left Tyner Deviation P-Wave: Present QRS: RBBB QT: Normal Course - Re-Assessments/Exams Free Text/Narrative Re-Assessment/Exam: 11/01/20 18:45 I ordered an IV NS 1L bolus, zofran 4mg IV, dilaudid 0.5mg IV, labs, UA, EKG and a CT of her abdomen and pelvis. Her EKG shows a sinus tachycardia with no changes from prior EKG. Her CBC looks good. Her Na is low at 130. Her troponin is normal. Her lipase is low at 58. Her heart rate is down now. 11/01/20 19:02 It is change of shift Dr Bullard to take over. Departure - Departure Disposition: Home, Self-Care 01 Clinical Impression: Diverticulitis, Hypomagnesemia Prescriptions: Levofloxacin 1 tab PO QPM #6 tablet metroNIDAZOLE [Metronidazole] 1 tab PO Q8H #20 tablet Acetaminophen/HYDROcodone [[place] 325-5 MG] 1 - 2 tab PO Q6H PRN #20 tablet PRN Reason: Pain (Severe 7-10) Instructions: Diverticulitis, Ulsc-de-Rhta, Hypomagnesemia Referrals: Zackery Townsend MD [Primary Care Provider] - Taisha Norton MD [Ordering Only Provider] - Sienna Pulliam MD [Ordering Only Provider] - Alexander De Oliveira MD [Ordering Only Provider] - Joy Pitt MD [Physician] - Apolinar Lafleur MD [Ordering Only Provider] - Forms: ED Department Discharge Additional Instructions: You were seen in the emergency room for recurrence of upper abdominal pain. Work-up in the ER included several blood tests, a urinalysis, a CT of your abdomen and pelvis with oral and IV contrast, and an ECG. Your blood work found your magnesium level to be significantly depressed at 1.3. You were given IV magnesium replacement in the ER. Your CT scan found that you have some atrophy of your pancreas, which is likely old, and not likely causing any pain. The CT also indicated that your stomach does not empty well. You should probably follow-up with your kick plate installer in that regard. Lastly, the CT scan found some diverticulitis in your upper left colon. You have been started on the antibiotics metronidazole (Flagyl) and levofloxacin (Levaquin), along with the pain medication [place]. You have been given prescriptions for each of these. Take 1 tablet of metronidazole every 8 hours, starting around 9:00 this morning, 11/02/2020, as prescribed. Finish the entire prescription unless told otherwise by a doctor. Take 1 tablet of levofloxacin every evening, starting this evening, 11/02/2020, as prescribed. Finish the entire prescription unless told otherwise by a doctor. You may take 1 to 2 tablets of the prescription opioid medicine [place] up to every 6 hours, as needed for significant pain. Do not take [place] and lorazepam (Ativan) at the same time, because combined they can cause you to stop breathing. Do not drive for 12 hours after taking [place]. [place] may cause constipation, so consider taking a stool softener. Stay adequately hydrated. It does not really matter what type of fluid you drink. We recommend that you eat a low fiber/low residue diet for the next couple of days, until you are feeling better, after which we recommend that you eat a high-fiber diet. Please follow-up with your Emergency Medical Technician/Driver, Dr. Taisha Norton, at the next available appointment. If any other problems, please do not hesitate to return to the ER. Sepsis Event Note (ED) - Evaluation Sepsis Screening Result: No Definite Risk <Juan Alberto Bullard - Last Filed: 11/02/20 02:03> Course - Vital Signs Last Recorded V/S: Last Vital Signs Temp 36.9 C 11/01/20 17:01 Pulse 135 H 11/01/20 17:01 Resp 18 11/01/20 17:01 BP 160/98 H 11/01/20 17:01 Pulse Ox 99 11/01/20 17:01 - Orders/Labs/Meds Orders: Active Orders 24 hr Category Date Time Status EKG Documentation Completion [RC] ASDIRECTED Care 11/01/20 17:19 Active Peripheral IV Care [RC] . DIRECTED Care 11/01/20 17:21 Active Abdomen Pelvis w Cont [CT] Stat Exams 11/01/20 17:24 Taken Sodium Chloride 0.9% [Saline Flush] Med 11/01/20 17:20 Active 10 ml FLUSH ASDIRECTED PRN Sodium Chloride 0.9% [Saline Flush] Med 11/01/20 19:15 Active 10 ml FLUSH BOLUS ED Antiemetic Medication Reflex [OM.PC] Stat Oth 11/01/20 17:21 Ordered Peripheral IV Insertion Adult [OM.PC] Stat Oth 11/01/20 17:20 Ordered EKG 12 Lead [EK] Stat Ther 11/01/20 17:19 Ordered Medication Orders Sodium Chloride (Saline Flush) 10 ml FLUSH ASDIRECTED PRN PRN Reason: Keep Vein Open Last Admin: 11/01/20 17:45 Dose: 10 ml Documented by: GABRIEL Sodium Chloride (Saline Flush) 10 ml FLUSH BOLUS [facility] Last Admin: 11/01/20 19:27 Dose: 10 ml Documented by: RUTH Labs: Laboratory Tests 11/01/20 11/01/20 11/01/20 Range/Units 17:05 17:05 17:05 WBC 7.64 (3.98-10.04) K/mm3 RBC 4.21 (3.98-5.22) M/mm3 Hgb 12.0 (11.2-15.7) gm/dl Hct 37.3 (34.1-44.9) % MCV 88.6 (79.4-94.8) fl MCH 28.5 (25.6-32.2) pg MCHC 32.2 (32.2-35.5) g/dl RDW Std Deviation 40.0 (36.4-46.3) fL Plt Count 285 (182-369) K/mm3 MPV 11.3 (9.4-12.3) fl Neut % (Auto) 65.6 (34.0-71.1) % Lymph % (Auto) 19.9 (19.3-51.7) % [place] % (Auto) 13.1 H (4.7-12.5) % Eos % (Auto) 1.2 (0.7-5.8) Baso % (Auto) 0.1 (0.1-1.2) % Neut # (Auto) 5.01 (1.56-6.13) K/mm3 Lymph # (Auto) 1.52 (1.18-3.74) K/mm3 [place] # (Auto) 1.00 H (0.24-0.36) K/mm3 Eos # (Auto) 0.09 (0.04-0.36) K/mm3 Baso # (Auto) 0.01 (0.01-0.08) K/mm3 Sodium 130 L (136-145) mEq/L Potassium 3.9 (3.5-5.1) mEq/L Chloride 94 L (98-107) mEq/L Carbon Dioxide 26 (21-32) mEq/L Anion Gap 13.9 (5-15) BUN 11 (7-18) mg/dL Creatinine 1.0 (0.55-1.02) mg/dL Est Cr Clr Drug Dosing 54.42 mL/min Estimated GFR (MDRD) 56 (>60) mL/min BUN/Creatinine Ratio 11.0 L (14-18) Glucose 108 (80-115) mg/dL Calcium 9.3 (8.5-10.1) mg/dL Magnesium 1.3 L (1.8-2.4) mg/dl Total Bilirubin 0.4 (0.2-1.0) mg/dL AST 17 (15-37) U/L ALT 17 (14-59) U/L Alkaline Phosphatase 138 H (46-116) U/L Troponin I < 0.017 (0.00-0.056) ng/mL Total Protein 7.4 (6.4-8.2) g/dl Albumin 3.8 (3.4-5.0) g/dl Globulin 3.6 gm/dL Albumin/Globulin Ratio 1.1 (1-2) Lipase 58 L (73-393) U/L Urine Color (Yellow) Urine Appearance (Clear) Urine pH (5.0-8.0) Ur Specific [place] (1.005-1.030) Urine Protein (Negative) Urine Glucose (UA) (Negative) Urine Ketones (Negative) Urine Occult Blood (Negative) Urine Nitrite (Negative) Urine Bilirubin (Negative) Urine Urobilinogen (0.2-1.0) Ur Leukocyte Esterase (Negative) Urine RBC (0-5) /hpf Urine WBC (0-5) /hpf Ur Squamous Epith Cells (0-5) /hpf Urine Bacteria (FEW) /hpf Urine Mucus (FEW) /hpf 11/01/20 Range/Units 18:50 WBC (3.98-10.04) K/mm3 RBC (3.98-5.22) M/mm3 Hgb (11.2-15.7) gm/dl Hct (34.1-44.9) % MCV (79.4-94.8) fl MCH (25.6-32.2) pg MCHC (32.2-35.5) g/dl RDW Std Deviation (36.4-46.3) fL Plt Count (182-369) K/mm3 MPV (9.4-12.3) fl Neut % (Auto) (34.0-71.1) % Lymph % (Auto) (19.3-51.7) % [place] % (Auto) (4.7-12.5) % Eos % (Auto) (0.7-5.8) Baso % (Auto) (0.1-1.2) % Neut # (Auto) (1.56-6.13) K/mm3 Lymph # (Auto) (1.18-3.74) K/mm3 [place] # (Auto) (0.24-0.36) K/mm3 Eos # (Auto) (0.04-0.36) K/mm3 Baso # (Auto) (0.01-0.08) K/mm3 Sodium (136-145) mEq/L Potassium (3.5-5.1) mEq/L Chloride (98-107) mEq/L Carbon Dioxide (21-32) mEq/L Anion Gap (5-15) BUN (7-18) mg/dL Creatinine (0.55-1.02) mg/dL Est Cr Clr Drug Dosing mL/min Estimated GFR (MDRD) (>60) mL/min BUN/Creatinine Ratio (14-18) Glucose (80-115) mg/dL Calcium (8.5-10.1) mg/dL Magnesium (1.8-2.4) mg/dl Total Bilirubin (0.2-1.0) mg/dL AST (15-37) U/L ALT (14-59) U/L Alkaline Phosphatase (46-116) U/L Troponin I (0.00-0.056) ng/mL Total Protein (6.4-8.2) g/dl Albumin (3.4-5.0) g/dl Globulin gm/dL Albumin/Globulin Ratio (1-2) Lipase (73-393) U/L Urine Color Light yellow (Yellow) Urine Appearance Clear (Clear) Urine pH 7.0 (5.0-8.0) Ur Specific [place] 1.015 (1.005-1.030) Urine Protein Negative (Negative) Urine Glucose (UA) Negative (Negative) Urine Ketones Negative (Negative) Urine Occult Blood Negative (Negative) Urine Nitrite Negative (Negative) Urine Bilirubin Negative (Negative) Urine Urobilinogen 0.2 (0.2-1.0) Ur Leukocyte Esterase Trace H (Negative) Urine RBC 0-5 (0-5) /hpf Urine WBC 0-5 (0-5) /hpf Ur Squamous Epith Cells 0-5 (0-5) /hpf Urine Bacteria Few (FEW) /hpf Urine Mucus Not seen (FEW) /hpf Meds: Medications Generic Name Dose Route Start Last Admin Trade Name Freq PRN Reason Stop Dose Admin Sodium Chloride 10 ml 11/01/20 17:20 11/01/20 17:45 Saline Flush FLUSH 10 ml ASDIRECTED PRN Administration Keep Vein Open Sodium Chloride 10 ml 11/01/20 19:15 11/01/20 19:27 Saline Flush FLUSH 10 ml BOLUS EDUARDO Administration Discontinued Medications Generic Name Dose Route Start Last Admin Trade Name Freq PRN Reason Stop Dose Admin Hydrocodone Bitart/Acetaminophen 2 tab 11/02/20 01:11 11/02/20 01:36 [place] 325-5 Mg PO 11/02/20 01:12 2 tab ONETIME ONE Administration Hydromorphone HCl 0.5 mg 11/01/20 17:23 11/01/20 17:37 Dilaudid IVPUSH 11/01/20 17:24 0.5 mg ONETIME ONE Administration Hydromorphone HCl 0.5 mg 11/01/20 19:10 11/01/20 21:24 Dilaudid IVPUSH 11/01/20 19:11 0.5 mg ONETIME ONE Administration Hydromorphone HCl Confirm 11/01/20 21:21 Dilaudid Administered 11/01/20 21:22 Dose 0.5 mg .ROUTE .STK-MED ONE Sodium Chloride 1,000 mls @ 1,000 mls/hr 11/01/20 17:20 11/01/20 17:36 Normal Saline IV 11/01/20 18:19 1,000 mls/hr .BOLUS STA Administration Magnesium Sulfate 4 gm/ Premix 50 mls @ 12.5 mls/hr 11/01/20 20:25 11/01/20 21:33 IV 11/02/20 00:24 12.5 mls/hr ONETIME ONE Administration Iopamidol 100 ml 11/01/20 18:20 11/01/20 19:26 Isovue-300 (61%) IVPUSH 11/01/20 18:21 100 ml ONETIME ONE Administration Levofloxacin 750 mg 11/02/20 01:10 11/02/20 01:36 Levaquin PO 11/02/20 01:11 750 mg ONETIME STA Administration Metronidazole 500 mg 11/02/20 01:10 11/02/20 01:36 Flagyl PO 11/02/20 01:11 500 mg ONETIME STA Administration Ondansetron HCl 4 mg 11/01/20 17:20 11/01/20 17:36 Zofran IVPUSH 11/01/20 17:21 4 mg ONETIME ONE Administration - Re-Assessments/Exams Free Text/Narrative Re-Assessment/Exam: 11/01/20 20:25 The patient's magnesium level is depressed at 1.3. Her urinalysis is unremarkable. CT of the abdomen and pelvis with contrast is read by [facility] as: 1. There has been a cholecystectomy. 2. There is diffuse pancreatic atrophy. 3. There is gastric distention. Clinical correlation to exclude gastroparesis or gastric outlet obstruction suggested. 4. 3.5 cm cyst left ovary. Correlation with nonemergent ultrasound suggested. 5. Mild diverticulosis is present in the distal left colon. Short segment focus of acute diverticulitis in the proximal left colon associated with luminal narrowing. Follow-up recommended after treatment to exclude an occult mass. Based on the above, I have ordered a 4 g Mg-rider. 11/02/20 01:07 Test results discussed with the patient and her friend. As above, the patient's magnesium level was found to be depressed at 1.3. She agreed to receive 2 g of the Mg-rider, which has finished infusing. The CT scan found some pancreatic atrophy, which is likely longstanding, and unlikely related to her abdominal pain. Similarly, the patient does not have diabetes, therefore gastroparesis or gastric outlet obstruction is unlikely, however, she can follow-up with her kick plate installer in this regard. As above, the CT indicates that she may have some proximal left colon diverticulitis, therefore I will start her on a 7-day course of levofloxacin and metronidazole. She also requested a prescription for some pain medication, therefore I will discharge her with a prescription for [place]. Departure - Departure Time of Disposition: 01:12 Condition: Good Sepsis Event Note (ED) - Focused Exam Vital Signs: Vital Signs Temp Pulse Resp BP Pulse Ox 11/01/20 17:01 36.9 C 135 H 18 160/98 H 99
[2020-11-01] MEDS ORDERED: Iopamidol 612 MG/ML 100 ML Bottle IVPUSH ONE (18:20)
[2020-11-01] MEDS ORDERED: Sodium Chloride 0.9% 10 ML Syringe FLUSH SCH (19:15)
[2020-11-01] MEDS ORDERED: Magnesium Sulfate/Water 4 GM in Premix Bag 1 BAG IV ONE (20:25)
[2020-11-01] MEDS ORDERED: HYDROmorphone 0.5 MG/0.5 ML Syringe ONE (21:21)
[2020-11-02] MEDS ORDERED: Levofloxacin 750 MG Tab PO STA (01:10)
[2020-11-02] MEDS ORDERED: metroNIDAZOLE 500 MG Tab PO STA (01:10)
[2020-11-02] MEDS ORDERED: Acetaminophen/HYDROcodone 325-5 MG Tab PO ONE (01:11)
--- NOTE | 2020-11-02 08:39 | CT ---
CT abdomen and pelvis Technique: Multiple axial sections were obtained from above the dome of the diaphragm inferiorly through the pubic symphysis. Intravenous and oral contrast was utilized. Delayed images were also obtained through the abdomen and pelvis. Comparison: Prior CT abdomen and pelvis study of 01/25/20. Findings: Visualized lung bases showed nothing acute. Liver shows no focal parenchymal abnormality. Spleen appears within normal limits. Pancreas shows no focal abnormality but is slightly atrophied. Adrenal glands show no nodule. Stomach is slightly dilated with contrast which likely relates to recent ingestion. Surgical clips are noted from prior cholecystectomy. Small amount of accessory splenic tissue is noted between the left kidney and spleen. Delayed images show contrast within the distal ureters and within the bladder. Aorta shows atherosclerotic change without aneurysm. No retroperitoneal adenopathy or mesenteric abnormalities are appreciated. Cyst is noted within the left ovary measuring approximately 3.8 cm in size. No additional pelvic abnormality is noted. There is a slight area of wall thickening within the descending colon. This finding is not definitely appreciated on prior study although stool is seen in this area. Appendix is not visualized. There are scattered colonic diverticuli with one area of slight inflammatory change next to an area of diverticulosis within the descending colon. Difficult to exclude minimal area of diverticulitis. Bony structures show scattered degenerative changes compatible with patient's age. No acute osseous abnormality is appreciated. Impression: 1. Slight area of luminal narrowing within the descending colon. This may be incidental, however difficult to exclude carcinoma at this time. Follow-up colonoscopy is recommended. 2. 3.8 cm cyst within the left ovary. This is slightly abnormal for patient of this age. Recommend follow-up pelvic ultrasound study in 3 months. 3. Very slight area of inflammatory change within the descending colon in an area of diverticuli. Mild diverticulitis is difficult to exclude. Diagnostic code #9 I agree with preliminary report from [facility], finalized on 11/01/20, 8:55 PM PERL PROGRAMMER
== END 2020-11-02 01:45 | disposition home or self-care (01) ==
LOC: JD.ED 16:48
DX: K57.32 Diverticulitis of large intestine without perforation or abscess without bleeding (principal); I10 Essential (primary) hypertension; I48.91 Unspecified atrial fibrillation; E78.00 Pure hypercholesterolemia, unspecified; K21.9 Gastro-esophageal reflux disease without esophagitis; E03.9 Hypothyroidism, unspecified; E83.42 Hypomagnesemia; Z88.1 Allergy status to other antibiotic agents; Z88.2 Allergy status to sulfonamides; Z91.048 Other nonmedicinal substance allergy status; Z79.82 Long term (current) use of aspirin; Z79.899 Other long term (current) drug therapy
CPT/HCPCS: 36415; 74177; 80053; 81001; 83690; 83735; 84484; 85025; 93005; 96365; 96366; 96375; 96376; 99284; A9270; J1170; J2405; J3475; J7030; Q9967; 93010

== ENCOUNTER 2020-11-03 07:26 | Emergency (ER) | payer BC ==
--- NOTE | 2020-11-03 08:25 | EDM.PDOC ---
ED HPI GENERAL MEDICAL PROBLEM - General Chief Complaint: Gastrointestinal Problem Stated Complaint: RECTAL BLEEDING Time Seen by Provider: 11/03/20 08:05 Source of Information: Reports: Patient History Limitations: Reports: No Limitations - History of Present Illness INITIAL COMMENTS - FREE TEXT/NARRATIVE: 65-year-old female presents the emergency department with complaints of rectal bleeding. Patient reports she was seen by her state auditor Dr. Norton back around September 18 as she has a history of diarrhea, at that time she had an EGD and colonoscopy. He is questioning whether or not she may have ulcerative colitis however he has not given her a concrete diagnosis. She was started on a medication by him at that time and she cannot remember the name however she took 1 dose and it made her feel very very dizzy. She states she stopped taking that medication and did call her GI doctor and was told to discontinue it. She states she was seen in the emergency department 2 days ago with abdominal pain and high blood pressure and a CT scan was completed which showed diverticulitis. She was started on Levaquin and Flagyl for this. She reports that she drank a red Gatorade yesterday and this is not normally something that she drinks. However last night throughout the night her diarrhea became severe and she was up several times. She reports she did notice pink- tinged stool in the toilet however it was not arcadio red blood. She does have chronically low magnesium for which she takes supplements and she reports to me that her GI doctor and her specialists in [place] states that a magnesium level of 1.4 is acceptable for her. She also has a history of heart transplant for which she takes immunosuppressants. Onset: Gradual - Related Data Allergies Allergy/AdvReac Type Severity Reaction Status Date / Time cefuroxime [From Ceftin] Allergy Cannot Verified 08/11/20 11:52 Remember clindamycin Allergy Cannot Verified 08/11/20 11:52 Remember Sulfa (Sulfonamide Allergy Hives Verified 08/11/20 11:52 Antibiotics) zoster vaccine live Allergy Cannot Verified 08/11/20 11:52 [From Zostavax (PF)] Remember dust Allergy Cannot Uncoded 08/11/20 11:52 Remember mold Allergy Wheezing Uncoded 08/11/20 11:52 Home Meds: Home Meds Simvastatin [Zocor] 10 mg PO QPM 03/10/19 [History] Tacrolimus [Prograf] 2.5 mg PO QAM 03/10/19 [History] Calcium Carbonate/Vitamin D3 [Calcium 500-Vit D3 125 Caplet] 1,000 mg PO DAILY 06/23/19 [History] Lactobacillus Acidophilus [Probiotic] 1 cap PO BEDTIME 07/01/19 [History] Multivitamin [Daily Multiple Vitamin] 1 tab PO DAILY 07/01/19 [History] Tacrolimus [Prograf] 2 mg PO BEDTIME 07/01/19 [History] mycophenolate mofetiL [Cellcept] 1,500 mg PO BID 07/01/19 [History] Levothyroxine Sodium [Euthyrox] 75 mcg PO DAILY 12/19/19 [History] Losartan Potassium 25 mg PO DAILY 12/19/19 [History] Aspirin [Halfprin] 81 mg PO DAILY tab.ec 12/27/19 [Rx] busPIRone [Buspar] 7.5 mg PO BID tablet 12/27/19 [Rx] Famotidine 40 mg PO BEDTIME 06/05/20 [History] Fexofenadine HCl 180 mg PO DAILY 06/05/20 [History] LORazepam [Ativan] 0.5 mg PO TID PRN 06/05/20 [History] calcium polycarbophiL [Fiber Tabs] 1 tab PO BID 06/05/20 [History] Magnesium Oxide [Magnesium] 1,200 mg PO TID 07/28/20 [History] Acetaminophen/HYDROcodone [[place] 325-5 MG] 1 - 2 tab PO Q6H PRN #20 tablet 11/02/20 [Rx] Levofloxacin 1 tab PO QPM #6 tablet 11/02/20 [Rx] metroNIDAZOLE [Metronidazole] 1 tab PO Q8H #20 tablet 11/02/20 [Rx] Past Medical History HEENT History: Reports: Allergic Rhinitis, Impaired Vision Other HEENT History: Wears glasses, braces Cardiovascular History: Reports: High Cholesterol, Hypertension, Other (See Below) Other Cardiovascular History: heart transplant in 2007: prior to transplant had asystole, mitral and aortic valve insufficeincy, afib, cardiomyopathy Respiratory History: Reports: Other (See Below) Other Respiratory History: Severe allergies Gastrointestinal History: Reports: Colon Polyp, Diverticulosis, GERD, Other (See Below) Other Gastrointestinal History: abdominal pain Genitourinary History: Reports: Urinary Incontinence Other Genitourinary History: urge incontinence [employer] History: Reports: Other (See Below) Other [employer] History: Cyst left ovary, and two cyst in left breasts. 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 Endocrine/Metabolic History: Reports: Hypomagnesemia, Hypothyroidism Hematologic History: Reports: Other (See Below) Other Hematologic History: magnesium deficiency Immunologic History: Reports: Immunosuppression Other Immunologic History: Heart transplant 2008 Dermatologic History: Reports: Psoriasis - Infectious Disease History Infectious Disease History: Reports: C-Difficile, Influenza, Measles, Mumps, Other (See Below) Other Infectious Disease History: noravirus - Past Surgical History HEENT Surgical History: Reports: Oral Surgery Cardiovascular Surgical History: Reports: AICD, Other (See Below) Other Cardiovascular Surgeries/Procedures: heart transplant Respiratory Surgical History: Reports: None GI Surgical History: Reports: Appendectomy, Cholecystectomy, Other (See Below) Female Surgical History: Reports: None Endocrine Surgical History: Reports: None Neurological Surgical History: Reports: None Musculoskeletal Surgical History: Reports: None Dermatological Surgical History: Reports: None Social & Family History - Family History Family Medical History: No Pertinent Family History Cardiac: Reports: Heart Failure, MD - Tobacco Use Tobacco Use Status *Q: Never Tobacco User Second Hand Smoke Exposure: No - Caffeine Use Caffeine Use: Reports: Soda - Recreational Drug Use Recreational Drug Use: No - Living Situation & Occupation Living situation: Reports: , Alone 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 Denies: Abdominal Pain, Nausea, Vomiting : Reports: No Symptoms Musculoskeletal: Reports: No Symptoms Skin: Reports: No Symptoms Neurological: Reports: No Symptoms Psychiatric: Reports: No Symptoms Hematologic/Lymphatic: Reports: No Symptoms Immunologic: Reports: No Symptoms ED EXAM, GI/ABD - Physical Exam Exam: See Below Exam Limited By: No Limitations General Appearance: Alert, WD/WN, No Apparent Distress Ears: Hearing Grossly Normal Throat/Mouth: Normal Voice, No Airway Compromise Head: Atraumatic, Normocephalic Neck: Normal Inspection, Supple, Non-Tender, Full Range of Motion Respiratory/Chest: No Respiratory Distress, Lungs Clear, Normal Breath Sounds, No Accessory Muscle Use, Chest Non-Tender Cardiovascular: Normal Peripheral Pulses, Regular Rate, Rhythm, No Edema, No Murmur GI/Abdominal Exam: Normal Bowel Sounds, Soft, No Distention, Tender (Right and left upper quadrants with palpation). No: Guarding (Female) Exam: Deferred Rectal (Female) Exam: Deferred Back Exam: Normal Inspection, Full Range of Motion Extremities: Normal Inspection, Normal Range of Motion, Non-Tender, No Pedal Edema, Normal Capillary Refill Neurological: Alert, Oriented, Normal Cognition, Normal Reflexes Psychiatric: Normal Affect, Normal Mood Skin Exam: Warm, Dry, Intact, Normal Color, No Rash Lymphatic: No Adenopathy Course - Vital Signs Text/Narrative:: 65-year-old female who presents to the emergency department complaints of rectal bleeding and history of chronic diarrhea. Recently placed on Flagyl and Levaquin 2 days ago for diverticulitis. Rectal bleeding that started overnight last night. Chronically low magnesium with an acceptable magnesium level of 1.4 per [facility]. I have ordered a CBC, CMP, magnesium and stool studies including stool for C. difficile. Last Recorded V/S: Last Vital Signs Temp 97.0 F 11/03/20 07:30 Pulse 111 H 11/03/20 07:30 Resp 20 11/03/20 07:30 BP 157/92 H 11/03/20 07:30 Pulse Ox 99 11/03/20 07:30 - Orders/Labs/Meds Orders: Active Orders 24 hr Category Date Time Status C DIFFICILE PCR W/REFLEX [MOLEC] Stat Lab 11/03/20 08:22 Ordered STOOL CULTURE/SHIGA TOXIN [MREF] Stat Lab 11/03/20 08:22 Ordered Labs: Laboratory Tests 11/03/20 11/03/20 Range/Units 08:50 08:50 WBC 6.80 (3.98-10.04) K/mm3 RBC 3.94 L (3.98-5.22) M/mm3 Hgb 11.3 (11.2-15.7) gm/dl Hct 35.5 (34.1-44.9) % MCV 90.1 (79.4-94.8) fl MCH 28.7 (25.6-32.2) pg MCHC 31.8 L (32.2-35.5) g/dl RDW Std Deviation 41.6 (36.4-46.3) fL Plt Count 257 (182-369) K/mm3 MPV 10.6 (9.4-12.3) fl Neut % (Auto) 79.4 H (34.0-71.1) % Lymph % (Auto) 12.8 L (19.3-51.7) % [place] % (Auto) 6.9 (4.7-12.5) % Eos % (Auto) 0.7 (0.7-5.8) Baso % (Auto) 0.1 (0.1-1.2) % Neut # (Auto) 5.39 (1.56-6.13) K/mm3 Lymph # (Auto) 0.87 L (1.18-3.74) K/mm3 [place] # (Auto) 0.47 H (0.24-0.36) K/mm3 Eos # (Auto) 0.05 (0.04-0.36) K/mm3 Baso # (Auto) 0.01 (0.01-0.08) K/mm3 Sodium 136 (136-145) mEq/L Potassium 4.3 (3.5-5.1) mEq/L Chloride 98 (98-107) mEq/L Carbon Dioxide 27 (21-32) mEq/L Anion Gap 15.3 H (5-15) BUN 5 L (7-18) mg/dL Creatinine 1.0 (0.55-1.02) mg/dL Est Cr Clr Drug Dosing 53.25 mL/min Estimated GFR (MDRD) 56 (>60) mL/min BUN/Creatinine Ratio 5.0 L (14-18) Glucose 98 (80-115) mg/dL Calcium 9.2 (8.5-10.1) mg/dL Magnesium 1.4 L (1.8-2.4) mg/dl Total Bilirubin 0.3 (0.2-1.0) mg/dL AST 16 (15-37) U/L ALT 14 (14-59) U/L Alkaline Phosphatase 129 H (46-116) U/L C-Reactive Protein 0.9 (<1.0) mg/dL Total Protein 6.7 (6.4-8.2) g/dl Albumin 3.4 (3.4-5.0) g/dl Globulin 3.3 gm/dL Albumin/Globulin Ratio 1.0 (1-2) - Re-Assessments/Exams Free Text/Narrative Re-Assessment/Exam: 11/03/20 10:17 Labs reveal a WBC 6.80, hemoglobin 11.3, hematocrit 35.5, neutrophil percentage 79.4, lymphocyte percentage 12.8, sodium 136, potassium 4.3, anion gap 15.3, BUN 5, creatinine 1.0, magnesium 1.4, C-reactive protein 0.9. Patient is unable to give us a stool sample at this time. Lab work is unremarkable for infection. She is currently taking Levaquin and the Flagyl. She will be discharged to home recommending she no longer drink red Gatorade as well. Should she develop diarrhea with bloody stools she is encouraged to return to the emergency department. Departure - Departure Time of Disposition: 10:20 Disposition: Home, Self-Care 01 Condition: Fair Clinical Impression: Diarrhea Diarrhea Qualifiers: Diarrhea type: unspecified type Qualified Code(s): R19.7 - Diarrhea, unspecified - Discharge Information Instructions: Diarrhea, Adult, Food Choices to Help Relieve Diarrhea, Adult Referrals: Zackery Townsend MD [Primary Care Provider] - Forms: ED Department Discharge Additional Instructions: You were seen in the emergency department today with complaints of bloody diarrhea that started last night. You were started on antibiotics 2 days ago when seen in the ER for diagnosis of diverticulitis and this is also the treatment for C. difficile so I feel it is highly unlikely that this is the case. You were unable to provide us with a stool sample while you are in the e mergency department so the diarrhea has slowed down significantly. Your lab work was unremarkable for infection and your hemoglobin levels were stable. Magnesium today in the emergency department was 1.4. Should you have significant diarrhea with arcadio red blood in your stool you are encouraged to return to the emergency department. Follow-up with your state auditor as previously scheduled. Sepsis Event Note (ED) - Evaluation Sepsis Screening Result: No Definite Risk - Focused Exam Vital Signs: Vital Signs Temp Pulse Resp BP Pulse Ox 11/03/20 07:30 97.0 F 111 H 20 157/92 H 99 - My Orders Last 24 Hours: My Active Orders 11/03/20 08:22 C DIFFICILE PCR W/REFLEX [MOLEC] Stat STOOL CULTURE/SHIGA TOXIN [MREF] Stat - Assessment/Plan Last 24 Hours: My Active Orders 11/03/20 08:22 C DIFFICILE PCR W/REFLEX [MOLEC] Stat STOOL CULTURE/SHIGA TOXIN [MREF] Stat
[2020-11-03 10:39] VITALS: BP 142/94; PULSE 108
== END 2020-11-03 10:35 | disposition home or self-care (01) ==
LOC: JD.ED 07:26
DX: R19.7 Diarrhea, unspecified (principal); I10 Essential (primary) hypertension; I48.91 Unspecified atrial fibrillation; K21.9 Gastro-esophageal reflux disease without esophagitis; E03.9 Hypothyroidism, unspecified; Z88.1 Allergy status to other antibiotic agents; Z88.2 Allergy status to sulfonamides; Z88.7 Allergy status to serum and vaccine; Z91.048 Other nonmedicinal substance allergy status; Z79.899 Other long term (current) drug therapy; Z79.82 Long term (current) use of aspirin
CPT/HCPCS: 36415; 80053; 83735; 85025; 86140; 99282; 99283

== ENCOUNTER 2021-06-28 08:04 | Emergency (ER) | payer BC ==
[2021-06-28] MEDS ORDERED: Sodium Chloride 0.9% 10 ML Syringe FLUSH PRN (09:02)
[2021-06-28] MEDS ORDERED: Ondansetron 4 MG/2 ML SDV IVPUSH ONE (09:02)
[2021-06-28] MEDS ORDERED: Sodium Chloride 0.9% 1,000 ML IV SCH ×2 (09:15→11:45)
--- NOTE | 2021-06-28 09:50 | CR ---
Chest: Portable view of the chest was obtained. Comparison: Prior chest x-ray of 02/25/20. Heart size and mediastinum are within normal limits. Sternotomy is noted. AICD is present. Lungs are clear with no acute parenchymal change. Surgical clips are seen within the left chest wall which is an interval change from prior chest x-ray. Impression: 1. Prior surgery as noted above. 2. Nothing acute is appreciated on portable chest x-ray. Diagnostic code #2
[2021-06-28] MEDS ORDERED: LORazepam 2 MG/ML SDV IVPUSH ONE (10:04)
[2021-06-28] MEDS ORDERED: Acetaminophen 325 MG Tab PO ONE (10:04)
[2021-06-28] MEDS ORDERED: Magnesium Sulfate/Water 2 GM in Premix Bag 1 BAG IV ONE (11:38)
--- NOTE | 2021-06-28 13:47 | EDM.PDOC ---
ED HPI GENERAL MEDICAL PROBLEM - General Chief Complaint: Neurological Problem Stated Complaint: DIZZINESS/POST SURGERY 2 WEEKS AGO Time Seen by Provider: 06/28/21 08:47 Source of Information: Reports: Patient, RN Notes Reviewed - History of Present Illness INITIAL COMMENTS - FREE TEXT/NARRATIVE: 66 yr old female has been feeling weak, dizzy, some nausea for several days. feels more weak and dizzy this morning. Has not been eating or drinking much. 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 Hx of heart transplant about 15 yrs ago. No coughing any more than usual. Has had occasional chest pain and occasionally feels short of breath but not at time of exam. No abd pain or voiding sx. - Related Data Allergies Allergy/AdvReac Type Severity Reaction Status Date / Time cefuroxime [From Ceftin] Allergy Cannot Verified 06/28/21 08:48 Remember clindamycin Allergy Cannot Verified 06/28/21 08:48 Remember Sulfa (Sulfonamide Allergy Hives Verified 06/28/21 08:48 Antibiotics) zoster vaccine live Allergy Cannot Verified 06/28/21 08:48 [From Zostavax (PF)] Remember dust Allergy Cannot Uncoded 06/28/21 08:48 Remember mold Allergy Wheezing Uncoded 06/28/21 08:48 Home Meds: Home Meds Simvastatin [Zocor] 10 mg PO QPM 03/10/19 [History] Tacrolimus [Prograf] 2.5 mg PO QAM 03/10/19 [History] Calcium Carbonate/Vitamin D3 [Calcium 500-Vit D3 125 Caplet] 1,000 mg PO DAILY 06/23/19 [History] Lactobacillus Acidophilus [Probiotic] 1 cap PO BEDTIME 07/01/19 [History] Multivitamin [Daily Multiple Vitamin] 1 tab PO DAILY 07/01/19 [History] Tacrolimus [Prograf] 2 mg PO BEDTIME 07/01/19 [History] mycophenolate mofetiL [Cellcept] 1,500 mg PO BID 07/01/19 [History] Levothyroxine Sodium [Euthyrox] 75 mcg PO DAILY 12/19/19 [History] Losartan Potassium 25 mg PO DAILY 12/19/19 [History] Aspirin [Halfprin] 81 mg PO DAILY tab.ec 12/27/19 [Rx] busPIRone [Buspar] 7.5 mg PO BID tablet 12/27/19 [Rx] Famotidine 40 mg PO BEDTIME 06/05/20 [History] Fexofenadine HCl 180 mg PO DAILY 06/05/20 [History] LORazepam [Ativan] 0.5 mg PO TID PRN 06/05/20 [History] calcium polycarbophiL [Fiber Tabs] 1 tab PO BID 06/05/20 [History] Magnesium Oxide [Magnesium] 1,200 mg PO TID 07/28/20 [History] Acetaminophen/HYDROcodone [[place] 325-5 MG] 1 - 2 tab PO Q6H PRN #20 tablet 11/02/20 [Rx] Levofloxacin 1 tab PO QPM #6 tablet 11/02/20 [Rx] metroNIDAZOLE [Metronidazole] 1 tab PO Q8H #20 tablet 11/02/20 [Rx] Past Medical History HEENT History: Reports: Allergic Rhinitis, Impaired Vision Other HEENT History: Wears glasses, braces Cardiovascular History: Reports: High Cholesterol, Hypertension, Other (See Below) Other Cardiovascular History: heart transplant in 2007: prior to transplant had asystole, mitral and aortic valve insufficeincy, afib, cardiomyopathy Respiratory History: Reports: Other (See Below) Other Respiratory History: Severe allergies Gastrointestinal History: Reports: Colon Polyp, Diverticulosis, GERD, Other (See Below) Other Gastrointestinal History: abdominal pain Genitourinary History: Reports: Urinary Incontinence Other Genitourinary History: urge incontinence 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 Endocrine/Metabolic History: Reports: Hypomagnesemia, Hypothyroidism Hematologic History: Reports: Other (See Below) Other Hematologic History: magnesium deficiency Immunologic History: Reports: Immunosuppression Other Immunologic History: Heart transplant 2007 Dermatologic History: Reports: Psoriasis - Infectious Disease History Infectious Disease History: Reports: C-Difficile, Influenza, Measles, Mumps, Other (See Below) Other Infectious Disease History: noravirus - Past Surgical History HEENT Surgical History: Reports: Oral Surgery Cardiovascular Surgical History: Reports: AICD, Other (See Below) Other Cardiovascular Surgeries/Procedures: heart transplant GI Surgical History: Reports: Appendectomy, Cholecystectomy, Other (See Below) Musculoskeletal Surgical History: Reports: None Social & Family History - Family History Family Medical History: No Pertinent Family History Cardiac: Reports: Heart Failure, [place] - Tobacco Use Tobacco Use Status *Q: Former Tobacco User Used Tobacco, but Quit: Yes Month/Year Tobacco Last Used: 10/2002 - Caffeine Use Caffeine Use: Reports: Soda - Recreational Drug Use Recreational Drug Use: No - Living Situation & Occupation Living situation: Reports: , Alone 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 Denies: Cough Cardiovascular: Reports: Chest Pain GI/Abdominal: Reports: Decreased Appetite, Nausea. Denies: Abdominal Pain, Diarrhea, Vomiting : Reports: No Symptoms Musculoskeletal: Reports: No Symptoms Neurological: Reports: Dizziness, Weakness ED EXAM, GENERAL - Physical Exam Exam: See Below General Appearance: Alert, Anxious Eye Exam: Bilateral Eye: PERRL Throat/Mouth: Normal Inspection, Normal Oropharynx Head: Atraumatic Neck: Supple Respiratory/Chest: No Respiratory Distress, Lungs Clear, Normal Breath Sounds Cardiovascular: Tachycardia GI/Abdominal: Soft, Non-Tender Back Exam: No: CVA Tenderness (L), CVA Tenderness (R) Extremities: Normal Inspection. No: Pedal Edema, Leg Pain, Redness Neurological: Alert, Oriented, No Motor/Sensory Deficits Skin Exam: Warm, Dry, Normal Color #1 Interpretation EKG Date: 06/28/21 Rhythm: Other (sinus tach) Rate (Beats/Min): 115 [place]: Normal P-Wave: Present QRS: Other (q waves inf. leads) ST-T: Normal QT: Normal Course - Vital Signs Last Recorded V/S: Last Vital Signs Temp 96.1 F L 06/28/21 14:57 Pulse 98 06/28/21 14:57 Resp 16 06/28/21 14:57 BP 114/83 06/28/21 14:57 Pulse Ox 100 06/28/21 14:57 - Orders/Labs/Meds Orders: Active Orders 24 hr Category Date Time Status Peripheral IV Insertion Adult [OM.PC] Stat Oth 06/28/21 09:02 Ordered Labs: Laboratory Tests 06/28/21 06/28/21 06/28/21 Range/Units 09:25 09:25 09:25 WBC 7.41 (3.98-10.04) K/mm3 RBC 4.37 (3.98-5.22) M/mm3 Hgb 13.0 (11.2-15.7) gm/dl Hct 39.6 (34.1-44.9) % MCV 90.6 (79.4-94.8) fl MCH 29.7 (25.6-32.2) pg MCHC 32.8 (32.2-35.5) g/dl RDW Std Deviation 40.2 (36.4-46.3) fL Plt Count 222 (182-369) K/mm3 MPV 10.9 (9.4-12.3) fl Neut % (Auto) 78.7 H (34.0-71.1) % Lymph % (Auto) 11.9 L (19.3-51.7) % [place] % (Auto) 8.8 (4.7-12.5) % Eos % (Auto) 0.4 L (0.7-5.8) Baso % (Auto) 0.1 (0.1-1.2) % Neut # (Auto) 5.83 (1.56-6.13) K/mm3 Lymph # (Auto) 0.88 L (1.18-3.74) K/mm3 [place] # (Auto) 0.65 H (0.24-0.36) K/mm3 Eos # (Auto) 0.03 L (0.04-0.36) K/mm3 Baso # (Auto) 0.01 (0.01-0.08) K/mm3 Sodium 130 L (136-145) mEq/L Potassium 3.9 (3.5-5.1) mEq/L Chloride 93 L (98-107) mEq/L Carbon Dioxide 28 (21-32) mEq/L Anion Gap 12.9 (5-15) BUN 6 L (7-18) mg/dL Creatinine 0.8 (0.55-1.02) mg/dL Est Cr Clr Drug Dosing 56.42 mL/min Estimated GFR (MDRD) > 60 (>60) mL/min BUN/Creatinine Ratio 7.5 L (14-18) Glucose 102 H (70-99) mg/dL Calcium 8.9 (8.5-10.1) mg/dL Magnesium (1.8-2.4) mg/dL Total Bilirubin 0.6 (0.2-1.0) mg/dL AST 13 L (15-37) U/L ALT 18 (14-59) U/L Alkaline Phosphatase 99 (46-116) U/L Troponin I < 0.017 (0.00-0.056) ng/mL Total Protein 7.0 (6.4-8.2) g/dl Albumin 3.9 (3.4-5.0) g/dl Globulin 3.1 gm/dL Albumin/Globulin Ratio 1.3 (1-2) Urine Color (Yellow) Urine Appearance (Clear) Urine pH (5.0-8.0) Ur Specific [place] (1.005-1.030) Urine Protein (Negative) Urine Glucose (UA) (Negative) Urine Ketones (Negative) Urine Occult Blood (Negative) Urine Nitrite (Negative) Urine Bilirubin (Negative) Urine Urobilinogen (0.2-1.0) Ur Leukocyte Esterase (Negative) SARS-CoV-2 RNA (CHRISTIANO) (NEGATIVE) 06/28/21 06/28/21 06/28/21 Range/Units 09:28 09:33 10:30 WBC (3.98-10.04) K/mm3 RBC (3.98-5.22) M/mm3 Hgb (11.2-15.7) gm/dl Hct (34.1-44.9) % MCV (79.4-94.8) fl MCH (25.6-32.2) pg MCHC (32.2-35.5) g/dl RDW Std Deviation (36.4-46.3) fL Plt Count (182-369) K/mm3 MPV (9.4-12.3) fl Neut % (Auto) (34.0-71.1) % Lymph % (Auto) (19.3-51.7) % [place] % (Auto) (4.7-12.5) % Eos % (Auto) (0.7-5.8) Baso % (Auto) (0.1-1.2) % Neut # (Auto) (1.56-6.13) K/mm3 Lymph # (Auto) (1.18-3.74) K/mm3 [place] # (Auto) (0.24-0.36) K/mm3 Eos # (Auto) (0.04-0.36) K/mm3 Baso # (Auto) (0.01-0.08) K/mm3 Sodium (136-145) mEq/L Potassium (3.5-5.1) mEq/L Chloride (98-107) mEq/L Carbon Dioxide (21-32) mEq/L Anion Gap (5-15) BUN (7-18) mg/dL Creatinine (0.55-1.02) mg/dL Est Cr Clr Drug Dosing mL/min Estimated GFR (MDRD) (>60) mL/min BUN/Creatinine Ratio (14-18) Glucose (70-99) mg/dL Calcium (8.5-10.1) mg/dL Magnesium 1.3 L (1.8-2.4) mg/dL Total Bilirubin (0.2-1.0) mg/dL AST (15-37) U/L ALT (14-59) U/L Alkaline Phosphatase (46-116) U/L Troponin I (0.00-0.056) ng/mL Total Protein (6.4-8.2) g/dl Albumin (3.4-5.0) g/dl Globulin gm/dL Albumin/Globulin Ratio (1-2) Urine Color Yellow (Yellow) Urine Appearance Clear (Clear) Urine pH 7.0 (5.0-8.0) Ur Specific [place] 1.015 (1.005-1.030) Urine Protein Negative (Negative) Urine Glucose (UA) Negative (Negative) Urine Ketones Negative (Negative) Urine Occult Blood Negative (Negative) Urine Nitrite Negative (Negative) Urine Bilirubin Negative (Negative) Urine Urobilinogen 0.2 (0.2-1.0) Ur Leukocyte Esterase Negative (Negative) SARS-CoV-2 RNA (CHRISTIANO) Negative (NEGATIVE) Meds: Medications Discontinued Medications Generic Name Dose Route Start Last Admin Trade Name Freq PRN Reason Stop Dose Admin Acetaminophen 650 mg 06/28/21 10:04 06/28/21 10:12 Acetaminophen 325 Mg Tab PO 06/28/21 10:05 650 mg NOW ONE Administration Sodium Chloride 1,000 mls @ 999 mls/hr 06/28/21 09:15 06/28/21 09:26 Normal Saline IV 999 mls/hr ONETIME EDUARDO Administration Magnesium Sulfate 2 gm/ Premix 50 mls @ 25 mls/hr 06/28/21 11:38 06/28/21 11:54 IV 06/28/21 13:37 25 mls/hr ONETIME ONE Administration Sodium Chloride 1,000 mls @ 150 mls/hr 06/28/21 11:45 06/28/21 11:54 Normal Saline IV 150 mls/hr ASDIRECTED EDUARDO Administration Lorazepam 0.5 mg 06/28/21 10:04 06/28/21 10:12 Lorazepam 2 Mg/Ml Sdv IVPUSH 06/28/21 10:05 0.5 mg ONETIME ONE Administration Ondansetron HCl 4 mg 06/28/21 09:02 06/28/21 09:27 Ondansetron 4 Mg/2 Ml Sdv IVPUSH 06/28/21 09:03 4 mg ONETIME ONE Administration Sodium Chloride 10 ml 06/28/21 09:02 06/28/21 09:28 Sodium Chloride 0.9% 10 Ml Syringe FLUSH 10 ml ASDIRECTED PRN Administration Keep Vein Open - Re-Assessments/Exams Free Text/Narrative Re-Assessment/Exam: 06/28/21 16:09 Na 130, magnesium 1.3, feeling much better after IV fluid, zofran and 2 grams magnesium IV. Departure - Departure Time of Disposition: 13:43 Disposition: Home, Self-Care 01 Condition: Fair Clinical Impression: Nausea, Dizziness, Hyponatremia, Hypomagnesemia - Discharge Information Instructions: Hyponatremia, [id number], Hypomagnesemia, Nausea, Adult, [id number], Dizziness, [id number] Referrals: Zackery Townsend MD [Primary Care Provider] - Forms: ED Department Discharge Additional Instructions: Clear liquids and bland diet as tolerated. Continue current meds. Your sodium was mildly low today at 130 so soup broth once or twice a day will help that. Be sure to take you magnesium supplement as previously directed. Follow up with your medical providers as planned. Return to ED as needed if symptoms worsening in any way. Sepsis Event Note (ED) - Evaluation Sepsis Screening Result: Possible Sepsis Risk - Focused Exam Vital Signs: Vital Signs Temp Pulse Resp BP Pulse Ox 06/28/21 14:57 96.1 F L 98 16 114/83 100 06/28/21 08:41 96.7 F L 125 H 26 H 100/79 100 - My Orders Last 24 Hours: My Active Orders 06/28/21 09:02 Peripheral IV Insertion Adult [OM.PC] Stat - Assessment/Plan Last 24 Hours: My Active Orders 06/28/21 09:02 Peripheral IV Insertion Adult [OM.PC] Stat
[2021-06-28 14:59] VITALS: BP 114/83; PULSE 98
== END 2021-06-28 15:12 | disposition home or self-care (01) ==
LOC: JD.ED 08:04
DX: E87.1 Hypo-osmolality and hyponatremia (principal); E83.42 Hypomagnesemia; R00.0 Tachycardia, unspecified; E78.00 Pure hypercholesterolemia, unspecified; I10 Essential (primary) hypertension; I48.91 Unspecified atrial fibrillation; K21.9 Gastro-esophageal reflux disease without esophagitis; E03.9 Hypothyroidism, unspecified; Z87.891 Personal history of nicotine dependence; Z88.1 Allergy status to other antibiotic agents; Z88.2 Allergy status to sulfonamides; Z88.7 Allergy status to serum and vaccine; Z91.048 Other nonmedicinal substance allergy status; Z79.82 Long term (current) use of aspirin; Z79.899 Other long term (current) drug therapy; Z20.822 Contact with and (suspected) exposure to COVID-19
CPT/HCPCS: 36415; 71045; 80053; 81003; 83735; 84484; 85025; 87635; 93005; 96365; 96366; 96375; 99284; A9270; J2060; J2405; J3475; J7030; U0002

== ENCOUNTER 2021-09-03 06:53 | Emergency (ER) | payer BC ==
--- NOTE | 2021-09-03 07:18 | EDM.PDOC ---
ED HPI GENERAL MEDICAL PROBLEM - General Chief Complaint: Neurological Problem Stated Complaint: DIZZY/LOW BP Time Seen by Provider: 09/03/21 07:18 - History of Present Illness INITIAL COMMENTS - FREE TEXT/NARRATIVE: 66-year-old female presents the emergency room with dizziness and low blood pressure. This is been an ongoing problem however it is progressively gotten worse over the last week or so. However this is been a long-term problem at least for the last several months. Patient is lost 50ish pounds the patient has frequent bouts of loose stools. She has been seen by couple director of accounting and other physicians and their advice is for her to eat more. Patient is concerned about weight loss. The patient's dizziness seems to be worse with change in position. This seems to have been aggravated when the patient had a breast cancer surgery back in June and then had a couple weeks radiation following this. She has developed some upper abdominal discomfort. From [id number] records it looks like she had a CAT scan done in the midportion of last month of her abdomen that was noncontributory did not show any significant abnormalities. Patient has a history of heart transplant and has not had any problems associated with this. She is not aware of any fevers or chills. - Related Data Allergies Allergy/AdvReac Type Severity Reaction Status Date / Time cefuroxime [From Ceftin] Allergy Cannot Verified 09/03/21 07:29 Remember clindamycin Allergy Cannot Verified 09/03/21 07:29 Remember Sulfa (Sulfonamide Allergy Hives Verified 09/03/21 07:29 Antibiotics) zoster vaccine live Allergy Cannot Verified 09/03/21 07:29 [From Zostavax (PF)] Remember dust Allergy Cannot Uncoded 09/03/21 07:29 Remember mold Allergy Wheezing Uncoded 09/03/21 07:29 Home Meds: Home Meds Simvastatin [Zocor] 10 mg PO QPM 03/10/19 [History] Tacrolimus [Prograf] 2.5 mg PO QAM 03/10/19 [History] Calcium Carbonate/Vitamin D3 [Calcium 500-Vit D3 125 Caplet] 1,000 mg PO DAILY 06/23/19 [History] Lactobacillus Acidophilus [Probiotic] 1 cap PO BEDTIME 07/01/19 [History] Multivitamin [Daily Multiple Vitamin] 1 tab PO DAILY 07/01/19 [History] Tacrolimus [Prograf] 2 mg PO BEDTIME 07/01/19 [History] mycophenolate mofetiL [Cellcept] 1,500 mg PO BID 07/01/19 [History] Levothyroxine Sodium [Euthyrox] 75 mcg PO DAILY 12/19/19 [History] Losartan Potassium 25 mg PO DAILY 12/19/19 [History] Aspirin [Halfprin] 81 mg PO DAILY tab.ec 12/27/19 [Rx] busPIRone [Buspar] 7.5 mg PO BID tablet 12/27/19 [Rx] Famotidine 40 mg PO BEDTIME 06/05/20 [History] Fexofenadine HCl 180 mg PO DAILY 06/05/20 [History] LORazepam [Ativan] 0.5 mg PO TID PRN 06/05/20 [History] calcium polycarbophiL [Fiber Tabs] 1 tab PO BID 06/05/20 [History] Magnesium Oxide [Magnesium] 1,200 mg PO TID 07/28/20 [History] Acetaminophen/HYDROcodone [[place] 325-5 MG] 1 - 2 tab PO Q6H PRN #20 tablet 11/02/20 [Rx] Levofloxacin 1 tab PO QPM #6 tablet 11/02/20 [Rx] metroNIDAZOLE [Metronidazole] 1 tab PO Q8H #20 tablet 11/02/20 [Rx] Past Medical History HEENT History: Reports: Allergic Rhinitis, Impaired Vision Other HEENT History: Wears glasses, braces Cardiovascular History: Reports: High Cholesterol, Hypertension, Other (See Below) Other Cardiovascular History: heart transplant in 2007: prior to transplant had asystole, mitral and aortic valve insufficeincy, afib, cardiomyopathy Respiratory History: Reports: Other (See Below) Other Respiratory History: Severe allergies Gastrointestinal History: Reports: Colon Polyp, Diverticulosis, GERD, Other (See Below) Other Gastrointestinal History: abdominal pain Genitourinary History: Reports: Urinary Incontinence Other Genitourinary History: urge incontinence 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 Endocrine/Metabolic History: Reports: Hypomagnesemia, Hypothyroidism Hematologic History: Reports: Other (See Below) Other Hematologic History: magnesium deficiency Immunologic History: Reports: Immunosuppression Other Immunologic History: Heart transplant 2008 Dermatologic History: Reports: Psoriasis - Infectious Disease History Infectious Disease History: Reports: C-Difficile, Influenza, Measles, Mumps, Other (See Below) Other Infectious Disease History: noravirus - Past Surgical History HEENT Surgical History: Reports: Oral Surgery Cardiovascular Surgical History: Reports: AICD, Other (See Below) Other Cardiovascular Surgeries/Procedures: heart transplant GI Surgical History: Reports: Appendectomy, Cholecystectomy, Other (See Below) Musculoskeletal Surgical History: Reports: None Social & Family History - Family History Family Medical History: No Pertinent Family History Cardiac: Reports: Heart Failure, [place] - Caffeine Use Caffeine Use: Reports: Soda - Living Situation & Occupation Living situation: Reports: , Alone 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 Denies: No Symptoms, Fever, Chills HEENT: Reports: No Symptoms Respiratory: Reports: No Symptoms Cardiovascular: Reports: No Symptoms GI/Abdominal: Reports: Abdominal Pain (Occasionally gets some upper abdominal discomfort) : Reports: No Symptoms Musculoskeletal: Reports: No Symptoms Skin: Reports: No Symptoms Neurological: Reports: Dizziness ED EXAM, GENERAL - Physical Exam Exam: See Below Exam Limited By: No Limitations General Appearance: Alert, No Apparent Distress, Thin Head: Atraumatic, Normocephalic Neck: Normal Inspection, Supple, Non-Tender, Full Range of Motion Respiratory/Chest: No Respiratory Distress, Lungs Clear, Normal Breath Sounds Cardiovascular: Regular Rate, Rhythm, No Edema, No Murmur, Tachycardia (Mild tachycardia) GI/Abdominal: Normal Bowel Sounds, Soft, Tender (Vague mild discomfort). No: Distended, Guarding, Rigid, Rebound Back Exam: Normal Inspection. No: CVA Tenderness (L), CVA Tenderness (R) Extremities: Normal Inspection, Non-Tender, No Pedal Edema Course - Vital Signs Last Recorded V/S: Last Vital Signs Temp 36.5 C 09/03/21 07:17 Pulse 114 H 09/03/21 07:17 Resp 21 H 09/03/21 07:17 BP 128/84 09/03/21 07:17 Pulse Ox 100 09/03/21 07:17 - Orders/Labs/Meds Orders: Active Orders 24 hr Category Date Time Status Lactated Ringers [Ringers, Lactated] 1,000 ml Med 09/03/21 10:30 Active IV ASDIRECTED Medication Orders Lactated Ringer's (Ringers, Lactated) 1,000 mls @ 250 mls/hr IV ASDIRECTED EDUARDO Last Admin: 09/03/21 10:30 Dose: 250 mls/hr Documented by: JC Labs: Laboratory Tests 09/03/21 09/03/21 09/03/21 Range/Units 07:55 07:55 07:55 WBC 8.91 (3.98-10.04) K/mm3 RBC 3.90 L (3.98-5.22) M/mm3 Hgb 11.9 (11.2-15.7) gm/dl Hct 35.9 (34.1-44.9) % MCV 92.1 (79.4-94.8) fl MCH 30.5 (25.6-32.2) pg MCHC 33.1 (32.2-35.5) g/dl RDW Std Deviation 43.8 (36.4-46.3) fL Plt Count 212 (182-369) K/mm3 MPV 10.6 (9.4-12.3) fl Neut % (Auto) 81.3 H (34.0-71.1) % Lymph % (Auto) 10.3 L (19.3-51.7) % [place] % (Auto) 7.5 (4.7-12.5) % Eos % (Auto) 0.7 (0.7-5.8) Baso % (Auto) 0.1 (0.1-1.2) % Neut # (Auto) 7.24 H (1.56-6.13) K/mm3 Lymph # (Auto) 0.92 L (1.18-3.74) K/mm3 [place] # (Auto) 0.67 H (0.24-0.36) K/mm3 Eos # (Auto) 0.06 (0.04-0.36) K/mm3 Baso # (Auto) 0.01 (0.01-0.08) K/mm3 PT 12.1 H (9.7-12.0) SECONDS INR 1.09 Sodium 134 L (136-145) mEq/L Potassium 3.8 (3.5-5.1) mEq/L Chloride 99 (98-107) mEq/L Carbon Dioxide 27 (21-32) mEq/L Anion Gap 11.8 (5-15) BUN 7 (7-18) mg/dL Creatinine 0.8 (0.55-1.02) mg/dL Est Cr Clr Drug Dosing 51.02 mL/min Estimated GFR (MDRD) > 60 (>60) mL/min BUN/Creatinine Ratio 8.8 L (14-18) Glucose 90 (70-99) mg/dL Calcium 8.7 (8.5-10.1) mg/dL Magnesium 1.2 L (1.8-2.4) mg/dL Total Bilirubin 0.4 (0.2-1.0) mg/dL AST 15 (15-37) U/L ALT 19 (14-59) U/L Alkaline Phosphatase 104 (46-116) U/L Total Protein 6.3 L (6.4-8.2) g/dl Albumin 3.7 (3.4-5.0) g/dl Globulin 2.6 gm/dL Albumin/Globulin Ratio 1.4 (1-2) Lipase 71 L (73-393) U/L Meds: Medications Generic Name Dose Route Start Last Admin Trade Name Freq PRN Reason Stop Dose Admin Lactated Ringer's 1,000 mls @ 250 mls/hr 09/03/21 10:30 09/03/21 10:30 Ringers, Lactated IV 250 mls/hr ASDIRECTED EDUARDO Administration Discontinued Medications Generic Name Dose Route Start Last Admin Trade Name Freq PRN Reason Stop Dose Admin Lactated Ringer's 500 mls @ 999 mls/hr 09/03/21 07:37 09/03/21 07:57 Ringers, Lactated IV 09/03/21 08:07 999 mls/hr .BOLUS ONE Administration Magnesium Sulfate 2 gm/ Premix 50 mls @ 25 mls/hr 09/03/21 10:30 09/03/21 10:30 IV 50 mls/hr Q1H EDUARDO Administration Magnesium Sulfate 2 gm/ Premix 50 mls @ 25 mls/hr 09/03/21 11:43 09/03/21 11:44 IV 09/03/21 12:29 Not Given ONETIME ONE - Re-Assessments/Exams Free Text/Narrative Re-Assessment/Exam: 09/03/21 11:49 Patient continues to do well it was found that her magnesium was low she was given a couple grams of IV magnesium. She is due to restart her supplements. She would like to go home at this point Departure - Departure Time of Disposition: 11:49 Disposition: Home, Self-Care 01 Clinical Impression: Dehydration, mild, Chronic diarrhea - Discharge Information Referrals: Zackery Townsend MD [Primary Care Provider] - Forms: ED Department Discharge Additional Instructions: Return to the emergency room with any questions problems or concerning symptoms. Follow-up with your regular healthcare provider this next week. Find out if you have been evaluated for malabsorption or exocrine pancreatic insufficiency. Sepsis Event Note (ED) - Focused Exam Vital Signs: Vital Signs Temp Pulse Resp BP Pulse Ox 09/03/21 07:17 36.5 C 114 H 21 H 128/84 100 - My Orders Last 24 Hours: My Active Orders 09/03/21 10:30 Lactated Ringers [Ringers, Lactated] 1,000 ml IV ASDIRECTED - Assessment/Plan Last 24 Hours: My Active Orders 09/03/21 10:30 Lactated Ringers [Ringers, Lactated] 1,000 ml IV ASDIRECTED
[2021-09-03 07:28] VITALS: BP 128/84; PULSE 114
[2021-09-03] MEDS ORDERED: Lactated Ringers 500 ML IV ONE (07:37)
[2021-09-03] MEDS ORDERED: Lactated Ringers 1,000 ML IV SCH (10:30)
[2021-09-03] MEDS ORDERED: Magnesium Sulfate/Water 2 GM in Premix Bag 1 BAG IV SCH (10:30)
[2021-09-03] MEDS ORDERED: Magnesium Sulfate/Water 2 GM in Premix Bag 1 BAG IV ONE (11:43)
== END 2021-09-03 12:01 | disposition home or self-care (01) ==
LOC: JD.ED 06:53
DX: K52.9 Noninfective gastroenteritis and colitis, unspecified (principal); E86.0 Dehydration; E83.42 Hypomagnesemia; I11.9 Hypertensive heart disease without heart failure; E78.00 Pure hypercholesterolemia, unspecified; K21.9 Gastro-esophageal reflux disease without esophagitis; Z88.2 Allergy status to sulfonamides; Z88.7 Allergy status to serum and vaccine; Z91.048 Other nonmedicinal substance allergy status; Z88.1 Allergy status to other antibiotic agents; Z79.899 Other long term (current) drug therapy
CPT/HCPCS: 36415; 80053; 83690; 83735; 85025; 85610; 96365; 99284; J3475; J7120

== ENCOUNTER 2021-09-29 07:52 | Emergency (ER) | payer BC ==
[2021-09-29 08:09] VITALS: BP 121/76; PULSE 137
--- NOTE | 2021-09-29 08:33 | EDM.PDOC ---
ED HPI GENERAL MEDICAL PROBLEM - General Chief Complaint: General Stated Complaint: SOB Time Seen by Provider: 09/29/21 08:31 Source of Information: Reports: Patient History Limitations: Reports: No Limitations - History of Present Illness INITIAL COMMENTS - FREE TEXT/NARRATIVE: 66-year-old female presents to the ED due to persistent weight loss. She is under 100 pounds and she was told by previous physicians that if she went under 100 pounds that her organs would start to fail. 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 She reports a mild cough and nasal congestion. She had 4 large-volume diarrhea stools overnight. She recognizes her heart rate to be in the 140s at home and is 127 and sinus on exam here. She does not have a pacemaker. Patient was diagnosed with left-sided breast cancer within the last year treated with lumpectomy and radiotherapy. She denies any changes in the dosages of her immunosuppressants with continued weight loss. She has a history of chronic hypomagnesemia and chronic diarrhea is felt to be secondary to use of magnesium oxide tablets. She is immunized against COVID-19 illness but has not had the booster shot. She is also not had a flu shot yet this year. Denies any fever or chills. Onset: Unknown/Unsure, Other (Chronic illness. Mild nasal congestion cough over the last 3 days. Significant diarrhea overnight) Duration: Chronic, Other (Worsening of diarrhea overnight with 4 large-volume diarrhea stools.) Location: Reports: Other (Abdominal cramping pain associate with diarrhea) Quality: Reports: Sharp, Stabbing Severity: Moderate (Colicky abdominal pain) Improves with: Reports: None Worsens with: Reports: Eating Context: Reports: Other (History of chronic diarrhea secondary to use of magnesium supplementations due to hypomagnesemia.). Denies: Activity, Exercise, Lifting, Sick Contact, Trauma Associated Symptoms: Reports: Cough, cough w sputum (Mild sputum production), Loss of Appetite, Malaise, Weakness, Other (Lightheaded and dizzy.). 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 below) (None.) - Related Data Allergies Allergy/AdvReac Type Severity Reaction Status Date / Time cefuroxime [From Ceftin] Allergy Cannot Verified 09/29/21 08:09 Remember clindamycin Allergy Cannot Verified 09/29/21 08:09 Remember Sulfa (Sulfonamide Allergy Hives Verified 09/29/21 08:09 Antibiotics) zoster vaccine live Allergy Cannot Verified 09/29/21 08:09 [From Zostavax (PF)] Remember dust Allergy Cannot Uncoded 09/29/21 08:09 Remember mold Allergy Wheezing Uncoded 09/29/21 08:09 Home Meds: Home Meds Simvastatin [Zocor] 10 mg PO QPM 03/10/19 [History] Tacrolimus [Prograf] 2.5 mg PO QAM 03/10/19 [History] Calcium Carbonate/Vitamin D3 [Calcium 500-Vit D3 125 Caplet] 1,000 mg PO DAILY 06/23/19 [History] Lactobacillus Acidophilus [Probiotic] 1 cap PO BEDTIME 07/01/19 [History] Multivitamin [Daily Multiple Vitamin] 1 tab PO DAILY 07/01/19 [History] Tacrolimus [Prograf] 2 mg PO BEDTIME 07/01/19 [History] mycophenolate mofetiL [Cellcept] 1,500 mg PO BID 07/01/19 [History] Levothyroxine Sodium [Euthyrox] 75 mcg PO DAILY 12/19/19 [History] Losartan Potassium 25 mg PO DAILY 12/19/19 [History] Aspirin [Halfprin] 81 mg PO DAILY tab.ec 12/27/19 [Rx] busPIRone [Buspar] 7.5 mg PO BID tablet 12/27/19 [Rx] Famotidine 40 mg PO BEDTIME 06/05/20 [History] Fexofenadine HCl 180 mg PO DAILY 06/05/20 [History] LORazepam [Ativan] 0.5 mg PO TID PRN 06/05/20 [History] calcium polycarbophiL [Fiber Tabs] 1 tab PO BID 06/05/20 [History] Magnesium Oxide [Magnesium] 1,200 mg PO TID 07/28/20 [History] Acetaminophen/HYDROcodone [[place] 325-5 MG] 1 - 2 tab PO Q6H PRN #20 tablet 11/02/20 [Rx] Levofloxacin 1 tab PO QPM #6 tablet 11/02/20 [Rx] metroNIDAZOLE [Metronidazole] 1 tab PO Q8H #20 tablet 11/02/20 [Rx] Past Medical History HEENT History: Reports: Allergic Rhinitis, Impaired Vision Other HEENT History: Wears glasses, braces Cardiovascular History: Reports: High Cholesterol, Hypertension, Other (See Below) Other Cardiovascular History: heart transplant in 2007: prior to transplant had asystole, mitral and aortic valve insufficeincy, afib, cardiomyopathy Respiratory History: Reports: Other (See Below) Other Respiratory History: Severe allergies Gastrointestinal History: Reports: Colon Polyp, Diverticulosis, GERD, Other (See Below) Other Gastrointestinal History: abdominal pain Genitourinary History: Reports: Urinary Incontinence, Other (See Below) Other Genitourinary History: urge incontinence, had Acute kidney failure a year ago GEOLOGICAL SCOUT History: Reports: Other (See Below) Other GEOLOGICAL SCOUT History: Cyst left ovary Musculoskeletal History: Reports: Fracture, Osteoporosis Other Musculoskeletal History: muslce spasms Neurological History: Reports: Migraines Other Neuro History: nerve damage from open heart Psychiatric History: Reports: Anxiety, Depression Other Psychiatric History: not sleeping for past two days. Endocrine/Metabolic History: Reports: Hypomagnesemia, Hypothyroidism Hematologic History: Reports: Other (See Below) Other Hematologic History: magnesium deficiency Immunologic History: Reports: Immunosuppression Other Immunologic History: Heart transplant 2007 Oncologic (Cancer) History: Reports: Breast Other Oncologic History: had PET scan Jun 21 and found some "spots" in the lung and a "spot" on the L ovary Dermatologic History: Reports: Psoriasis - Infectious Disease History Infectious Disease History: Reports: C-Difficile, Influenza, Measles, Mumps, Other (See Below) Other Infectious Disease History: noravirus - Past Surgical History HEENT Surgical History: Reports: Oral Surgery Cardiovascular Surgical History: Reports: AICD, Other (See Below) Other Cardiovascular Surgeries/Procedures: heart transplant Respiratory Surgical History: Reports: None GI Surgical History: Reports: Appendectomy, Cholecystectomy, Colonoscopy, EGD Female Surgical History: Reports: None Endocrine Surgical History: Reports: None Neurological Surgical History: Reports: None Musculoskeletal Surgical History: Reports: None Dermatological Surgical History: Reports: None Social & Family History - Family History Family Medical History: No Pertinent Family History Cardiac: Reports: Heart Failure, [place] - Tobacco Use Tobacco Use Status *Q: Never Tobacco User - Caffeine Use Caffeine Use: Reports: Soda - Recreational Drug Use Recreational Drug Use: No - Living Situation & Occupation Living situation: Reports: , Alone 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 Denies: Fever, Chills, Night Sweats, Weight Gain HEENT: Reports: Glasses Respiratory: Reports: Cough (Mild cough mild sputum production over the last 3 days.). Denies: Hemoptysis Cardiovascular: Reports: Lightheadedness. Denies: Chest Pain, Blood Pressure Problem, Claudication, Dyspnea on Exertion, Orthopnea, Palpitations, PND, Syncope, Other Endocrine: Reports: Fatigue GI/Abdominal: Reports: Abdominal Pain (Chronic abdominal cramping pain), Diarrhea ( associate with diarrhea chronic usually 3-5 times daily), Other (Malabsorption problems. Chronic hypomagnesemia) : Reports: No Symptoms Musculoskeletal: Reports: Other (Knees hips low back and neck at times) Skin: Reports: No Symptoms Neurological: Reports: Dizziness, Weakness. Denies: Confusion, Headache, Numbness, Paresthesia, Pre-Existing Deficit, Seizure, Syncope, Tingling, Tremors, Trouble Speaking, Difficulty Walking, Change in Speech, Gait Disturbance Psychiatric: Reports: Anxiety (Mild). Denies: Confusion, Cravings, Depression, Hallucinations Hematologic/Lymphatic: Reports: No Symptoms Immunologic: Reports: No Symptoms ED EXAM, GENERAL - Physical Exam Exam: See Below Exam Limited By: No Limitations General Appearance: Alert, WD/WN, Anxious, Mild Distress, Other (Temperature is 36.4 degrees and she does not feel warm to palpation. Heart rate initially was 137 but came down to 125 after she was in bed for period of time. Respiratory was 22 with O2 sats 100% room air with mild hyperventilation. BP 121/76) Eye Exam: Bilateral Eye: Normal Inspection (Mild blepharal pallor. No scleral icterus) Throat/Mouth: Other Head: Atraumatic (Tongue is mildly dry and coated.), Normocephalic Neck: Normal Inspection, Supple, Non-Tender, Full Range of Motion. No: Carotid Bruit, Lymphadenopathy (L), Lymphadenopathy (R), Tender Lateral Respiratory/Chest: No Respiratory Distress, Lungs Clear, Normal Breath Sounds, No Accessory Muscle Use. No: Decreased Breath Sounds Cardiovascular: Normal Peripheral Pulses, No Gallop, No JVD (125 at rest at the bedside.), No Rub, Tachycardia, Other (Well-healed midline sternotomy incision) Peripheral Pulses: 3+: Carotid (L), Carotid (R), Posterior Tibial (L), Posterior Tibial (R), Dorsalis Pedis (L), Dorsalis Pedis (R) GI/Abdominal: No Organomegaly ( Scaphoid abdomen.), No Distention, Abnormal Bowel Sounds, Other (Mildly hyperactive bowel sounds all 4 quadrants.). No: Guarding, Rigid, Rebound Back Exam: Normal Inspection, Full Range of Motion. No: CVA Tenderness (L), CVA Tenderness (R) Extremities: Normal Inspection, Normal Range of Motion, Non-Tender, No Pedal Edema, Other Neurological: Alert, Oriented (Evidence of wasting of calf musculature), CN II- XII Intact, Normal Cognition. No: Normal Gait (Not evaluated) Psychiatric: Anxious Skin Exam: Warm, Dry, Intact, Pallor (Mild pallor.) #1 Interpretation EKG Date: 09/29/21 Time: 09:23 Rhythm: Other (Sinus tachycardia) Rate (Beats/Min): 112 [place]: Normal P-Wave: Present (First-degree AV block) QRS: Other (Decreased voltage limb leads) ST-T: Other (Diffuse early repolarization pattern. Q waves lead III and near Q wave in lead aVF.. Tall R wave in V1 felt to be secondary to right bundle branch block pattern) QT: Normal EKG Interpretation Comments: Abnormal ECG Course - Vital Signs Last Recorded V/S: Last Vital Signs Temp 36.4 C 09/29/21 08:04 Pulse 137 H 09/29/21 08:04 Resp 22 H 09/29/21 08:04 BP 121/76 09/29/21 08:04 Pulse Ox 100 09/29/21 08:04 - Orders/Labs/Meds Orders: Active Orders 24 hr Category Date Time Status URINALYSIS W/MICROSCOPIC [UA W/MICROSCOPIC] [URIN] Stat Lab 09/29/21 08:49 Ordered Dextrose 5%-Lactated Ringers 1,000 ml Med 09/29/21 09:00 Active IV ASDIRECTED Isolation [COMM] Routine Oth 09/29/21 08:51 Ordered Medication Orders Dextrose/Lactated Ringer's (Dextrose 5%-Lactated Ringers) 1,000 mls @ 500 mls/hr IV ASDIRECTED EDUARDO Last Admin: 09/29/21 09:11 Dose: 500 mls/hr Documented by: NAILA Labs: Laboratory Tests 09/29/21 09/29/21 09/29/21 Range/Units 09:05 09:05 09:05 WBC 4.59 (3.98-10.04) K/mm3 RBC 4.15 (3.98-5.22) M/mm3 Hgb 12.5 (11.2-15.7) gm/dl Hct 38.8 (34.1-44.9) % MCV 93.5 (79.4-94.8) fl MCH 30.1 (25.6-32.2) pg MCHC 32.2 (32.2-35.5) g/dl RDW Std Deviation 43.8 (36.4-46.3) fL Plt Count 216 (182-369) K/mm3 MPV 11.3 (9.4-12.3) fl Neut % (Auto) 70.6 (34.0-71.1) % Lymph % (Auto) 15.9 L (19.3-51.7) % Stearns % (Auto) 12.0 (4.7-12.5) % Eos % (Auto) 1.1 (0.7-5.8) Baso % (Auto) 0.2 (0.1-1.2) % Neut # (Auto) 3.24 (1.56-6.13) K/mm3 Lymph # (Auto) 0.73 L (1.18-3.74) K/mm3 Stearns # (Auto) 0.55 H (0.24-0.36) K/mm3 Eos # (Auto) 0.05 (0.04-0.36) K/mm3 Baso # (Auto) 0.01 (0.01-0.08) K/mm3 ESR (0-20) mm/hr PT 11.4 (9.7-12.0) SECONDS INR 1.03 Sodium 134 L (136-145) mEq/L Potassium 3.8 (3.5-5.1) mEq/L Chloride 97 L (98-107) mEq/L Carbon Dioxide 29 (21-32) mEq/L Anion Gap 11.8 (5-15) BUN 8 (7-18) mg/dL Creatinine 0.8 (0.55-1.02) mg/dL Est Cr Clr Drug Dosing 49.04 mL/min Estimated GFR (MDRD) > 60 (>60) mL/min BUN/Creatinine Ratio 10.0 L (14-18) Glucose 86 (70-99) mg/dL Calcium 8.8 (8.5-10.1) mg/dL Magnesium 1.4 L (1.8-2.4) mg/dL Total Bilirubin 0.5 (0.2-1.0) mg/dL AST 19 (15-37) U/L ALT 25 (14-59) U/L Alkaline Phosphatase 123 H (46-116) U/L Troponin I < 0.017 (0.00-0.056) ng/mL C-Reactive Protein <0.2 (<1.0) mg/dL NT-Pro-B Natriuret Pep (0-125) pg/mL Total Protein 7.1 (6.4-8.2) g/dl Albumin 3.6 (3.4-5.0) g/dl Globulin 3.5 gm/dL Albumin/Globulin Ratio 1.0 (1-2) TSH 3rd Generation (0.358-3.74) uIU/mL Influenza Type A RNA (NEGATIVE) Influenza Type B RNA (NEGATIVE) 09/29/21 09/29/21 09/29/21 Range/Units 09:05 09:05 09:05 WBC (3.98-10.04) K/mm3 RBC (3.98-5.22) M/mm3 Hgb (11.2-15.7) gm/dl Hct (34.1-44.9) % MCV (79.4-94.8) fl MCH (25.6-32.2) pg MCHC (32.2-35.5) g/dl RDW Std Deviation (36.4-46.3) fL Plt Count (182-369) K/mm3 MPV (9.4-12.3) fl Neut % (Auto) (34.0-71.1) % Lymph % (Auto) (19.3-51.7) % Stearns % (Auto) (4.7-12.5) % Eos % (Auto) (0.7-5.8) Baso % (Auto) (0.1-1.2) % Neut # (Auto) (1.56-6.13) K/mm3 Lymph # (Auto) (1.18-3.74) K/mm3 Stearns # (Auto) (0.24-0.36) K/mm3 Eos # (Auto) (0.04-0.36) K/mm3 Baso # (Auto) (0.01-0.08) K/mm3 ESR 11 (0-20) mm/hr PT (9.7-12.0) SECONDS INR Sodium (136-145) mEq/L Potassium (3.5-5.1) mEq/L Chloride (98-107) mEq/L Carbon Dioxide (21-32) mEq/L Anion Gap (5-15) BUN (7-18) mg/dL Creatinine (0.55-1.02) mg/dL Est Cr Clr Drug Dosing mL/min Estimated GFR (MDRD) (>60) mL/min BUN/Creatinine Ratio (14-18) Glucose (70-99) mg/dL Calcium (8.5-10.1) mg/dL Magnesium (1.8-2.4) mg/dL Total Bilirubin (0.2-1.0) mg/dL AST (15-37) U/L ALT (14-59) U/L Alkaline Phosphatase (46-116) U/L Troponin I (0.00-0.056) ng/mL C-Reactive Protein (<1.0) mg/dL NT-Pro-B Natriuret Pep 303 H (0-125) pg/mL Total Protein (6.4-8.2) g/dl Albumin (3.4-5.0) g/dl Globulin gm/dL Albumin/Globulin Ratio (1-2) TSH 3rd Generation 1.545 (0.358-3.74) uIU/mL Influenza Type A RNA (NEGATIVE) Influenza Type B RNA (NEGATIVE) 09/29/21 Range/Units 09:15 WBC (3.98-10.04) K/mm3 RBC (3.98-5.22) M/mm3 Hgb (11.2-15.7) gm/dl Hct (34.1-44.9) % MCV (79.4-94.8) fl MCH (25.6-32.2) pg MCHC (32.2-35.5) g/dl RDW Std Deviation (36.4-46.3) fL Plt Count (182-369) K/mm3 MPV (9.4-12.3) fl Neut % (Auto) (34.0-71.1) % Lymph % (Auto) (19.3-51.7) % Stearns % (Auto) (4.7-12.5) % Eos % (Auto) (0.7-5.8) Baso % (Auto) (0.1-1.2) % Neut # (Auto) (1.56-6.13) K/mm3 Lymph # (Auto) (1.18-3.74) K/mm3 [place]s # (Auto) (0.24-0.36) K/mm3 Eos # (Auto) (0.04-0.36) K/mm3 Baso # (Auto) (0.01-0.08) K/mm3 ESR (0-20) mm/hr PT (9.7-12.0) SECONDS INR Sodium (136-145) mEq/L Potassium (3.5-5.1) mEq/L Chloride (98-107) mEq/L Carbon Dioxide (21-32) mEq/L Anion Gap (5-15) BUN (7-18) mg/dL Creatinine (0.55-1.02) mg/dL Est Cr Clr Drug Dosing mL/min Estimated GFR (MDRD) (>60) mL/min BUN/Creatinine Ratio (14-18) Glucose (70-99) mg/dL Calcium (8.5-10.1) mg/dL Magnesium (1.8-2.4) mg/dL Total Bilirubin (0.2-1.0) mg/dL AST (15-37) U/L ALT (14-59) U/L Alkaline Phosphatase (46-116) U/L Troponin I (0.00-0.056) ng/mL C-Reactive Protein (<1.0) mg/dL NT-Pro-B Natriuret Pep (0-125) pg/mL Total Protein (6.4-8.2) g/dl Albumin (3.4-5.0) g/dl Globulin gm/dL Albumin/Globulin Ratio (1-2) TSH 3rd Generation (0.358-3.74) uIU/mL Influenza Type A RNA Negative (NEGATIVE) Influenza Type B RNA Negative (NEGATIVE) Meds: Medications Generic Name Dose Route Start Last Admin Trade Name Frerain PRN Reason Stop Dose Admin Dextrose/Lactated Ringer's 1,000 mls @ 500 mls/hr 09/29/21 09:00 09/29/21 09:11 Dextrose 5%-Lactated Ringers IV 500 mls/hr ASDIRECTED EDUARDO Administration Discontinued Medications Generic Name Dose Route Start Last Admin Trade Name Ziq PRN Reason Stop Dose Admin Hydromorphone HCl 0.5 mg 09/29/21 09:21 09/29/21 09:38 Hydromorphone 0.5 Mg/0.5 Ml Syringe IVPUSH 09/29/21 09:22 0.5 mg ONETIME ONE Administration Ondansetron HCl 4 mg 09/29/21 09:20 12 09:38 Ondansetron 4 Mg/2 Ml Sdv IVPUSH 09/29/21 09:21 4 mg ONETIME ONE Administration - Radiology Interpretation Free Text/Narrative:: 66-year-old female presents to the ED due to significant diarrhea overnight with 4 large-volume diarrhea stools. She has diarrhea daily felt to be secondary to magnesium tablet use as she has chronic hypomagnesemia. She is currently using 400 mg medium oxide tablets. She is had gradual weight loss over the last 6 months. Patient concerned because she was told that if her weight dipped under 100 pounds her organs were going to shut down. She is currently 99.5 pounds this morning. She is tachycardic at rest with mild tachypnea as well. Lungs are clear to osseous percussion. Tongue appears dry and coated. Very active rodolfo wel sounds in the abdomen with no rebound or guarding. She appears volume depleted. Plan IV will be D5 Ringer's lactate at 500 mils an hour. She will likely require magnesium infusion as well. Influenza screen will be obtained due to upper respiratory tract symptoms. She is afebrile. She will have a chest x-ray and abdominal x-ray as well as routine labs. - Re-Assessments/Exams Free Text/Narrative Re-Assessment/Exam: 09/29/21 09:22 patient is complaining of increased pain in her coccyx and sacrum area. Given Dilaudid 0.5 mg IV with Zofran 4 mg IV. 09/29/21 10:05 portable chest x-ray reveals heart size and mediastinum to be normal. Surgical clips are seen within the left axillary region and left breast which appears stable. Surgical clips are seen from prior cholecystectomy right upper quadrant of the abdomen. Prior sternotomy is seen. Lungs are clear with no acute parenchymal changes. Disconnected AICD wire is appreciated. Abdominal films reveal scattered gas within the small bowel and colon which appears to be within normal limits. No significant bowel dilatation is seen. Prior cholecystectomy noted. Previous sternotomy noted. Left femoral head shows mild irregularity most likely degenerative in etiology. 09/29/21 10:49 White count is 4.59 with the auto differential revealing 70.6% neutrophils. Hemoglobin is 12.5 with hematocrit of 38.8. Platelet count 216,000. Sed rate is 11. PT is 11.4 with an INR of 1.03. Sodium slightly low at 134 with a potassium of 3.8. Chloride 97 with a bicarb of 29. Anion gap is 11.8. BUN is 8 with a creatinine of 0.8 and a GFR greater than 60. Glucose is 86. Calcium is 8.8. Magnesium is low at 1.4. Bilirubin is 0.5 with an AST of 19 and an ALT of 25. Alk phosphatase is 123 slightly elevated. Troponin I is less than 0.017. C-reactive protein less than 0.2. BNP is mildly elevated at 303. Total protein 7.1 with an albumin fraction of 3.6. TSH is 1.5. Influenza a and B testing is negative. 09/29/21 11:58 patient is not real happy with our findings. She believes there is something more wrong with her that we are not identifying. She has been following up with Dr. Harrison and Dr. Landeros chronically. We have suggested using magnesium cream on the abdominal wall 3 times daily morning midafternoon and bedtime to improve her serum magnesium level and get off the magnesium oxide tablets which may eliminate her diet and her malabsorption issues. Advised follow-up in clinic in 10 days time to have her magnesium levels checked. Departure - Departure Time of Disposition: 11:59 Disposition: Home, Self-Care 01 Condition: Fair Clinical Impression: Chronic diarrhea, Hypomagnesemia syndrome, Adverse effects of medication Malnutrition Qualifiers: Malnutrition type: protein-calorie malnutrition Protein-calorie malnutrition severity: moderate Qualified Code(s): E44.0 - Moderate protein-calorie malnutrition - Discharge Information *PRESCRIPTION DRUG MONITORING PROGRAM REVIEWED*: Not Applicable *COPY OF PRESCRIPTION DRUG MONITORING REPORT IN PATIENT DENI: Not Applicable Instructions: Hypomagnesemia Referrals: Zackery Townsend MD [Primary Care Provider] - Forms: ED Department Discharge Additional Instructions: Evaluation in the emergency room today in regards to chronic illness with gradually lowering weight over the last several months. Weight today is 44.9 kg. By history or suffering malnutrition from chronic diarrhea. Diarrhea is felt most likely to be due to the effect of magnesium oxide tablets being used to treat chronic hypomagnesemia. Chronic diarrhea is contributing to malnutrition and protein loss in your muscles. Suggest discontinuing the magnesium oxide tablets and try topical magnesium supplementation by way of magnesium cream which is [id number] at [facility]. Suggest applying cream to the abdominal wall 3 times daily morning mid afternoon and bedtime and having your serum magnesium level checked in 10 days time. Discuss further with Dr. Eduardo Mcpherson or Dr. Landeros the need for possible protein replacement via G-tube. No abnormalities were appreciated on heart evaluation today. Influenza a and B screen is negative. Sepsis Event Note (ED) - Evaluation Sepsis Screening Result: Possible Sepsis Risk - Focused Exam Vital Signs: Vital Signs Temp Pulse Resp BP Pulse Ox 09/29/21 08:04 36.4 C 137 H 22 H 121/76 100 - My Orders Last 24 Hours: My Active Orders 09/29/21 08:49 URINALYSIS W/MICROSCOPIC [UA W/MICROSCOPIC] [URIN] Stat 09/29/21 08:51 Isolation [COMM] Routine 09/29/21 09:00 Dextrose 5%-Lactated Ringers 1,000 ml IV ASDIRECTED - Assessment/Plan Last 24 Hours: My Active Orders 09/29/21 08:49 URINALYSIS W/MICROSCOPIC [UA W/MICROSCOPIC] [URIN] Stat 09/29/21 08:51 Isolation [COMM] Routine 09/29/21 09:00 Dextrose 5%-Lactated Ringers 1,000 ml IV ASDIRECTED
[2021-09-29] MEDS ORDERED: Dextrose 5%-Lactated Ringers 1,000 ML IV SCH (09:00)
[2021-09-29] MEDS ORDERED: Ondansetron 4 MG/2 ML SDV IVPUSH ONE (09:20)
[2021-09-29] MEDS ORDERED: HYDROmorphone 0.5 MG/0.5 ML Syringe IVPUSH ONE (09:21)
--- NOTE | 2021-09-29 09:23 | CR ---
Abdomen: Supine view of the abdomen was obtained. Comparison: Prior CT abdomen and pelvis study of 08/08/21 and prior abdominal x-ray of 12/11/19. Scattered gas within the small bowel and colon is seen which appears within normal limits. No significant bowel dilatation is seen. Prior cholecystectomy is noted. Previous sternotomy is noted. Left femoral head shows mild irregularity most likely degenerative in etiology. Impression: 1. Nothing acute is appreciated on supine abdominal x-ray. Diagnostic code #2
--- NOTE | 2021-09-29 09:23 | CR ---
Chest: Portable view of the chest was obtained. Comparison: Prior chest x-ray of 06/28/21. Heart size and mediastinum are normal. Surgical clips are seen within the left axillary region and left breast which appear stable. Surgical clips re seen from prior cholecystectomy. Prior sternotomy is seen. Lungs are clear with no acute parenchymal change. Disconnected AICD wire is noted. Impression: 1. Findings as noted above. 2. Nothing acute is appreciated on portable chest x-ray. Diagnostic code #2
== END 2021-09-29 12:35 | disposition home or self-care (01) ==
LOC: JD.ED 07:52
DX: K52.9 Noninfective gastroenteritis and colitis, unspecified (principal); T50.901A Poisoning by unspecified drugs, medicaments and biological substances, accidental (unintentional), initial encounter; E44.0 Moderate protein-calorie malnutrition; E83.42 Hypomagnesemia; E78.00 Pure hypercholesterolemia, unspecified; I10 Essential (primary) hypertension; E03.9 Hypothyroidism, unspecified; Z88.1 Allergy status to other antibiotic agents; Z88.2 Allergy status to sulfonamides; Z88.7 Allergy status to serum and vaccine; Z91.048 Other nonmedicinal substance allergy status; Z79.899 Other long term (current) drug therapy
CPT/HCPCS: 36415; 71045; 74018; 80053; 83735; 83880; 84443; 84484; 85025; 85610; 85652; 86140; 87502; 93005; 96374; 96375; 99284; J1170; J2405; J7121

== ENCOUNTER 2021-11-18 08:45 | Emergency (ER) | payer BC ==
[2021-11-18 09:09] VITALS: BP 134/87; PULSE 109
[2021-11-18] MEDS ORDERED: Diltiazem 50 MG/10 ML SDV IVPUSH ONE (09:40)
[2021-11-18] MEDS ORDERED: Diltiazem 100 MG in Sodium Chloride 0.9% 100 ML IV SCH (09:45)
[2021-11-18] MEDS ORDERED: Sodium Chloride 0.9% 1,000 ML IV SCH (09:45)
== END 2021-11-18 13:19 | disposition home or self-care (01) ==
LOC: JD.ED 08:45
DX: E86.9 Volume depletion, unspecified (principal); E83.42 Hypomagnesemia; E78.00 Pure hypercholesterolemia, unspecified; I10 Essential (primary) hypertension; E03.9 Hypothyroidism, unspecified; Z88.1 Allergy status to other antibiotic agents; Z91.048 Other nonmedicinal substance allergy status; Z88.7 Allergy status to serum and vaccine; Z88.2 Allergy status to sulfonamides; Z79.82 Long term (current) use of aspirin; Z79.899 Other long term (current) drug therapy
CPT/HCPCS: 36415; 71045; 80053; 82553; 83735; 83880; 83970; 85025; 85610; 85730; 86140; 93005; 96374; 99285; J3490; J7030

== ENCOUNTER 2021-11-23 07:41 | Emergency (ER) | payer BC ==
[2021-11-23 08:30] VITALS: BP 141/93; PULSE 123
[2021-11-23] MEDS ORDERED: Lactated Ringers 1,000 ML IV ONE (08:57)
[2021-11-23] MEDS ORDERED: Pantoprazole 40 MG Vial IVPUSH ONE (08:57)
[2021-11-23] MEDS ORDERED: Ondansetron 4 MG/2 ML SDV IVPUSH ONE (08:57)
[2021-11-23] MEDS ORDERED: Magnesium Sulfate/Water 2 GM in Premix Bag 1 BAG IV ONE (10:01)
== END 2021-11-23 11:30 | disposition home or self-care (01) ==
LOC: JD.ED 07:41
DX: K52.9 Noninfective gastroenteritis and colitis, unspecified (principal); E86.0 Dehydration; E83.42 Hypomagnesemia; E78.00 Pure hypercholesterolemia, unspecified; I10 Essential (primary) hypertension; I48.91 Unspecified atrial fibrillation; K21.9 Gastro-esophageal reflux disease without esophagitis; Z88.1 Allergy status to other antibiotic agents; Z88.2 Allergy status to sulfonamides; Z91.048 Other nonmedicinal substance allergy status; Z79.82 Long term (current) use of aspirin; Z79.899 Other long term (current) drug therapy
CPT/HCPCS: 36415; 80053; 81001; 83690; 83735; 85025; 96374; 96375; 99284; C9113; J2405; J7120

== ENCOUNTER 2021-11-28 15:22 | Emergency (ER) | payer BC ==
[2021-11-28 16:11] VITALS: BP 134/99
[2021-11-28] MEDS: Lactated Ringers 1,000 ML IV SCH (17:57)
[2021-11-28 18:28] VITALS: PULSE 111
[2021-11-28] MEDS: Ondansetron 4 MG/2 ML SDV IVPUSH ONE (18:43)
[2021-11-28] MEDS: HYDROmorphone 0.5 MG/0.5 ML Syringe IVPUSH ONE (18:43)
[2021-11-28] MEDS ORDERED: Iopamidol 612 MG/ML 100 ML Bottle IVPUSH ONE (19:14)
[2021-11-28] MEDS ORDERED: Diatrizoate Meglumine/Diatrizoate Sodium 37% 120 ML Bottle PO ONE (19:14)
[2021-11-28] MEDS ORDERED: Sodium Chloride 0.9% 10 ML Syringe FLUSH ONE (19:14)
[2021-11-28] MEDS: Morphine 4 MG/ML Syringe IVPUSH ONE (21:28)
[2021-11-28] MEDS: Piperacillin/Tazobactam 4.5 GM in Sodium Chloride 0.9% 100 ML IV ONE (21:32)
[2021-11-28] MEDS: Sodium Chloride 0.9% 1,000 ML IV SCH (21:45)
[2021-11-28] MEDS: LORazepam 2 MG/ML SDV IVPUSH ONE (22:17)
== END 2021-11-28 22:20 ==
LOC: JD.ED 15:22
DX: K52.9 Noninfective gastroenteritis and colitis, unspecified (principal); E83.42 Hypomagnesemia; E78.00 Pure hypercholesterolemia, unspecified; I10 Essential (primary) hypertension; K21.9 Gastro-esophageal reflux disease without esophagitis; E03.9 Hypothyroidism, unspecified; Z87.891 Personal history of nicotine dependence; Z20.822 Contact with and (suspected) exposure to COVID-19
CPT/HCPCS: 36415; 74018; 74177; 80053; 81001; 83605; 83690; 83735; 83880; 84484; 85025; 85652; 86140; 87040; 87154; 87635; 93005; 96365; 96375; 99285; J1170; J2060; J2270; J2405; J2543; J7030; J7120; Q9963; Q9967; 99291; U0002

== ENCOUNTER 2021-12-27 12:09 | Emergency (ER) | payer BC ==
[2021-12-27 12:31] VITALS: BP 141/101; PULSE 128
[2021-12-27] MEDS ORDERED: Sodium Chloride 0.9% 10 ML Syringe FLUSH PRN (12:53)
[2021-12-27] MEDS ORDERED: Sodium Chloride 0.9% 1,000 ML IV ONE (12:54)
[2021-12-27] MEDS ORDERED: Ondansetron 4 MG/2 ML SDV IVPUSH ONE (12:54)
[2021-12-27] MEDS ORDERED: Magnesium Sulfate/Water 2 GM in Premix Bag 1 BAG IV ONE (14:30)
== END 2021-12-27 15:55 | disposition home or self-care (01) ==
LOC: JD.ED 12:09
DX: R07.89 Other chest pain (principal); R11.2 Nausea with vomiting, unspecified; E78.00 Pure hypercholesterolemia, unspecified; I10 Essential (primary) hypertension; I48.91 Unspecified atrial fibrillation; E03.9 Hypothyroidism, unspecified; K21.9 Gastro-esophageal reflux disease without esophagitis; Z88.1 Allergy status to other antibiotic agents; Z88.2 Allergy status to sulfonamides; Z91.048 Other nonmedicinal substance allergy status; Z79.82 Long term (current) use of aspirin; Z79.899 Other long term (current) drug therapy; Z94.1 Heart transplant status
CPT/HCPCS: 36415; 71045; 80053; 81001; 83735; 83880; 84484; 85025; 85610; 85730; 93005; 96374; 99285; J2405; J7030; 93010; 99284; J3490

== ENCOUNTER 2022-06-01 16:19 | Emergency (ER) | payer BC ==
[2022-06-01 19:45] VITALS: BP 141/75; PULSE 108
== END 2022-06-01 20:26 | disposition home or self-care (01) ==
LOC: JD.ED 16:19
DX: I10 Essential (primary) hypertension (principal); R00.0 Tachycardia, unspecified; E78.00 Pure hypercholesterolemia, unspecified; F41.9 Anxiety disorder, unspecified; F32.A Depression, unspecified; E03.9 Hypothyroidism, unspecified; Z79.899 Other long term (current) drug therapy; Z91.048 Other nonmedicinal substance allergy status; Z88.1 Allergy status to other antibiotic agents; Z88.2 Allergy status to sulfonamides; Z88.7 Allergy status to serum and vaccine; Z88.8 Allergy status to other drugs, medicaments and biological substances
CPT/HCPCS: 36415; 80053; 84484; 85025; 93005; 99283

== ENCOUNTER 2022-10-23 06:58 | Emergency (ER) | payer BC ==
[2022-10-23 07:31] VITALS: BP 164/103; PULSE 121
[2022-10-23 08:16] LABS: ESTIMATED GFR 70 mL/min (>60)
[2022-10-23] MEDS ORDERED: Sucralfate Suspension 1 GM/10 ML Cup PO ONE (08:47)
[2022-10-23] MEDS ORDERED: Famotidine 20 MG Tab PO ONE (11:19)
== END 2022-10-23 11:56 | disposition home or self-care (01) ==
LOC: JD.ED 06:58
DX: R42 Dizziness and giddiness (principal); I10 Essential (primary) hypertension; E78.00 Pure hypercholesterolemia, unspecified; Z88.1 Allergy status to other antibiotic agents; Z88.2 Allergy status to sulfonamides; Z91.048 Other nonmedicinal substance allergy status; Z88.7 Allergy status to serum and vaccine; Z79.899 Other long term (current) drug therapy; Z79.82 Long term (current) use of aspirin
CPT/HCPCS: 36415; 71045; 80053; 83690; 83735; 84484; 85025; 85610; 85730; 99284; A9270

== ENCOUNTER 2023-08-15 17:46 | Observation (INO) | payer BC ==
[2023-08-15] MEDS ORDERED: Sodium Chloride 0.9% 10 ML Syringe FLUSH PRN ×2 (18:20→18:54)
[2023-08-15] MEDS ORDERED: Sodium Chloride 0.9% 1,000 ML IV SCH ×2 (18:30→22:00)
[2023-08-15 19:01] LABS: BASOPHILS PERCENT AUTO 0.3 % (0.0-1.0); EOSINOPHILS ABSOLUTE AUTO 0.1 K/mm3 (0.0-0.4); HEMATOCRIT 33.4 % (37.0-47.0); HEMOGLOBIN 11.2 gm/dl (12.0-16.0); IMMATURE GRAN ABSOLUTE AUTO 0.04 K/mm3 (0.00-0.05); IMMATURE GRAN PERCENT AUTO 0.5 % (0.0-0.4); LYMPHOCYTES ABSOLUTE AUTO 1.4 K/mm3 (1.0-4.8); LYMPHOCYTES PERCENT AUTO 15.8 % (24.0-44.0); MEAN CORPUSCULAR HEMOGLOBIN 29.6 pg (28.0-32.0); MEAN CORPUSCULAR HGB CONC 33.5 g/dl (32.0-36.0); MEAN CORPUSCULAR VOLUME 88.4 fl (83.0-99.0); MEAN PLATELET VOLUME 9.7 fl (9.4-12.3); MONOCYTES ABSOLUTE AUTO 0.9 K/mm3 (0.0-0.8); MONOCYTES PERCENT AUTO 9.9 % (0.0-8.0); NEUTROPHILS ABSOLUTE AUTO 6.4 K/mm3 (1.8-7.7); NEUTROPHILS PERCENT AUTO 72.5 % (41.0-71.0); PLATELET COUNT,PLT 283 K/mm3 (150-400); RED BLOOD CELL COUNT 3.78 M/mm3 (4.10-5.30); WHITE BLOOD CELL COUNT,WBC 8.82 K/mm3 (3.9-11.3)
[2023-08-15 19:21] LABS: PROTHROMBIN TIME 10.7 SECONDS (9.7-12.0)
[2023-08-15 19:32] LABS: A/G RATIO 0.7 (1-2); ALBUMIN 3.2 g/dl (3.4-5.0); ANION GAP 14.3 (5-15); BILIRUBIN TOTAL 0.4 mg/dL (0.2-1.0); BUN/CREATININE RATIO 7.1 (14-18); CALCIUM 10.1 mg/dL (8.5-10.1); CREATININE 2.1 mg/dL (0.55-1.02); EST CRCL DRUG DOSING (CG) 24.93 mL/min; POTASSIUM,K 3.3 mEq/L (3.5-5.1); PROTEIN TOTAL,TP 7.8 g/dl (6.4-8.2)
[2023-08-15 19:54] LABS: LACTIC ACID 0.8 mmol/L (0.4-2.0)
[2023-08-15 21:23] LABS: CORONAVIRUS COVID-19 NAA NEGATIVE (NEGATIVE); INFLUENZA A NAA NEGATIVE (NEGATIVE); RESPIRATORY SYNCYTIAL VIR NAA NEGATIVE (NEGATIVE)
[2023-08-15] MEDS ORDERED: Flecainide 50 MG Tab PO ONE (21:24)
[2023-08-15] MEDS ORDERED: Warfarin 5 MG Tab PO ONE (21:24)
[2023-08-15 21:59] LABS: APPEARANCE,URINE SLT CLOUDY (Clear); BILIRUBIN,URINE NEGATIVE (Negative); COLOR,URINE YELLOW (Yellow); GLUCOSE,URINE NEGATIVE (Negative); KETONES,URINE TRACE (Negative); LEUKOCYTE ESTERASE,URINE 2+ (Negative); NITRITE,URINE NEGATIVE (Negative); OCCULT BLOOD,URINE TRACE-INTACT (Negative); PROTEIN,URINE 2+ (Negative); UROBILINOGEN,URINE 0.2 (0.2-1.0)
[2023-08-15 22:48] LABS: ANION GAP 15.2 (5-15); BUN/CREATININE RATIO 7.8 (14-18); CALCIUM 8.7 mg/dL (8.5-10.1); CREATININE 1.8 mg/dL (0.55-1.02); EST CRCL DRUG DOSING (CG) 29.09 mL/min; POTASSIUM,K 3.2 mEq/L (3.5-5.1)
[2023-08-16 00:26] LABS: WBC,URINE 50-75 /hpf (0-5)
[2023-08-16 00:28] LABS: BACTERIA,URINE MANY /hpf (FEW); EPITHELIAL CELLS,URINE 20-30 /hpf (0-5); HYALINE CASTS,URINE 0-5 /lpf (0-5); MUCUS,URINE NOT SEEN /hpf (FEW)
[2023-08-16 00:29] LABS: COARSE GRANULAR CASTS,URINE 0-5 /hpf (0-5)
[2023-08-16] MEDS ORDERED: LORazepam 0.5 MG Tab PO PRN (00:46)
[2023-08-16] MEDS ORDERED: Albuterol 6.7 GM Inhaler INH PRN (01:02)
[2023-08-16] MEDS: Sodium Chloride 0.9% 1,000 ML IV SCH ×2 (04:51→20:43)
[2023-08-16 06:26] LABS: BASOPHILS PERCENT AUTO 0.3 % (0.0-1.0); EOSINOPHILS ABSOLUTE AUTO 0.1 K/mm3 (0.0-0.4); HEMATOCRIT 28.8 % (37.0-47.0); HEMOGLOBIN 9.6 gm/dl (12.0-16.0); IMMATURE GRAN ABSOLUTE AUTO 0.02 K/mm3 (0.00-0.05); IMMATURE GRAN PERCENT AUTO 0.3 % (0.0-0.4); LYMPHOCYTES PERCENT AUTO 15.3 % (24.0-44.0); MEAN CORPUSCULAR HEMOGLOBIN 29.4 pg (28.0-32.0); MEAN CORPUSCULAR HGB CONC 33.3 g/dl (32.0-36.0); MEAN CORPUSCULAR VOLUME 88.1 fl (83.0-99.0); MEAN PLATELET VOLUME 9.7 fl (9.4-12.3); MONOCYTES ABSOLUTE AUTO 0.6 K/mm3 (0.0-0.8); MONOCYTES PERCENT AUTO 9.1 % (0.0-8.0); PLATELET COUNT,PLT 205 K/mm3 (150-400); RED BLOOD CELL COUNT 3.27 M/mm3 (4.10-5.30)
[2023-08-16 06:38] LABS: A/G RATIO 0.7 (1-2); ALBUMIN 2.6 g/dl (3.4-5.0); ANION GAP 16.3 (5-15); BILIRUBIN TOTAL 0.3 mg/dL (0.2-1.0); BUN/CREATININE RATIO 7.3 (14-18); CALCIUM 8.4 mg/dL (8.5-10.1); CREATININE 1.5 mg/dL (0.55-1.02); EST CRCL DRUG DOSING (CG) 34.91 mL/min; POTASSIUM,K 3.3 mEq/L (3.5-5.1); PROTEIN TOTAL,TP 6.5 g/dl (6.4-8.2)
[2023-08-16] MEDS ORDERED: Non-Formulary Medication 1 Each (Albuterol Sulfate [Proair Respiclick] 90 MCG Aer.Pow.Ba) INH PRN (07:03)
[2023-08-16] MEDS ORDERED: Magnesium Oxide 400 MG Tab PO SCH (09:00)
[2023-08-16] MEDS ORDERED: Ticagrelor 90 MG Tab PO SCH (09:00)
[2023-08-16] MEDS ORDERED: Ondansetron 4 MG/2 ML SDV IVPUSH PRN (10:21)
[2023-08-16] MEDS: Losartan 25 MG Tab **PTOM PO SCH (10:41)
[2023-08-16] MEDS: TICAGRELOR 90 MG PO SCH ×2 (10:41→21:00)
[2023-08-16] MEDS: Magnesium Oxide 400 MG Tab PO SCH ×2 (10:42→12:36)
[2023-08-16] MEDS: Aspirin 81 MG Tab.EC PO SCH (10:43)
[2023-08-16] MEDS: BUSPIRONE 15 MG PO SCH ×2 (10:43→20:36)
[2023-08-16] MEDS: SIROLIMUS 0.5 MG PO SCH (10:44)
[2023-08-16] MEDS: MYCOPHENOLATE SOD 180 MG PO SCH ×2 (10:45→20:36)
[2023-08-16] MEDS: AMILORIDE 5 MG PO SCH (10:46)
[2023-08-16] MEDS: LORAZEPAM 0.5 MG PO PRN ×2 (10:48→20:38)
[2023-08-16] MEDS ORDERED: Trolamine Salicylate/Aloe Vera 10% Crm 85 GM Tube TOP PRN (11:51)
[2023-08-16] MEDS: Cholestyramine/Sucrose Powder 4 GM Packet PO SCH ×2 (12:35→20:13)
[2023-08-16] MEDS: cefTRIAXone 1 GM in Sodium Chloride 0.9% 100 ML IV SCH (12:35)
[2023-08-16] MEDS ORDERED: Magnesium Sulfate (4.06 MEQ/ML) 5 GM/10 ML SDV IV SCH (15:00)
[2023-08-16] MEDS: Magnesium Sulfate/Water 2 GM in Premix Bag 1 BAG IV SCH (15:10)
[2023-08-16 15:56] LABS: T4 FREE 1.72 ng/dL (0.76-1.46); TSH 0.255 uIU/mL (0.358-3.74)
[2023-08-16] MEDS: Famotidine 20 MG/2 ML SDV IVPUSH SCH (20:13)
[2023-08-16] MEDS: Tacrolimus 1 MG Cap PO SCH (20:14)
[2023-08-16] MEDS: Tacrolimus 0.5 MG Cap PO SCH (20:15)
[2023-08-17] MEDS: Cholestyramine/Sucrose Powder 4 GM Packet PO SCH ×2 (05:00→12:36)
[2023-08-17] MEDS ORDERED: Levothyroxine 25 MCG Tab PO SCH (06:00)
[2023-08-17] MEDS ORDERED: LEVOTHYROXINE 75 MCG PO SCH (06:00)
[2023-08-17 06:20] LABS: BASOPHILS PERCENT AUTO 0.2 % (0.0-1.0); EOSINOPHILS ABSOLUTE AUTO 0.1 K/mm3 (0.0-0.4); EOSINOPHILS PERCENT AUTO 2.3 % (0.0-6.0); HEMATOCRIT 26.1 % (37.0-47.0); HEMOGLOBIN 8.5 gm/dl (12.0-16.0); IMMATURE GRAN ABSOLUTE AUTO 0.02 K/mm3 (0.00-0.05); IMMATURE GRAN PERCENT AUTO 0.4 % (0.0-0.4); LYMPHOCYTES PERCENT AUTO 18.3 % (24.0-44.0); MEAN CORPUSCULAR HEMOGLOBIN 28.6 pg (28.0-32.0); MEAN CORPUSCULAR HGB CONC 32.6 g/dl (32.0-36.0); MEAN CORPUSCULAR VOLUME 87.9 fl (83.0-99.0); MEAN PLATELET VOLUME 9.9 fl (9.4-12.3); MONOCYTES ABSOLUTE AUTO 0.6 K/mm3 (0.0-0.8); MONOCYTES PERCENT AUTO 11.3 % (0.0-8.0); NEUTROPHILS ABSOLUTE AUTO 3.5 K/mm3 (1.8-7.7); NEUTROPHILS PERCENT AUTO 67.5 % (41.0-71.0); PLATELET COUNT,PLT 191 K/mm3 (150-400); RED BLOOD CELL COUNT 2.97 M/mm3 (4.10-5.30); WHITE BLOOD CELL COUNT,WBC 5.24 K/mm3 (3.9-11.3)
[2023-08-17 06:43] LABS: A/G RATIO 0.6 (1-2); ALBUMIN 2.3 g/dl (3.4-5.0); ANION GAP 13.2 (5-15); BILIRUBIN TOTAL 0.2 mg/dL (0.2-1.0); BUN/CREATININE RATIO 6.2 (14-18); CALCIUM 7.5 mg/dL (8.5-10.1); CREATININE 1.3 mg/dL (0.55-1.02); EST CRCL DRUG DOSING (CG) 40.28 mL/min; POTASSIUM,K 3.2 mEq/L (3.5-5.1); PROTEIN TOTAL,TP 5.9 g/dl (6.4-8.2)
[2023-08-17 08:38] VITALS: PULSE 111
[2023-08-17] MEDS: Magnesium Sulfate/Water 2 GM in Premix Bag 1 BAG IV SCH (09:25)
[2023-08-17] MEDS: Aspirin 81 MG Tab.EC PO SCH (09:25)
[2023-08-17] MEDS: Famotidine 20 MG/2 ML SDV IVPUSH SCH (09:25)
[2023-08-17] MEDS: Losartan 25 MG Tab **PTOM PO SCH (09:31)
[2023-08-17] MEDS: TICAGRELOR 90 MG PO SCH (09:31)
[2023-08-17] MEDS: BUSPIRONE 15 MG PO SCH (09:31)
[2023-08-17] MEDS: Tacrolimus 1 MG Cap PO SCH (09:34)
[2023-08-17] MEDS: Tacrolimus 0.5 MG Cap PO SCH (09:35)
[2023-08-17] MEDS: SIROLIMUS 0.5 MG PO SCH (09:39)
[2023-08-17] MEDS: MYCOPHENOLATE SOD 180 MG PO SCH (09:42)
[2023-08-17] MEDS: AMILORIDE 5 MG PO SCH (09:44)
[2023-08-17] MEDS: Sodium Chloride 0.9% 1,000 ML IV SCH (09:45)
[2023-08-17] MEDS: cefTRIAXone 1 GM in Sodium Chloride 0.9% 100 ML IV SCH (12:36)
[2023-08-17 13:09] VITALS: BP 117/55
== END 2023-08-17 15:35 | disposition home or self-care (01) ==
LOC: JD.ED 17:46 → JD.MS 23:06
PROVIDERS: ADMIT Internal Medicine; ATTEND Internal Medicine
DX: N17.9 Acute kidney failure, unspecified (principal); I10 Essential (primary) hypertension; E86.0 Dehydration; E78.00 Pure hypercholesterolemia, unspecified; K21.9 Gastro-esophageal reflux disease without esophagitis; E03.9 Hypothyroidism, unspecified; F41.9 Anxiety disorder, unspecified; F32.A Depression, unspecified; R19.7 Diarrhea, unspecified; N30.01 Acute cystitis with hematuria; Z20.822 Contact with and (suspected) exposure to COVID-19; Z94.1 Heart transplant status; Z79.82 Long term (current) use of aspirin; Z79.890 Hormone replacement therapy; Z79.899 Other long term (current) drug therapy
CPT/HCPCS: 0241U; 36415; 70450; 71046; 80048; 80053; 81001; 83605; 83735; 83880; 84439; 84443; 84484; 85025; 85610; 86645; 87045; 87046; 87086; 87899; 93005; 93307; 96360; 96361; 99285; A9270; J0696; J2405; J3475; J3490; J7030; J7507; 93010; 96365; 96366; 96367; 96375; 96376; 99284; G0378

== ENCOUNTER 2024-02-06 23:18 | Emergency (ER) | payer MEDICARE, OTHER ==
[2024-02-06] MEDS: Sodium Chloride 0.9% 10 ML Syringe FLUSH PRN (23:49)
[2024-02-07 00:07] LABS: BASOPHILS PERCENT AUTO 0.3 % (0.0-1.0); EOSINOPHILS ABSOLUTE AUTO 0.1 K/mm3 (0.0-0.4); EOSINOPHILS PERCENT AUTO 0.7 % (0.0-6.0); HEMATOCRIT 32.1 % (37.0-47.0); HEMOGLOBIN 10.6 gm/dl (12.0-16.0); IMMATURE GRAN ABSOLUTE AUTO 0.03 K/mm3 (0.00-0.05); IMMATURE GRAN PERCENT AUTO 0.4 % (0.0-0.4); LYMPHOCYTES ABSOLUTE AUTO 1.3 K/mm3 (1.0-4.8); LYMPHOCYTES PERCENT AUTO 16.9 % (24.0-44.0); MEAN CORPUSCULAR HEMOGLOBIN 28.5 pg (28.0-32.0); MEAN CORPUSCULAR VOLUME 86.3 fl (83.0-99.0); MONOCYTES ABSOLUTE AUTO 1.1 K/mm3 (0.0-0.8); MONOCYTES PERCENT AUTO 14.4 % (0.0-8.0); NEUTROPHILS ABSOLUTE AUTO 5.1 K/mm3 (1.8-7.7); NEUTROPHILS PERCENT AUTO 67.3 % (41.0-71.0); PLATELET COUNT,PLT 214 K/mm3 (150-400); RED BLOOD CELL COUNT 3.72 M/mm3 (4.10-5.30); WHITE BLOOD CELL COUNT,WBC 7.57 K/mm3 (3.9-11.3)
[2024-02-07 00:24] LABS: ALBUMIN 3.5 g/dl (3.4-5.0); ANION GAP 13.6 (5-15); BILIRUBIN TOTAL 0.4 mg/dL (0.2-1.0); BUN/CREATININE RATIO 7.8 (14-18); CALCIUM 8.5 mg/dL (8.5-10.1); CREATININE 0.9 mg/dL (0.55-1.02); EST CRCL DRUG DOSING (CG) 58.18 mL/min; MAGNESIUM 1.4 mg/dL (1.8-2.4); POTASSIUM,K 3.6 mEq/L (3.5-5.1); PROTEIN TOTAL,TP 7.1 g/dl (6.4-8.2)
[2024-02-07 00:36] LABS: APPEARANCE,URINE CLEAR (Clear); BILIRUBIN,URINE NEGATIVE (Negative); COLOR,URINE YELLOW (Yellow); GLUCOSE,URINE NEGATIVE (Negative); KETONES,URINE 2+ (Negative); LEUKOCYTE ESTERASE,URINE NEGATIVE (Negative); NITRITE,URINE NEGATIVE (Negative); OCCULT BLOOD,URINE 1+ (Negative); PROTEIN,URINE 2+ (Negative); UROBILINOGEN,URINE 0.2 (0.2-1.0)
[2024-02-07] MEDS: Magnesium Sulfate/Water 2 GM in Premix Bag 1 BAG IV ONE (00:49)
[2024-02-07 00:57] LABS: BACTERIA,URINE FEW /hpf (FEW); HYALINE CASTS,URINE 0-5 /lpf (0-5); MUCUS,URINE NOT SEEN /hpf (FEW)
[2024-02-07 01:18] LABS: CORONAVIRUS COVID-19 NAA POSITIVE (NEGATIVE); INFLUENZA A NAA NEGATIVE (NEGATIVE); RESPIRATORY SYNCYTIAL VIR NAA NEGATIVE (NEGATIVE)
[2024-02-07 02:46] VITALS: BP 131/85
[2024-02-07 03:07] VITALS: PULSE 112
== END 2024-02-07 03:05 | disposition home or self-care (01) ==
LOC: JD.ED 23:18
DX: U07.1 COVID-19 (principal); Z94.1 Heart transplant status; I48.91 Unspecified atrial fibrillation; E78.00 Pure hypercholesterolemia, unspecified; I10 Essential (primary) hypertension; E03.9 Hypothyroidism, unspecified; Z88.8 Allergy status to other drugs, medicaments and biological substances; Z88.1 Allergy status to other antibiotic agents; Z88.2 Allergy status to sulfonamides; Z88.7 Allergy status to serum and vaccine; Z91.048 Other nonmedicinal substance allergy status; Z79.82 Long term (current) use of aspirin; Z79.899 Other long term (current) drug therapy
CPT/HCPCS: 0241U; 36415; 80053; 81001; 83735; 84484; 85025; 93005; 96365; 96366; 99285; J3475; J3490; 93010; 99284

== ENCOUNTER 2024-05-14 21:12 | Emergency (ER) | payer MEDICARE, OTHER ==
[2024-05-14] MEDS ORDERED: Sodium Chloride 0.9% 10 ML Syringe FLUSH PRN (21:30)
[2024-05-14 21:44] LABS: BASOPHILS PERCENT AUTO 0.3 % (0.0-1.0); EOSINOPHILS ABSOLUTE AUTO 0.1 K/mm3 (0.0-0.4); EOSINOPHILS PERCENT AUTO 1.1 % (0.0-6.0); HEMOGLOBIN 10.2 gm/dl (12.0-16.0); IMMATURE GRAN ABSOLUTE AUTO 0.03 K/mm3 (0.00-0.05); IMMATURE GRAN PERCENT AUTO 0.3 % (0.0-0.4); LYMPHOCYTES ABSOLUTE AUTO 2.4 K/mm3 (1.0-4.8); LYMPHOCYTES PERCENT AUTO 25.5 % (24.0-44.0); MEAN CORPUSCULAR HGB CONC 31.9 g/dl (32.0-36.0); MEAN CORPUSCULAR VOLUME 81.4 fl (83.0-99.0); MEAN PLATELET VOLUME 9.5 fl (9.4-12.3); MONOCYTES ABSOLUTE AUTO 1.5 K/mm3 (0.0-0.8); MONOCYTES PERCENT AUTO 15.7 % (0.0-8.0); NEUTROPHILS ABSOLUTE AUTO 5.3 K/mm3 (1.8-7.7); NEUTROPHILS PERCENT AUTO 57.1 % (41.0-71.0); PLATELET COUNT,PLT 323 K/mm3 (150-400); RED BLOOD CELL COUNT 3.93 M/mm3 (4.10-5.30); WHITE BLOOD CELL COUNT,WBC 9.23 K/mm3 (3.9-11.3)
[2024-05-14] MEDS: Lactated Ringers 1,000 ML IV ONE (21:45)
[2024-05-14 21:58] LABS: INR 0.95; PROTHROMBIN TIME 10.1 SECONDS (9.7-12.0)
[2024-05-14 22:08] LABS: LACTIC ACID 1.1 mmol/L (0.4-2.0)
[2024-05-14 22:15] LABS: A/G RATIO 0.7 (1-2); ALBUMIN 3.2 g/dl (3.4-5.0); ANION GAP 13.1 (5-15); BILIRUBIN TOTAL 0.3 mg/dL (0.2-1.0); BUN/CREATININE RATIO 12.7 (14-18); CALCIUM 9.2 mg/dL (8.5-10.1); CREATININE 1.1 mg/dL (0.55-1.02); EST CRCL DRUG DOSING (CG) 56.08 mL/min; MAGNESIUM 1.6 mg/dL (1.8-2.4); POTASSIUM,K 4.1 mEq/L (3.5-5.1); PROTEIN TOTAL,TP 7.5 g/dl (6.4-8.2); T4 FREE 0.92 ng/dL (0.76-1.46); TSH 5.286 uIU/mL (0.358-3.74)
[2024-05-14] MEDS: Sodium Chloride 0.9% 100 ML IV SCH (22:19)
[2024-05-14] MEDS: Iopamidol 755 Mg/ML 100 ML Bottle IVPUSH ONE (22:19)
[2024-05-14 22:39] LABS: CORONAVIRUS COVID-19 NAA NEGATIVE (NEGATIVE); INFLUENZA A NAA NEGATIVE (NEGATIVE); RESPIRATORY SYNCYTIAL VIR NAA NEGATIVE (NEGATIVE)
[2024-05-14 23:06] LABS: APPEARANCE,URINE CLEAR (Clear); BILIRUBIN,URINE NEGATIVE (Negative); COLOR,URINE LIGHT YELLOW (Yellow); GLUCOSE,URINE NEGATIVE (Negative); KETONES,URINE NEGATIVE (Negative); LEUKOCYTE ESTERASE,URINE NEGATIVE (Negative); NITRITE,URINE NEGATIVE (Negative); OCCULT BLOOD,URINE TRACE-INTACT (Negative); PH,URINE 6.5 (5.0-8.0); PROTEIN,URINE NEGATIVE (Negative); UROBILINOGEN,URINE 0.2 (0.2-1.0)
[2024-05-14 23:45] LABS: BACTERIA,URINE NOT SEEN /hpf (FEW); EPITHELIAL CELLS,URINE 0-5 /hpf (0-5); MUCUS,URINE NOT SEEN /hpf (FEW); RBC,URINE 0-5 /hpf (0-5); WBC,URINE 0-5 /hpf (0-5)
[2024-05-15] MEDS: Magnesium Oxide 400 MG Tab PO ONE (00:45)
[2024-05-15] MEDS: Famotidine 20 MG Tab PO ONE (01:07)
[2024-05-15] MEDS: Alum Hydrox/Mag Hydrox/Simeth 30 ML, Lidocaine 2% 15 ML PO ONE (01:10)
[2024-05-15 01:50] VITALS: BP 128/98; PULSE 103
== END 2024-05-15 01:51 | disposition home or self-care (01) ==
LOC: JD.ED 21:12
DX: R10.10 Upper abdominal pain, unspecified (principal); R00.2 Palpitations; E87.1 Hypo-osmolality and hyponatremia; I10 Essential (primary) hypertension; E78.00 Pure hypercholesterolemia, unspecified; E03.9 Hypothyroidism, unspecified; Z90.49 Acquired absence of other specified parts of digestive tract; Z79.890 Hormone replacement therapy; Z79.899 Other long term (current) drug therapy; Z91.048 Other nonmedicinal substance allergy status; Z88.1 Allergy status to other antibiotic agents; Z88.2 Allergy status to sulfonamides; Z88.7 Allergy status to serum and vaccine
CPT/HCPCS: 0241U; 36415; 71275; 72191; 74175; 80053; 81001; 82272; 83605; 83690; 83735; 83880; 84439; 84443; 84484; 85025; 85610; 85730; 86850; 86900; 86901; 87040; 93005; 96360; 96361; 99285; A9270; J3490; J7120; Q9967; 93010; 99284

== ENCOUNTER 2024-07-26 16:25 | Emergency (ER) | payer MEDICARE, OTHER ==
[2024-07-26 16:53] VITALS: PULSE 125
[2024-07-26 17:51] LABS: BASOPHILS PERCENT AUTO 0.1 % (0.0-1.0); EOSINOPHILS PERCENT AUTO 0.4 % (0.0-6.0); HEMATOCRIT 30.8 % (37.0-47.0); HEMOGLOBIN 9.9 gm/dl (12.0-16.0); IMMATURE GRAN ABSOLUTE AUTO 0.02 K/mm3 (0.00-0.05); IMMATURE GRAN PERCENT AUTO 0.3 % (0.0-0.4); LYMPHOCYTES ABSOLUTE AUTO 1.3 K/mm3 (1.0-4.8); LYMPHOCYTES PERCENT AUTO 17.4 % (24.0-44.0); MEAN CORPUSCULAR HEMOGLOBIN 26.1 pg (28.0-32.0); MEAN CORPUSCULAR HGB CONC 32.1 g/dl (32.0-36.0); MEAN CORPUSCULAR VOLUME 81.1 fl (83.0-99.0); MEAN PLATELET VOLUME 9.9 fl (9.4-12.3); MONOCYTES ABSOLUTE AUTO 0.7 K/mm3 (0.0-0.8); MONOCYTES PERCENT AUTO 9.8 % (0.0-8.0); NEUTROPHILS ABSOLUTE AUTO 5.2 K/mm3 (1.8-7.7); PLATELET COUNT,PLT 212 K/mm3 (150-400); WHITE BLOOD CELL COUNT,WBC 7.26 K/mm3 (3.9-11.3)
[2024-07-26 18:13] LABS: INR 1.07; PROTHROMBIN TIME 11.3 SECONDS (9.7-12.0)
[2024-07-26 18:15] LABS: PTT,PARTIAL THROMBOPLSTIN TIME 33.5 SECONDS (21.7-31.4)
[2024-07-26 18:33] LABS: A/G RATIO 0.9 (1-2); ALBUMIN 3.4 g/dl (3.4-5.0); ANION GAP 10.7 (5-15); BILIRUBIN TOTAL 0.3 mg/dL (0.2-1.0); C-REACTIVE PROTEIN 0.3 mg/dL (<0.30); CALCIUM 9.1 mg/dL (8.5-10.1); CREATININE 1.4 mg/dL (0.55-1.02); EST CRCL DRUG DOSING (CG) 36.88 mL/min; MAGNESIUM 1.5 mg/dL (1.8-2.4); POTASSIUM,K 4.7 mEq/L (3.5-5.1); PROTEIN TOTAL,TP 7.2 g/dl (6.4-8.2)
[2024-07-26] MEDS: Lidocaine 2% 11 ML Jelly Filled Syringe MUCMEM ONE (18:57)
[2024-07-26 19:02] VITALS: BP 115/100
== END 2024-07-26 20:04 | disposition home or self-care (01) ==
LOC: JD.ED 16:25
DX: K62.5 Hemorrhage of anus and rectum (principal); E87.1 Hypo-osmolality and hyponatremia; E83.42 Hypomagnesemia; D64.9 Anemia, unspecified; E78.00 Pure hypercholesterolemia, unspecified; I48.91 Unspecified atrial fibrillation; I10 Essential (primary) hypertension; Z90.49 Acquired absence of other specified parts of digestive tract; Z87.891 Personal history of nicotine dependence; Z79.899 Other long term (current) drug therapy; Z88.1 Allergy status to other antibiotic agents; Z88.2 Allergy status to sulfonamides; Z91.048 Other nonmedicinal substance allergy status
CPT/HCPCS: 36415; 80053; 83735; 83880; 84484; 85025; 85610; 85730; 86140; 86850; 86900; 86901; 93005; 99284; A9270